=== PATIENT | male | born 1935 | race Caucasian/White ===

== ENCOUNTER → 2017-01-11 | Outpatient (CLI) | payer OTHER ==
[~2017-01-11] MED LIST: ACET325T96 PO; APR25 PO; ASCO500T3 PO; CARV25TA2 PO; CHOL1000 PO; CPR500 PO; CYAN10005 PO; FERR325T5 PO; FURO-85 PO; GLC/500 PO; INSDGI SC; ISOS30TA3 PO; LACTCAP3 PO; LACTTAB7 PO; LEVO50TA6 PO; LISI40TA PO; MAGN400T5 PO; MECL1TAB42 PO; MECL25TA2 PO; NITR0.4S UT; POTA-327 PO; POTA10CA28 PO; RIVA1TAB PO; ROSU40TA PO
[2017-01-11 13:17] LABS: BASO % 0.5 %; BASO ABS # 0.02 K/uL (0-0.2); COMPLETE YES; EOS % 4.6 %; HEMATOCRIT 35.1 % (42-52); IG% 0.2 %; LYMPH ABS # 0.95 K/uL (1.2-3.4); MEAN CELL VOLUME 89.1 fL (80-100); MEAN CORPUSCULAR HEMOGLOBIN 28.2 pg (25-34); MEAN CORPUSCULAR HGB CONC 31.6 g/dl (32-36); MEAN PLATELET VOLUME 10.2 fL (7.4-10.4); MONO % 9.2 %; NEUT % 62.5 %; PLATELET COUNT 235 K/uL (130-400); RED BLOOD COUNT 3.94 M/uL (4.7-6.1); WHITE BLOOD COUNT 4.13 K/uL (4.8-10.8)
[2017-01-11 13:39] LABS: BLOOD UREA NITROGEN 25 mg/dl (7-18); BUN/CREATININE RATIO 24.8 (10-20); CALCIUM 9.1 mg/dl (8.5-10.1); CARBON DIOXIDE 28 mmol/L (21-32); CHLORIDE 108 mmol/L (98-107); CHOLESTEROL 106 mg/dl (0-200); GLUCOSE 96 mg/dl (70-99); POTASSIUM 4.3 mmol/L (3.5-5.1); SODIUM 140 mmol/L (136-145); TRIGLYCERIDES 81 mg/dl (0-150); VERY LOW DENSITY LIPOPROT CALC 16 mg/dl
[2017-01-11 13:50] LABS: ESTIMATED AVERAGE GLUCOSE 114 mg/dl; HA1C FLAG Normal (Normal)
[2017-01-11 13:53] LABS: CHOLESTEROL/HDL RATIO 3.5; FERRITIN 34.1 ng/ml (8.0-388.0); HDL CHOLESTEROL 30 mg/dl; LDL CHOLESTEROL CALCULATED 60 mg/dl
== END | disposition home or self-care (01) ==
LOC: C.LABMFLN 08:22
PROVIDERS: ATTEND Internal Medicine
DX: E11.9 Type 2 diabetes mellitus without complications (principal); E53.8 Deficiency of other specified B group vitamins; E03.9 Hypothyroidism, unspecified; I25.10 Atherosclerotic heart disease of native coronary artery without angina pectoris; D64.9 Anemia, unspecified

== ENCOUNTER → 2017-02-21 | Outpatient (CLI) | payer OTHER ==
--- NOTE | 2017-02-21 11:13 | DIAGNOSTIC IMAGING REPORT ---
ABDOMEN ULTRASOUND FOR HERNIA CLINICAL HISTORY: K40.90 Left inguinal hernia. COMPARISON STUDY: None. FINDINGS: There is a small fat-containing reducible left inguinal hernia. No masses or fluid collections identified. IMPRESSION: There is a small fat-containing reducible left inguinal hernia. Electronically signed by: Fortino Sky M.D. 02/21/2017 11:11 AM Dictated Date/Time: 02/21/2017 11:11 AM
--- NOTE | 2017-02-21 11:20 | DIAGNOSTIC IMAGING REPORT ---
SCROTAL ULTRASOUND CLINICAL HISTORY: Left testicular swelling. COMPARISON STUDY: None. TECHNIQUE: Grayscale and color and duplex Doppler sonography of the scrotum was performed. FINDINGS: The right testis measures 3.3 x 1.4 x 2.7 cm and the left measures 4.3 x 3.1 x 3.3 cm. There is no testicular mass. There is no evidence of testicular torsion. The left epididymis is enlarged, heterogeneous and hypervascular when compared to the right. There is increased flow within the left testis was compared to the right. The right epididymis appears enlarged and heterogeneous but is not hypervascular. A left-sided varicocele is noted. There is a moderate left hydrocele. IMPRESSION: 1. Findings suggestive of left-sided epididymoorchitis. 2. No evidence of testicular torsion. No testicular mass. 3. Left-sided varicocele and moderate sized left hydrocele. Electronically signed by: Chang Lester M.D. 02/21/2017 11:19 AM Dictated Date/Time: 02/21/2017 11:15 AM
== END | disposition home or self-care (01) ==
LOC: C.ULTR 10:19
PROVIDERS: ATTEND Internal Medicine
DX: K40.90 Unilateral inguinal hernia, without obstruction or gangrene, not specified as recurrent (principal); I86.1 Scrotal varices; N43.3 Hydrocele, unspecified

== ENCOUNTER → 2017-05-23 | Outpatient (CLI) | payer OTHER | END | disposition home or self-care (01) | LOC: C.LABMFLN 12:38 | PROVIDERS: ATTEND Internal Medicine | DX: D64.9 Anemia, unspecified (principal) ==

== ENCOUNTER 2017-06-12 17:16 | Emergency (ER) | payer OTHER ==
[~2017-06-12] VITALS: Ht 172.7 cm; Wt 80.0 kg
[~2017-06-12 17:16] MED LIST changes: -ACET325T96 PO; -ASCO500T3 PO; -CARV25TA2 PO; -CHOL1000 PO; -CYAN10005 PO; -FERR325T5 PO; -FURO-85 PO; -GLC/500 PO; -ISOS30TA3 PO; -LACTTAB7 PO; -LEVO50TA6 PO; -LISI40TA PO; -MAGN400T5 PO; -MECL1TAB42 PO; -NITR0.4S UT; -POTA10CA28 PO; -RIVA1TAB PO; -ROSU40TA PO
[2017-06-12 17:45] VITALS: BP 99/55; PULSE 66; TEMP 36.9; O2SAT 91; Ht 172.7 cm; Wt 80.0 kg
--- NOTE | 2017-06-12 18:21 | EMERGENCY ROOM VISIT NOTE ---
History First contact with patient: 17:49 Chief Complaint: BITE Stated Complaint: GOT BIT BY A WHITE WOOLY WORM History of Present Illness The patient is a 82 year old male who presents to the Emergency Room with complaints of residual discomfort in the lower back/upper buttock region that radiates around to the left hip and groin. The patient reports that he is certain that he was bitten by a white worm on Monday as he was leaning back against a bench and felt something sharp and stinging in his lower back. He then noticed a white caterpillar that fell off of his pants. The patient reports that over the past 24 hours, the pain is extending around the hip region. He denies any significant history of lower back pain or hip pain. He does report a history of Lyme disease approximately 3-4 years ago. At the current time, he rates his discomfort a 3 out of 10, and reports that it initially felt like a stinging sensation. The patient has not taken any analgesics or other OTC medications for his symptoms. 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 (3) CHF (congestive heart failure) (4) Cholecystitis (5) CORON ATHEROSCLER NOS TYPE VESSEL, [place] OR GRAFT (6) DIAB DEJA WO COMPL, TYPE II OR UNSPEC TYPE, NOT UNCNTRLD (7) HYPERLIPIDEMIA NEC/NOS (8) HYPERTENSION NOS (9) Hypoxia (10) Lyme disease (11) SIRS (systemic inflammatory response syndrome) (12) UTI (urinary tract infection) (13) UTI (urinary tract infection) (14) Weakness (15) Weakness Family History Diabetes mellitus FHx: heart disease Hypertension Social History Smoking Status: Former Smoker Alcohol Use: none Drug Use: none Marital Status: Housing Status: lives with significant other Occupation Status: retired Current/Historical Medications Scheduled Ascorbic Acid (Vitamin C), 500 MG PO BID Carvedilol (Coreg), 25 MG PO BID Cholecalciferol (Vitamin D3), 1,000 INTER.UNIT PO DAILY Ciprofloxacin (Ciprofloxacin HCl), 500 MG PO BID Ciprofloxacin (Ciprofloxacin HCl), 500 MG PO BID Cyanocobalamin (Vitamin B-12), 1,000 MCG PO BID Ferrous Sulfate (Ferrous Sulfate), 325 MG PO BID Furosemide (Lasix), 20 MG PO DAILY Hydralazine Hcl (Apresoline), 25 MG PO TID Insulin Glargine (Lantus), 14 UNITS SC HS Isosorbide Mononitrate Ext Rel (Imdur Ext Rel), 30 MG PO QAM Lactobacillus (Acidophilus), 2 CAP PO BID Lisinopril (Zestril), 40 MG PO DAILY Magnesium Oxide (Mag-Ox), 400 MG PO BID Meclizine Hcl (Antivert), 25 MG PO BID Potassium Ext Rel (Klor-Con), 10 MEQ PO DAILY Rivaroxaban (Xarelto), 10 MG PO DAILY Rosuvastatin Calcium (Crestor), 40 MG PO DAILY Scheduled PRN Acetaminophen Tab (Tylenol), 1-2 TAB PO Q4 PRN for Pain or Fever Nitroglycerin (Nitrostat), 0.4 MG UT PRN PRN for Chest Pain Physical Exam Vital Signs Date Time Temp Pulse Resp B/P (MAP) Pulse Ox O2 Delivery O2 Flow Rate FiO2 06/12/17 17:45 36.9 66 18 99/55 91 Room Air Physical Exam CONSTITUTIONAL: Healthy and well nourished. HEENT: Normocephalic, atraumatic. Pupils equal, round and reactive. NECK: Full active range of motion without discomfort. RESPIRATORY: Clear to auscultation bilaterally with no wheezing, crackles, rhonchi or stridor. CARDIOVASCULAR: Regular rate and rhythm with no murmurs, rubs or gallops. GASTROINTESTINAL: Bowel sounds present in all quadrants. MUSCULOSKELETAL: Full range of motion of all joints without discomfort. Patient has no tenderness to palpation through the central lumbar spine, SI joints or sciatic notches. Negative logroll. Negative sitting straight leg raise. INTEGUMENTARY: Examination does not show any significant erythematous rash over the lower back or buttock region. He also has no dermatomal rash along the left buttock and hip region. Wrist no soft tissue edema or erythema. NEUROLOGIC: No focal neurologic deficits noted. Medical Decision & Procedures ED Course Patient history and physical exam were performed. Nurse's notes were reviewed. Vital signs were reviewed and were normal. The patient's clinical exam does not show any significant rash at this time. Given that the patient reports that he did brush a white caterpillar off of his back, I suspect that the patient did have contact with a white [place] month caterpillar. I did pronounce an information sheet for the patient with a photo that the patient reports toxic exactly like the worm that he brushed off of his pants. The patient was advised that he may be having persistent reaction to the caterpillar sting. He was encouraged to intermittently apply ice to the area of discomfort. He was encouraged to follow-up with his PCP within the next few days for recheck. He is welcome to return to the emergency department for any progressively worsening pain or developing fever. I also told the patient to watch for any developing red rash, and if this develops, his diagnosis is herpes zoster. The patient was happy with plan of care, voiced understanding of all discharge instructions, and denied any significant discomfort at the time of discharge. Medical Decision Medication Reconcilliation Current Medication List: was personally reviewed by me Blood Pressure Screening Patient's blood pressure: Normal blood pressure Impression Primary Impression: Reaction to insect bite Departure Information Dispostion Home / Self-Care Forms HOME CARE DOCUMENTATION FORM, IMPORTANT VISIT INFORMATION Patient Instructions My [facility] Additional Instructions Try applying an ice pack to lower back/buttocks. The reaction that you're having is likely from the chemical from the [place] caterpillar hairs. Suggest follow-up with your family doctor in a few days for reevaluation. If you start to develop a rash around your left side/hip region, it is likely shingles.
[2017-07-14] MEDS ORDERED: ISOS30TA3 PO (11:21)
[2017-07-14] MEDS ORDERED: CARV25TA2 PO (11:21)
[2017-07-14] MEDS ORDERED: FURO-85 PO (11:21)
[2017-07-14] MEDS ORDERED: MAGN400T5 PO (11:23)
[2017-07-14] MEDS ORDERED: NITR0.4S UT (11:23)
[2017-07-14] MEDS ORDERED: LISI40TA PO (18:09)
[2017-07-14] MEDS ORDERED: ROSU40TA PO (18:09)
[2017-07-14] MEDS ORDERED: CYAN10005 PO (18:24)
[2017-07-14] MEDS ORDERED: CHOL1000 PO (18:24)
== END 2017-06-12 18:31 | disposition home or self-care (01) ==
LOC: C.EDB 17:17 → C.EDD 18:31
DX: S30.860A Insect bite (nonvenomous) of lower back and pelvis, initial encounter (principal); W57.XXXA Bitten or stung by nonvenomous insect and other nonvenomous arthropods, initial encounter; I50.9 Heart failure, unspecified; E11.9 Type 2 diabetes mellitus without complications; E78.5 Hyperlipidemia, unspecified; I10 Essential (primary) hypertension; R09.02 Hypoxemia; Z83.3 Family history of diabetes mellitus; Z82.49 Family history of ischemic heart disease and other diseases of the circulatory system; Z87.891 Personal history of nicotine dependence

== ENCOUNTER → 2017-06-14 | Outpatient (CLI) | payer OTHER ==
[~2017-06-14] MED LIST changes: +ACET325T96 PO; -APR25 PO; +ASCO500T3 PO; +CARV25TA2 PO; +CHOL1000 PO; -CPR500 PO; +CYAN10005 PO; +FERR325T5 PO; +FURO-85 PO; +GLC/500 PO; +ISOS30TA3 PO; -LACTCAP3 PO; +LACTTAB7 PO; +LEVO50TA6 PO; +LISI40TA PO; +MAGN400T5 PO; +MECL1TAB42 PO; +NITR0.4S UT; +POTA10CA28 PO; +RIVA1TAB PO; +ROSU40TA PO
[2017-06-14 17:33] LABS: URINE APPEARANCE CLOUDY (CLEAR); URINE BILIRUBIN NEG (NEG); URINE COLOR YELLOW; URINE NITRITE POS (NEG); URINE PH 6.5 (4.5-7.5); URINE SPECIFIC GRAVITY 1.021 (1.000-1.030); UROBILINOGEN NEG (NEG); ZZUR CULT IF INDIC CLEAN CATCH YES
[2017-06-14 17:39] LABS: MANUAL MICROSCOPIC REQUIRED? NO; REVIEW REQ? NO
== END | disposition home or self-care (01) ==
LOC: C.LAB1850 16:58
PROVIDERS: ATTEND Nurse Practitioner Adult Health
DX: N50.89 Other specified disorders of the male genital organs (principal)

== ENCOUNTER → 2017-06-16 | Outpatient (CLI) | payer OTHER ==
--- NOTE | 2017-06-16 09:17 | DIAGNOSTIC IMAGING REPORT ---
(TESTICULAR) SCROTUM-CONT CLINICAL HISTORY: 82 years-old Male presenting with N50.89 Testicular swelling. TECHNIQUE: Real-time grayscale and color and spectral Doppler ultrasound imaging of the scrotum was performed. COMPARISON: 02/21/2017. FINDINGS: Right testis: Normal echogenicity and size, measuring 3.5 x 1.4 x 2.2 cm. Essentially normal color Doppler flow. Preserved arterial and venous waveforms in the testicular parenchyma. Epididymal head is heterogeneously hypoechoic and enlarged. A small subcentimeter anechoic cyst is noted in the epididymal head, either epididymal head cyst or spermatocele. Hyperemia of the epididymis may also be present. No varicocele. No hydrocele. Left testis: The testis is normal in echogenicity and size, measuring 3.9 x 3.1 x 2.9 cm. However, a 0.7 x 1.2 x 1.2 cm anechoic collection is noted along the periphery of the testis, although not clearly within the parenchyma. Hyperemia of the testis on color Doppler. Preserved arterial and venous waveforms in the testicular parenchyma. Marked enlargement of the epididymis with hyperemia. No varicocele. Moderate hydrocele, which may be septated. Bilaterally symmetric perfusion of the testes. IMPRESSION: 1. No evidence of testicular torsion. 2. Edematous and hyperemic epididymides bilaterally with a hyperemic left testis. These findings are consistent with epididymitis-orchitis. 3. The anechoic collection along the periphery of the left testis is favored to represent a paratesticular cyst rather than an intraparenchymal collection. However, short-term follow-up ultrasound of the scrotum is recommended to confirm resolution. 4. Moderate left hydrocele, which may be septated. Electronically signed by: Collin Villa M.D. 06/16/2017 9:16 AM Dictated Date/Time: 06/16/2017 9:08 AM
== END | disposition home or self-care (01) ==
LOC: C.ULTR 08:16
PROVIDERS: ATTEND Nurse Practitioner Adult Health
DX: N50.89 Other specified disorders of the male genital organs (principal)

== ENCOUNTER → 2017-06-21 | Outpatient (CLI) | payer OTHER ==
[2017-06-21 17:37] LABS: BASO % 0.1 %; BASO ABS # 0.01 K/uL (0-0.2); COMPLETE YES; EOS % 2.1 %; HEMATOCRIT 29.8 % (42-52); IG% 0.4 %; LYMPH % 14.5 %; LYMPH ABS # 1.03 K/uL (1.2-3.4); MEAN CELL VOLUME 86.6 fL (80-100); MEAN CORPUSCULAR HGB CONC 31.2 g/dl (32-36); MEAN PLATELET VOLUME 9.3 fL (7.4-10.4); MONO % 8.2 %; NEUT % 74.7 %; PLATELET COUNT 278 K/uL (130-400); RED BLOOD COUNT 3.44 M/uL (4.7-6.1); WHITE BLOOD COUNT 7.08 K/uL (4.8-10.8)
[2017-06-21 17:59] LABS: BLOOD UREA NITROGEN 38 mg/dl (7-18); BUN/CREATININE RATIO 25.6 (10-20); CALCIUM 8.9 mg/dl (8.5-10.1); CARBON DIOXIDE 24 mmol/L (21-32); CHLORIDE 106 mmol/L (98-107); GLUCOSE 103 mg/dl (70-99); SODIUM 136 mmol/L (136-145)
== END | disposition home or self-care (01) ==
LOC: C.LAB1850 16:50
PROVIDERS: ATTEND Nurse Practitioner Adult Health
DX: I10 Essential (primary) hypertension (principal); N39.0 Urinary tract infection, site not specified

== ENCOUNTER → 2017-06-30 | Outpatient (CLI) | payer OTHER ==
[2017-06-30 12:14] LABS: BASO % 0.2 %; BASO ABS # 0.01 K/uL (0-0.2); COMPLETE YES; EOS % 3.3 %; HEMATOCRIT 29.9 % (42-52); IG% 0.2 %; LYMPH ABS # 0.81 K/uL (1.2-3.4); MEAN CELL VOLUME 87.7 fL (80-100); MEAN CORPUSCULAR HEMOGLOBIN 26.7 pg (25-34); MEAN CORPUSCULAR HGB CONC 30.4 g/dl (32-36); MEAN PLATELET VOLUME 9.7 fL (7.4-10.4); NEUT % 73.3 %; PLATELET COUNT 326 K/uL (130-400); RED BLOOD COUNT 3.41 M/uL (4.7-6.1); WHITE BLOOD COUNT 5.39 K/uL (4.8-10.8)
[2017-06-30 12:22] LABS: ALT/SGPT 25 U/L (12-78); AST/SGOT 27 U/L (15-37); BLOOD UREA NITROGEN 28 mg/dl (7-18); BUN/CREATININE RATIO 30.4 (10-20); CARBON DIOXIDE 26 mmol/L (21-32); CHLORIDE 105 mmol/L (98-107); CHOLESTEROL 90 mg/dl (0-200); CREATININE 0.93 mg/dl (0.60-1.40); GLUCOSE 86 mg/dl (70-99); POTASSIUM 4.5 mmol/L (3.5-5.1); SODIUM 136 mmol/L (136-145)
[2017-06-30 12:32] LABS: CHOLESTEROL/HDL RATIO 3.5; HDL CHOLESTEROL 26 mg/dl; LDL CHOLESTEROL CALCULATED 51 mg/dl; TRIGLYCERIDES 67 mg/dl (0-150); VERY LOW DENSITY LIPOPROT CALC 13 mg/dl
[2017-06-30 13:06] LABS: ESTIMATED AVERAGE GLUCOSE 140 mg/dl; HA1C FLAG Normal (Normal)
[2017-06-30 14:18] LABS: URINE APPEARANCE CLEAR (CLEAR); URINE BILIRUBIN NEG (NEG); URINE COLOR YELLOW; URINE EPITHELIAL CELL AUTO 20-30 /lpf (0-5); URINE NITRITE NEG (NEG); URINE PH 6.5 (4.5-7.5); URINE SPECIFIC GRAVITY 1.021 (1.000-1.030); UROBILINOGEN NEG (NEG); ZZUR CULT IF INDIC CLEAN CATCH NO
[2017-06-30 14:21] LABS: MANUAL MICROSCOPIC REQUIRED? NO; REVIEW REQ? NO
[2017-06-30 14:44] LABS: RATIO 116.1 mcg/mg (0-30.0)
== END | disposition home or self-care (01) ==
LOC: C.LAB1850 10:05
PROVIDERS: ATTEND Nurse Practitioner Adult Health
DX: N39.0 Urinary tract infection, site not specified (principal); N50.89 Other specified disorders of the male genital organs; E11.9 Type 2 diabetes mellitus without complications; E78.5 Hyperlipidemia, unspecified; E06.3 Autoimmune thyroiditis; I10 Essential (primary) hypertension; R79.89 Other specified abnormal findings of blood chemistry; D64.9 Anemia, unspecified

== ENCOUNTER → 2017-07-10 | Outpatient (CLI) | payer OTHER | END | disposition home or self-care (01) | LOC: C.LABSPEC 13:25 | PROVIDERS: ATTEND Internal Medicine | DX: Z87.19 Personal history of other diseases of the digestive system (principal) ==

== ENCOUNTER 2017-07-14 18:54 | Inpatient (IN) | payer OTHER ==
[~2017-07-14] VITALS: Ht 172.7 cm; Wt 72.8 kg
[2017-07-14 00:35] VITALS: BP 117/72; PULSE 62; TEMP 36.4; O2SAT 97; BMI 25.6
[~2017-07-14 18:54] MED LIST changes: -ACET325T96 PO; -ASCO500T3 PO; -FERR325T5 PO; -GLC/500 PO; -LACTTAB7 PO; -LEVO50TA6 PO; -MECL1TAB42 PO; -POTA10CA28 PO; -RIVA1TAB PO
[2017-07-14] MEDS ORDERED: LEVO50TA6 PO (18:56)
[2017-07-14] MEDS ORDERED: GLC/500 PO (18:58)
--- NOTE | 2017-07-14 20:16 | EMERGENCY ROOM VISIT NOTE ---
History Report prepared by Marielena: Rich Sheppard Under the Supervision of: Dr. Ramirez Sampson D.O. First contact with patient: 19:47 Chief Complaint: ABNORMAL LABS Stated Complaint: LOW BLOOD History of Present Illness The patient is a 82 year old male who presents to the Emergency Room with complaints of constant abnormal lab results that occurred prior to arrival. The patient states that he has checked his blood three times in the last week and each time his blood count has been low. He states that he experiences shortness of breath and dizziness whenever he walks and lays flat. He reports that his blood level was down to 8 after his lab results came back today. The patient states that his PCP, Dr. Mcmahon told him to report to the ED. He reports that he had a blood transfusion when he had Lyme's disease 15 years ago. The patient states that he has a history of heart disease, diabetes, SC, and heart surgery. He reports that his legs are not more swollen than usual. The patient admits that he was on blood thinners, but was taken off of them 5 or 6 days ago. He denies a previous rectal exam, abdominal pain, nausea, and vomiting. 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 A total of 10 systems reviewed and were otherwise negative. 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 (4) CHF (congestive heart failure) (5) Cholecystitis (6) Congestive heart failure with reduced left ventricular function, NYHA class 3 (7) CORON ATHEROSCLER NOS TYPE VESSEL, [place] OR GRAFT (8) DIAB DEJA WO COMPL, TYPE II OR UNSPEC TYPE, NOT UNCNTRLD (9) HYPERLIPIDEMIA NEC/NOS (10) HYPERTENSION NOS (11) Hypoxia (12) Lyme disease (13) Pulmonary edema with congestive heart failure with reduced left ventricular function (14) SIRS (systemic inflammatory response syndrome) (15) UTI (urinary tract infection) (16) UTI (urinary tract infection) (17) Weakness (18) Weakness Family History Diabetes mellitus FHx: heart disease Hypertension Social History Smoking Status: Former Smoker Alcohol Use: none Drug Use: none Marital Status: Housing Status: lives with significant other Occupation Status: retired Current/Historical Medications Scheduled Ascorbic Acid (Vitamin C), 500 MG PO BID Carvedilol (Coreg), 25 MG PO BID Cholecalciferol (Vitamin D3), 1,000 INTER.UNIT PO DAILY Cyanocobalamin (Vitamin B-12), 1,000 MCG PO BID Ferrous Sulfate (Ferrous Sulfate), 325 MG PO BID Furosemide (Lasix), 20 MG PO DAILY Insulin Glargine (Lantus), 14 UNITS SC QPM Isosorbide Mononitrate Ext Rel (Imdur Ext Rel), 30 MG PO QAM Lactobacillus (Acidophilus), 1 TAB PO DAILY Levothyroxine Sodium (Levothyroxine Sodium), 50 MCG PO DAILY Lisinopril (Zestril), 40 MG PO DAILY Magnesium Oxide (Mag-Ox), 400 MG PO BID Meclizine Hcl (Meclizine Hcl), 1 TAB PO BID Metformin Hcl (Glucophage), 500 MG PO BIDM Potassium Chloride (Micro-K Ext Rel), 10 MEQ PO DAILY Rivaroxaban (Xarelto), 10 MG PO DAILY Rosuvastatin Calcium (Crestor), 40 MG PO DAILY Scheduled PRN Acetaminophen Tab (Tylenol), 1-2 TAB PO Q4 PRN for Pain or Fever Nitroglycerin (Nitrostat), 0.4 MG UT PRN PRN for Chest Pain Allergies Coded Allergies: Simvastatin (Verified Allergy, Unknown, UNKNOWN, 06/12/17) Atorvastatin (Unverified Adverse Reaction, Intermediate, MYALGIA, 06/12/17) Physical Exam Vital Signs Date Time Temp Pulse Resp B/P (MAP) Pulse Ox O2 Delivery O2 Flow Rate FiO2 07/14/17 20:36 60 07/14/17 18:59 36.9 64 18 106/62 96 Room Air Physical Exam GENERAL: Patient is awake, alert, and in no acute distress. Patient is resting comfortably and showing no signs of anxiety EYES: The conjunctivae are clear. The pupils are round and reactive. EARS, NOSE, MOUTH AND THROAT: The nose is without any evidence of any deformity. Mucous membranes are moist tongue is midline NECK: The neck is nontender and supple. RESPIRATORY: Lungs diminish in both watson, rales noted at both watson. Mild conversational dyspnea. CARDIOVASCULAR: Regular rate and rhythm noted to oscillation. Systolic murmur was suggested. GASTROINTESTINAL: The abdomen is soft. Bowel sounds are present in all quadrants. Abdomen is moderately distended with no tenderness, guarding or rigidity. PELVIS: The Pelvis is stable. No tenderness to palpation is noted. BACK: No midline tenderness or or step-off noted range of motion in flexion extension as well as rotation no signs of muscle spasm noted MUSCULOSKELETAL/EXTREMITIES: There is no evidence of gross deformity full range of motion is noted in the hips and shoulders SKIN: There is no obvious evidence of any rash. There are no petechiae, pallor or cyanosis noted. Pedal edema bilaterally. NEUROLOGIC: Patient is awake alert and oriented x3 strength is symmetric patellar reflexes are 2+ bilaterally Medical Decision & Procedures ER Provider Diagnostic Interpretation: X-ray results as stated below per interpretation by me and the radiologist. CHEST ONE VIEW PORTABLE HISTORY: 82 years-old Male ABDOMINAL PAIN/GI acute generalized abdominal pain. COMPARISON: Chest radiograph 04/22/2016, chest radiograph 07/30/2015, CTA 02/04/2014 TECHNIQUE: Portable upright AP view of the chest FINDINGS: Cardiac silhouette is moderately enlarged. Prior median sternotomy. Left pectoral pacer is noted with leads intact. There is no pneumothorax. Chronic interstitial opacities are again noted with pulmonary vascular congestion. There are hazy perihilar and bibasilar opacities present with a small right pleural effusion. The bones are grossly intact. IMPRESSION: 1. There is cardiomegaly with chronic background interstitial opacities and suggested mild superimposed pulmonary edema. 2. Bibasilar opacities suggest atelectasis with small right pleural effusion. The above report was generated using voice recognition software. It may contain grammatical, syntax or spelling errors. Electronically signed by: Ulysses Mulligan M.D. 07/14/2017 8:54 PM Dictated Date/Time: 07/14/2017 8:51 PM Laboratory Results 07/14/17 20:05 Red Blood Count 3.08, Mean Corpuscular Volume 86.0, Mean Corpuscular Hemoglobin 26.3, Mean Corpuscular Hemoglobin Concent 30.6, Mean Platelet Volume 9.7, Neutrophils (%) (Auto) 72.6, Lymphocytes (%) (Auto) 14.8, Monocytes (%) (Auto) 10.1, Eosinophils (%) (Auto) 2.1, Basophils (%) (Auto) 0.2, Neutrophils # (Auto ) 4.24, Lymphocytes # (Auto) 0.86, Monocytes # (Auto) 0.59, Eosinophils # (Auto ) 0.12, Basophils # (Auto) 0.01 07/14/17 20:05 Test 07/14/17 20:05 White Blood Count 5.83 K/uL (4.8-10.8) Red Blood Count 3.08 M/uL (4.7-6.1) Hemoglobin 8.1 g/dL (14.0-18.0) Hematocrit 26.5 % (42-52) Mean Corpuscular Volume 86.0 fL (80-100) Mean Corpuscular Hemoglobin 26.3 pg (25-34) Mean Corpuscular Hemoglobin Concent 30.6 g/dl (32-36) Platelet Count 233 K/uL (130-400) Mean Platelet Volume 9.7 fL (7.4-10.4) Neutrophils (%) (Auto) 72.6 % Lymphocytes (%) (Auto) 14.8 % Monocytes (%) (Auto) 10.1 % Eosinophils (%) (Auto) 2.1 % Basophils (%) (Auto) 0.2 % Neutrophils # (Auto) 4.24 K/uL (1.4-6.5) Lymphocytes # (Auto) 0.86 K/uL (1.2-3.4) Monocytes # (Auto) 0.59 K/uL (0.11-0.59) Eosinophils # (Auto) 0.12 K/uL (0-0.5) Basophils # (Auto) 0.01 K/uL (0-0.2) RDW Standard Deviation 52.8 fL (36.4-46.3) RDW Coefficient of Variation 16.8 % (11.5-14.5) Immature Granulocyte % (Auto) 0.2 % Immature Granulocyte # (Auto) 0.01 K/uL (0.00-0.02) Ovalocytes 1+ Schistocytes 1+ Absolute Reticulocyte Count 0.11 10^6/uL (0.02-0.10) Percent Reticulocyte Count 3.6 % (0.5-2.0) Immature Reticulocyte Fraction 24.8 % (2.3-13.4) Reticulocyte Hemoglobin Content 24.6 PG (28.2-36.6) Prothrombin Time 12.5 SECONDS (9.0-12.0) Prothromb Time International Ratio 1.2 (0.9-1.1) Activated Partial Thromboplast Time 26.6 SECONDS (21.0-31.0) Partial Thromboplastin Ratio 1.0 Anion Gap 7.0 mmol/L (3-11) Est Creatinine Clear Calc Drug Dose 49.2 ml/min Estimated GFR () 71.6 Estimated GFR (Non- 61.8 BUN/Creatinine Ratio 31.5 (10-20) Calcium Level 8.8 mg/dl (8.5-10.1) Total Bilirubin 1.0 mg/dl (0.2-1) Direct Bilirubin 0.3 mg/dl (0-0.2) Aspartate Amino Transf (AST/SGOT) 28 U/L (15-37) Alanine Aminotransferase (ALT/SGPT) 25 U/L (12-78) Alkaline Phosphatase 101 U/L (45-117) Total Creatine Kinase 153 U/L (39-308) Creatine Kinase MB 3.6 ng/ml (0.5-3.6) Creatine Kinase MB Ratio 2.4 (0-3.0) Troponin I 0.016 ng/ml (0-0.045) Pro-B-Type Natriuretic Peptide 2332 pg/ml (0-1800) Total Protein 7.3 gm/dl (6.4-8.2) Albumin 3.5 gm/dl (3.4-5.0) Lipase 97 U/L (73-393) Lyme Disease IgG Antibody POS (NEG) Laboratory results per my review. Medications Administered Medications (Trade) Dose Ordered Sig/Nicki Route Start Time Stop Time Status Last Admin Dose Admin Carvedilol (Coreg Tab) 25 mg BID PO 07/14/17 21:00 08/13/17 20:59 07/15/17 00:02 25 MG Cyanocobalamin (Vitamin B-12 Tab) 1,000 mcg BID PO 07/14/17 21:00 08/13/17 20:59 07/15/17 00:02 1,000 MCG Magnesium Oxide (Mag-Ox Tab) 400 mg BID PO 07/14/17 21:00 08/13/17 20:59 07/15/17 00:02 400 MG Meclizine HCl (Antivert Tab) 25 mg BID PO 07/14/17 21:00 08/13/17 20:59 07/15/17 00:03 25 MG ED Course 1947: The patient was evaluated in room B05. A complete history and physical examination were performed. 2007: I discussed the patient's case with Dr. Freeman [facility] Hospitalist. He understands the patient's condition and agrees to accept the patient. The patient will be further evaluated. Medical Decision Prior records/ancillary studies reviewed. Triage Nursing notes reviewed. Differential diagnosis: Etiologies such as diverticulosis, AVM, coagulopathy, colitis, inflammatory bowel disease, malignancy, Alma-Laura tear, esophagitis, peptic ulcer disease , variceal bleed, gastritis, epistaxis, fissure, hemorrhoids, as well as others were entertained. The patient is an 82-year-old male who presented to the emergency department for an evaluation of generalized weakness and dyspnea on exertion. The patient has had multiple lab testing done over the last few weeks with his primary care physician. It was noted that his hemoglobin continue to drop. He was sent to the emergency department today after laboratory showed a significant drop in his hemoglobin. He also had been positive stool noted in the lab. The patient's condition improved rest was supple and oxygen. I discussed his case with the on- call [facility] hospitalist group. They have agreed to evaluate the patient in emergency apartment for further management and disposition. Blood Pressure Screening Patient's blood pressure: Normal blood pressure Consults Time Called: 2007 Consulting Physician: Dr. Freeman [facility] Hospitalist Returned Call: 2007 I discussed the patient's case with Dr. Freeman [facility] Hospitalist. He understands the patient's condition and agrees to accept the patient. The patient will be further evaluated. Impression Primary Impression: Symptomatic anemia Additional Impressions: GI bleeding Dyspnea on exertion Scribe Attestation The scribe's documentation has been prepared under my direction and personally reviewed by me in its entirety. I confirm that the note above accurately reflects all work, treatment, procedures, and medical decision making performed by me. Departure Information Dispostion Being Evaluated By Hospitalist Referrals No Doctor, Assigned (PCP) Patient Instructions My [facility] Problem Qualifiers
[2017-07-14 20:21] LABS: BASO % 0.2 %; BASO ABS # 0.01 K/uL (0-0.2); EOS % 2.1 %; HEMATOCRIT 26.5 % (42-52); IG% 0.2 %; IMMATURE RETIC FRACTION 24.8 % (2.3-13.4); LYMPH % 14.8 %; LYMPH ABS # 0.86 K/uL (1.2-3.4); MEAN CORPUSCULAR HEMOGLOBIN 26.3 pg (25-34); MEAN CORPUSCULAR HGB CONC 30.6 g/dl (32-36); MEAN PLATELET VOLUME 9.7 fL (7.4-10.4); MONO % 10.1 %; NEUT % 72.6 %; PLATELET COUNT 233 K/uL (130-400); RED BLOOD COUNT 3.08 M/uL (4.7-6.1); RETHE 24.6 PG (28.2-36.6); WHITE BLOOD COUNT 5.83 K/uL (4.8-10.8)
[2017-07-14 20:33] LABS: INR 1.2 (0.9-1.1); PROTHROMBIN TIME (PATIENT) 12.5 SECONDS (9.0-12.0)
[2017-07-14 20:41] LABS: BUN/CREATININE RATIO 31.5 (10-20); CALCIUM 8.8 mg/dl (8.5-10.1); CREATININE 1.1 mg/dl (0.60-1.40); POTASSIUM 4.6 mmol/L (3.5-5.1)
[2017-07-14 20:46] LABS: CKMB/CK RATIO 2.4 (0-3.0)
[2017-07-14] MEDS ORDERED: INSDGI SC (20:47)
[2017-07-14] MEDS ORDERED: LACTTAB7 PO (20:47)
[2017-07-14] MEDS ORDERED: POTA10CA28 PO (20:47)
[2017-07-14] MEDS ORDERED: MECL1TAB42 PO (20:47)
[2017-07-14 20:53] LABS: COMPLETE YES; OVALOCYTES 1+; SCHISTOCYTES 1+
--- NOTE | 2017-07-14 20:57 | History and Physical ---
History & Physical Date & Time of Service: Jul 14, 2017 at 20:38 Chief Complaint: Low Blood Primary Care Physician: Ramirez Mcmahon M.D. History of Present Illness Source: patient, family (Son - Marcell), clinic records, hospital records Mr Murillo is an 82 year old gentleman who presented to the ER with an low Hbg level taken at Dr Mcmahon's office earlier today. He was taken off his xarelto 5-6 days ago as his Hgb dropped with no known cause. He is taking iron supplementation 01/11/17 - Hgb 11.1 06/21/17 - Hgb 9.3 06/30/17 - Hgb 9.1 07/14/17 - Hgb 8.0 He denies any chest pain or palpitations. He is usually is short of breath on exertion but this has been getting worse over the last week. His Hgb today was 8.0 so he was sent across to the ER. He has also noticed dizziness. Weight and has been steady. He thinks his legs have increased swelling over the last week. He describes worsening orthopnea and PND over the last week. He had acute anemia in 2012 secondary to suspected diverticular bleeding. No bleeding however was found on EGD or colonoscopy. He has a history of coronary artery bypass congestive heart failure with reduced ejection fraction 40-45%. He has also had a recent epididymal orchitis treated with ciprofloxacin 06/21/17 Past Medical/Surgical History Medical Problems: (1) AORTOCORONARY BYPASS Status: Resolved (2) CARDIAC PACEMAKER IN SITU Status: Chronic (3) CHF (congestive heart failure) Status: Resolved (4) CORON ATHEROSCLER NOS TYPE VESSEL, [place] OR GRAFT Status: Chronic (5) DIAB DEJA WO COMPL, TYPE II OR UNSPEC TYPE, NOT UNCNTRLD Status: Chronic (6) HYPERLIPIDEMIA NEC/NOS Status: Chronic (7) HYPERTENSION NOS Status: Chronic (8) Hypoxia Status: Resolved (9) Lyme disease Status: Chronic (10) SIRS (systemic inflammatory response syndrome) Status: Resolved (11) UTI (urinary tract infection) Status: Resolved (12) UTI (urinary tract infection) Status: Resolved (13) Weakness Status: Resolved (14) Weakness Status: Resolved Family History Diabetes mellitus FHx: heart disease Hypertension Social History Smoking Status: Former Smoker Drug Use: none Marital Status: Housing status: lives with significant other Occupational Status: retired Immunizations History of Influenza Vaccine: Yes Influenza Vaccine Date: Jul 19, 2009 History of Tetanus Vaccine?: Yes Tetanus Immunization Date: Jul 07, 2009 History of Pneumococcal: Yes Pneumococcal Date: Jul 07, 2009 History of Hepatitis B Vaccine: No Multi-Drug Resistant Organisms History of MDRO: No Allergies Coded Allergies: Simvastatin (Verified Allergy, Unknown, UNKNOWN, 06/12/17) Atorvastatin (Unverified Adverse Reaction, Intermediate, MYALGIA, 06/12/17) Home Medications Scheduled Ascorbic Acid (Vitamin C), 500 MG PO BID Carvedilol (Coreg), 25 MG PO BID Cholecalciferol (Vitamin D3), 1,000 INTER.UNIT PO DAILY Cyanocobalamin (Vitamin B-12), 1,000 MCG PO BID Ferrous Sulfate (Ferrous Sulfate), 325 MG PO BID Furosemide (Lasix), 20 MG PO DAILY Insulin Glargine (Lantus), 14 UNITS SC QPM Isosorbide Mononitrate Ext Rel (Imdur Ext Rel), 30 MG PO QAM Lactobacillus (Acidophilus), 1 TAB PO DAILY Levothyroxine Sodium (Levothyroxine Sodium), 50 MCG PO DAILY Lisinopril (Zestril), 40 MG PO DAILY Magnesium Oxide (Mag-Ox), 400 MG PO BID Meclizine Hcl (Meclizine Hcl), 1 TAB PO BID Metformin Hcl (Glucophage), 500 MG PO BIDM Potassium Chloride (Micro-K Ext Rel), 10 MEQ PO DAILY Rivaroxaban (Xarelto), 10 MG PO DAILY Rosuvastatin Calcium (Crestor), 40 MG PO DAILY Scheduled PRN Acetaminophen Tab (Tylenol), 1-2 TAB PO Q4 PRN for Pain or Fever Nitroglycerin (Nitrostat), 0.4 MG UT PRN PRN for Chest Pain Review of Systems Constitutional: No fever, No chills Eyes: No worsening of vision ENT: No hearing loss Respiratory: + dyspnea on exertion, No cough, No sputum, No wheezing, No dyspnea at rest, No hemoptysis Cardiovascular: + orthopnea, + PND, + edema, No chest pain, No claudication, No palpitations Abdomen: No pain, No nausea, No vomiting, No diarrhea, No constipation, No GI bleeding Musculoskeletal: No joint pain, No muscle pain Genitourinary - Male: No hematuria, No dysuria, No urinary frequency Neurologic: No memory loss Endocrine: No fatigue Hematologic / Lymphatic: No abnormal bleeding/bruising Integumentary: No rash, No itch Physical Exam Vital Signs Date Time Temp Pulse Resp B/P (MAP) Pulse Ox O2 Delivery O2 Flow Rate FiO2 07/14/17 20:36 60 07/14/17 18:59 36.9 64 18 106/62 96 Room Air General Appearance: no apparent distress Head: normocephalic, atraumatic Eyes: PERRL, EOMI, + pertinent finding (mild dropping of left eye lid chronically) ENT: pharynx normal Neck: supple, trachea midline, + JVD Respiratory/Chest: chest non-tender, no respiratory distress, no accessory muscle use, + crackles (bibasal up to mid zone crackles b/l, no wheezing) Cardiovascular: normal peripheral pulses, + systolic murmur (LUSB), + irregularly irregular Abdomen/GI: normal bowel sounds, non tender, soft Back: no CVA tenderness Extremities/Musculoskelatal: no calf tenderness, normal capillary refill, + pedal edema (2+ b/l up to knees, equal) 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/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, no motor/sensory deficits, alert, oriented x 3 Skin: normal color, warm/dry, no rash Diagnostics Laboratory Results Results Past 24 Hours Test 07/14/17 19:52 07/14/17 20:05 Range/Units Creatine Kinase MB Ratio 0-3.0 White Blood Count 5.83 4.8-10.8 K/uL Red Blood Count 3.08 4.7-6.1 M/uL Hemoglobin 8.1 14.0-18.0 g/dL Hematocrit 26.5 42-52 % Mean Corpuscular Volume 86.0 80-100 fL Mean Corpuscular Hemoglobin 26.3 25-34 pg Mean Corpuscular Hemoglobin Concent 30.6 32-36 g/dl Platelet Count 233 130-400 K/uL Mean Platelet Volume 9.7 7.4-10.4 fL Neutrophils (%) (Auto) 72.6 % Lymphocytes (%) (Auto) 14.8 % Monocytes (%) (Auto) 10.1 % Eosinophils (%) (Auto) 2.1 % Basophils (%) (Auto) 0.2 % Neutrophils # (Auto) 4.24 1.4-6.5 K/uL Lymphocytes # (Auto) 0.86 1.2-3.4 K/uL Monocytes # (Auto) 0.59 0.11-0.59 K/uL Eosinophils # (Auto) 0.12 0-0.5 K/uL Basophils # (Auto) 0.01 0-0.2 K/uL RDW Standard Deviation 52.8 36.4-46.3 fL RDW Coefficient of Variation 16.8 11.5-14.5 % Immature Granulocyte % (Auto) 0.2 % Immature Granulocyte # (Auto) 0.01 0.00-0.02 K/uL Absolute Reticulocyte Count 0.11 0.02-0.10 10^6/uL Percent Reticulocyte Count 3.6 0.5-2.0 % Immature Reticulocyte Fraction 24.8 2.3-13.4 % Reticulocyte Hemoglobin Content 24.6 28.2-36.6 PG Prothrombin Time 12.5 9.0-12.0 SECONDS Prothromb Time International Ratio 1.2 0.9-1.1 Activated Partial Thromboplast Time 26.6 21.0-31.0 SECONDS Partial Thromboplastin Ratio 1.0 Diagnostic Radiology CHEST ONE VIEW PORTABLE HISTORY: 82 years-old Male ABDOMINAL PAIN/GI acute generalized abdominal pain. COMPARISON: Chest radiograph 04/22/2016, chest radiograph 07/30/2015, CTA 02/04/2014 TECHNIQUE: Portable upright AP view of the chest FINDINGS: Cardiac silhouette is moderately enlarged. Prior median sternotomy. Left pectoral pacer is noted with leads intact. There is no pneumothorax. Chronic interstitial opacities are again noted with pulmonary vascular congestion. There are hazy perihilar and bibasilar opacities present with a small right pleural effusion. The bones are grossly intact. IMPRESSION: 1. There is cardiomegaly with chronic background interstitial opacities and suggested mild superimposed pulmonary edema. 2. Bibasilar opacities suggest atelectasis with small right pleural effusion. The above report was generated using voice recognition software. It may contain grammatical, syntax or spelling errors. Electronically signed by: Ulysses Mulligan M.D. 07/14/2017 8:54 PM Dictated Date/Time: 07/14/2017 8:51 PM EKG pending Impression Assessment and Plan 82 year old male with shortness of breath on exertion, orthopnea and PND with low Hgb Acute on chronic congestive heart failure with reduced ejection fraction - lasix 20mg IV now and QAM - strict I&Os - daily weights - Echo April 2016, will repeat as > 1 year ago * Ejection Fraction = 40-45%. * Inferior,posterior,and basal septal hypokinesis. - Continue carvedilol, hold lisinopril (restart if renal function and BP stable overnight) - EKG Coronary artery disease - not on ASA, I am currently unclear why he is not on this but also inappropriate to start in setting of possible acute bleed - Continue carvedilol and ISMN - Hold lisinopril as above pending stable BP and Cr Anemia - possible GI bleed, does not appear to be substantially dropping acutely therefore will defer GI consult, most likely slow bleeding diverticula given past history of this. Suspect shortness of breath on exertion multifactorial related to - fecal occult blood - transfuse 1 unit - check cbc in morning - Continue Ferrous sulphate 325mg BID Hypothyroidism - Continue levothyroxine 50mcg Resident Physician Supervision Note: I was present with Dr. Garrison during the history and exam. I discussed the case with the resident and agree with the findings and plan as documented in the note. Any exceptions or clarifications are listed here: 82 y/o M systolic CHF, AF - on Xarelto, previous GI bleed - sent in from PCP office due to low Hb 6.9 Pt has been minimally symptomatic - dizzy and increasingly SOB with exertion Clinically CHF exacerbation is present on admission so that SOB is likely multifactorial OE AAO x 3 JVD present b/l S1,2 faint +M reduced air entry @ bases - R crackles NT, ND + edema P: Pt provided with Lasix and transfused 1 U PRBC Hb will be trended GI eval Xarelto held 5 days earlier Documented By: Helio Freeman Level of Care Telemetry Advanced Directives Existing Advance Directive: Yes Existing Living Will: Yes Resuscitation Status DO NOT RESUSCITATE VTE Prophylaxis Given or contraindicated: T.E.D. Stockings, Contraindicated Additional Copies To Mic Dick M.D.; Pro,Ramirez Vincent M.D. Resident Tracking Resident Involvement: Resident Care Provided Care Provided: Adult Hospital Medicine
[2017-07-14] MEDS ORDERED: FERROUS SULFATE 325 MG TAB PO SCH (21:00)
[2017-07-14 21:15] LABS: LYME DISEASE AB IGM NEG (NEG)
[2017-07-14] MEDS ORDERED: ONDANSETRON INJ 2 MG/ML 2 ML VIAL IV PRN (21:15)
[2017-07-14] MEDS ORDERED: ACETAMINOPHEN 325 MG TAB PO PRN (21:15)
[2017-07-14 21:16] LABS: LYME DISEASE AB IGG POS (NEG)
[2017-07-14] MEDS ORDERED: IV FLUIDS COMPLETED PRN (21:30)
[2017-07-14 22:38] VITALS: BP 148/80; PULSE 61; TEMP 36.7; O2SAT 98
[2017-07-14 22:55] VITALS: BP 146/96; PULSE 67; TEMP 36.7; O2SAT 99
[2017-07-14] MEDS ORDERED: ACET325T96 PO (23:19)
[2017-07-14 23:21] VITALS: BP 145/88; PULSE 67; TEMP 36.7; O2SAT 98
[2017-07-14] MEDS ORDERED: FERR325T5 PO (23:29)
[2017-07-14] MEDS ORDERED: RIVA1TAB PO (23:30)
[2017-07-14] MEDS ORDERED: ASCO500T3 PO (23:30)
[2017-07-14 23:31] LABS: URINE APPEARANCE CLEAR (CLEAR); URINE BILIRUBIN NEG (NEG); URINE COLOR YELLOW; URINE EPITHELIAL CELL AUTO 0-5 /lpf (0-5); URINE NITRITE POS (NEG); URINE SPECIFIC GRAVITY 1.022 (1.000-1.030); UROBILINOGEN NEG (NEG)
[2017-07-14 23:35] VITALS: BP 117/72; PULSE 62; TEMP 36.4; O2SAT 97; Ht 172.7 cm; Wt 72.8 kg
[2017-07-14 23:39] LABS: MANUAL MICROSCOPIC REQUIRED? NO; REVIEW REQ? NO
[2017-07-14] MEDS ORDERED: FUROSEMIDE INJ 20 MG in SYRINGE 0 ML IV ONE (23:45)
[2017-07-15] VITALS (12 sets, daily range): BP systolic 112–152; BP diastolic 62–81; PULSE 59–76; TEMP 36.2–36.9; O2SAT 90–100
[2017-07-15] MEDS: CYANOCOBALAMIN 500 MCG TAB (VIT B-12) PO SCH ×3 (00:02→21:27)
[2017-07-15] MEDS: CARVEDILOL 25 MG TAB PO SCH ×3 (00:02→21:30)
[2017-07-15] MEDS: MAGNESIUM OXIDE 400 MG TAB PO SCH ×3 (00:02→21:28)
[2017-07-15] MEDS: MECLIZINE HCL 12.5 MG TAB PO SCH ×3 (00:03→21:28)
[2017-07-15] MEDS: LEVOTHYROXINE 50 MCG TAB PO SCH (06:02)
[2017-07-15 07:28] LABS: BASO % 0.2 %; BASO ABS # 0.01 K/uL (0-0.2); EOS % 3.8 %; IG% 0.2 %; LYMPH % 21.1 %; LYMPH ABS # 0.88 K/uL (1.2-3.4); MEAN CELL VOLUME 84.4 fL (80-100); MEAN CORPUSCULAR HEMOGLOBIN 26.6 pg (25-34); MEAN CORPUSCULAR HGB CONC 31.5 g/dl (32-36); MEAN PLATELET VOLUME 9.5 fL (7.4-10.4); MONO % 12.9 %; NEUT % 61.8 %; PLATELET COUNT 203 K/uL (130-400); WHITE BLOOD COUNT 4.18 K/uL (4.8-10.8)
[2017-07-15] MEDS: FERROUS SULFATE 325 MG TAB PO SCH ×2 (07:30→16:50)
[2017-07-15] MEDS ORDERED: GLUCOSE 10 TABS/TUBE ONE (07:42)
[2017-07-15 07:58] LABS: COMPLETE YES
[2017-07-15 08:20] LABS: BUN/CREATININE RATIO 31.1 (10-20); CALCIUM 8.8 mg/dl (8.5-10.1)
[2017-07-15 08:21] LABS: POTASSIUM 3.6 mmol/L (3.5-5.1)
[2017-07-15] MEDS: FUROSEMIDE INJ 20 MG in SYRINGE 0 ML IV SCH (08:59)
[2017-07-15] MEDS: ROSUVASTATIN CALCIUM 20 MG TAB PO SCH (09:00)
[2017-07-15] MEDS: ISOSORBIDE MONONITRATE 30 MG TABCR PO SCH (09:00)
[2017-07-15] MEDS: CHOLECALCIFEROL 1000 INTER.UNIT TAB PO SCH (09:00)
[2017-07-15] MEDS: POTASSIUM CHLORIDE 10 MEQ TABCR PO SCH (09:00)
[2017-07-15] MEDS: LACTOBACILLUS ACIDOPHILUS (FLORANEX) TAB PO SCH (09:00)
[2017-07-15] MEDS ORDERED: NURSING VERBAL MED ORDER ONE (11:00)
[2017-07-15] MEDS ORDERED: PERFLUTREN LIPID MICROSPHERE (DEFINITY) IV ONE (11:13)
[2017-07-15] MEDS: CEFTRIAXONE SOD INJ 1000 MG in DEXTROSE 5% 50ML IV SCH (12:07)
--- NOTE | 2017-07-15 13:14 | Medical Consult ---
Consultation Note Date of Service Jul 15, 2017. Consultation Note Reason for consult: anemia History of Present Favian 82 yo M with PMH sig CHF presented with complaint of worsening CLARK x 1 week, found to have anemia. His Hgb in December was 11, in early and mid Jun was 9, and is now 8. He is on Xarelto, although indication is not clear in medical records. He is not on ASA. His xarleto was held a week ago. He has a h/o chornic iron def, with low ferritin at least since 2012, and is maintained on both iron and B12 supplementation. He had a presumed diverticular bleed in 2012- at that time, EGD was unremarkable ; cscopy showed fair prep and tics. He denies any recent symptoms suggestive of GIB. He has been given 1 unit with ris in Hgb this am to mid 8's. Review of labs show g pos stool, and UA without blood. His anemia is normoocytic with high RDW and low retic index, B12 is normal, Ferritin in 40's, BUN 30's with creat in the 1's and elevated BNP. Past Medical/Surgical History Medical Problems: (1) AORTOCORONARY BYPASS Status: Resolved (2) CARDIAC PACEMAKER IN SITU Status: Chronic (3) CHF (congestive heart failure) Status: Resolved (4) CORON ATHEROSCLER NOS TYPE VESSEL, [place] OR [place]RA[place] Status: Chronic (5) DIAB DEJA WO COMPL, TYPE II OR UNSPEC TYPE, NOT UNCNTRLD Status: Chronic (6) HYPERLIPIDEMIA NEC/NOS Status: Chronic (7) HYPERTENSION NOS Status: Chronic (8) Hypoxia Status: Resolved (9) Lyme disease Status: Chronic (10) SIRS (systemic inflammatory response syndrome) Status: Resolved (11) UTI (urinary tract infection) Status: Resolved (12) UTI (urinary tract infection) Status: Resolved (13) Weakness Status: Resolved (14) Weakness Status: Resolved Family History Diabetes mellitus FHx: heart disease Hypertension Social History Smoking Status: Former Smoker Drug Use: none Marital Status: Housing status: lives with significant other Occupational Status: retired Immunizations History of Influenza Vaccine: Yes Influenza Vaccine Date: Jul 19, 2009 History of Tetanus Vaccine?: Yes Tetanus Immunization Date: Jul 07, 2009 History of Pneumococcal: Yes Pneumococcal Date: Jul 07, 2009 History of Hepatitis B Vaccine: No Multi-Drug Resistant Organisms History of MDRO: No Allergies Coded Allergies: Simvastatin (Verified Allergy, Unknown, UNKNOWN, 06/12/17) Atorvastatin (Unverified Adverse Reaction, Intermediate, MYALGIA, 06/12/17) Home Medications Scheduled Ascorbic Acid (Vitamin C), 500 MG PO BID Carvedilol (Coreg), 25 MG PO BID Cholecalciferol (Vitamin D3), 1,000 INTER.UNIT PO DAILY Cyanocobalamin (Vitamin B-12), 1,000 MCG PO BID Ferrous Sulfate (Ferrous Sulfate), 325 MG PO BID Furosemide (Lasix), 20 MG PO DAILY Insulin Glargine (Lantus), 14 UNITS SC QPM Isosorbide Mononitrate Ext Rel (Imdur Ext Rel), 30 MG PO QAM Lactobacillus (Acidophilus), 1 TAB PO DAILY Levothyroxine Sodium (Levothyroxine Sodium), 50 MCG PO DAILY Lisinopril (Zestril), 40 MG PO DAILY Magnesium Oxide (Mag-Ox), 400 MG PO BID Meclizine Hcl (Meclizine Hcl), 1 TAB PO BID Metformin Hcl (Glucophage), 500 MG PO BIDM Potassium Chloride (Micro-K Ext Rel), 10 MEQ PO DAILY Rivaroxaban (Xarelto), 10 MG PO DAILY Rosuvastatin Calcium (Crestor), 40 MG PO DAILY Scheduled PRN Acetaminophen Tab (Tylenol), 1-2 TAB PO Q4 PRN for Pain or Fever Nitroglycerin (Nitrostat), 0.4 MG UT PRN PRN for Chest Pain Physical Ex - H&P Physical Exam Date Time Temp Pulse Resp B/P (MAP) Pulse Ox O2 Delivery O2 Flow Rate FiO2 07/15/17 12:00 36.5 60 16 119/69 (86) 99 Nasal Cannula 2.0 07/15/17 08:00 Nasal Cannula 2.0 07/15/17 07:25 36.6 59 16 142/81 (101) 97 Nasal Cannula 2.0 07/15/17 04:00 100 Nasal Cannula 2.0 07/15/17 03:58 36.5 61 20 114/67 (83) 100 Nasal Cannula 2.0 07/15/17 01:07 36.7 73 18 128/77 100 2.0 07/15/17 00:03 36.5 76 18 152/78 96 2.0 07/15/17 00:01 97 Nasal Cannula 2.0 07/14/17 23:35 36.4 62 18 117/72 97 Nasal Cannula 2.0 07/14/17 23:35 36.4 62 18 117/72 97 2.0 07/14/17 23:21 36.7 67 20 145/88 98 2.0 07/14/17 22:55 36.7 67 22 146/96 99 2.0 07/14/17 22:38 36.7 61 22 148/80 98 2.0 07/14/17 22:38 67 22 148/87 98 Nasal Cannula 2.0 07/14/17 21:46 97 Nasal Cannula 2.0 07/14/17 21:44 73 20 148/80 86 Room Air 2.0 07/14/17 20:36 60 07/14/17 18:59 36.9 64 18 106/62 96 Room Air General Appearance: no apparent distress, lying flat in bed watching TV HEENT: + JVD, oc clear and pink Respiratory/Chest: basilar crackles, lung fiels o/w clear and no incr WOB Cardiovascular: IRIR Abdomen/GI: normal bowel sounds, non tender, soft Back: no CVA tenderness Extremities/Musculoskelatal: no calf tenderness, normal capillary refill, + pedal edema (2+ b/l up to knees, equal) Labs reviewed. Impression - H&P Impression Assessment and Plan Chronic iron deficiency Admit with anemia without evidence of acute GIB - His Hgb is only mildly lower than previous, and he has no clinical evidence of ongoing bleed. 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 Of note, diverticula do not cause chronic or slow bleeding - his iron deficiency and anemia are not likely to be related to diverticulosis. Although I cannot rule out acid peptic disease or underlying malignancy, yield of endoscopic w/u seems low given the chronicity of his iron deficiency - May consider EGD as outpt. - Would consider IV replacement of iron, given his persistently low ferritin levels despite ongoing oral replacement. Will defer to PCP to arrange this. - OK for Aspirin, given absence of evidence of active bleeding - if he has known CAD, benefits of ASA therapy likely outweigh risks. I presume that Xarelto is given for a fib; it seems reasonable to hold Xarelto for now if he is not considered high risk for embolic event -- may ok to resume if no clinical evidence of ongoing bleed after 48 hours.
--- NOTE | 2017-07-15 15:35 | ECHOCARDIOGRAM REPORT ---
*NOTICE TO RECEIVING DEMOCRAT AGENCY This information is strictly Confidential and protected under [place] law. [place] law prohibits you from making any further disclosure of this information unless further disclosure is expressly permitted by the written consent of the person to whom it pertains or is authorized by law. A general authorization for the release of medical or other information is not sufficient for this purpose. Hospital accepts no responsibility if the information is made available to any other person, INCLUDING THE PATIENT. Interpretation Summary * Name: SON GORDON Study Date: 07/15/2017 10:15 AM BP: 142/81 mmHg * Patient Location: C.2T\S\S230\S\2 HR: 64 * : 1935 (M/d/yyyy) Gender: Male Height: 68 in * Age: 82 yrs Ethnicity: [place] Weight: 168 lb * Ordering Physician: Niranjan Garrison * Referring Physician: Ramirez Mcmahon. * Performed By: Cirilo Lowe RDCS * * Reason For Study: CHF * BSA: 1.9 m2 * -- Conclusions -- * 1. Normal LV size and wall thickness. * 2. Mild LV dysfunction. LVEF 45-50%. Moderate base to mid inferior, inferolateral hypokinesis. Septal motion is consistent with post-operative state. * 3. Normal RV size, mildly reduced function. * 4. Mild to moderate mitral regurgitation. * 5. Aortic valve sclerosis without stenosis. * 6. Severe biatrial enlargement. * 7. Grade II diastolic dysfunction. * 8. Severe pulmonary hypertension. Est PASP >60. Elevated CVP, est. 15 mmHg. * 9. Compared with prior study on 04/20/2016: No significant changes. Procedure Details * A complete two-dimensional transthoracic echocardiogram was performed (2D, M-mode, Doppler and color flow Doppler). * The study was technically difficult. * The study was technically difficult, but visualization was adequate with the administration of Definity ultrasound contrast. * A contrast injection of Definity was performed to improve assessment of LV function. * Contrast was injected into an intravenous site in the left arm. * One vial of Definity ultrasound contrast was diluted in normal saline to a total volume of 10 ml. A total of '3' ml of solution was administered during imaging. * Lot # [id number] of Definity utilized for procedure. * Expiration date . * The attending nurse who injected the contrast agent was KENDRA Smith. Left Ventricle * The left ventricle is grossly normal size. * There is normal left ventricular wall thickness. * Ejection Fraction = 45-50%. * Septal motion is consistent with post-operative state. * Moderate base to mid inferior, inferolateral hypokinesis. Right Ventricle * There is a pacemaker lead in the right ventricle. * The right ventricle is grossly normal size. * The right ventricular systolic function is mildly reduced. Atria * The left atrium is severely dilated. * The right atrium is severely dilated. * No ASD detected; PFO is not assessed. Mitral Valve * The mitral valve is grossly normal. * Restricted posterior leaflet * There is no mitral valve stenosis. * There is mild to moderate mitral regurgitation. * The mitral regurgitant jet is eccentrically directed. Tricuspid Valve * The tricuspid valve is not well visualized, but is grossly normal. * There is moderate tricuspid regurgitation. * Right ventricular systolic pressure is elevated at 50-60mmHg. Aortic Valve * Aortic valve sclerosis moderate, without significant aortic valvular stenosis. * The aortic valve is trileaflet. * No hemodynamically significant valvular aortic stenosis. * There is no significant aortic regurgitation. Pulmonic Valve * The pulmonary valve is inadequately visualized, but the Doppler data is adequate for interpretation. * There is no pulmonic valvular stenosis. * Trace pulmonic valvular regurgitation. Great Vessels * The aortic root and proximal ascending aorta are normal sized. Pericardium/Pleural * There is no pericardial effusion. Great Vessels * Dilated inferior vena cava with reduced collapsability with sniff indicates an elevated right atrial pressure of 15 mmHg Left Ventricular Diastolic Function * Diastolic dysfunction, Grade II, consistent with elevated left atrial pressure. MMode 2D Measurements and Calculations IVSd 1.0 cm IVSs 1.5 cm LVIDd 5.4 cm LVIDs 4.1 cm LVPWd 1.3 cm LVPWs 0.68 cm IVS/LVPW 0.79 FS 25.2 % EDV(Teich) 142.6 ml ESV(Teich) 72.4 ml EF(Teich) 49.2 % EDV(cubed) 159.4 ml ESV(cubed) 66.8 ml EF(cubed) 58.1 % % IVS thick 50.2 % % LVPW thick -46.93 % LV mass(C)d 250.2 grams LV mass(C)dI 131.8 grams/m\S\2 LV mass(C)s 149.0 grams LV mass(C)sI 78.5 grams/m\S\2 SV(Teich) 70.2 ml SI(Teich) 37.0 ml/m\S\2 SV(cubed) 92.6 ml SI(cubed) 48.8 ml/m\S\2 Ao root diam 2.9 cm Ao root area 6.7 cm\S\2 ACS 1.3 cm LA dimension 5.1 cm asc Aorta Diam 3.4 cm LA/Ao 1.7 LVOT diam 1.9 cm LVOT area 2.9 cm\S\2 LVAd ap4 33.1 cm\S\2 LVLd ap4 8.0 cm EDV(MOD-sp4) 114.0 ml LVAs ap4 21.3 cm\S\2 LVLs ap4 7.3 cm ESV(MOD-sp4) 51.9 ml EF(MOD-sp4) 54.5 % LVAd ap2 33.9 cm\S\2 LVLd ap2 8.1 cm EDV(MOD-sp2) 117.0 ml LVAs ap2 20.4 cm\S\2 LVLs ap2 7.4 cm ESV(MOD-sp2) 46.7 ml EF(MOD-sp2) 60.1 % SV(MOD-sp4) 62.1 ml SI(MOD-sp4) 32.7 ml/m\S\2 SV(MOD-sp2) 70.3 ml SI(MOD-sp2) 37.0 ml/m\S\2 Doppler Measurements and Calculations MV E max lucila 114.5 cm/sec MV A max lucila 37.9 cm/sec MV E/A 3.0 MV dec time 0.17 sec Ao V2 max 194.3 cm/sec Ao max PG 15.1 mmHg Ao max PG (full) 12.7 mmHg CASSIDY(V,A) 1.1 cm\S\2 CASSIDY(V,D) 1.1 cm\S\2 LV V1 max PG 2.4 mmHg LV V1 max 77.1 cm/sec PA V2 max 121.9 cm/sec PA max PG 5.9 mmHg PA acc slope 409.7 cm/sec\S\2 PA acc time 0.14 sec TR max lucila 368.3 cm/sec PA pr(Accel) 17.2 mmHg
--- NOTE | 2017-07-15 19:52 | Family Medicine Progress Note ---
Progress Note Date of Service Jul 15, 2017. Subjective Pt evaluation today including: conversation w/ patient, physical exam, chart review, lab review, review of inpatient medication list Patient is resting comfortably this AM, his breathing is much improved after lasix bolus last night. Constitutional: No fever, No chills, No sweats, No fatigue Respiratory: + shortness of breath, + dyspnea on exertion Cardiovascular: + orthopnea, + PND, + edema Abdomen: + constipation, No pain, No nausea, No vomiting, No diarrhea Male : No dysuria, No urinary frequency Heme: No abnormal bleeding/bruising Skin: No rash, No bleeding All Other Systems: Reviewed and Negative Medications Current Inpatient Medications Medications (Trade) Dose Ordered Sig/Nicki Route Start Time Stop Time Status Last Admin Dose Admin Acetaminophen (Tylenol Tab) 650 mg Q4H PRN PO 07/14/17 21:15 08/13/17 21:14 Ondansetron HCl (Zofran Inj) 4 mg Q6H PRN IV 07/14/17 21:15 08/13/17 21:14 Carvedilol (Coreg Tab) 25 mg BID PO 07/14/17 21:00 08/13/17 20:59 07/15/17 09:00 25 MG Cholecalciferol (Vitamin D Tab) 1,000 inter.unit DAILY PO 07/15/17 09:00 08/14/17 08:59 07/15/17 09:00 1,000 INTER.UNIT Cyanocobalamin (Vitamin B-12 Tab) 1,000 mcg BID PO 07/14/17 21:00 08/13/17 20:59 07/15/17 09:00 1,000 MCG Isosorbide Mononitrate (Imdur Ext Rel Tab) 30 mg QAM PO 07/15/17 09:00 08/14/17 08:59 07/15/17 09:00 30 MG Lactobacillus Acidophilus (Floranex Tab) 4 tab DAILY PO 07/15/17 09:00 08/14/17 08:59 Levothyroxine Sodium (Synthroid Tab) 50 mcg DAILYBB PO 07/15/17 06:00 08/14/17 06:59 07/15/17 06:02 50 MCG Magnesium Oxide (Mag-Ox Tab) 400 mg BID PO 07/14/17 21:00 08/13/17 20:59 07/15/17 09:00 400 MG Meclizine HCl (Antivert Tab) 25 mg BID PO 07/14/17 21:00 08/13/17 20:59 07/15/17 08:59 25 MG Potassium Chloride (Klor-Con M10) 10 meq DAILY PO 07/15/17 09:00 08/14/17 08:59 07/15/17 09:00 10 MEQ Rosuvastatin Calcium (Crestor Tab) 40 mg DAILY PO 07/15/17 09:00 08/14/17 08:59 07/15/17 09:00 40 MG Furosemide 20 mg/ Syringe 2 ml @ 4 mls/min QAM IV 07/15/17 09:00 08/14/17 08:59 07/15/17 08:59 4 MLS/MIN Miscellaneous (Iv Fluids Completed) 1 ea PRN PRN N/A 07/14/17 21:30 07/14/18 21:29 Ferrous Sulfate (Feosol Tab) 325 mg BIDM PO 07/15/17 07:30 08/14/17 07:59 07/15/17 16:50 325 MG Ceftriaxone Sodium 1 gm/ Dextrose 50 ml @ 100 mls/hr Q24H IV 07/15/17 12:00 07/20/17 11:59 07/15/17 12:07 100 MLS/HR Objective Vital Signs Date Time Temp Pulse Resp B/P (MAP) Pulse Ox O2 Delivery O2 Flow Rate FiO2 07/15/17 19:14 36.2 68 20 120/72 (88) 95 Nasal Cannula 2.0 07/15/17 16:00 Nasal Cannula 2.0 07/15/17 15:09 36.6 60 20 128/73 (91) 98 Nasal Cannula 2.0 07/15/17 14:00 90 Room Air 07/15/17 12:00 36.5 60 16 119/69 (86) 99 Nasal Cannula 2.0 07/15/17 12:00 Nasal Cannula 2.0 07/15/17 08:00 Nasal Cannula 2.0 07/15/17 07:25 36.6 59 16 142/81 (101) 97 Nasal Cannula 2.0 07/15/17 04:00 100 Nasal Cannula 2.0 07/15/17 03:58 36.5 61 20 114/67 (83) 100 Nasal Cannula 2.0 07/15/17 01:07 36.7 73 18 128/77 100 2.0 07/15/17 00:03 36.5 76 18 152/78 96 2.0 07/15/17 00:01 97 Nasal Cannula 2.0 07/14/17 23:35 36.4 62 18 117/72 97 Nasal Cannula 2.0 07/14/17 23:35 36.4 62 18 117/72 97 2.0 07/14/17 23:21 36.7 67 20 145/88 98 2.0 07/14/17 22:55 36.7 67 22 146/96 99 2.0 07/14/17 22:38 36.7 61 22 148/80 98 2.0 07/14/17 22:38 67 22 148/87 98 Nasal Cannula 2.0 07/14/17 21:46 97 Nasal Cannula 2.0 07/14/17 21:44 73 20 148/80 86 Room Air 2.0 07/14/17 20:36 60 Physical Exam General Appearance: WD/WN, no apparent distress Eyes: normal inspection, PERRL, EOMI ENT: pharynx normal, + pertinent finding (NIKOLAI) Neck: supple, no JVD Respiratory/Chest: chest non-tender, no respiratory distress, no accessory muscle use, + decreased breath sounds (bilateral, LL), + crackles (BL, LL) Cardiovascular: regular rate, rhythm, no JVD, no murmur Abdomen: normal bowel sounds, non tender, soft Extremities: non-tender, normal inspection, no calf tenderness, + pedal edema Neurologic/Psychiatric: no motor/sensory deficits, alert, normal mood/affect, oriented x 3 Skin: normal color, no rash Laboratory Results 07/15/17 06:57 Red Blood Count 3.20, Mean Corpuscular Volume 84.4, Mean Corpuscular Hemoglobin 26.6, Mean Corpuscular Hemoglobin Concent 31.5, Mean Platelet Volume 9.5, Neutrophils (%) (Auto) 61.8, Lymphocytes (%) (Auto) 21.1, Monocytes (%) (Auto) 12.9, Eosinophils (%) (Auto) 3.8, Basophils (%) (Auto) 0.2, Neutrophils # (Auto ) 2.58, Lymphocytes # (Auto) 0.88, Monocytes # (Auto) 0.54, Eosinophils # (Auto ) 0.16, Basophils # (Auto) 0.01 07/15/17 06:57 Test 07/14/17 23:15 07/15/17 06:57 07/15/17 10:45 07/15/17 16:18 Urine Color YELLOW Urine Appearance CLEAR (CLEAR) Urine pH 6.0 (4.5-7.5) Urine Specific [place] 1.022 (1.000-1.030) Urine Protein 1+ (NEG) Urine Glucose (UA) NEG (NEG) Urine Ketones NEG (NEG) Urine Occult Blood NEG (NEG) Urine Nitrite POS (NEG) Urine Bilirubin NEG (NEG) Urine Urobilinogen NEG (NEG) Urine Leukocyte Esterase MODERATE (NEG) Urine WBC (Auto) >30 /hpf (0-5) Urine RBC (Auto) 0-4 /hpf (0-4) Urine Hyaline Casts (Auto) 1-5 /lpf (0-5) Urine Epithelial Cells (Auto) 0-5 /lpf (0-5) Urine Bacteria (Auto) 4+ (NEG) White Blood Count 4.18 K/uL (4.8-10.8) Red Blood Count 3.20 M/uL (4.7-6.1) Hemoglobin 8.5 g/dL (14.0-18.0) Hematocrit 27.0 % (42-52) Mean Corpuscular Volume 84.4 fL (80-100) Mean Corpuscular Hemoglobin 26.6 pg (25-34) Mean Corpuscular Hemoglobin Concent 31.5 g/dl (32-36) Platelet Count 203 K/uL (130-400) Mean Platelet Volume 9.5 fL (7.4-10.4) Neutrophils (%) (Auto) 61.8 % Lymphocytes (%) (Auto) 21.1 % Monocytes (%) (Auto) 12.9 % Eosinophils (%) (Auto) 3.8 % Basophils (%) (Auto) 0.2 % Neutrophils # (Auto) 2.58 K/uL (1.4-6.5) Lymphocytes # (Auto) 0.88 K/uL (1.2-3.4) Monocytes # (Auto) 0.54 K/uL (0.11-0.59) Eosinophils # (Auto) 0.16 K/uL (0-0.5) Basophils # (Auto) 0.01 K/uL (0-0.2) RDW Standard Deviation 49.8 fL (36.4-46.3) RDW Coefficient of Variation 16.1 % (11.5-14.5) Immature Granulocyte % (Auto) 0.2 % Immature Granulocyte # (Auto) 0.01 K/uL (0.00-0.02) Red Blood Cell Morphology Unremarkable Anion Gap 9.0 mmol/L (3-11) Est Creatinine Clear Calc Drug Dose 54.1 ml/min Estimated GFR () 80.3 Estimated GFR (Non- 69.3 BUN/Creatinine Ratio 31.1 (10-20) Calcium Level 8.8 mg/dl (8.5-10.1) Stool Occult Blood POSITIVE (NEGATIVE) Bedside Glucose 115 mg/dl (70-99) Assessment and Plan 82 year old male with shortness of breath on exertion, orthopnea and PND with low Hgb Acute on chronic congestive heart failure with reduced ejection fraction - lasix 20mg IV now and QAM - strict I&Os - daily weights; Pt states weight and has been steady - Echo * Ejection Fraction = 40-45%. * Inferior,posterior,and basal septal hypokinesis. - Continue carvedilol, hold lisinopril (restart if renal function and BP stable overnight) - EKG Coronary artery disease - not on ASA, GI states would be OK to start him on same if no evidence of active bleeding - Continue carvedilol and ISMN - Pacemaker in situ - Hold lisinopril as above pending stable BP and Cr, will restart tomorrow Atrial Fibrillation - Stay on telemetry - Pacemaker in situ - Continue to hold xarelto, ok to restart if no evidence of active bleeding for 48 hrs Anemia - does not appear to be substantially dropping acutely but positive FOB therefore will obtain GI consult. 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 - Consider IV iron replacement as outpatient via PCP Hypothyroidism - Continue levothyroxine 50mcg DVT Proph: contraindicated Code: DNR Dispo: Telemetry Resident Tracking Resident Involvement: Resident Care Provided Care Provided: Adult Hospital Medicine
[2017-07-15 23:11] LABS: HEMATOCRIT 26.5 % (42-52)
[2017-07-16 03:09] VITALS: BP 108/68; PULSE 62; TEMP 36.9; O2SAT 92
[2017-07-16] MEDS: LEVOTHYROXINE 50 MCG TAB PO SCH (06:05)
[2017-07-16] MEDS: FERROUS SULFATE 325 MG TAB PO SCH ×2 (07:41→16:45)
[2017-07-16 07:46] LABS: HEMATOCRIT 27.5 % (42-52)
[2017-07-16 08:01] VITALS: BP 123/75; PULSE 60; TEMP 36.5; O2SAT 98
[2017-07-16] MEDS: POTASSIUM CHLORIDE 10 MEQ TABCR PO SCH (08:23)
[2017-07-16] MEDS: CYANOCOBALAMIN 500 MCG TAB (VIT B-12) PO SCH ×2 (08:23→21:09)
[2017-07-16] MEDS: CHOLECALCIFEROL 1000 INTER.UNIT TAB PO SCH (08:27)
[2017-07-16] MEDS: ISOSORBIDE MONONITRATE 30 MG TABCR PO SCH (08:27)
[2017-07-16] MEDS: LACTOBACILLUS ACIDOPHILUS (FLORANEX) TAB PO SCH (08:27)
[2017-07-16] MEDS: ROSUVASTATIN CALCIUM 20 MG TAB PO SCH (08:27)
[2017-07-16] MEDS: MECLIZINE HCL 12.5 MG TAB PO SCH ×2 (08:27→21:09)
[2017-07-16] MEDS: CARVEDILOL 25 MG TAB PO SCH ×2 (08:27→21:10)
[2017-07-16] MEDS: MAGNESIUM OXIDE 400 MG TAB PO SCH ×2 (08:28→21:08)
[2017-07-16] MEDS: FUROSEMIDE INJ 20 MG in SYRINGE 0 ML IV SCH (08:28)
[2017-07-16 11:22] VITALS: BP 104/67; PULSE 62; TEMP 36.3; O2SAT 91
[2017-07-16] MEDS: CEFTRIAXONE SOD INJ 1000 MG in DEXTROSE 5% 50ML IV SCH (11:38)
--- NOTE | 2017-07-16 13:06 | Progress Note ---
Progress Note Date of Service Jul 16, 2017. Progress Note Pt is without complaint - he is feeling well and tolerating PO. Nurses notes indicate 2 L stool output in rectal bag. On exam, he appears to be in NAD. Abd is mildly distend, and tympanic, improved from yesterday. Lytes cont to improve. A/P: Diarrhea - secondary to C diff, short bowel syndrome, bile salt depletion, malnutrition Ileus, secondary to electrolyte abnl - Plan Change from Ranitidine to PPI. Use Lomotil with Immodium. Cont zinc supp. Low fat diet. If not improved by tomorrow, increase octretotide dose.
[2017-07-16 14:15] VITALS: O2SAT 95
[2017-07-16 14:19] LABS: HEMATOCRIT 30.7 % (42-52)
[2017-07-16 15:18] VITALS: BP 117/74; PULSE 97; TEMP 36.4; O2SAT 94
[2017-07-16] MEDS ORDERED: POLYETHYLENE (MIRALAX) 17 GM PACK PO ONE (18:30)
[2017-07-16] MEDS ORDERED: POLYETHYLENE (MIRALAX) 17 GM PACK PO PRN (18:30)
--- NOTE | 2017-07-16 18:56 | Family Medicine Progress Note ---
Progress Note Date of Service Jul 16, 2017. Subjective Pt evaluation today including: conversation w/ patient, conversation w/ family , physical exam, chart review, lab review, review of inpatient medication list PO Intake: Tolerating advancing solid diet Voiding: no voiding problems Patient is in good spirits this morning; no complaints, feeling better. Constitutional: No fever, No chills, No sweats ENT: No sore throat Respiratory: + dyspnea on exertion, No cough, No sputum, No wheezing, No shortness of breath Cardiovascular: No chest pain, No orthopnea, No PND, No edema Abdomen: + constipation, No pain, No nausea, No vomiting, No diarrhea Male : No dysuria Neurologic: No numbness/tingling, No vertigo All Other Systems: Reviewed and Negative Medications Current Inpatient Medications Medications (Trade) Dose Ordered Sig/Nicki Route Start Time Stop Time Status Last Admin Dose Admin Acetaminophen (Tylenol Tab) 650 mg Q4H PRN PO 07/14/17 21:15 08/13/17 21:14 Ondansetron HCl (Zofran Inj) 4 mg Q6H PRN IV 07/14/17 21:15 08/13/17 21:14 Carvedilol (Coreg Tab) 25 mg BID PO 07/14/17 21:00 08/13/17 20:59 07/16/17 08:27 25 MG Cholecalciferol (Vitamin D Tab) 1,000 inter.unit DAILY PO 07/15/17 09:00 08/14/17 08:59 07/16/17 08:27 1,000 INTER.UNIT Cyanocobalamin (Vitamin B-12 Tab) 1,000 mcg BID PO 07/14/17 21:00 08/13/17 20:59 07/16/17 08:23 1,000 MCG Isosorbide Mononitrate (Imdur Ext Rel Tab) 30 mg QAM PO 07/15/17 09:00 08/14/17 08:59 07/16/17 08:27 30 MG Lactobacillus Acidophilus (Floranex Tab) 4 tab DAILY PO 07/15/17 09:00 08/14/17 08:59 07/16/17 08:27 4 TAB Levothyroxine Sodium (Synthroid Tab) 50 mcg DAILYBB PO 07/15/17 06:00 08/14/17 06:59 07/16/17 06:05 50 MCG Magnesium Oxide (Mag-Ox Tab) 400 mg BID PO 07/14/17 21:00 08/13/17 20:59 07/16/17 08:28 400 MG Meclizine HCl (Antivert Tab) 25 mg BID PO 07/14/17 21:00 08/13/17 20:59 07/16/17 08:27 25 MG Potassium Chloride (Klor-Con M10) 10 meq DAILY PO 07/15/17 09:00 08/14/17 08:59 07/16/17 08:23 10 MEQ Rosuvastatin Calcium (Crestor Tab) 40 mg DAILY PO 07/15/17 09:00 08/14/17 08:59 07/16/17 08:27 40 MG Furosemide 20 mg/ Syringe 2 ml @ 4 mls/min QAM IV 07/15/17 09:00 08/14/17 08:59 07/16/17 08:28 4 MLS/MIN Miscellaneous (Iv Fluids Completed) 1 ea PRN PRN N/A 07/14/17 21:30 07/14/18 21:29 Ferrous Sulfate (Feosol Tab) 325 mg BIDM PO 07/15/17 07:30 08/14/17 07:59 07/16/17 16:45 325 MG Ceftriaxone Sodium 1 gm/ Dextrose 50 ml @ 100 mls/hr Q24H IV 07/15/17 12:00 07/20/17 11:59 07/16/17 11:38 100 MLS/HR Objective Vital Signs Date Time Temp Pulse Resp B/P (MAP) Pulse Ox O2 Delivery O2 Flow Rate FiO2 07/16/17 16:00 Room Air 07/16/17 15:18 36.4 97 18 117/74 (88) 94 Room Air 07/16/17 14:15 95 Room Air 07/16/17 12:00 Room Air 07/16/17 11:22 36.3 62 20 104/67 (79) 91 Room Air 07/16/17 08:01 36.5 60 20 123/75 (91) 98 Nasal Cannula 2.0 07/16/17 08:00 Nasal Cannula 2.0 07/16/17 04:00 Nasal Cannula 2.0 07/16/17 03:09 36.9 62 18 108/68 (81) 92 Nasal Cannula 2.0 07/16/17 00:00 Nasal Cannula 2.0 07/15/17 23:09 36.9 60 16 112/62 (79) 95 Nasal Cannula 2.0 07/15/17 21:25 129/71 (90) 07/15/17 19:45 Room Air 07/15/17 19:14 36.2 68 20 120/72 (88) 95 Nasal Cannula 2.0 Physical Exam General Appearance: WD/WN, no apparent distress Eyes: normal inspection, PERRL, EOMI ENT: normal ENT inspection, pharynx normal, + pertinent finding ([place]) Neck: supple, no JVD, trachea midline Respiratory/Chest: chest non-tender, no respiratory distress, no accessory muscle use, + crackles (bibasilar, improving) Cardiovascular: regular rate, rhythm, no edema, + systolic murmur Abdomen: normal bowel sounds, non tender, soft Extremities: non-tender, no pedal edema, no calf tenderness Neurologic/Psychiatric: social work administrator II-XII nml as tested, alert, normal mood/affect, oriented x 3 Skin: no rash Laboratory Results 07/16/17 14:06 Test 07/16/17 16:25 Bedside Glucose 116 mg/dl (70-99) Assessment and Plan 82 year old male with shortness of breath on exertion, orthopnea and PND with low Hgb Acute on chronic congestive heart failure with reduced ejection fraction - lasix 20mg IV QAM - strict I&Os - daily weights; weight down 2 kilo since admission; Pt states weight has been steady prior to admission - Echo * Ejection Fraction = 40-45%. * Inferior,posterior,and basal septal hypokinesis. - Continue carvedilol - Restart lisinopril at lower dose considering BP low norm, stable Cr and CHF status; 20 mg Coronary artery disease - not on ASA, GI states would be OK to start him on same if no evidence of active bleeding for 48 hrs - Continue carvedilol and ISMN - Pacemaker in situ - Restarting lisinopril at lower dose as above - Restarting xarelto after discussing risks/benefits with son Cong Atrial Fibrillation - Stay on telemetry - Pacemaker in situ - Restarting xarelto after discussing risks/benefits with felix Gar Anemia - FOB positive, appreciate GI recs - Suspect shortness of breath on exertion multifactorial, perhaps related to anemia vs CHF - 3/29/17 - Hgb 11.1, 06/21/17 - Hgb 9.3, 06/30/17 - Hgb 9.1, 07/14/17 - Hgb 8.0 - transfused 1 unit 07/14, morning Hgb avni to 8.5 - AM H&H ordered; Hgb now up to 9.6 - Continue Ferrous sulphate 325mg BID - Per GI: "Pt is without evidence of ongoing bleed - Hgb is stable, and pt has not had BM since admission. Anthony PO. Given stable Hgb and pt preference, would defer endoscopic w/u. OK for d/c if hgb remains stable after 48 hours. OK to resume xarelto on d/ c. No need GI f/u - can f/u with PCP for regular hgb monitoring." - GI signed off - Consider IV iron replacement as outpatient via PCP Possible UTI - UA indicated - Started on 1 G rocephin daily (day 2) - Awaiting urine culture sensitivity to Gram neg bacilli Hypothyroidism - Continue levothyroxine 50mcg DVT Proph: xarelto tomorrow AM Code: DNR Dispo: Telemetry; could send to med surg tomorrow or [place] home possibly Resident Tracking Resident Involvement: Resident Care Provided Care Provided: Adult Hospital Medicine
[2017-07-16 19:23] VITALS: BP 129/69; PULSE 65; TEMP 36.7; O2SAT 90
[2017-07-17] VITALS (7 sets, daily range): BP systolic 96–162; BP diastolic 54–96; PULSE 60–93; TEMP 36.4–37.1; O2SAT 87–95
[2017-07-17 06:08] LABS: HEMATOCRIT 29.3 % (42-52)
[2017-07-17] MEDS: LEVOTHYROXINE 50 MCG TAB PO SCH (06:39)
[2017-07-17 06:50] LABS: BUN/CREATININE RATIO 15.5 (10-20); CALCIUM 8.6 mg/dl (8.5-10.1); CREATININE 1.1 mg/dl (0.60-1.40); MAGNESIUM 2.1 mg/dl (1.8-2.4); POTASSIUM 3.8 mmol/L (3.5-5.1)
[2017-07-17] MEDS: FERROUS SULFATE 325 MG TAB PO SCH (08:00)
[2017-07-17] MEDS: ISOSORBIDE MONONITRATE 30 MG TABCR PO SCH (08:35)
[2017-07-17] MEDS: CYANOCOBALAMIN 500 MCG TAB (VIT B-12) PO SCH (08:35)
[2017-07-17] MEDS: ROSUVASTATIN CALCIUM 20 MG TAB PO SCH (08:36)
[2017-07-17] MEDS: POTASSIUM CHLORIDE 10 MEQ TABCR PO SCH (08:36)
[2017-07-17] MEDS: CARVEDILOL 25 MG TAB PO SCH (08:36)
[2017-07-17] MEDS: LACTOBACILLUS ACIDOPHILUS (FLORANEX) TAB PO SCH (08:36)
[2017-07-17] MEDS: MECLIZINE HCL 12.5 MG TAB PO SCH (08:36)
[2017-07-17] MEDS: FUROSEMIDE INJ 20 MG in SYRINGE 0 ML IV SCH (08:36)
[2017-07-17] MEDS: MAGNESIUM OXIDE 400 MG TAB PO SCH (08:37)
[2017-07-17] MEDS: CHOLECALCIFEROL 1000 INTER.UNIT TAB PO SCH (08:37)
[2017-07-17] MEDS ORDERED: RIVAROXABAN 10 MG TAB PO SCH (09:00)
[2017-07-17] MEDS ORDERED: LISINOPRIL 20 MG TAB PO SCH (09:00)
[2017-07-17] MEDS: CEFTRIAXONE SOD INJ 1000 MG in DEXTROSE 5% 50ML IV SCH (11:36)
[2017-07-17] MEDS ORDERED: LISI40TA PO (11:54)
--- NOTE | 2017-07-17 13:34 | Discharge Instructions ---
Discharge Instructions Date of Service Jul 17, 2017. Admission Reason for Admission: Anemia, Chf W/ Reduced Lt Ventricular Function Discharge Discharge Diagnosis / Problem: Anemia, Acute exacerbation of CHF Discharge Goals Goal(s): Improve function Activity Recommendations Activity Limitations: resume your previous activity . Instructions / Follow-Up Instructions / Follow-Up You were admitted to [facility] because your doctor was concerned about your hemoglobin levels being low, and the fact that you were experiencing shortness of breath Below is an outline of the treatments you underwent whilst admitted here. 1) Low hemoglobin - we transfused you with one unit of blood, and your hemoglobin level avni. You were also seen by the GI team, who will follow up with you in the outpatient setting. They also recommended you continue your oral iron therapy, and suggested that you have IV iron replacement with your primary care provider. 2) Difficulty breathing - you were having some trouble breathing while you were here, and this was likely due to the fact that you were retaining fluid. Please continue your regular home dose of lasix, and try to limit your salt intake. If you notice that your weight is gradually increasing, please see your primary care doctor as this is usually an early sign of fluid retention 3) Urinary tract infection - while at the hospital, your urine was sent for a culture and it was found that you had a urinary tract infection. You were treated with 3 days of Rocephin, which is an antibiotic. If you experience pain whilst urinating, or notice blood in your urine, please let your primary care provider know. 4) Blood thinner - as discussed, please continue taking your Xarelto, given your history of the irregular heartbeat Your sugars have been well controlled, and therefore you can discontinue your home Lantus, and take only the metformin. This will reduce your risk of having blood sugar levels that are too low. We also decreased your dose of lisinopril, as your blood pressure can be well controlled on the lower dose. Please continue all your other home medications as prescribed. Please follow up with your primary care provider by the end of this week. Current Hospital Diet Patient's current hospital diet: Low Fat Diet, Diabetes Type 2 Diet Discharge Diet Recommended Diet: Diabetes Type 2 Diet Pending Studies Studies pending at discharge: no Laboratory Results Hemoglobin A1c Test 06/30/17 10:12 Range/Units Estimated Average Glucose 140 mg/dl Hemoglobin A1c 6.5 H 4.5-5.6 % Lipid Panel Test 06/30/17 10:12 Range/Units Triglycerides Level 67 0-150 mg/dl Cholesterol Level 90 0-200 mg/dl HDL Cholesterol 26 mg/dl Cholesterol/HDL Ratio 3.5 LDL Cholesterol, Calculated 51 mg/dl Medical Emergencies . Who to Call and When: Medical Emergencies: If at any time you feel your situation is an emergency, please call 911 immediately. . Non-Emergent Contact Non-Emergency issues call your: Primary Care Provider . . "Provider Documentation" section prepared by Gregory Victor. . VTE Core Measure Inpt VTE Proph given/why not?: Other Anticoagulation (Xarelto), T.E.D. Stockings
--- NOTE | 2017-07-17 13:54 | Discharge Summary ---
Discharge Summary Date of Service Jul 17, 2017. (Gregory Victor M.D.) Discharge Summary Admission Date: Jul 15, 2017 at 04:19 Discharge Date: Jul 17, 2017 Discharge Disposition: Home Principal Diagnosis: Anemia & acute exacerbation of CHF Immunizations: Have You Had Influenza Vaccine: Yes Influenza Vaccine Date: Jul 19, 2009 History of Tetanus Vaccine?: Yes Tetanus Immunization Date: Jul 07, 2009 History of Pneumococcal: Yes Pneumococcal Date: Jul 07, 2009 History of Hepatitis B Vaccine: No (Gregory Victor M.D.) Medication Reconciliation Changed Medications: Lisinopril (Zestril) 40 Mg Tab 20 MG PO DAILY for 30 Days, #30 (Changed from: 40 MG) Continued Medications: Acetaminophen Tab (Tylenol) 325 Mg Tab 1-2 TAB PO Q4 PRN for Pain or Fever Ascorbic Acid (Vitamin C) 500 Mg Tab 500 MG PO BID Carvedilol (Coreg) 25 Mg Tab 25 MG PO BID Cholecalciferol (Vitamin D3) 1,000 Unit Tab 1000 INTER.UNIT PO DAILY Cyanocobalamin (Vitamin B-12) 1,000 Mcg Tab 1000 MCG PO BID Ferrous Sulfate (Ferrous Sulfate) 325 Mg Tab 325 MG PO BID Furosemide (Lasix) 20 Mg Tab 20 MG PO DAILY TAKE 1 TAB DAILY, IF WEIGHT IS OVER 170 LBS. TAKE 2 TABS Isosorbide Mononitrate Ext Rel (Imdur Ext Rel) 30 Mg Ertab 30 MG PO QAM Lactobacillus (Acidophilus) 1 Tab Tab 1 TAB PO DAILY Levothyroxine Sodium (Levothyroxine Sodium) 50 Mcg Tab 50 MCG PO DAILY Magnesium Oxide (Mag-Ox) 400 Mg Tab 400 MG PO BID Meclizine Hcl (Meclizine Hcl) 25 Mg Tab 1 TAB PO BID for 10 Days, #20 TAB Metformin Hcl (Glucophage) 500 Mg Tab 500 MG PO BIDM, TAB TAKE WITH AM AND EVENING MEALS Nitroglycerin (Nitrostat) 0.4 Mg Sub 0.4 MG UT PRN PRN for Chest Pain Potassium Chloride (Micro-K Ext Rel) 10 Meq Cap 10 MEQ PO DAILY, CAP TAKE 2 TABS IF TAKES ADDITIONAL LASIX. Rivaroxaban (Xarelto) 10 Mg Tab 10 MG PO DAILY Rosuvastatin Calcium (Crestor) 40 Mg Tab 40 MG PO DAILY Discontinued Medications: Insulin Glargine (Lantus) 100 Unit/Ml Inj 14 UNITS SC QPM, VIAL Discharge Exam Mr. Murillo stated that he felt well today. He had a bowel movement, and reported that it was normal, no blood. He denied any shortness of breath or chest pain and felt comfortable walking around the halls. Review of Systems: Constitutional: No fever, No chills Respiratory: No cough, No sputum, No wheezing, No shortness of breath, No dyspnea on exertion, No dyspnea at rest Cardiovascular: No chest pain, No orthopnea, No PND Abdomen: No pain, No nausea, No vomiting, No diarrhea, No constipation Genitourinary - Female: No dysuria, No hematuria Physical Exam: General Appearance: WD/WN, no apparent distress ENT: + pertinent finding (hard of hearing) Respiratory/Chest: chest non-tender, lungs clear, normal breath sounds, no respiratory distress, no accessory muscle use Cardiovascular: regular rate, rhythm, no edema, no gallop, no JVD, normal peripheral pulses, + systolic murmur Abdomen / GI: normal bowel sounds, non tender, soft, no organomegaly, no pulsatile mass Extremities: normal inspection, no calf tenderness, normal capillary refill , no pedal edema (Gregory Victor M.D.) Hospital Course Mr. Murillo was admitted to [facility] due to SOBOE, orthopnea, PND and anemia (Hgb of 8). His symptoms were likely due to a combination of anemia and an acute exacerbation of CHF. 1) Anemia - he was transfused with one unit of blood, resulting in his Hgb rising to 9. He was also seen by the GI team, who stated that he does not have evidence of an ongoing bleed, and can be followed up in the outpatient setting given his hemoglobin levels are stable. They also recommended continuing oral iron therapy and IV iron replacement with his PCP.. 2) CHF exacerbation - Treated with IV Lasix. SOB improved with diuresis. 3) Urinary tract infection - treated with 3 days of Rocephin 4) Afib + Pacemaker - Xarelto was initially held, but then restarted given that the risks outweigh the benefits in his case 5) Diabetes - sugars have been well controlled during his admission - can d/c home Lantus, and only take metformin. HbA1c was 6.5, very well controlled & the risk of him having a hypoglycemic episode outweighs the benefit of strict glycemic control. 6) Lisinopril decreased to 20mg given blood pressure was well controlled with lower dose We recommend follow up with his PCP for monitoring of Hgb levels, and outpatient IV iron therapy. Total Time Spent: Less than 30 minutes This includes examination of the patient, discharge planning, medication reconciliation, and communication with other providers. (rGegory Victor M.D.) Resident Physician Supervision Note: I interviewed and examined the patient. Discussed with Dr. Victor and agree with findings and plan as documented in the note. Any exceptions or clarifications are listed here: None Documented By: Eyal Meng feeling good overall wants to go home. 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 (Gregory Victor M.D.) Additional Copies To Ramirez Mcmahon M.D. Resident Tracking Resident Involvement: Resident Care Provided Care Provided: Adult Hospital Medicine (Gregory Victor M.D.)
[2017-07-17] MEDS ORDERED: METFORMIN HCL 500 MG TAB PO SCH (16:45)
[2017-07-20 10:20] LABS: 18KDIGG BAND NONREACTIVE (NONREACTIVE); 23KDIGG BAND REACTIVE (NONREACTIVE); 23KDIGM BAND REACTIVE (NONREACTIVE); 28KDIGG BAND NONREACTIVE (NONREACTIVE); 30KDIGG BAND NONREACTIVE (NONREACTIVE); 39KDIGG BAND NONREACTIVE (NONREACTIVE); 39KDIGM BAND NONREACTIVE (NONREACTIVE); 41KDIGG BAND REACTIVE (NONREACTIVE); 41KDIGM BAND NONREACTIVE (NONREACTIVE); 45KDIGG BAND NONREACTIVE (NONREACTIVE); 58KDIGG BAND NONREACTIVE (NONREACTIVE); 66KDIGG BAND NONREACTIVE (NONREACTIVE); 93KDIGG BAND NONREACTIVE (NONREACTIVE)
--- NOTE | 2017-07-24 08:12 | EDITING REQUIRED CODING QUERY ---
MICROBIOLOGY To promote full compliance with coding requirements relating to patient care, physician participation is requested in all cases of quality assurance coach uncertainty. Please assist us with the question(s) below: Dr. Meng, Please review the microbiology report and document any relevant diagnosis(es) below. Please also document whether any potential diagnosis was present on admission or not present on admission. Diagnosis(es): UTI is documented as problem #3 under hospital course section of discharge summary. For clarification purposes, since the culture was sent on day of admission, the UTI was present on admission Thank you for your time, MOISES Bain, SUPERVISOR PAINTING [employer]PARTMENT
--- NOTE | 2017-07-24 08:17 | EDITING REQUIRED CODING QUERY ---
ANEMIA To promote full compliance with coding requirements relating to patient care, physician participation is requested in all cases of assistant spa director uncertainty. Please assist us with the question(s) below: Coding Question(s): The record reflects the following clinical findings: ANEMIA TREATED WITH BLOOD TRANSFUSION Please specify the known or suspected type of anemia by placing an "X" within the parenthesis (x). If other, please document type. Examples are: ( ) Acute blood loss anemia ( ) Acute Postoperative blood loss anemia ( ) Acute postoperative anemia due to dilutional fluids ( ) Chronic blood loss anemia ( ) Anemia of chronic disease ( ) Iron deficient anemia due to chronic blood loss (x ) Iron deficient anemia - see progress notes appeared ill defined but related to iron deficiency ( ) Anemia, unspecified or other ( ) Other: (please specify) ( ) Unable to determine Thank you for your time, MOISES Bain, ELEMENTARY TEACHER
== END 2017-07-17 15:11 | disposition home health service (06) | DRG 811 ==
LOC: C.EDB 18:56 → C.2T 21:18 → ENRESERV 21:39 → OBSVTOIN 07-15 04:19
PROVIDERS: ADMIT Internal Medicine; ATTEND Family Medicine
DX: D50.9 Iron deficiency anemia, unspecified (principal); I50.43 Acute on chronic combined systolic (congestive) and diastolic (congestive) heart failure; K55.21 Angiodysplasia of colon with hemorrhage; N39.0 Urinary tract infection, site not specified; I11.0 Hypertensive heart disease with heart failure; I48.91 Unspecified atrial fibrillation; K31.83 Achlorhydria; E11.9 Type 2 diabetes mellitus without complications; E03.9 Hypothyroidism, unspecified; I25.10 Atherosclerotic heart disease of native coronary artery without angina pectoris; K59.00 Constipation, unspecified; I25.2 Old myocardial infarction; Z66 Do not resuscitate; Z95.0 Presence of cardiac pacemaker; Z95.5 Presence of coronary angioplasty implant and graft; Z87.891 Personal history of nicotine dependence; Z79.4 Long term (current) use of insulin; Z79.01 Long term (current) use of anticoagulants; Z79.899 Other long term (current) drug therapy

== ENCOUNTER → 2017-07-14 | Outpatient (CLI) | payer OTHER ==
[2017-07-14 13:19] LABS: MEAN CORPUSCULAR HGB CONC 30.4 g/dl (32-36); MEAN PLATELET VOLUME 9.9 fL (7.4-10.4); PLATELET COUNT 236 K/uL (130-400)
[2017-07-14 13:38] LABS: HEMATOCRIT 26.3 % (42-52); MEAN CELL VOLUME 86.5 fL (80-100); MEAN CORPUSCULAR HEMOGLOBIN 26.3 pg (25-34); RED BLOOD COUNT 3.04 M/uL (4.7-6.1); WHITE BLOOD COUNT 3.94 K/uL (4.8-10.8)
[2017-07-14 14:10] LABS: ANISOCYTOSIS PRESENT; BASO % 0.3 %; BASO ABS # 0.01 K/uL (0-0.2); COMPLETE YES; ECHINOCYTES 1+; EOS % 2.8 %; LYMPH % 17.8 %; MONO % 10.7 %; NEUT % 68.4 %; OVALOCYTES 1+
== END | disposition home or self-care (01) ==
LOC: C.LABMFLN 08:14
PROVIDERS: ATTEND Internal Medicine
DX: D64.9 Anemia, unspecified (principal)

== ENCOUNTER → 2017-07-24 | Outpatient (CLI) | payer OTHER ==
[~2017-07-24] MED LIST changes: +ACET325T96 PO; +ASCO500T3 PO; +FERR325T5 PO; +GLC/500 PO; -INSDGI SC; +LACTTAB7 PO; +LEVO50TA6 PO; +MECL1TAB42 PO; -MECL25TA2 PO; -POTA-327 PO; +POTA10CA28 PO; +RIVA1TAB PO
[2017-07-24 12:16] LABS: BASO % 0.2 %; BASO ABS # 0.01 K/uL (0-0.2); COMPLETE YES; HEMATOCRIT 31.5 % (42-52); IG% 0.2 %; LYMPH % 17.2 %; LYMPH ABS # 0.87 K/uL (1.2-3.4); MEAN CORPUSCULAR HEMOGLOBIN 26.5 pg (25-34); MEAN CORPUSCULAR HGB CONC 30.2 g/dl (32-36); MEAN PLATELET VOLUME 10.2 fL (7.4-10.4); MONO % 6.7 %; NEUT % 71.7 %; PLATELET COUNT 238 K/uL (130-400); RED BLOOD COUNT 3.58 M/uL (4.7-6.1); WHITE BLOOD COUNT 5.05 K/uL (4.8-10.8)
[2017-07-24 13:07] LABS: BLOOD UREA NITROGEN 26 mg/dl (7-18); BUN/CREATININE RATIO 28.3 (10-20); CALCIUM 8.6 mg/dl (8.5-10.1); CARBON DIOXIDE 23 mmol/L (21-32); CHLORIDE 105 mmol/L (98-107); CREATININE 0.92 mg/dl (0.60-1.40); GLUCOSE 136 mg/dl (70-99); MAGNESIUM 2.2 mg/dl (1.8-2.4); POTASSIUM 4.2 mmol/L (3.5-5.1); SODIUM 138 mmol/L (136-145)
== END | disposition home or self-care (01) ==
LOC: C.LAB1850 11:06
PROVIDERS: ATTEND Internal Medicine
DX: I10 Essential (primary) hypertension (principal); E11.9 Type 2 diabetes mellitus without complications; D64.9 Anemia, unspecified; E83.42 Hypomagnesemia

== ENCOUNTER → 2017-08-08 | Outpatient (CLI) | payer OTHER ==
[2017-08-08 13:22] LABS: BASO % 0.4 %; BASO ABS # 0.02 K/uL (0-0.2); COMPLETE YES; IG% 0.2 %; LYMPH % 16.1 %; LYMPH ABS # 0.74 K/uL (1.2-3.4); MEAN CELL VOLUME 88.4 fL (80-100); MEAN CORPUSCULAR HEMOGLOBIN 27.1 pg (25-34); MEAN CORPUSCULAR HGB CONC 30.6 g/dl (32-36); MEAN PLATELET VOLUME 10.5 fL (7.4-10.4); MONO % 10.2 %; NEUT % 68.1 %; PLATELET COUNT 229 K/uL (130-400); RED BLOOD COUNT 3.62 M/uL (4.7-6.1)
[2017-08-08 13:36] LABS: BLOOD UREA NITROGEN 23 mg/dl (7-18); BUN/CREATININE RATIO 23.4 (10-20); CALCIUM 8.7 mg/dl (8.5-10.1); CARBON DIOXIDE 23 mmol/L (21-32); CHLORIDE 105 mmol/L (98-107); CREATININE 0.98 mg/dl (0.60-1.40); GLUCOSE 172 mg/dl (70-99); POTASSIUM 4.5 mmol/L (3.5-5.1); SODIUM 136 mmol/L (136-145)
[2017-08-08 13:43] LABS: FERRITIN 32.7 ng/ml (8.0-388.0)
== END | disposition home or self-care (01) ==
LOC: C.LABMFLN 08:16
PROVIDERS: ATTEND Internal Medicine
DX: D64.9 Anemia, unspecified (principal); I25.10 Atherosclerotic heart disease of native coronary artery without angina pectoris; R42 Dizziness and giddiness

== ENCOUNTER → 2017-08-31 | Outpatient (CLI) | payer OTHER ==
[2017-08-31 12:56] LABS: BASO % 0.3 %; BASO ABS # 0.01 K/uL (0-0.2); COMPLETE YES; EOS % 3.5 %; HEMATOCRIT 34.8 % (42-52); IG% 0.3 %; LYMPH % 21.3 %; MEAN CELL VOLUME 88.1 fL (80-100); MEAN CORPUSCULAR HEMOGLOBIN 26.8 pg (25-34); MEAN CORPUSCULAR HGB CONC 30.5 g/dl (32-36); MEAN PLATELET VOLUME 10.8 fL (7.4-10.4); MONO % 8.8 %; NEUT % 65.8 %; PLATELET COUNT 195 K/uL (130-400); RED BLOOD COUNT 3.95 M/uL (4.7-6.1); WHITE BLOOD COUNT 3.75 K/uL (4.8-10.8)
[2017-08-31 14:28] LABS: BLOOD UREA NITROGEN 26 mg/dl (7-18); BUN/CREATININE RATIO 23.1 (10-20); CALCIUM 9.1 mg/dl (8.5-10.1); CARBON DIOXIDE 26 mmol/L (21-32); CHLORIDE 102 mmol/L (98-107); CREATININE 1.11 mg/dl (0.60-1.40); GLUCOSE 192 mg/dl (70-99); POTASSIUM 4.1 mmol/L (3.5-5.1); SODIUM 137 mmol/L (136-145)
[2017-08-31 14:32] LABS: FERRITIN 40.7 ng/ml (8.0-388.0)
== END | disposition home or self-care (01) ==
LOC: C.LABMFLN 08:09
PROVIDERS: ATTEND Internal Medicine
DX: D64.9 Anemia, unspecified (principal); E11.9 Type 2 diabetes mellitus without complications

== ENCOUNTER → 2017-10-27 | Outpatient (CLI) | payer OTHER ==
[2017-10-27 12:41] LABS: HEMATOCRIT 35.3 % (42-52); HEMOGLOBIN 11.1 g/dL (14.0-18.0); MEAN CELL VOLUME 87.6 fL (80-100); MEAN CORPUSCULAR HEMOGLOBIN 27.5 pg (25-34); MEAN CORPUSCULAR HGB CONC 31.4 g/dl (32-36); MEAN PLATELET VOLUME 10.5 fL (7.4-10.4); PLATELET COUNT 180 K/uL (130-400); RED CELL DISTRIBUTION WIDTH CV 17.3 % (11.5-14.5); RED CELL DISTRIBUTION WIDTH SD 55.7 fL (36.4-46.3); WHITE BLOOD COUNT 3.82 K/uL (4.8-10.8)
[2017-10-27 13:10] LABS: HEMOGLOBIN A1C 6.7 % (4.5-5.6)
[2017-10-27 14:19] LABS: ALBUMIN 3.5 gm/dl (3.4-5.0); ALT/SGPT 25 U/L (12-78); AST/SGOT 25 U/L (15-37); BLOOD UREA NITROGEN 30 mg/dl (7-18); CALCIUM 8.8 mg/dl (8.5-10.1); CARBON DIOXIDE 24 mmol/L (21-32); CHOLESTEROL 85 mg/dl (0-200); CREATININE 1.04 mg/dl (0.60-1.40); GLUCOSE 189 mg/dl (70-99); LDL CHOLESTEROL CALCULATED 42 mg/dl; POTASSIUM 4.5 mmol/L (3.5-5.1); SODIUM 136 mmol/L (136-145)
[2017-10-27 14:23] LABS: ALKALINE PHOSPHATASE 114 U/L (45-117); TOTAL PROTEIN 7.5 gm/dl (6.4-8.2)
== END | disposition home or self-care (01) ==
LOC: C.LABMFLN 08:38
PROVIDERS: ATTEND Internal Medicine
DX: E11.9 Type 2 diabetes mellitus without complications (principal); D64.9 Anemia, unspecified; E78.5 Hyperlipidemia, unspecified; E03.9 Hypothyroidism, unspecified; E83.42 Hypomagnesemia

== ENCOUNTER 2017-11-24 23:40 | Inpatient (IN) | payer OTHER ==
[~2017-11-24] VITALS: Ht 172.7 cm; Wt 72.8 kg
[~2017-11-24 23:40] MED LIST changes: +ACET-1693 PO; -ACET325T96 PO
[2017-11-25] VITALS (9 sets, daily range): BP systolic 87–122; BP diastolic 43–75; PULSE 59–64; TEMP 36.3–36.8; O2SAT 94–100; Ht 172.7 cm; Wt 72.8 kg
--- NOTE | 2017-11-25 00:19 | EMERGENCY ROOM VISIT NOTE ---
History Report prepared by Marielena: Sean Guerra Under the Supervision of: Dr. Natanael Lepe M.D. First contact with patient: 00:00 Chief Complaint: CARDIAC ASSESSMENT Stated Complaint: SOB,RACING PULSE History of Present Illness The patient is a 82 year old male who presents to the Emergency Room with complaints of intermittent shortness of breath that began recently. Patient has associated symptoms of generalized weakness and intermittent chest pressure. Patient states that the symptoms are worsened upon exertion. Patient states that he feels like his heart rate was in 30's earlier. Patient is present with his son. Son states that the patient's pulse oxygenation is low. Patient denies chest pain, jaundice on his chest, fevers, or passing out. Patient adds that he currently takes a Xarelto. Patient states that leg swelling is his baseline. Patient adds that he takes an iron pill. Patient is currently on Lasix but does not take it regularly. Patient has a [employer] pacemaker. Source of History: patient Onset: Recent Timing: intermittent Modifying Factors (Relieving): exertion Associated Symptoms: + weakness, No fevers, No chest pain Note: Patient has chest pressure. Patient denies passing out. Review of Systems See HPI for pertinent positives & negatives. A total of 10 systems reviewed and were otherwise negative. 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 (4) CHF (congestive heart failure) (5) Cholecystitis (6) Congestive heart failure with reduced left ventricular function, NYHA class 3 (7) CORON ATHEROSCLER NOS TYPE VESSEL, [place] OR GRAFT (8) DIAB DEJA WO COMPL, TYPE II OR UNSPEC TYPE, NOT UNCNTRLD (9) HYPERLIPIDEMIA NEC/NOS (10) HYPERTENSION NOS (11) Hypoxia (12) Lyme disease (13) Pulmonary edema with congestive heart failure with reduced left ventricular function (14) Shortness of breath (15) SIRS (systemic inflammatory response syndrome) (16) UTI (urinary tract infection) (17) UTI (urinary tract infection) (18) Weakness (19) Weakness Family History Diabetes mellitus FHx: heart disease Hypertension Social History Smoking Status: Never Smoker Alcohol Use: none Drug Use: none Marital Status: Housing Status: lives with significant other Occupation Status: retired Current/Historical Medications Scheduled Ascorbic Acid (Vitamin C), 500 MG PO BID Carvedilol (Coreg), 25 MG PO BID Cholecalciferol (Vitamin D3), 1,000 INTER.UNIT PO DAILY Cyanocobalamin (Vitamin B-12), 1,000 MCG PO BID Ferrous Sulfate (Ferrous Sulfate), 325 MG PO BID Furosemide (Lasix), 20 MG PO DAILY Insulin Glargine (Basaglar Kwikpen), 12 UNITS SQ HS Isosorbide Mononitrate Ext Rel (Imdur Ext Rel), 30 MG PO QAM Lactobacillus (Acidophilus), 1 TAB PO DAILY Levothyroxine Sodium (Levothyroxine Sodium), 50 MCG PO DAILY Lisinopril (Zestril), 20 MG PO DAILY Magnesium Oxide (Mag-Ox), 400 MG PO BID Meclizine Hcl (Meclizine Hcl), 1 TAB PO BID Metformin Hcl (Glucophage), 500 MG PO BIDM Potassium Chloride (Micro-K Ext Rel), 10 MEQ PO DAILY Rivaroxaban (Xarelto), 10 MG PO DAILY Rosuvastatin Calcium (Crestor), 40 MG PO DAILY Scheduled PRN Acetaminophen Tab (Tylenol), 1-2 TAB PO Q4 PRN for Pain or Fever Nitroglycerin (Nitrostat), 0.4 MG UT PRN PRN for Chest Pain Allergies Coded Allergies: Simvastatin (Verified Allergy, Unknown, UNKNOWN, 11/25/17) Atorvastatin (Unverified Adverse Reaction, Intermediate, MYALGIA, 11/25/17) Physical Exam Vital Signs Date Time Temp Pulse Resp B/P (MAP) Pulse Ox O2 Delivery O2 Flow Rate FiO2 11/25/17 02:25 90 18 131/73 93 Room Air 11/25/17 00:18 86 16 131/83 92 Room Air 11/25/17 00:08 86 11/24/17 23:50 36.4 86 18 119/73 95 Room Air Physical Exam GENERAL: Patient is chronically-ill appearing, pale appearing, and in minimal distress. HEENT: No acute trauma, normocephalic atraumatic, mucous membranes moist, no nasal congestion, no scleral icterus, pale conjunctiva. NECK: No stridor, no adenopathy, no meningismus, trachea is midline. LUNGS: Decreased breath sounds and crackles bilaterally in the lower lungs. No wheeze, no rhonchi. HEART: Regular rate and rhythm. No murmurs, rubs, gallops appreciated. ABDOMEN: Soft, nontender, bowel sounds positive, no masses appreciated, no peritonitis. BACK: No midline tenderness, no CVA tenderness EXTREMITIES: Normal motion all extremities, no cyanosis, 2+ edema bilateral shins. NEUROLOGIC: Alert and oriented, no acute motor or sensory deficits, no focal weakness, cranial nerves grossly intact. SKIN: No rash, no jaundice, no diaphoresis. Medical Decision & Procedures ER Provider Diagnostic Interpretation: Radiology results interpreted by me: Chest X-Ray: Bilaterally pulmonary edema, worse compared to previous, enlarged heart. Laboratory Results 11/25/17 00:00 Red Blood Count 3.14, Mean Corpuscular Volume 87.9, Mean Corpuscular Hemoglobin 27.7, Mean Corpuscular Hemoglobin Concent 31.5, Mean Platelet Volume 9.6, Neutrophils (%) (Auto) 76.4, Lymphocytes (%) (Auto) 12.7, Monocytes (%) (Auto) 8.0, Eosinophils (%) (Auto) 2.5, Basophils (%) (Auto) 0.2, Neutrophils # (Auto) 4.03, Lymphocytes # (Auto) 0.67, Monocytes # (Auto) 0.42, Eosinophils # (Auto) 0.13, Basophils # (Auto) 0.01 11/25/17 00:00 Test 11/25/17 00:00 White Blood Count 5.27 K/uL (4.8-10.8) Red Blood Count 3.14 M/uL (4.7-6.1) Hemoglobin 8.7 g/dL (14.0-18.0) Hematocrit 27.6 % (42-52) Mean Corpuscular Volume 87.9 fL (80-100) Mean Corpuscular Hemoglobin 27.7 pg (25-34) Mean Corpuscular Hemoglobin Concent 31.5 g/dl (32-36) Platelet Count 199 K/uL (130-400) Mean Platelet Volume 9.6 fL (7.4-10.4) Neutrophils (%) (Auto) 76.4 % Lymphocytes (%) (Auto) 12.7 % Monocytes (%) (Auto) 8.0 % Eosinophils (%) (Auto) 2.5 % Basophils (%) (Auto) 0.2 % Neutrophils # (Auto) 4.03 K/uL (1.4-6.5) Lymphocytes # (Auto) 0.67 K/uL (1.2-3.4) Monocytes # (Auto) 0.42 K/uL (0.11-0.59) Eosinophils # (Auto) 0.13 K/uL (0-0.5) Basophils # (Auto) 0.01 K/uL (0-0.2) RDW Standard Deviation 57.0 fL (36.4-46.3) RDW Coefficient of Variation 17.8 % (11.5-14.5) Immature Granulocyte % (Auto) 0.2 % Immature Granulocyte # (Auto) 0.01 K/uL (0.00-0.02) Hypochromasia PRESENT Schistocytes 1+ Anion Gap 6.0 mmol/L (3-11) Est Creatinine Clear Calc Drug Dose 52.6 ml/min Estimated GFR () 77.5 Estimated GFR (Non- 66.9 BUN/Creatinine Ratio 30.1 (10-20) Calcium Level 8.8 mg/dl (8.5-10.1) Magnesium Level 2.3 mg/dl (1.8-2.4) Total Bilirubin 1.2 mg/dl (0.2-1) Direct Bilirubin 0.4 mg/dl (0-0.2) Aspartate Amino Transf (AST/SGOT) 31 U/L (15-37) Alanine Aminotransferase (ALT/SGPT) 34 U/L (12-78) Alkaline Phosphatase 113 U/L (45-117) Troponin I < 0.015 ng/ml (0-0.045) Pro-B-Type Natriuretic Peptide 1586 pg/ml (0-1800) Total Protein 7.5 gm/dl (6.4-8.2) Albumin 3.5 gm/dl (3.4-5.0) Laboratory results as reviewed by me. Medications Administered Medications (Trade) Dose Ordered Sig/Nicki Route Start Time Stop Time Status Last Admin Dose Admin Furosemide (Lasix Inj) 20 mg NOW STAT IV 11/25/17 01:39 11/25/17 01:40 DC 11/25/17 01:39 20 MG ECG Indication: SOB/dyspnea Rate (beats per minute): 85 Rhythm: other (Atrial sensed ventricular paced) Findings: no acute ischemic change, no ectopy Change: EKG: Electrocardiogram per my interpretation. ED Course 0000: The patient was evaluated in room A11B. A complete history and physical exam was performed. 0139: Lasix Inj 20mg IV 0115: Upon reevaluation, the patient will be further evaluated by Dr. Casillas. Discussed results and treatment plan with the patient. He verbalized understanding and agreement with the treatment plan. The patient will be evaluated for further management. Medical Decision Differential: Infectious, Reactive Airway Disease, Pneumonia, Pneumothorax, COPD , CHF, ACS, Pulmonary Embolism, MSK, GI, Dissection, amongst other etiologies entertained. 82 yr old male in congestive failure by exam complaining of shob/cp with exertion, weakness and low HR. Admits not taking Lasix regularly. By CXR and exam I feel he is likely entering some Pulm Edema/CHF which is likely cause of symptoms. Symptoms not consistent with PE/dissection. Trop negative thus unlike ACS. He is already on Xarelto. Worsening anemia may just be fluid overload thus will hold on transfusion at this time. With his worsening symptoms, anemia in CAD patient, I feel brining in to further work-up and treatment reasonable. Given initial IV Lasix while here in ED. Medication Reconcilliation Current Medication List: was personally reviewed by me Blood Pressure Screening Patient's blood pressure: Elevated blood pressure Addressed as an inpatient. Impression Primary Impression: Congestive heart failure, acute Additional Impressions: Chest pain, exertional Anemia Scribe Attestation The scribe's documentation has been prepared under my direction and personally reviewed by me in its entirety. I confirm that the note above accurately reflects all work, treatment, procedures, and medical decision making performed by me. Departure Information Dispostion Being Evaluated By Hospitalist Referrals Pro,Ramirez Vincent M.D. (PCP) Forms IMPORTANT VISIT INFORMATION Patient Instructions My [facility] Problem Qualifiers
[2017-11-25 00:20] LABS: BASO % 0.2 %; BASO ABS # 0.01 K/uL (0-0.2); EOS % 2.5 %; EOS ABS # 0.13 K/uL (0-0.5); HEMATOCRIT 27.6 % (42-52); HEMOGLOBIN 8.7 g/dL (14.0-18.0); IG# 0.01 K/uL (0.00-0.02); LYMPH % 12.7 %; LYMPH ABS # 0.67 K/uL (1.2-3.4); MEAN CELL VOLUME 87.9 fL (80-100); MEAN CORPUSCULAR HEMOGLOBIN 27.7 pg (25-34); MEAN CORPUSCULAR HGB CONC 31.5 g/dl (32-36); MEAN PLATELET VOLUME 9.6 fL (7.4-10.4); MONO ABS # 0.42 K/uL (0.11-0.59); NEUT % 76.4 %; NEUT ABS # 4.03 K/uL (1.4-6.5); PLATELET COUNT 199 K/uL (130-400); RED CELL DISTRIBUTION WIDTH CV 17.8 % (11.5-14.5); WHITE BLOOD COUNT 5.27 K/uL (4.8-10.8)
[2017-11-25 00:44] LABS: BLOOD UREA NITROGEN 31 mg/dl (7-18); CALCIUM 8.8 mg/dl (8.5-10.1); CARBON DIOXIDE 23 mmol/L (21-32); CREATININE 1.03 mg/dl (0.60-1.40); GLUCOSE 135 mg/dl (70-99); POTASSIUM 4.7 mmol/L (3.5-5.1); SODIUM 131 mmol/L (136-145)
[2017-11-25] MEDS ORDERED: FUROSEMIDE 40 MG/4 ML VIAL IV STA (01:39)
[2017-11-25 01:46] LABS: ALBUMIN 3.5 gm/dl (3.4-5.0); ALKALINE PHOSPHATASE 113 U/L (45-117); ALT/SGPT 34 U/L (12-78); AST/SGOT 31 U/L (15-37); TOTAL PROTEIN 7.5 gm/dl (6.4-8.2)
[2017-11-25] MEDS ORDERED: POLYETHYLENE (MIRALAX) 17 GM PACK PO PRN (02:30)
[2017-11-25] MEDS ORDERED: ALUMINUM/MAGNESIUM/SIMETH (MAALOX MAX) 30 ML UDC PO PRN (02:30)
[2017-11-25] MEDS ORDERED: ONDANSETRON INJ 2 MG/ML 2 ML VIAL IV PRN (02:30)
[2017-11-25] MEDS ORDERED: NITROGLYCERIN 0.4 MG SL PER TAB CHARGE SL PRN (02:30)
[2017-11-25] MEDS ORDERED: NITROGLYCERIN 0.4 MG SL PER TAB CHARGE UT PRN (02:30)
[2017-11-25] MEDS ORDERED: MAGNESIUM HYDROXIDE SUSP 30 ML UDC PO PRN (02:30)
--- NOTE | 2017-11-25 02:51 | History and Physical ---
History & Physical Date & Time of Service: Nov 25, 2017 at 02:35 Chief Complaint: Sob,Racing Pulse Primary Care Physician: Ramirez Mcmahon M.D. History of Present Illness Source: patient, family, hospital records 82 year old male with a PMH of CHF w/ a pacemaker, DM, AFib, Hypothyroidism, HTN presents to [facility] with intermittent shortness of breath that has been going on for the last several days. He says his shortness of breath his worse with ambulation and it is associated with generalized weakness and occasional chest pressure. He has also noticed that his legs are more swollen than usual. Patient says that he feels that his heart rate went into the 30's earlier in the day. The patient denies any chest pain, palpitations, PND, fevers, chills, bowel or urinary problems. In the ED his vitals were stable and his CXR showed bilateral pulmonary congestion. Of note his CBC in the ED was 8.7. He does not dark stools but he has been taking iron orally. In the ED his vitals were stable. His cbc was significant for a hgb of 8.7. It was 11 one month earlier. His pacemaker was assessed in the ED and was shown to be working normally and there was nor drop in heart rate into the 30's. He was in the hospital for similar complaints in July at which point his hgb was 8 he was transfused 1 unit of PRBC and given diuresis. He was seen by GI and it was decided that the patient did not need a scope and that he could be treated as an outpatient with oral and IV iron. Past Medical/Surgical History Medical Problems: (1) AORTOCORONARY BYPASS Status: Resolved (2) CARDIAC PACEMAKER IN SITU Status: Chronic (3) CHF (congestive heart failure) Status: Resolved (4) CORON ATHEROSCLER NOS TYPE VESSEL, [place] OR GRAFT Status: Chronic (5) DIAB DEJA WO COMPL, TYPE II OR UNSPEC TYPE, NOT UNCNTRLD Status: Chronic (6) HYPERLIPIDEMIA NEC/NOS Status: Chronic (7) HYPERTENSION NOS Status: Chronic (8) Hypoxia Status: Resolved (9) Lyme disease Status: Chronic (10) SIRS (systemic inflammatory response syndrome) Status: Resolved (11) UTI (urinary tract infection) Status: Resolved (12) UTI (urinary tract infection) Status: Resolved (13) Weakness Status: Resolved (14) Weakness Status: Resolved Family History Diabetes mellitus FHx: heart disease Hypertension Social History Smoking Status: Never Smoker Smokeless Tobacco Use: No Alcohol Use: occasionally Drug Use: none Marital Status: Housing status: lives with significant other Occupational Status: retired Immunizations History of Influenza Vaccine: Yes Influenza Vaccine Date: Jul 19, 2009 History of Tetanus Vaccine?: Yes Tetanus Immunization Date: Jul 07, 2009 History of Pneumococcal: Yes Pneumococcal Date: Jul 07, 2009 History of Hepatitis B Vaccine: No Multi-Drug Resistant Organisms History of MDRO: No Allergies Coded Allergies: Simvastatin (Verified Allergy, Unknown, UNKNOWN, 11/25/17) Atorvastatin (Unverified Adverse Reaction, Intermediate, MYALGIA, 11/25/17) Home Medications Scheduled Ascorbic Acid (Vitamin C), 500 MG PO BID Carvedilol (Coreg), 25 MG PO BID Cholecalciferol (Vitamin D3), 1,000 INTER.UNIT PO DAILY Cyanocobalamin (Vitamin B-12), 1,000 MCG PO BID Ferrous Sulfate (Ferrous Sulfate), 325 MG PO BID Furosemide (Lasix), 20 MG PO DAILY Insulin Glargine (Basaglar Kwikpen), 12 UNITS SQ HS Isosorbide Mononitrate Ext Rel (Imdur Ext Rel), 30 MG PO QAM Lactobacillus (Acidophilus), 1 TAB PO DAILY Levothyroxine Sodium (Levothyroxine Sodium), 50 MCG PO DAILY Lisinopril (Zestril), 20 MG PO DAILY Magnesium Oxide (Mag-Ox), 400 MG PO BID Meclizine Hcl (Meclizine Hcl), 1 TAB PO BID Metformin Hcl (Glucophage), 500 MG PO BIDM Potassium Chloride (Micro-K Ext Rel), 10 MEQ PO DAILY Rivaroxaban (Xarelto), 10 MG PO DAILY Rosuvastatin Calcium (Crestor), 40 MG PO DAILY Scheduled PRN Acetaminophen Tab (Tylenol), 1-2 TAB PO Q4 PRN for Pain or Fever Nitroglycerin (Nitrostat), 0.4 MG UT PRN PRN for Chest Pain Review of Systems Constitutional: No fever, No chills Respiratory: + dyspnea on exertion, No cough, No dyspnea at rest, No hemoptysis Cardiovascular: + chest pain, + edema, No orthopnea, No palpitations Abdomen: No pain, No nausea, No vomiting, No diarrhea, No constipation Musculoskeletal: + swelling, No joint pain, No muscle pain, No calf pain Genitourinary - Male: No hematuria, No dysuria, No urinary frequency Hematologic / Lymphatic: No abnormal bleeding/bruising Integumentary: No rash, No itch, No new/changing skin lesions Physical Exam Vital Signs Date Time Temp Pulse Resp B/P (MAP) Pulse Ox O2 Delivery O2 Flow Rate FiO2 11/25/17 02:25 90 18 131/73 93 Room Air 11/25/17 00:18 86 16 131/83 92 Room Air 11/25/17 00:08 86 11/24/17 23:50 36.4 86 18 119/73 95 Room Air General Appearance: WD/WN, no apparent distress ENT: hearing grossly normal, pharynx normal Neck: supple, no carotid bruits, trachea midline, + JVD Respiratory/Chest: chest non-tender, no respiratory distress, no accessory muscle use, + crackles (crackles at the bases bilaterally) Cardiovascular: regular rate, rhythm, normal peripheral pulses, + systolic murmur (1/6 at RUSB) Abdomen/GI: normal bowel sounds, non tender, soft Back: normal inspection, no muscle spasm, normal range of motion Extremities/Musculoskelatal: no calf tenderness, normal range of motion, + pedal edema (+2 to the knees bilaterally) Neurologic/Psych: alert, normal mood/affect, oriented x 3 Skin: normal color, warm/dry, no rash Diagnostics Laboratory Results Results Past 24 Hours Test 11/25/17 00:00 Range/Units White Blood Count 5.27 4.8-10.8 K/uL Red Blood Count 3.14 4.7-6.1 M/uL Hemoglobin 8.7 14.0-18.0 g/dL Hematocrit 27.6 42-52 % Mean Corpuscular Volume 87.9 80-100 fL Mean Corpuscular Hemoglobin 27.7 25-34 pg Mean Corpuscular Hemoglobin Concent 31.5 32-36 g/dl Platelet Count 199 130-400 K/uL Mean Platelet Volume 9.6 7.4-10.4 fL Neutrophils (%) (Auto) 76.4 % Lymphocytes (%) (Auto) 12.7 % Monocytes (%) (Auto) 8.0 % Eosinophils (%) (Auto) 2.5 % Basophils (%) (Auto) 0.2 % Neutrophils # (Auto) 4.03 1.4-6.5 K/uL Lymphocytes # (Auto) 0.67 1.2-3.4 K/uL Monocytes # (Auto) 0.42 0.11-0.59 K/uL Eosinophils # (Auto) 0.13 0-0.5 K/uL Basophils # (Auto) 0.01 0-0.2 K/uL RDW Standard Deviation 57.0 36.4-46.3 fL RDW Coefficient of Variation 17.8 11.5-14.5 % Immature Granulocyte % (Auto) 0.2 % Immature Granulocyte # (Auto) 0.01 0.00-0.02 K/uL Hypochromasia PRESENT Schistocytes 1+ Sodium Level 131 136-145 mmol/L Potassium Level 4.7 3.5-5.1 mmol/L Chloride Level 102 98-107 mmol/L Carbon Dioxide Level 23 21-32 mmol/L Anion Gap 6.0 3-11 mmol/L Blood Urea Nitrogen 31 7-18 mg/dl Creatinine 1.03 0.60-1.40 mg/dl Est Creatinine Clear Calc Drug Dose 52.6 ml/min Estimated GFR () 77.5 Estimated GFR (Non- 66.9 BUN/Creatinine Ratio 30.1 10-20 Random Glucose 135 70-99 mg/dl Calcium Level 8.8 8.5-10.1 mg/dl Magnesium Level 2.3 1.8-2.4 mg/dl Total Bilirubin 1.2 0.2-1 mg/dl Direct Bilirubin 0.4 0-0.2 mg/dl Aspartate Amino Transf (AST/SGOT) 31 15-37 U/L Alanine Aminotransferase (ALT/SGPT) 34 12-78 U/L Alkaline Phosphatase 113 45-117 U/L Troponin I < 0.015 0-0.045 ng/ml Pro-B-Type Natriuretic Peptide 1586 0-1800 pg/ml Total Protein 7.5 6.4-8.2 gm/dl Albumin 3.5 3.4-5.0 gm/dl Diagnostic Radiology Bilateral Pulmonary Edema Impression Assessment and Plan 82 year old male with a PMH of CHF, DM, HLD, HTN, Hypothyroidism presents with intermittent shortness of breath and chest discomfort was found to have worsening pulmonary edema on CXR and was given 20mg of lasix IV in the ED Acute CHF exacerbation - Last echo was in June 2017: EF of 45-50, inferolateral hypokinesis, grade 2 DD, Aortic valve sclerosis and biatrial enlargement - Patient does not take lasix at home regularly, 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, but patient prefers his weight at 165 - Given 20mg of lasix IV - continue 20mg lasix PO in the AM and 10meq of K - CXR showed bilateral pulmonary congestion - Monitor I/O's Normocytic Anemia of unknown cause - hgb 8.7, normal MCV - hx of anemia in the past while on xarelto and decided benefits of anticoagulation outweigh risks of stroke - continue ferrous sulfate bid - iron panel ordered, B12 and folate ordered - continue to monitor cbc DMT2 - HbA1c was 6.7 last month - continue lantus 14 units qhs - ISS - hold metformin Atrial Fibrillation - hold xarelto for now due to anemia - rate well controlled with carvedilol HTN - continue lisinopril and lasix BPV - continue meclizine Hypothyroidism - continue levothyroxine - tsh ordered for am DVT prophylaxis - no chemical coag due to low hgb - SCD's Full Code, no mechanical ventilation Attending addendum: I have physically seen this patient, have supervised the medical residents activities, and agree with the H&P unless as otherwise noted. Assessment and Plan: Atrial fibrillation/hypertension/acute CHF-- The patient will be admitted to telemetry for serial cardiac enzymes, serial EKG's, cardiac rhythm monitoring and a 2-D echocardiogram with Dopplers. The patient does not like his dry weight to be as low as his doctors prefer. He has been given Lasix 20 mg IV in the ED We will continue Lasix 20 mg p.o. daily as his outpatient dosing which he only takes if his weight is close to 170 Continue carvedilol and lisinopril. Hold Xarelto for tonight Diabetes mellitus-- Continue Lantus Placed on Accu-Cheks before meals and at bedtime with NovoLog coverage per scale Anemia-- Continue iron sulfate twice daily Serial CBC with differential Level of Care Telemetry Advanced Directives Existing Advance Directive: Yes Existing Living Will: Yes Existing Power of Arabic Linguist: No Resuscitation Status FULL NO MECH VENTILATION VTE Prophylaxis VTE Risk Assessment Done? Y/N: Yes Risk Level: Moderate Given or contraindicated: Contraindicated
[2017-11-25] MEDS ORDERED: INSU100I23 SQ (03:03)
[2017-11-25] MEDS ORDERED: DEXTROSE 50% 50 ML SYR IV PRN (04:30)
[2017-11-25] MEDS ORDERED: GLUCAGON FOR INJ 1 MG VIAL SQ PRN (04:30)
[2017-11-25] MEDS ORDERED: GLUCOSE 10 TABS/TUBE PO PRN (04:30)
[2017-11-25] MEDS ORDERED: GLUCOSE 40% GEL 15 GM TUBE PO PRN (04:30)
[2017-11-25] MEDS: LEVOTHYROXINE 50 MCG TAB PO SCH (06:20)
[2017-11-25] MEDS: NITROGLYCERIN 2% OINTMENT 30GM TUBE EXT SCH ×4 (06:20→23:48)
--- NOTE | 2017-11-25 07:30 | DIAGNOSTIC IMAGING REPORT ---
CHEST ONE VIEW PORTABLE CLINICAL HISTORY: 82 years-old Male presenting with pul congestion, shortness of breath. TECHNIQUE: Portable upright AP view of the chest was obtained. COMPARISON: 11/25/2017 at 12:34 AM. FINDINGS: Left subclavian pacer with leads to the right atrium and right ventricular apex. Median sternotomy wires and mediastinal surgical clips noted. Atherosclerosis of aortic arch. Cardiac silhouette moderately enlarged, unchanged. Persistent pulmonary vascular prominence. Patchy basilar predominant opacities stable slightly decreased from prior. Moderate right pleural effusion. No pneumothorax. Degenerative changes of the thoracic spine. IMPRESSION: 1. Moderate cardiomegaly with volume overload and suspected pulmonary edema. Aspiration is also a diagnostic consideration. 2. Moderate right pleural effusion. Electronically signed by: Collin Villa M.D. 11/25/2017 7:28 AM Dictated Date/Time: 11/25/2017 7:26 AM
[2017-11-25] MEDS ORDERED: METFORMIN HCL 500 MG TAB PO SCH (08:00)
--- NOTE | 2017-11-25 08:19 | DIAGNOSTIC IMAGING REPORT ---
CHEST ONE VIEW PORTABLE CLINICAL HISTORY: 82 years-old Male presenting with Chest Pain. TECHNIQUE: Portable upright AP view of the chest was obtained. COMPARISON: 07/14/2017. FINDINGS: Left subclavian pacer with leads to the right atrium and right ventricular apex. Median sternotomy wires and mediastinal surgical clips unchanged. Atherosclerosis of aortic arch. Cardiac silhouette moderately enlarged. Suggestion of mitral annular calcification. Pulmonary vascular prominence unchanged. Reticular mid to basilar lung opacities. Slight increase in small right pleural effusion. No pneumothorax. Degenerative changes of the thoracic spine. Upper abdomen normal. IMPRESSION: 1. Moderate cardiomegaly with volume overload and neck mild pulmonary edema suspected superimposed on underlying chronic lung disease such as emphysema. Alternatively, bibasilar opacities could relate to chronic aspiration. 2. Small right pleural effusion. Electronically signed by: Collin Villa M.D. 11/25/2017 8:17 AM Dictated Date/Time: 11/25/2017 8:15 AM
[2017-11-25] MEDS: ASCORBIC ACID 500 MG TAB PO SCH ×2 (08:55→20:45)
[2017-11-25] MEDS: CHOLECALCIFEROL 1000 INTER.UNIT TAB PO SCH (08:55)
[2017-11-25] MEDS: ISOSORBIDE MONONITRATE 30 MG TABCR PO SCH (08:56)
[2017-11-25] MEDS: LISINOPRIL 20 MG TAB PO SCH (08:56)
[2017-11-25] MEDS: CYANOCOBALAMIN 500 MCG TAB (VIT B-12) PO SCH ×2 (08:57→20:45)
[2017-11-25] MEDS: ROSUVASTATIN CALCIUM 20 MG TAB PO SCH (08:57)
[2017-11-25] MEDS: MAGNESIUM OXIDE 400 MG TAB PO SCH ×2 (08:57→20:45)
[2017-11-25] MEDS: LACTOBACILLUS ACIDOPHILUS (FLORANEX) TAB PO SCH (08:58)
[2017-11-25] MEDS: FERROUS SULFATE 325 MG TAB PO SCH ×2 (08:58→20:45)
[2017-11-25] MEDS: MECLIZINE HCL 12.5 MG TAB PO SCH ×2 (08:58→20:45)
[2017-11-25] MEDS: CARVEDILOL 25 MG TAB PO SCH ×2 (08:58→20:44)
[2017-11-25] MEDS: POTASSIUM CHLORIDE 10 MEQ TABCR PO SCH (08:59)
[2017-11-25] MEDS ORDERED: FUROSEMIDE 20 MG TAB PO SCH (09:00)
[2017-11-25] MEDS: FUROSEMIDE INJ 20 MG in SYRINGE 0 ML IV SCH ×2 (09:03→17:20)
[2017-11-25] MEDS: INSULIN ASPART 100 UNITS/ML 3 ML PEN SC SCH ×4 (09:15→20:37)
[2017-11-25 10:14] LABS: BASO % 0.2 %; BASO ABS # 0.01 K/uL (0-0.2); EOS % 2.9 %; EOS ABS # 0.16 K/uL (0-0.5); HEMATOCRIT 26.3 % (42-52); HEMOGLOBIN 8.3 g/dL (14.0-18.0); IG# 0.02 K/uL (0.00-0.02); LYMPH % 15.9 %; LYMPH ABS # 0.89 K/uL (1.2-3.4); MEAN CORPUSCULAR HEMOGLOBIN 27.8 pg (25-34); MEAN CORPUSCULAR HGB CONC 31.6 g/dl (32-36); MEAN PLATELET VOLUME 9.5 fL (7.4-10.4); NEUT % 71.6 %; PLATELET COUNT 205 K/uL (130-400); RED CELL DISTRIBUTION WIDTH CV 17.8 % (11.5-14.5); RED CELL DISTRIBUTION WIDTH SD 57.3 fL (36.4-46.3); WHITE BLOOD COUNT 5.58 K/uL (4.8-10.8)
[2017-11-25 10:44] LABS: CALCIUM 8.9 mg/dl (8.5-10.1); CREATININE 1.11 mg/dl (0.60-1.40); POTASSIUM 4.4 mmol/L (3.5-5.1)
--- NOTE | 2017-11-25 11:42 | Family Medicine Progress Note ---
Progress Note Date of Service Nov 25, 2017. Subjective Pt evaluation today including: conversation w/ patient, chart review, lab review, review of studies, conversation w/ client experience consultant, review of inpatient medication list Pain: 0/10 PO Intake: WNL Voiding: no voiding problems Patient states that his sob has significantly improved however he notes that with any exertion he has significant SOB and weakness which is unusual for him He also notes persistent bilat LE swelling which is very unusual for him he states that he has been augmenting how he was taking his lasix as he felt that his diuretic dose may have been to much and he felt better at a higher dose Constitutional: No fever Eyes: No worsening of vision ENT: No hearing loss Respiratory: + dyspnea on exertion, No cough, No sputum, No wheezing, No dyspnea at rest, No hemoptysis Cardiovascular: No chest pain, No palpitations Abdomen: No pain, No nausea, No vomiting, No diarrhea, No constipation Musculoskeletal: No joint pain, No muscle pain Male : + problem reported (good diuresis with lasix), No dysuria Neurologic: + weakness, No balance problems Psychiatric: No depression symptoms, No anxiety Heme: No abnormal bleeding/bruising Endo: + fatigue Skin: No rash Medications Medications Administered Medications (Trade) Dose Ordered Sig/Nicki Route Start Time Stop Time Status Last Admin Dose Admin Furosemide (Lasix Inj) 20 mg NOW STAT IV 11/25/17 01:39 11/25/17 01:40 DC 11/25/17 01:39 20 MG Nitroglycerin (Nitroglycerin 2% Oint) 1 inch Q6H EXT 11/25/17 06:00 12/25/17 05:59 11/25/17 06:20 1 INCH Ascorbic Acid (Vitamin C Tab) 500 mg BID PO 11/25/17 09:00 12/25/17 08:59 11/25/17 08:55 500 MG Carvedilol (Coreg Tab) 25 mg BID PO 11/25/17 09:00 12/25/17 08:59 11/25/17 08:58 25 MG Cholecalciferol (Vitamin D Tab) 1,000 inter.unit DAILY PO 11/25/17 09:00 12/25/17 08:59 11/25/17 08:55 1,000 INTER.UNIT Cyanocobalamin (Vitamin B-12 Tab) 1,000 mcg BID PO 11/25/17 09:00 12/25/17 08:59 11/25/17 08:57 1,000 MCG Ferrous Sulfate (Feosol Tab) 325 mg BID PO 11/25/17 09:00 12/25/17 08:59 11/25/17 08:58 325 MG Isosorbide Mononitrate (Imdur Ext Rel Tab) 30 mg QAM PO 11/25/17 09:00 12/25/17 08:59 11/25/17 08:56 30 MG Lactobacillus Acidophilus (Floranex Tab) 1 tab DAILY PO 11/25/17 09:00 12/25/17 08:59 11/25/17 08:58 1 TAB Levothyroxine Sodium (Synthroid Tab) 50 mcg DAILYBB PO 11/25/17 06:00 12/25/17 05:59 11/25/17 06:20 50 MCG Lisinopril (Zestril Tab) 20 mg DAILY PO 11/25/17 09:00 12/25/17 08:59 11/25/17 08:56 20 MG Magnesium Oxide (Mag-Ox Tab) 400 mg BID PO 11/25/17 09:00 12/25/17 08:59 11/25/17 08:57 400 MG Meclizine HCl (Antivert Tab) 25 mg BID PO 11/25/17 09:00 12/25/17 08:59 11/25/17 08:58 25 MG Potassium Chloride (Klor-Con M10) 10 meq DAILY PO 11/25/17 09:00 12/25/17 08:59 11/25/17 08:59 10 MEQ Rosuvastatin Calcium (Crestor Tab) 40 mg DAILY PO 11/25/17 09:00 12/25/17 08:59 11/25/17 08:57 40 MG Insulin Aspart (novoLOG ASPART) SLIDING SCALE G... ACHS SC 11/25/17 06:45 12/25/17 06:59 11/25/17 09:15 1 UNITS Furosemide 20 mg/ Syringe 2 ml @ 4 mls/min BID17 IV 11/25/17 09:00 12/25/17 08:59 11/25/17 09:03 4 MLS/MIN Objective Vital Signs Date Time Temp Pulse Resp B/P (MAP) Pulse Ox O2 Delivery O2 Flow Rate FiO2 11/25/17 08:00 36.6 60 20 114/58 (76) 97 Nasal Cannula 2.0 11/25/17 08:00 Nasal Cannula 2.0 11/25/17 03:20 82 18 128/77 93 11/25/17 03:10 36.4 60 18 116/75 97 Nasal Cannula 2.0 11/25/17 02:25 90 18 131/73 93 Room Air 11/25/17 00:18 86 16 131/83 92 Room Air 11/25/17 00:08 86 11/24/17 23:50 36.4 86 18 119/73 95 Room Air Physical Exam General Appearance: no apparent distress Eyes: normal inspection ENT: normal ENT inspection Neck: supple, + JVD (noted to be just below mandible) Respiratory/Chest: no respiratory distress, no accessory muscle use, + decreased breath sounds (bilat bases), + crackles (bilat bases R>L) Cardiovascular: regular rate, rhythm, no murmur, + pertinent finding (pacer noted on the left chest ) Abdomen: normal bowel sounds, non tender, soft Extremities: non-tender, no calf tenderness, + pedal edema (+3 bilat edema to just above ankle ) Neurologic/Psychiatric: alert, normal mood/affect, oriented x 3 Skin: normal color, warm/dry, no rash, + pertinent finding (venous stasis changes of bilat LE ) Lymphatic: no adenopathy Laboratory Results Results Past 24 Hours Test 11/25/17 00:00 11/25/17 06:44 11/25/17 09:55 Range/Units White Blood Count 5.27 5.58 4.8-10.8 K/uL Red Blood Count 3.14 2.99 4.7-6.1 M/uL Hemoglobin 8.7 8.3 14.0-18.0 g/dL Hematocrit 27.6 26.3 42-52 % Mean Corpuscular Volume 87.9 88.0 80-100 fL Mean Corpuscular Hemoglobin 27.7 27.8 25-34 pg Mean Corpuscular Hemoglobin Concent 31.5 31.6 32-36 g/dl Platelet Count 199 205 130-400 K/uL Mean Platelet Volume 9.6 9.5 7.4-10.4 fL Neutrophils (%) (Auto) 76.4 71.6 % Lymphocytes (%) (Auto) 12.7 15.9 % Monocytes (%) (Auto) 8.0 9.0 % Eosinophils (%) (Auto) 2.5 2.9 % Basophils (%) (Auto) 0.2 0.2 % Neutrophils # (Auto) 4.03 4.00 1.4-6.5 K/uL Lymphocytes # (Auto) 0.67 0.89 1.2-3.4 K/uL Monocytes # (Auto) 0.42 0.50 0.11-0.59 K/uL Eosinophils # (Auto) 0.13 0.16 0-0.5 K/uL Basophils # (Auto) 0.01 0.01 0-0.2 K/uL RDW Standard Deviation 57.0 57.3 36.4-46.3 fL RDW Coefficient of Variation 17.8 17.8 11.5-14.5 % Immature Granulocyte % (Auto) 0.2 0.4 % Immature Granulocyte # (Auto) 0.01 0.02 0.00-0.02 K/uL Hypochromasia PRESENT Schistocytes 1+ Sodium Level 131 132 136-145 mmol/L Potassium Level 4.7 4.4 3.5-5.1 mmol/L Chloride Level 102 101 98-107 mmol/L Carbon Dioxide Level 23 25 21-32 mmol/L Anion Gap 6.0 6.0 3-11 mmol/L Blood Urea Nitrogen 31 31 7-18 mg/dl Creatinine 1.03 1.11 0.60-1.40 mg/dl Est Creatinine Clear Calc Drug Dose 52.6 48.8 ml/min Estimated GFR () 77.5 70.8 Estimated GFR (Non- 66.9 61.1 BUN/Creatinine Ratio 30.1 27.7 10-20 Random Glucose 135 154 70-99 mg/dl Calcium Level 8.8 8.9 8.5-10.1 mg/dl Magnesium Level 2.3 1.8-2.4 mg/dl Total Bilirubin 1.2 0.2-1 mg/dl Direct Bilirubin 0.4 0-0.2 mg/dl Aspartate Amino Transf (AST/SGOT) 31 15-37 U/L Alanine Aminotransferase (ALT/SGPT) 34 12-78 U/L Alkaline Phosphatase 113 45-117 U/L Troponin I < 0.015 0.015 0-0.045 ng/ml Pro-B-Type Natriuretic Peptide 1586 0-1800 pg/ml Total Protein 7.5 6.4-8.2 gm/dl Albumin 3.5 3.4-5.0 gm/dl Bedside Glucose 94 70-99 mg/dl Polychromasia 1+ Anisocytosis PRESENT Assessment and Plan 82 year old male with a PMH of CHF, DM, HLD, HTN, Hypothyroidism that presented with worsening SOB and bilat LE edema that was found to be fluid overloaded in the ED and was diuresing well with IV Lasix. 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 exacerbated by noncompliance - Patient is still very fluid overloaded today and would benefit from ongoing diuresis - Last echo was in June 2017: EF of 45-50, inferolateral hypokinesis, grade 2 DD, Aortic valve sclerosis and biatrial enlargement - Lasix 20 mg IV bid and reassess fluid status in the am - once the patient is back to dry weight will restart the oral diuretic and determine regimen at that time - Continue PO 10 meq KCL supp, add prn - Monitor I/O's and daily weights - continue Imdur 30 mg daily Possible aspiration pna - changes concerning for possible pna however the patient does not have white count, no cough/ sputum production and improving resp status despite no abx - will repeat cxr however PA lateral tomorrow after receiving more diuresis throughout today - speech for eval Hyponatremia - most likely secondary to fluid overload - will continue to diurese and follow Normocytic Anemia possibly secondary to iron def/ test def/ anemia of chronic disease - patient's BL is approx 9-10 - h/o GI bleed in the past while on blood thinner - patient may very well be diluted, will follow with a repeat in afternoon and if worsening may consider further studies and FOBT - continue ferrous sulfate bid - B12 and folate in past was adequate DMT2 - HbA1c was 6.7 last month - continue lantus 14 units qhs - ISS BSG ACHS - hold metformin PAF - currently not in atrial fibb, no events overnight and slight decrease in his hgb this morning, will hold Xarelto and if stable without signs of bleeding - continue Carvedilol 25 mg bid HTN - continue lisinopril 20 mg daily - continue carvedilol as above Hypothyroidism - Levothyroxine 50 mcg cont'd - will defer TSH level during acute illness DVT prophylaxis - SCD's Full Code, no mechanical ventilation Continued [facility] stay due to: multiple IV medications needed, other Discharge planning: uncertain Reviewed: Pt Seen/Exam by Me History breathing much better compared to admission Constitutional: denies: fever Cardiovascular: denies chest pain General Appearance: no apparent distress Respiratory: no respiratory distress, decreased breath sounds (base) Cardiovascular: regular rate, rhythm Gastrointestinal: soft Neurologic/Psychiatric: alert, oriented x 3 Skin Characteristics: warm/dry Assessment/Plan Resident Physician Supervision Note: I independently interviewed and examined the patient and verified the krishna history and physical, reviewed labs and image studies, discussed the case with the resident Dr. Whitfield and agree with the findings and care plan.
[2017-11-25 14:20] LABS: HEMATOCRIT 23.5 % (42-52); HEMOGLOBIN 7.6 g/dL (14.0-18.0)
[2017-11-25] MEDS: INSULIN GLARGINE SOLOSTAR 100 UNITS/ML 3 ML PEN SC SCH (20:50)
[2017-11-26] VITALS (8 sets, daily range): BP systolic 70–122; BP diastolic 41–93; PULSE 60–90; TEMP 36.1–36.9; O2SAT 87–97
[2017-11-26 05:59] LABS: HEMATOCRIT 24.4 % (42-52); HEMOGLOBIN 7.8 g/dL (14.0-18.0); MEAN CELL VOLUME 87.8 fL (80-100); MEAN CORPUSCULAR HEMOGLOBIN 28.1 pg (25-34); MEAN PLATELET VOLUME 9.7 fL (7.4-10.4); PLATELET COUNT 195 K/uL (130-400); RED CELL DISTRIBUTION WIDTH CV 17.6 % (11.5-14.5); RED CELL DISTRIBUTION WIDTH SD 56.7 fL (36.4-46.3); WHITE BLOOD COUNT 4.12 K/uL (4.8-10.8)
[2017-11-26] MEDS: NITROGLYCERIN 2% OINTMENT 30GM TUBE EXT SCH ×2 (06:02→12:00)
[2017-11-26] MEDS: LEVOTHYROXINE 50 MCG TAB PO SCH (06:03)
[2017-11-26 06:15] LABS: CALCIUM 8.2 mg/dl (8.5-10.1); CREATININE 1.05 mg/dl (0.60-1.40)
[2017-11-26] MEDS: CARVEDILOL 25 MG TAB PO SCH ×2 (08:46→21:04)
[2017-11-26] MEDS: FUROSEMIDE INJ 20 MG in SYRINGE 0 ML IV SCH (08:46)
[2017-11-26] MEDS: LISINOPRIL 20 MG TAB PO SCH (08:47)
[2017-11-26] MEDS: ISOSORBIDE MONONITRATE 30 MG TABCR PO SCH (08:47)
[2017-11-26] MEDS: LACTOBACILLUS ACIDOPHILUS (FLORANEX) TAB PO SCH (08:47)
[2017-11-26] MEDS: POTASSIUM CHLORIDE 10 MEQ TABCR PO SCH (08:47)
[2017-11-26] MEDS: CYANOCOBALAMIN 500 MCG TAB (VIT B-12) PO SCH ×2 (08:47→21:05)
[2017-11-26] MEDS: CHOLECALCIFEROL 1000 INTER.UNIT TAB PO SCH (08:48)
[2017-11-26] MEDS: FERROUS SULFATE 325 MG TAB PO SCH ×2 (08:48→21:05)
[2017-11-26] MEDS: MECLIZINE HCL 12.5 MG TAB PO SCH ×2 (08:48→21:05)
[2017-11-26] MEDS: ASCORBIC ACID 500 MG TAB PO SCH ×2 (08:48→21:04)
[2017-11-26] MEDS: MAGNESIUM OXIDE 400 MG TAB PO SCH ×2 (08:48→21:04)
[2017-11-26] MEDS: ROSUVASTATIN CALCIUM 20 MG TAB PO SCH (08:49)
[2017-11-26] MEDS: INSULIN ASPART 100 UNITS/ML 3 ML PEN SC SCH ×4 (08:50→21:10)
--- NOTE | 2017-11-26 09:19 | DIAGNOSTIC IMAGING REPORT ---
CHEST 2 VIEWS ROUTINE CLINICAL HISTORY: pulmonary effusion? 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 Findings of pulmonary edema mildly improved. Diminished pulmonary vasculature. Small right effusion unchanged. IMPRESSION: Improved exam with findings of congestive failure/pulmonary edema improved. The above report was generated using voice recognition software. It may contain grammatical, syntax or spelling errors. Electronically signed by: Lester Paulson M.D. 11/26/2017 9:18 AM Dictated Date/Time: 11/26/2017 9:17 AM
[2017-11-26 16:31] LABS: HEMATOCRIT 26.6 % (42-52); HEMOGLOBIN 8.2 g/dL (14.0-18.0)
[2017-11-26] MEDS ORDERED: FUROSEMIDE 20 MG TAB PO SCH (17:00)
[2017-11-26] MEDS: INSULIN GLARGINE SOLOSTAR 100 UNITS/ML 3 ML PEN SC SCH (21:10)
[2017-11-27] VITALS (7 sets, daily range): BP systolic 92–139; BP diastolic 47–77; PULSE 60–62; TEMP 36.4–37.1; O2SAT 93–98
[2017-11-27 05:56] LABS: BASO % 0.3 %; BASO ABS # 0.01 K/uL (0-0.2); EOS % 4.4 %; EOS ABS # 0.17 K/uL (0-0.5); HEMATOCRIT 25.5 % (42-52); HEMOGLOBIN 8.1 g/dL (14.0-18.0); LYMPH % 22.4 %; LYMPH ABS # 0.87 K/uL (1.2-3.4); MEAN CELL VOLUME 88.2 fL (80-100); MEAN CORPUSCULAR HGB CONC 31.8 g/dl (32-36); MEAN PLATELET VOLUME 9.3 fL (7.4-10.4); MONO % 9.3 %; MONO ABS # 0.36 K/uL (0.11-0.59); NEUT % 63.6 %; NEUT ABS # 2.47 K/uL (1.4-6.5); PLATELET COUNT 183 K/uL (130-400); RED CELL DISTRIBUTION WIDTH CV 17.9 % (11.5-14.5); RED CELL DISTRIBUTION WIDTH SD 57.6 fL (36.4-46.3); WHITE BLOOD COUNT 3.88 K/uL (4.8-10.8)
[2017-11-27] MEDS: LEVOTHYROXINE 50 MCG TAB PO SCH (06:25)
[2017-11-27 06:30] LABS: CALCIUM 8.5 mg/dl (8.5-10.1); CREATININE 1.16 mg/dl (0.60-1.40)
[2017-11-27] MEDS: LISINOPRIL 20 MG TAB PO SCH (08:25)
[2017-11-27] MEDS: CYANOCOBALAMIN 500 MCG TAB (VIT B-12) PO SCH ×2 (08:25→20:43)
[2017-11-27] MEDS: CHOLECALCIFEROL 1000 INTER.UNIT TAB PO SCH (08:26)
[2017-11-27] MEDS: ASCORBIC ACID 500 MG TAB PO SCH ×2 (08:26→20:39)
[2017-11-27] MEDS: FERROUS SULFATE 325 MG TAB PO SCH ×2 (08:26→20:39)
[2017-11-27] MEDS: ISOSORBIDE MONONITRATE 30 MG TABCR PO SCH (08:26)
[2017-11-27] MEDS: LACTOBACILLUS ACIDOPHILUS (FLORANEX) TAB PO SCH (08:27)
[2017-11-27] MEDS: FUROSEMIDE 20 MG TAB PO SCH (08:27)
[2017-11-27] MEDS: MAGNESIUM OXIDE 400 MG TAB PO SCH ×2 (08:27→20:39)
[2017-11-27] MEDS: MECLIZINE HCL 12.5 MG TAB PO SCH ×2 (08:27→20:39)
[2017-11-27] MEDS: POTASSIUM CHLORIDE 10 MEQ TABCR PO SCH (08:27)
[2017-11-27] MEDS: CARVEDILOL 25 MG TAB PO SCH ×2 (08:28→20:39)
[2017-11-27] MEDS: ROSUVASTATIN CALCIUM 20 MG TAB PO SCH (08:28)
[2017-11-27] MEDS: INSULIN ASPART 100 UNITS/ML 3 ML PEN SC SCH ×4 (08:37→20:43)
--- NOTE | 2017-11-27 09:03 | DIAGNOSTIC IMAGING REPORT ---
CHEST 2 VIEWS ROUTINE CLINICAL HISTORY: 82 years-old Male presenting with follow-up CHF. TECHNIQUE: PA and lateral views of the chest were obtained. COMPARISON: 11/26/2017 at 9:12 AM. FINDINGS: Left subclavian pacer with leads to the right atrium and right ventricular apex. Median sternotomy wires and mediastinal surgical clips unchanged. Multiple overlying external leads. Atherosclerosis of the aortic arch. Cardiac silhouette mildly enlarged, unchanged. Diffuse reticular opacities in the mid to lower lungs that significant changed from prior. Small right and trace left pleural effusions. No large pneumothorax. Degenerative changes of the thoracic spine. Upper abdomen normal. IMPRESSION: 1. Cardiomegaly with persistent mid to basilar predominant opacities could represent mild pulmonary edema superimposed on chronic lung disease. This is not significant changed. 2. Small right and trace left pleural effusions, unchanged. Electronically signed by: Collin Villa M.D. 11/27/2017 9:01 AM Dictated Date/Time: 11/27/2017 8:59 AM
--- NOTE | 2017-11-27 12:36 | Family Medicine Progress Note ---
Progress Note Date of Service Nov 27, 2017. Subjective breathing improving Constitutional: No fever Respiratory: No shortness of breath Cardiovascular: No chest pain Objective Physical Exam General Appearance: no apparent distress Respiratory/Chest: no respiratory distress, + decreased breath sounds (base) Cardiovascular: regular rate, rhythm Neurologic/Psychiatric: alert, oriented x 3 Skin: warm/dry Assessment and Plan 82 year old male with a PMH of CHF, DM, HLD, HTN, Hypothyroidism that presented with worsening SOB and bilat LE edema that was found to be fluid overloaded in the ED and was diuresing well with IV Lasix. 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 exacerbated by noncompliance - Continue diuresis - Last echo was in June 2017: EF of 45-50, inferolateral hypokinesis, grade 2 DD, Aortic valve sclerosis and biatrial enlargement - Continue PO 10 meq KCL supp, add prn - Monitor I/O's and daily weights - continue Imdur 30 mg daily Possible aspiration pna - changes concerning for possible pna however the patient does not have white count, no cough/ sputum production and improving resp status despite no abx - speech for eval Hyponatremia - most likely secondary to fluid overload - will continue to diurese and follow Normocytic Anemia possibly secondary to iron def/ test def/ anemia of chronic disease - patient's BL is approx 9-10 - h/o GI bleed in the past while on blood thinner - patient may very well be diluted, will follow with a repeat in afternoon and if worsening may consider further studies and FOBT - continue ferrous sulfate bid - B12 and folate in past was adequate DMT2 - HbA1c was 6.7 last month - continue lantus 14 units qhs - ISS BSG ACHS - hold metformin PAF - currently not in atrial fibb, no events overnight and slight decrease in his hgb this morning, will hold Xarelto and if stable without signs of bleeding - continue Carvedilol 25 mg bid HTN - continue lisinopril 20 mg daily - continue carvedilol as above Hypothyroidism - Levothyroxine 50 mcg cont'd - will defer TSH level during acute illness DVT prophylaxis - SCD's
[2017-11-27] MEDS: INSULIN GLARGINE SOLOSTAR 100 UNITS/ML 3 ML PEN SC SCH (20:43)
--- NOTE | 2017-11-27 23:25 | Family Medicine Progress Note ---
Progress Note Date of Service Nov 27, 2017. Subjective Pt evaluation today including: conversation w/ patient, physical exam, chart review, lab review, review of studies Pain: No pain reported this morning Voiding: no voiding problems, no incontinence Patient resting comfortably this morning with no acute complaints. Denies any shortness of breath and states his swelling in his legs had significantly improved Abdomen: + see HPI Additional Comments: See HPI for pertinent positives and negatives. A total of ten systems were reviewed and were otherwise negative. Medications Current Inpatient Medications Medications (Trade) Dose Ordered Sig/Nicki Route Start Time Stop Time Status Last Admin Dose Admin Al Hydrox/Mg Hydrox/Simethicone (Maalox Max Susp) 15 ml Q4H PRN PO 11/25/17 02:30 12/25/17 02:29 Magnesium Hydroxide (Milk Of Magnesia Susp) 30 ml Q12H PRN PO 11/25/17 02:30 12/25/17 02:29 Ondansetron HCl (Zofran Inj) 4 mg Q6H PRN IV 11/25/17 02:30 12/25/17 02:29 Nitroglycerin (Nitrostat Tab) 0.4 mg UD PRN SL 11/25/17 02:30 12/25/17 02:29 Polyethylene (Miralax Powder Packet) 17 gm DAILY PRN PO 11/25/17 02:30 12/25/17 02:29 Ascorbic Acid (Vitamin C Tab) 500 mg BID PO 11/25/17 09:00 12/25/17 08:59 11/27/17 20:39 500 MG Carvedilol (Coreg Tab) 25 mg BID PO 11/25/17 09:00 12/25/17 08:59 11/27/17 20:39 25 MG Cholecalciferol (Vitamin D Tab) 1,000 inter.unit DAILY PO 11/25/17 09:00 12/25/17 08:59 11/27/17 08:26 1,000 INTER.UNIT Cyanocobalamin (Vitamin B-12 Tab) 1,000 mcg BID PO 11/25/17 09:00 12/25/17 08:59 11/27/17 08:25 1,000 MCG Ferrous Sulfate (Feosol Tab) 325 mg BID PO 11/25/17 09:00 12/25/17 08:59 11/27/17 20:39 325 MG Isosorbide Mononitrate (Imdur Ext Rel Tab) 30 mg QAM PO 11/25/17 09:00 12/25/17 08:59 11/27/17 08:26 30 MG Lactobacillus Acidophilus (Floranex Tab) 1 tab DAILY PO 11/25/17 09:00 12/25/17 08:59 11/27/17 08:27 1 TAB Levothyroxine Sodium (Synthroid Tab) 50 mcg DAILYBB PO 11/25/17 06:00 12/25/17 05:59 11/27/17 06:25 50 MCG Lisinopril (Zestril Tab) 20 mg DAILY PO 11/25/17 09:00 12/25/17 08:59 11/27/17 08:25 20 MG Magnesium Oxide (Mag-Ox Tab) 400 mg BID PO 11/25/17 09:00 12/25/17 08:59 11/27/17 20:39 400 MG Meclizine HCl (Antivert Tab) 25 mg BID PO 11/25/17 09:00 12/25/17 08:59 11/27/17 20:39 25 MG Potassium Chloride (Klor-Con M10) 10 meq DAILY PO 11/25/17 09:00 12/25/17 08:59 11/27/17 08:27 10 MEQ Rosuvastatin Calcium (Crestor Tab) 40 mg DAILY PO 11/25/17 09:00 12/25/17 08:59 11/27/17 08:28 40 MG Insulin Glargine (Lantus Solostar Pen) 14 units QPM SC 11/25/17 21:00 12/25/17 20:59 11/27/17 20:43 14 UNITS Insulin Aspart (novoLOG ASPART) SLIDING SCALE G... ACHS SC 11/25/17 06:45 12/25/17 06:59 11/27/17 20:43 1 UNITS Glucose (Glucose 40% Gel) 15-30 GRAMS 15 GRAMS... UD PRN PO 11/25/17 04:30 12/25/17 04:29 Glucose (Glucose Chew Tab) 4-8 Tablets 4 Tabl... UD PRN PO 11/25/17 04:30 12/25/17 04:29 Dextrose (Dextrose 50% 50ML Syringe) 25-50ML OF 50% DW IV FOR... UD PRN IV 11/25/17 04:30 12/25/17 04:29 Glucagon (Glucagon Inj) 1 mg UD PRN SQ 11/25/17 04:30 12/25/17 04:29 Furosemide (Lasix Tab) 20 mg DAILY PO 11/27/17 09:00 12/26/17 16:59 11/27/17 08:27 20 MG Objective Vital Signs Date Time Temp Pulse Resp B/P (MAP) Pulse Ox O2 Delivery O2 Flow Rate FiO2 11/27/17 20:00 Room Air 2.0 Nasal Cannula 11/27/17 19:01 36.4 61 18 139/77 (97) 98 Nasal Cannula 2.0 11/27/17 16:00 Room Air Nasal Cannula 11/27/17 15:13 36.9 62 18 106/50 (68) 96 Room Air 11/27/17 12:10 36.6 61 17 92/55 (67) 95 Room Air 11/27/17 12:00 Room Air Nasal Cannula 11/27/17 08:00 Room Air Nasal Cannula 11/27/17 08:00 36.9 62 20 92/47 (62) 93 Room Air 11/27/17 04:00 Room Air 2.0 Nasal Cannula 11/27/17 03:20 37.0 60 16 117/70 (86) 97 11/27/17 00:01 36.7 61 16 119/72 (88) 96 Room Air 11/27/17 00:00 Room Air 2.0 Nasal Cannula Physical Exam General Appearance: WD/WN, no apparent distress Eyes: normal inspection Neck: supple, no carotid bruits Respiratory/Chest: chest non-tender, lungs clear, normal breath sounds Cardiovascular: regular rate, rhythm, no edema, no gallop Abdomen: non tender, soft Extremities: no pedal edema, no calf tenderness Neurologic/Psychiatric: alert, normal mood/affect, oriented x 3 Laboratory Results Results Past 24 Hours Test 11/27/17 05:30 11/27/17 06:33 11/27/17 10:59 11/27/17 11:35 Range/Units White Blood Count 3.88 4.8-10.8 K/uL Red Blood Count 2.89 4.7-6.1 M/uL Hemoglobin 8.1 14.0-18.0 g/dL Hematocrit 25.5 42-52 % Mean Corpuscular Volume 88.2 80-100 fL Mean Corpuscular Hemoglobin 28.0 25-34 pg Mean Corpuscular Hemoglobin Concent 31.8 32-36 g/dl Platelet Count 183 130-400 K/uL Mean Platelet Volume 9.3 7.4-10.4 fL Neutrophils (%) (Auto) 63.6 % Lymphocytes (%) (Auto) 22.4 % Monocytes (%) (Auto) 9.3 % Eosinophils (%) (Auto) 4.4 % Basophils (%) (Auto) 0.3 % Neutrophils # (Auto) 2.47 1.4-6.5 K/uL Lymphocytes # (Auto) 0.87 1.2-3.4 K/uL Monocytes # (Auto) 0.36 0.11-0.59 K/uL Eosinophils # (Auto) 0.17 0-0.5 K/uL Basophils # (Auto) 0.01 0-0.2 K/uL RDW Standard Deviation 57.6 36.4-46.3 fL RDW Coefficient of Variation 17.9 11.5-14.5 % Immature Granulocyte % (Auto) 0.0 % Immature Granulocyte # (Auto) 0.00 0.00-0.02 K/uL Red Blood Cell Morphology Unremarkable Sodium Level 139 136-145 mmol/L Potassium Level 4.0 3.5-5.1 mmol/L Chloride Level 105 98-107 mmol/L Carbon Dioxide Level 27 21-32 mmol/L Anion Gap 7.0 3-11 mmol/L Blood Urea Nitrogen 32 7-18 mg/dl Creatinine 1.16 0.60-1.40 mg/dl Est Creatinine Clear Calc Drug Dose 46.7 ml/min Estimated GFR () 67.1 Estimated GFR (Non- 57.9 BUN/Creatinine Ratio 27.7 10-20 Random Glucose 103 70-99 mg/dl Calcium Level 8.5 8.5-10.1 mg/dl Bedside Glucose 110 96 70-99 mg/dl Iron Level 171 35-175 mcg/dl Total Iron Binding Capacity 354 250-450 mcg/dl Transferrin 283 200-360 mg/dl Transferrin % Saturation 43 20-50 % Ferritin 39.9 8.0-388.0 ng/ml Vitamin B12 Level > 1999 211-911 pg/mL Folate 7.11 >5.38 ng/mL Test 11/27/17 16:34 11/27/17 16:50 11/27/17 17:49 11/27/17 20:29 Range/Units Bedside Glucose 59 65 194 165 70-99 mg/dl Assessment and Plan 82 year old male with a PMH of CHF, DM, HLD, HTN, Hypothyroidism that presented with worsening SOB and bilat LE edema that was found to be fluid overloaded in the ED and was diuresing well with IV Lasix. 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 exacerbated by noncompliance - Resume home 20mg PO Lasix dose (previously on Lasix IV 20mg IV BID) - Last echo was in June 2017: EF of 45-50, inferolateral hypokinesis, grade 2 DD, Aortic valve sclerosis and biatrial enlargement - Continue PO 10 meq KCL supplementation - Monitor I/O's and daily weights - Continue Imdur 30 mg daily - CXR shows pleural edema with no infiltrates concerning for pneumonia - Not on oxygen this morning during evaluation --> Perform 2 step prior to discharge Possible aspiration pna - CXR not concerning for pneumonia - Swallow eval --> Moist dental soft diet Hyponatremia - Resolved Normocytic Anemia possibly secondary to iron def/ test def/ anemia of chronic disease - Patient's BL is approx 9-10 - Previous h/o GI bleed in the past while on blood thinner - FOBT Ordered - Iron Studies, B12, and Folate levels ordered - Continue ferrous sulfate bid - B12 and folate in past was adequate DMT2 - HbA1c was 6.7 last month - Continue lantus 14 units qhs - ISS BSG ACHS - hold metformin PAF - Currently NSR, holding Xarelto - continue Carvedilol 25 mg bid HTN - continue lisinopril 20 mg daily - continue carvedilol as above Hypothyroidism - Levothyroxine 50 mcg DVT prophylaxis - SCD's Resident Tracking Resident Involvement: Resident Care Provided Care Provided: Adult Hospital Medicine
[2017-11-28 04:05] VITALS: BP 153/80; PULSE 64; TEMP 37; O2SAT 99
[2017-11-28] MEDS: LEVOTHYROXINE 50 MCG TAB PO SCH (05:49)
[2017-11-28 06:58] VITALS: BP 119/77; PULSE 81; TEMP 36.5; O2SAT 98
--- NOTE | 2017-11-28 07:21 | SURGICAL CONSULTATION ---
DATE OF CONSULTATION: 11/27/2017 REASON FOR CONSULTATION: Right pleural effusion. HISTORY OF PRESENT ILLNESS: Drew Murillo is an 82-year-old male suffered a cerebrovascular accident many years ago which has left with him a hemiparesis. He must walk with a walker. He noted increasing shortness of breath and also noted some lower extremity edema. He has dyspnea on exertion worsened and he felt generalized weakness and had some chest pain. His hemoglobin was low when he was admitted. He has multiple medical issues, but has been well. I was asked to see him because there was a question of a pleural effusion. The patient denies a productive cough. He really has not had any fevers. He has had some darkened stools but takes iron. It should be noted his hemoglobin was 11 last month. PAST MEDICAL HISTORY: 1. Coronary artery disease. 2. Atrial fibrillation. 3. Myocardial infarction in the past. 4. History of complete heart block. 5. Ischemic cardiomyopathy. 6. Traumatic subdural hematoma in the past. 7. Hypertension. 8. Dyslipidemia. 9. Diabetes. 10. Diabetic neuropathy. 11. Cerebrovascular accident. 12. Benign positional hypertrophy. 13. History of GI bleed in the past. 14. Remote history of cigarette smoking (quite over 50 years ago). 15. History of Lyme disease. PAST SURGICAL HISTORY: 1. Laparoscopic cholecystectomy with intraoperative cholangiogram. 2. Cataract extraction with lens implants. 3. Insertion of a dual chamber pacemaker. 4. Aortocoronary artery bypass. 5. Redo coronary artery bypass. ALLERGIES: SIMVASTATIN AND ATORVASTATIN CAUSE MUSCLE ACHES. SOCIAL HISTORY: The patient is from a small town in the area of [facility]. 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 He smoked cigarettes but quit in the early 1959 when the Surgeon General determined it would cause lung cancer. He lives at home with his of more than 60 years. He does use a walker. He does get around at home, although it took him a while to get over his cerebrovascular accident. FAMILY MEDICAL HISTORY: Includes diabetes, hypertension and coronary artery disease. The patient has 6 children and multiple grandchildren, great grandchildren and all are healthy. REVIEW OF SYSTEMS: The patient denies fevers, chills, productive cough. He has had no hemoptysis. He has had dark stools but takes iron. He has had no hematemesis. He has dyspnea on exertion as a baseline, but it has worsened in the last 2 weeks. He denies productive cough. He does have dyspnea on exertion but not at rest. He has had increasing peripheral edema. He denies any palpitations, although does have some chest pressure as described in history of present illness. Interestingly enough, he states that he has become bradycardic. He denies nausea, vomiting or diarrhea. He has had no problems with urinary frequency or dysuria. He has no joint effusions. He denies any neurologic exam such as amaurosis fugax, although his left side is a bit weaker. PHYSICAL EXAMINATION: GENERAL: This is an elderly male who is jovial and in good spirits. He wears glasses. HEENT: His extraocular movements are intact. He has evidence of cataract extractions with lenses. Sclerae are pale but anicteric. He has no nasolabial flattening. He has had a great deal of dental work done. His oral mucosa is moist. Tongue is midline. NECK: Supple. I do not hear carotid bruits and he has no lymphadenopathy. LUNGS: He has decreased breath sounds throughout, but it is about the same at both bases. CARDIOVASCULAR: He is paced, regular rate and rhythm of his heart. CHEST: He has incisions on his chest from his sternotomy but has no click. ABDOMEN: Soft, nontender. He has bowel sounds. EXTREMITIES: I am having trouble palpate pulses, but his feet are warm and well perfused and he has trace edema of his lower extremities. He has no joint effusions. He has evidence of saphenectomy bilaterally. NEUROLOGIC: He does have some mild weakness on the left. ASSESSMENT AND PLAN: Very small right pleural effusion. At this point, I do not think there is enough for us to intervene. While he is short of breath, he is on room air with excellent saturations. At this point, I do not believe that a CTA is indicated. We will continue to follow along but I would not intervene in his pleural effusions at this point.
[2017-11-28] MEDS: MAGNESIUM OXIDE 400 MG TAB PO SCH ×2 (07:38→19:57)
[2017-11-28] MEDS: ASCORBIC ACID 500 MG TAB PO SCH ×2 (07:38→19:58)
[2017-11-28] MEDS: CARVEDILOL 25 MG TAB PO SCH ×2 (07:38→19:57)
[2017-11-28] MEDS: LACTOBACILLUS ACIDOPHILUS (FLORANEX) TAB PO SCH (07:38)
[2017-11-28] MEDS: ROSUVASTATIN CALCIUM 20 MG TAB PO SCH (07:39)
[2017-11-28] MEDS: CYANOCOBALAMIN 500 MCG TAB (VIT B-12) PO SCH ×2 (07:39→19:58)
[2017-11-28] MEDS: ISOSORBIDE MONONITRATE 30 MG TABCR PO SCH (07:39)
[2017-11-28] MEDS: FERROUS SULFATE 325 MG TAB PO SCH ×2 (07:39→19:57)
[2017-11-28] MEDS: MECLIZINE HCL 12.5 MG TAB PO SCH ×2 (07:39→19:57)
[2017-11-28] MEDS: LISINOPRIL 20 MG TAB PO SCH (07:39)
[2017-11-28] MEDS: FUROSEMIDE 20 MG TAB PO SCH (07:40)
[2017-11-28] MEDS: POTASSIUM CHLORIDE 10 MEQ TABCR PO SCH (07:40)
[2017-11-28] MEDS: CHOLECALCIFEROL 1000 INTER.UNIT TAB PO SCH (07:40)
[2017-11-28] MEDS: INSULIN ASPART 100 UNITS/ML 3 ML PEN SC SCH ×4 (07:44→21:00)
[2017-11-28 08:42] LABS: HEMOGLOBIN 8.8 g/dL (14.0-18.0); MEAN CELL VOLUME 88.9 fL (80-100); MEAN CORPUSCULAR HEMOGLOBIN 27.9 pg (25-34); MEAN CORPUSCULAR HGB CONC 31.4 g/dl (32-36); MEAN PLATELET VOLUME 9.7 fL (7.4-10.4); PLATELET COUNT 215 K/uL (130-400); RED CELL DISTRIBUTION WIDTH CV 18.2 % (11.5-14.5); RED CELL DISTRIBUTION WIDTH SD 58.8 fL (36.4-46.3); WHITE BLOOD COUNT 4.57 K/uL (4.8-10.8)
[2017-11-28 09:09] LABS: CALCIUM 8.6 mg/dl (8.5-10.1); CREATININE 0.96 mg/dl (0.60-1.40)
[2017-11-28 11:22] VITALS: BP 95/56; PULSE 60; TEMP 36.3; O2SAT 98
--- NOTE | 2017-11-28 12:18 | Clinical Documentation Query ---
QUERY 1 OF [address] ALCALA, In your clinical opinion does this patient have: ( X ) Chronic kidney disease, stage 2 ( ) Not Agree ( ) Other explanation of clinical findings (Please Explain) ( ) Unable to determine (Please Define) ( ) Need to Discuss The medical record reflects the following clinical findings, treatment, and risk factors. Clinical Indicators: 81 yo male presenting with acute/chronic combined CHF. Review of historical GFR showed range of 61.1-76.6 over the last 6 months Treatment: monitor PRP's, treat comorbid diseases Risk Factors: age, chronic combined CHF, HTN, CAD QUERY 2 OF 2 In your clinical opinion is this patient being managed for: ( X ) Aspiration Pneumonia ( ) Aspiration pneumonia was ruled out ( ) Not Agree ( ) Other explanation of clinical findings (Please Explain) ( ) Unable to determine (Please Define) ( ) Need to Discuss The diagnosis of possible aspiration pneumonia is noted in the clinical record. Notes indicate that chest xray was not concerning for pneumonia, swallow eval without evidence of overt s/s aspiration. No antibiotic therapy initiated. Please clarify and document your clinical opinion in the progress notes and discharge summary. Terms such as "probable", "suspected", "likely", "questionable", "possible", or "still to be ruled out" are acceptable. IF IN AGREEMENT, YOU MUST DOCUMENT ABOVE DIAGNOSTIC STATEMENT IN DAILY PROGRESS NOTES AND DISCHARGE SUMMARY. This document is not part of the patient's record. Thank You, Malorie Dennison, RN [phone]
--- NOTE | 2017-11-28 12:21 | Clinical Documentation Query ---
QUERY 1 OF [address] JEFFERSON, In your clinical opinion does this patient have: (x ) Chronic kidney disease, stage 2 ( ) Not Agree ( ) Other explanation of clinical findings (Please Explain) ( ) Unable to determine (Please Define) ( ) Need to Discuss The medical record reflects the following clinical findings, treatment, and risk factors. Clinical Indicators: 81 yo male presenting with acute/chronic combined CHF. Review of historical GFR showed range of 61.1-76.6 over the last 6 months Treatment: monitor PRP's, treat comorbid diseases Risk Factors: age, chronic combined CHF, HTN, CAD QUERY 2 OF 2 In your clinical opinion is this patient being managed for: (x ) possible Aspiration Pneumonia ( ) Aspiration pneumonia was ruled out ( ) Not Agree ( ) Other explanation of clinical findings (Please Explain) ( ) Unable to determine (Please Define) ( ) Need to Discuss The diagnosis of possible aspiration pneumonia is noted in the clinical record. Notes indicate that chest xray was not concerning for pneumonia, swallow eval without evidence of overt s/s aspiration. No antibiotic therapy initiated. Please clarify and document your clinical opinion in the progress notes and discharge summary. Terms such as "probable", "suspected", "likely", "questionable", "possible", or "still to be ruled out" are acceptable. IF IN AGREEMENT, YOU MUST DOCUMENT ABOVE DIAGNOSTIC STATEMENT IN DAILY PROGRESS NOTES AND DISCHARGE SUMMARY. This document is not part of the patient's record. Thank You, Malorie Dennison, KENDRA [phone]
[2017-11-28 13:50] VITALS: O2SAT 98
[2017-11-28 15:03] VITALS: BP 102/55; PULSE 60; TEMP 36.8; O2SAT 100
--- NOTE | 2017-11-28 17:53 | GASTROINTESTINAL CONSULTATION ---
DATE OF CONSULTATION: 11/28/2017 CHIEF COMPLAINT: Heme positive stools, anemia, increasing shortness of breath, congestive heart failure. HISTORY OF PRESENT ILLNESS: Mr. Murillo is an 82-year-old white male who was admitted for increasing shortness of breath on 11/25/2017. The patient has a past medical history of congestive heart failure and reports being on iron replacement therapy which tends to make his stools dark. He noted increasing shortness of breath and fatigue that have been going on for several days. On admission, his hemoglobin was found to be 8.7, but 1 month earlier was approximately 11. He denies any hematemesis, coffee-ground emesis or bright red blood per rectum. The patient denies any abdominal pain. He does not use and has not used NSAIDs. He may have had a history of peptic ulcer disease, although he is unclear on these details. He did have a colonoscopy reported at [facility] a few years ago, but again details are not known by him. PAST MEDICAL HISTORY: Includes diabetes, atrial fibrillation, congestive heart failure with pacemaker, hypothyroidism, and hypertension. He also has a history of CABG, cardiac pacemaker, hyperlipidemia, hypertension, Lyme disease and gallstone pancreatitis. FAMILY HISTORY: Noncontributory by way of negative for colorectal cancer, although there is a history of diabetes, heart disease and hypertension. SOCIAL HISTORY: The patient denies tobacco usage and only occasionally drinks alcoholic beverages. and lives with his significant other. He is retired. ALLERGIES: SIMVASTATIN AND ATORVASTATIN. HOME MEDICATIONS: Include ascorbic acid, Coreg, vitamin D3, B12, ferrous sulfate, furosemide, insulin, isosorbide mononitrate, lactobacillus, levothyroxine, lisinopril, magnesium oxide, meclizine, metformin, potassium, Xarelto and Crestor. The patient's current medications include furosemide, insulin, Coreg, vitamin D, iron, isosorbide mononitrate, lisinopril, meclizine, potassium, Crestor, and Synthroid. REVIEW OF SYSTEMS: Otherwise noncontributory based on 13-point exam except for mentioned above. There is no odynophagia or dysphagia reported. He reports that his weight is stable. PHYSICAL EXAMINATION: VITAL SIGNS: Today on admission, the patient was afebrile at 36.4, blood pressure 119/73, heart rate 86, respirations 18, 95% on room air. Today show a blood pressure of 102/55, 100% on 2 liters nasal cannula, 60 heart rate, afebrile at 36.8, respirations 18. GENERAL: At the present time, the patient's physical exam shows a well-developed male in no acute distress. He is awake, alert and oriented x3. HEENT: Sclerae are anicteric, conjunctiva moist. Oral mucosa moist. Head - normocephalic, atraumatic and normal range of motion. HEART: Normal S1, S2. LUNGS: Show decreased breath sounds at bases. Faint crackles are noted. ABDOMEN: Soft, nontender, nondistended with positive bowel sounds. There is no rebound or guarding. I do not appreciate hepatosplenomegaly. EXTREMITIES: Without clubbing or cyanosis. There is trace edema bilaterally. RECTAL: Deferred. NEUROLOGICAL: The patient is neurologically nonfocal. EXTREMITIES: Show normal range of motion. SKIN: Dry and intact and warm. LABORATORY STUDIES: His laboratory studies on admission showed a hemoglobin of 8.7 with a white count of 5.2 and 199,000 platelets. This hemoglobin did drift down to 7.6, but has been at 8.8. He has not received any blood products during this admission. Today's white count 4.5, hemoglobin 8.8 and 215,000 platelets. Serum chemistry today - sugar 108; BUN and creatinine are 22 and 0.96; on admission, he was 31 and 1.0. Iron panel is normal. Iron 171, TIBC 354%, sat 43%. Other laboratories on admission - total bilirubin 1.2, direct 0.4, AST 31, ALT 34, alkaline phosphatase 113. Troponin is less than 0.015. BNP was 1586. B12 and folic acid levels were satisfactory. IMAGING STUDIES: Chest x-ray yesterday that showed cardiomegaly with persistent mid basilar predominant opacities that may suggest chronic lung disease and mild pulmonary edema. This is not changed overall. IMPRESSION AND PLAN: The patient with symptoms of heme positive stools and a drop in hemoglobin from baseline of 11 a month or so ago to 8.7 and slightly lower after collaboration. There is no overt hemorrhage described by the patient, but his stools were heme positive. I believe it is reasonable to perform an upper endoscopy to look for upper sources given the slight increase in his BUN to creatinine ratio. His last colonoscopy was performed by Dr. Weston in 07/12/2013, which revealed a fair prep, pale mucosa, extensive diverticulosis, no polyps or telangiectasias noted, the scope was advanced to the level of the cecum. At that time, this was apparently for blood loss anemia with a negative EGD and a diverticular bleed was suspected. I do not have an EGD report at this time; however. The patient was also seen by gastroenterology in April 2016 for gallstone pancreatitis, for which an ERCP and EUS was considered by the [facility] GI service. However, there are no notes in the chart to identify what had occurred from an endoscopic standpoint, although the patient did have surgery at that time by Dr. Campos and had a laparoscopic cholecystectomy and an intraoperative cholangiogram and ultimately it was commented in the surgical note that ERCP was not indicated at that time. No significant filling defects were seen during cholangiography intraoperatively. Depending on the patient's findings on EGD, the patient may need consideration for a colonoscopy, given his iron requirements and heme positive status. His last colon 4 years ago was noted above. Would continue PPI therapy and make patient n.p.o. after midnight except for meds. Dr. Buchanan will be performing upper endoscopy tomorrow for the patient. All questions answered.
[2017-11-28 19:14] VITALS: BP 114/67; PULSE 60; TEMP 36.9; O2SAT 97
[2017-11-28] MEDS: INSULIN GLARGINE SOLOSTAR 100 UNITS/ML 3 ML PEN SC SCH (21:20)
--- NOTE | 2017-11-28 23:05 | Family Medicine Progress Note ---
Progress Note Date of Service Nov 28, 2017. Subjective Pt evaluation today including: conversation w/ patient, physical exam, chart review, lab review, review of studies Pain: No pain reported this morning Voiding: no voiding problems, no incontinence Patient is resting comfortably in bed this morning with no acute complaints overnight. Currently denies shortness of breath, cough, weakness, chest pain, abdominal pain, fever, or chills. Additional Comments: See HPI for pertinent positives and negatives. A total of ten systems were reviewed and were otherwise negative. Medications Current Inpatient Medications Medications (Trade) Dose Ordered Sig/Nicki Route Start Time Stop Time Status Last Admin Dose Admin Al Hydrox/Mg Hydrox/Simethicone (Maalox Max Susp) 15 ml Q4H PRN PO 11/25/17 02:30 12/25/17 02:29 Magnesium Hydroxide (Milk Of Magnesia Susp) 30 ml Q12H PRN PO 11/25/17 02:30 12/25/17 02:29 Ondansetron HCl (Zofran Inj) 4 mg Q6H PRN IV 11/25/17 02:30 12/25/17 02:29 Nitroglycerin (Nitrostat Tab) 0.4 mg UD PRN SL 11/25/17 02:30 12/25/17 02:29 Polyethylene (Miralax Powder Packet) 17 gm DAILY PRN PO 11/25/17 02:30 12/25/17 02:29 Ascorbic Acid (Vitamin C Tab) 500 mg BID PO 11/25/17 09:00 12/25/17 08:59 11/28/17 19:58 500 MG Carvedilol (Coreg Tab) 25 mg BID PO 11/25/17 09:00 12/25/17 08:59 11/28/17 19:57 25 MG Cholecalciferol (Vitamin D Tab) 1,000 inter.unit DAILY PO 11/25/17 09:00 12/25/17 08:59 11/28/17 07:40 1,000 INTER.UNIT Cyanocobalamin (Vitamin B-12 Tab) 1,000 mcg BID PO 11/25/17 09:00 12/25/17 08:59 11/28/17 19:58 1,000 MCG Ferrous Sulfate (Feosol Tab) 325 mg BID PO 11/25/17 09:00 12/25/17 08:59 11/28/17 19:57 325 MG Isosorbide Mononitrate (Imdur Ext Rel Tab) 30 mg QAM PO 11/25/17 09:00 12/25/17 08:59 11/28/17 07:39 30 MG Lactobacillus Acidophilus (Floranex Tab) 1 tab DAILY PO 11/25/17 09:00 12/25/17 08:59 11/28/17 07:38 1 TAB Levothyroxine Sodium (Synthroid Tab) 50 mcg DAILYBB PO 11/25/17 06:00 12/25/17 05:59 11/28/17 05:49 50 MCG Lisinopril (Zestril Tab) 20 mg DAILY PO 11/25/17 09:00 12/25/17 08:59 11/28/17 07:39 20 MG Magnesium Oxide (Mag-Ox Tab) 400 mg BID PO 11/25/17 09:00 12/25/17 08:59 11/28/17 19:57 400 MG Meclizine HCl (Antivert Tab) 25 mg BID PO 11/25/17 09:00 12/25/17 08:59 11/28/17 19:57 25 MG Potassium Chloride (Klor-Con M10) 10 meq DAILY PO 11/25/17 09:00 12/25/17 08:59 11/28/17 07:40 10 MEQ Rosuvastatin Calcium (Crestor Tab) 40 mg DAILY PO 11/25/17 09:00 12/25/17 08:59 11/28/17 07:39 40 MG Insulin Glargine (Lantus Solostar Pen) 14 units QPM SC 11/25/17 21:00 12/25/17 20:59 11/28/17 21:20 14 UNITS Insulin Aspart (novoLOG ASPART) SLIDING SCALE G... ACHS SC 11/25/17 06:45 12/25/17 06:59 11/28/17 17:40 3 UNITS Glucose (Glucose 40% Gel) 15-30 GRAMS 15 GRAMS... UD PRN PO 11/25/17 04:30 12/25/17 04:29 Glucose (Glucose Chew Tab) 4-8 Tablets 4 Tabl... UD PRN PO 11/25/17 04:30 12/25/17 04:29 Dextrose (Dextrose 50% 50ML Syringe) 25-50ML OF 50% DW IV FOR... UD PRN IV 11/25/17 04:30 12/25/17 04:29 Glucagon (Glucagon Inj) 1 mg UD PRN SQ 11/25/17 04:30 12/25/17 04:29 Furosemide (Lasix Tab) 20 mg DAILY PO 11/27/17 09:00 12/26/17 16:59 11/28/17 07:40 20 MG Objective Vital Signs Date Time Temp Pulse Resp B/P (MAP) Pulse Ox O2 Delivery O2 Flow Rate FiO2 11/28/17 20:00 Room Air 11/28/17 19:14 36.9 60 18 114/67 (83) 97 Nasal Cannula 2.0 11/28/17 16:00 Room Air 11/28/17 15:03 36.8 60 18 102/55 (71) 100 Nasal Cannula 2.0 11/28/17 13:50 98 11/28/17 12:00 Nasal Cannula 2.0 11/28/17 11:22 36.3 60 20 95/56 (69) 98 Nasal Cannula 2.0 11/28/17 08:00 Nasal Cannula 2.0 11/28/17 06:58 36.5 81 20 119/77 (91) 98 Nasal Cannula 2.0 11/28/17 04:05 37.0 64 16 153/80 (104) 99 Room Air 11/28/17 04:00 Room Air 2.0 Nasal Cannula 11/28/17 00:00 Room Air 2.0 Nasal Cannula 11/27/17 23:49 37.1 62 16 129/69 (89) 96 Room Air Physical Exam General Appearance: WD/WN, no apparent distress Eyes: normal inspection, sclerae normal Neck: supple, trachea midline Respiratory/Chest: chest non-tender, no respiratory distress, + decreased breath sounds (over right lower quadrant) Cardiovascular: regular rate, rhythm, no edema, no gallop Abdomen: normal bowel sounds, non tender, soft Neurologic/Psychiatric: alert, normal mood/affect, oriented x 3 Laboratory Results Results Past 24 Hours Test 11/28/17 01:48 11/28/17 06:39 11/28/17 07:46 11/28/17 11:08 Range/Units Bedside Glucose 111 94 70-99 mg/dl White Blood Count 4.57 4.8-10.8 K/uL Red Blood Count 3.15 4.7-6.1 M/uL Hemoglobin 8.8 14.0-18.0 g/dL Hematocrit 28.0 42-52 % Mean Corpuscular Volume 88.9 80-100 fL Mean Corpuscular Hemoglobin 27.9 25-34 pg Mean Corpuscular Hemoglobin Concent 31.4 32-36 g/dl RDW Standard Deviation 58.8 36.4-46.3 fL RDW Coefficient of Variation 18.2 11.5-14.5 % Platelet Count 215 130-400 K/uL Mean Platelet Volume 9.7 7.4-10.4 fL Sodium Level 137 136-145 mmol/L Potassium Level 4.0 3.5-5.1 mmol/L Chloride Level 106 98-107 mmol/L Carbon Dioxide Level 24 21-32 mmol/L Anion Gap 7.0 3-11 mmol/L Blood Urea Nitrogen 22 7-18 mg/dl Creatinine 0.96 0.60-1.40 mg/dl Est Creatinine Clear Calc Drug Dose 56.4 ml/min Estimated GFR () 84.4 Estimated GFR (Non- 72.8 BUN/Creatinine Ratio 23.1 10-20 Random Glucose 79 70-99 mg/dl Calcium Level 8.6 8.5-10.1 mg/dl Stool Occult Blood POSITIVE NEGATIVE Test 11/28/17 11:22 11/28/17 16:28 11/28/17 20:48 Range/Units Bedside Glucose 156 108 140 70-99 mg/dl Assessment and Plan 82 year old male with a PMH of CHF, DM, HLD, HTN, Hypothyroidism that presented with worsening SOB and bilat LE edema that was found to be fluid overloaded in the ED and was diuresing well with IV Lasix. 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 exacerbated by noncompliance - Resume home 20mg PO Lasix dose (previously on Lasix IV 20mg IV BID) - Last echo was in June 2017: EF of 45-50, inferolateral hypokinesis, grade 2 DD, Aortic valve sclerosis and biatrial enlargement - Continue PO 10 meq KCL supplementation - Monitor I/O's and daily weights - Continue Imdur 30 mg daily - CXR shows pleural edema with no infiltrates concerning for pneumonia --> Evaluated today by Thoracic Surgery and at this time agree with medical management - Not on oxygen this morning during evaluation --> Perform 2 step prior to discharge Possible aspiration pna - CXR not concerning for pneumonia - Swallow eval --> Moist dental soft diet Hyponatremia - Resolved Normocytic Anemia possibly secondary to iron def/ test def/ anemia of chronic disease - Hemoccult Positive - GI Consult --> Will perform EGD tomorrow, NPO after midnight - Patient's baseline is approx 9-10 - Continue PPI Therapy - Previous h/o GI bleed in the past while on blood thinner - Iron Studies, B12, and Folate levels wnl - Continue ferrous sulfate bid DMT2 - HbA1c was 6.7 last month - Continue lantus 14 units qhs - ISS BSG ACHS - Hold metformin PAF - Currently NSR, holding Xarelto - Continue Carvedilol 25 mg bid HTN - Continue lisinopril 20 mg daily - Continue carvedilol as above Hypothyroidism - Levothyroxine 50 mcg DVT prophylaxis - SCD's Resident Tracking Resident Involvement: Resident Care Provided Care Provided: Adult Hospital Medicine
[2017-11-29] VITALS (12 sets, daily range): BP systolic 76–123; BP diastolic 47–74; PULSE 59–66; TEMP 36–37.1; O2SAT 92–100
[2017-11-29] MEDS: LEVOTHYROXINE 50 MCG TAB PO SCH (05:43)
[2017-11-29] MEDS: INSULIN ASPART 100 UNITS/ML 3 ML PEN SC SCH ×4 (08:25→21:24)
[2017-11-29] MEDS ORDERED: LIDOCAINE HCL 2% 2 ML VIAL (20MG/ML) ONE (08:36)
[2017-11-29] MEDS ORDERED: PROPOFOL IV EMULSION 10 MG/ML 20 ML VIAL IV ONE (08:36)
[2017-11-29] MEDS ORDERED: FENTANYL CITRATE INJ 50 MCG/1 ML 2 ML VIAL ONE (08:36)
[2017-11-29 08:40] LABS: CALCIUM 8.7 mg/dl (8.5-10.1); CREATININE 0.95 mg/dl (0.60-1.40); POTASSIUM 4.2 mmol/L (3.5-5.1)
--- NOTE | 2017-11-29 08:51 | Gastroenterology Progress Note ---
Progress Note Date of Service: Nov 29, 2017 Subjective Pt evaluation today including: conversation w/ patient, physical exam, chart review, lab review, review of studies, review of inpatient medication list CC f/u heme pos stool, anemia HPI Pt denies abd pain. Review of Systems Respiratory: No shortness of breath Cardiac: No chest pain Medications Current Inpatient Medications Medications (Trade) Dose Ordered Sig/Nicki Route Start Time Stop Time Status Last Admin Dose Admin Al Hydrox/Mg Hydrox/Simethicone (Maalox Max Susp) 15 ml Q4H PRN PO 11/25/17 02:30 12/25/17 02:29 Magnesium Hydroxide (Milk Of Magnesia Susp) 30 ml Q12H PRN PO 11/25/17 02:30 12/25/17 02:29 Ondansetron HCl (Zofran Inj) 4 mg Q6H PRN IV 11/25/17 02:30 12/25/17 02:29 Nitroglycerin (Nitrostat Tab) 0.4 mg UD PRN SL 11/25/17 02:30 12/25/17 02:29 Polyethylene (Miralax Powder Packet) 17 gm DAILY PRN PO 11/25/17 02:30 12/25/17 02:29 Ascorbic Acid (Vitamin C Tab) 500 mg BID PO 11/25/17 09:00 12/25/17 08:59 11/28/17 19:58 500 MG Carvedilol (Coreg Tab) 25 mg BID PO 11/25/17 09:00 12/25/17 08:59 11/28/17 19:57 25 MG Cholecalciferol (Vitamin D Tab) 1,000 inter.unit DAILY PO 11/25/17 09:00 12/25/17 08:59 11/28/17 07:40 1,000 INTER.UNIT Cyanocobalamin (Vitamin B-12 Tab) 1,000 mcg BID PO 11/25/17 09:00 12/25/17 08:59 11/28/17 19:58 1,000 MCG Ferrous Sulfate (Feosol Tab) 325 mg BID PO 11/25/17 09:00 12/25/17 08:59 11/28/17 19:57 325 MG Isosorbide Mononitrate (Imdur Ext Rel Tab) 30 mg QAM PO 11/25/17 09:00 12/25/17 08:59 11/28/17 07:39 30 MG Lactobacillus Acidophilus (Floranex Tab) 1 tab DAILY PO 11/25/17 09:00 12/25/17 08:59 11/28/17 07:38 1 TAB Levothyroxine Sodium (Synthroid Tab) 50 mcg DAILYBB PO 11/25/17 06:00 12/25/17 05:59 11/29/17 05:43 50 MCG Lisinopril (Zestril Tab) 20 mg DAILY PO 11/25/17 09:00 12/25/17 08:59 11/28/17 07:39 20 MG Magnesium Oxide (Mag-Ox Tab) 400 mg BID PO 11/25/17 09:00 12/25/17 08:59 11/28/17 19:57 400 MG Meclizine HCl (Antivert Tab) 25 mg BID PO 11/25/17 09:00 12/25/17 08:59 11/28/17 19:57 25 MG Potassium Chloride (Klor-Con M10) 10 meq DAILY PO 11/25/17 09:00 12/25/17 08:59 11/28/17 07:40 10 MEQ Rosuvastatin Calcium (Crestor Tab) 40 mg DAILY PO 11/25/17 09:00 12/25/17 08:59 11/28/17 07:39 40 MG Insulin Glargine (Lantus Solostar Pen) 14 units QPM SC 11/25/17 21:00 12/25/17 20:59 11/28/17 21:20 14 UNITS Insulin Aspart (novoLOG ASPART) SLIDING SCALE G... ACHS SC 11/25/17 06:45 12/25/17 06:59 11/28/17 17:40 3 UNITS Glucose (Glucose 40% Gel) 15-30 GRAMS 15 GRAMS... UD PRN PO 11/25/17 04:30 12/25/17 04:29 Glucose (Glucose Chew Tab) 4-8 Tablets 4 Tabl... UD PRN PO 11/25/17 04:30 12/25/17 04:29 Dextrose (Dextrose 50% 50ML Syringe) 25-50ML OF 50% DW IV FOR... UD PRN IV 11/25/17 04:30 12/25/17 04:29 Glucagon (Glucagon Inj) 1 mg UD PRN SQ 11/25/17 04:30 12/25/17 04:29 Furosemide (Lasix Tab) 20 mg DAILY PO 11/27/17 09:00 12/26/17 16:59 11/28/17 07:40 20 MG Objective Vital Signs Date Time Temp Pulse Resp B/P (MAP) Pulse Ox O2 Delivery O2 Flow Rate FiO2 11/29/17 08:32 36.0 65 20 139/80 (99) 93 Nasal Cannula 4 11/29/17 07:45 36.7 59 16 118/73 (88) 100 Nasal Cannula 2.0 11/29/17 04:36 36.0 61 16 123/74 (90) 98 11/29/17 04:00 Room Air 11/29/17 00:24 37.0 60 16 112/65 (81) 97 11/29/17 00:01 Room Air 11/28/17 20:00 Room Air 11/28/17 19:14 36.9 60 18 114/67 (83) 97 Nasal Cannula 2.0 11/28/17 16:00 Room Air 11/28/17 15:03 36.8 60 18 102/55 (71) 100 Nasal Cannula 2.0 11/28/17 13:50 98 11/28/17 12:00 Nasal Cannula 2.0 11/28/17 11:22 36.3 60 20 95/56 (69) 98 Nasal Cannula 2.0 Physical Exam General Appearance: WD/WN, no apparent distress Respiratory/Chest: normal breath sounds, no respiratory distress Cardiovascular: no edema, no murmur Abdomen: normal bowel sounds, non tender, soft, no organomegaly, no pulsatile mass Laboratory Results Last 24 Hours Test 11/28/17 11:08 11/28/17 11:22 11/28/17 16:28 11/28/17 20:48 Stool Occult Blood POSITIVE Bedside Glucose 156 mg/dl 108 mg/dl 140 mg/dl Test 11/29/17 06:36 11/29/17 07:52 Bedside Glucose 89 mg/dl Sodium Level 139 mmol/L Potassium Level 4.2 mmol/L Chloride Level 107 mmol/L Carbon Dioxide Level 26 mmol/L Anion Gap 6.0 mmol/L Blood Urea Nitrogen 21 mg/dl Creatinine 0.95 mg/dl Est Creatinine Clear Calc Drug Dose 57.0 ml/min Estimated GFR () 85.5 Estimated GFR (Non- 73.7 BUN/Creatinine Ratio 22.5 Random Glucose 71 mg/dl Calcium Level 8.7 mg/dl Assessment and Plan Chronic blood loss anemia---stable heme positive stools--EGD today. Proc and risks explained to patient which include but not limited to med reaction, bleeding, perforation, aspiration Afib on Xarelto--Xarelto held at present.
[2017-11-29] MEDS ORDERED: NALOXONE HCL 0.4 MG/1 ML VIAL/CARP ONE ×2 (09:10→09:16)
[2017-11-29] MEDS ORDERED: PHENYLEPHRINE 100MCG/ML 5ML SYR ONE (09:16)
--- NOTE | 2017-11-29 09:43 | GI REPORT ---
Procedure Date: 11/29/2017 8:53 AM Procedure: Upper GI endoscopy Indications: Iron deficiency anemia secondary to chronic blood loss, Heme positive stool Medicines: Monitored Anesthesia Care Complications: No immediate complications. Estimated blood loss: Minimal. Estimated Blood Loss: Estimated blood loss was minimal. Procedure: Pre-Anesthesia Assessment: - Prior to the procedure, a History and Physical was performed, and patient medications and allergies were reviewed. The patient is competent. The risks and benefits of the procedure and the sedation options and risks were discussed with the patient. All questions were answered and informed consent was obtained. Patient identification and proposed procedure were verified by the physician, the nurse and the database marketing manager in the procedure room. Mental Status Examination: alert and oriented. Airway Examination: normal oropharyngeal airway and neck mobility. Respiratory Examination: clear to auscultation. CV Examination: normal. Prophylactic Antibiotics: The patient does not require prophylactic antibiotics. Prior Anticoagulants: The patient has taken no previous anticoagulant or antiplatelet agents. After reviewing the risks and benefits, the patient was deemed in satisfactory condition to undergo the procedure. The anesthesia plan was to use monitored anesthesia care (MAC). Immediately prior to administration of medications, the patient was re-assessed for adequacy to receive sedatives. The heart rate, respiratory rate, oxygen saturations, blood pressure, adequacy of pulmonary ventilation, and response to care were monitored throughout the procedure. The physical status of the patient was re-assessed after the procedure. After obtaining informed consent, the endoscope was passed under direct vision. Throughout the procedure, the patient's blood pressure, pulse, and oxygen saturations were monitored continuously. The scope was introduced through the and advanced to the. The scope was introduced through the mouth, and advanced to the second part of duodenum. The upper GI endoscopy was accomplished without difficulty. The patient tolerated the procedure fairly well. Findings: The Z-line was regular and was found 42 cm from the incisors. Grade I varices were found in the upper third of the esophagus. A 1 cm hiatal hernia was present. A few localized, small bleeding erosions were found on the greater curvature of the gastric body. There were stigmata of recent bleeding. Coagulation for hemostasis using argon plasma at 0.8 liters/minute and 20 dias was successful. Diffuse moderately friable mucosa with bleeding post suctioning was found on the fundus of the stomach. A diverticulum was found in the second portion of the duodenum. Patchy moderately erythematous mucosa was found in the second portion of the duodenum. Only small amounts of heme noted in stomach body adherent to presumably erosions. The exam was otherwise without abnormality. Impression: - Z-line regular, 42 cm from the incisors. - Grade I esophageal varices. - 1 cm hiatal hernia. - Bleding erosive gastropathy. Treated with argon plasma coagulation (APC). - Friable gastric mucosa. - Duodenal diverticulum. - Erythematous duodenopathy. - Only small amounts of heme noted in stomach body adherent to presumably erosions. - The examination was otherwise normal. - No specimens collected. Recommendation: - [facility]. Suspect heme positive stool from bleeding erosions and mucosal friability. Did not appreciate any portal gastropathy and uppper esophageal varices c/w chest and not liver etiology. - Check stool for H.pylori Ag. Protonix 40 mg po bid and Carafate ac and qhs. Restart diet. Ford Buchanan M.D. Ford Buchanan MD 11/29/2017 9:42:51 AM This report has been signed electronically. Note Initiated On: 11/29/2017 8:53 AM I attest to the content of the Intraoperative Record and orders documented therein, exceptions below
--- NOTE | 2017-11-29 09:53 | Progress Note ---
Progress Note Date of Service Nov 29, 2017. Progress Note Pt stable post EGD with no complaints of abd paiin. Start ppi bid and carafate 4 times daily. Althought upper esoph varices normally from chest etiology will check u/s abdomen to look for cirrhosis. Check PT/PTT in am also to see if either elevated off xarelto several days. Solid diet.
--- NOTE | 2017-11-29 10:05 | Anesthesiology Progress Note ---
Anesthesia Post Op Note Date & Time Nov 29, 2017 at 10:02 Vital Signs Pain Intensity: 0.0 Vital Signs Past 12 Hours Date Time Temp Pulse Resp B/P (MAP) Pulse Ox O2 Delivery O2 Flow Rate FiO2 11/29/17 09:55 60 20 117/67 (84) 98 Nasal Cannula 2 11/29/17 09:40 36.0 72 20 127/81 (96) 100 Mask 10 11/29/17 08:32 36.0 65 20 139/80 (99) 93 Nasal Cannula 4 11/29/17 08:00 98 Nasal Cannula 2.0 11/29/17 07:45 36.7 59 16 118/73 (88) 100 Nasal Cannula 2.0 11/29/17 04:36 36.0 61 16 123/74 (90) 98 11/29/17 04:00 Room Air 11/29/17 00:24 37.0 60 16 112/65 (81) 97 11/29/17 00:01 Room Air Notes Mental Status: alert / awake / arousable, participated in evaluation Pt Amnestic to Procedure: Yes Nausea / Vomiting: adequately controlled Pain: adequately controlled Airway Patency, RR, SpO2: stable & adequate BP & HR: stable & adequate Hydration State: stable & adequate Anesthetic Complications: no major complications apparent Patient was given 50mcg of fentanyl at the start of procedure to minimize stimulation. Respiratory effort ceased and positive pressure bag mask ventilation was initiated while I was called to room. On arrival, I supported the patient's hemodynamics and evaluated the patient's pupils to be pinpoint. The patient was given 2x 0.04mg of naloxone with rapid improvement in symptoms. Patient was monitored PACU for approximately 40 minutes and was awake, alert, and comfortable. Given the short acting nature of fentanyl, I do not expect that he is at risk for renarcotization and at this point can safely be monitored on telemetry.
[2017-11-29] MEDS: MECLIZINE HCL 12.5 MG TAB PO SCH ×2 (11:01→21:17)
[2017-11-29] MEDS: ISOSORBIDE MONONITRATE 30 MG TABCR PO SCH (11:01)
[2017-11-29] MEDS: LISINOPRIL 20 MG TAB PO SCH (11:01)
[2017-11-29] MEDS: LACTOBACILLUS ACIDOPHILUS (FLORANEX) TAB PO SCH (11:01)
[2017-11-29] MEDS: FERROUS SULFATE 325 MG TAB PO SCH ×2 (11:01→21:19)
[2017-11-29] MEDS: FUROSEMIDE 20 MG TAB PO SCH (11:02)
[2017-11-29] MEDS: ASCORBIC ACID 500 MG TAB PO SCH ×2 (11:02→21:20)
[2017-11-29] MEDS: ROSUVASTATIN CALCIUM 20 MG TAB PO SCH (11:02)
[2017-11-29] MEDS: CYANOCOBALAMIN 500 MCG TAB (VIT B-12) PO SCH ×2 (11:02→21:20)
[2017-11-29] MEDS: CARVEDILOL 25 MG TAB PO SCH ×2 (11:02→21:32)
[2017-11-29] MEDS: CHOLECALCIFEROL 1000 INTER.UNIT TAB PO SCH (11:02)
[2017-11-29] MEDS: SUCRALFATE 1 GM/10 ML UDC PO SCH ×3 (11:03→21:18)
[2017-11-29] MEDS: PANTOprazole SOD 40 MG TAB PO SCH ×2 (11:03→21:18)
[2017-11-29] MEDS: MAGNESIUM OXIDE 400 MG TAB PO SCH ×2 (11:07→21:16)
[2017-11-29] MEDS: POTASSIUM CHLORIDE 10 MEQ TABCR PO SCH (11:07)
--- NOTE | 2017-11-29 14:45 | DIAGNOSTIC IMAGING REPORT ---
CHEST 2 VIEWS ROUTINE CLINICAL HISTORY: 82 years-old Male presenting with pleural effusion . TECHNIQUE: Portable upright AP view of the chest was obtained. COMPARISON: 11/27/2017. FINDINGS: Left subclavian pacer with leads to the right atrium and right ventricular apex. Median sternotomy wires and bypass graft rings as well as mediastinal surgical clips noted. Numerous external leads degrade image quality. Atherosclerosis of aortic arch. Cardiac silhouette mildly enlarged. Pulmonary vascular prominence. Diffuse increased density of the lungs with reticular lung markings throughout as well as more hazy densities lung markings at the lung bases. Small right pleural effusion. No pneumothorax. IMPRESSION: 1. Cardiomegaly with volume overload and suspected pulmonary edema superimposed on chronic lung disease. This is stable to worsened from prior. 2. Small right pleural effusion. Electronically signed by: Collin Villa M.D. 11/29/2017 2:43 PM Dictated Date/Time: 11/29/2017 2:42 PM
--- NOTE | 2017-11-29 14:50 | DIAGNOSTIC IMAGING REPORT ---
ABDOMEN COMPLETE (US) CLINICAL HISTORY: 82 years-old Male presenting with upper esophageal varices, evaluate for cirrhosis. . TECHNIQUE: Real-time grayscale and limited color Doppler ultrasound imaging of the abdomen was performed. COMPARISON: CT from 04/19/2016. FINDINGS: Pancreas: Visualized portions of the pancreatic head and body normal. Liver: Hyperechogenic parenchyma with heterogeneous echotexture, likely indicating fibrosis or steatosis. The liver measures 15.0 cm in maximal sagittal dimension. No sonographic evidence of hepatic mass. Main portal vein patent with normal directional flow. Biliary: No intrahepatic biliary ductal dilatation. Common bile duct measures up to 6 mm in diameter. Gallbladder: Surgically absent. In the gallbladder fossa, an anechoic 4.6 cm simple appearing cystic collection is noted. Spleen: Normal in echogenicity and size, measuring 10.8 cm in length. Kidneys: Anechoic 3.5 cm exophytic cyst noted at the upper pole of the right kidney. Several additional simple cysts in the right kidney. Subcentimeter simple cyst noted at the upper pole the left kidney Right kidney measures 12.1 cm, and left kidney measures 11.4 cm. No hydronephrosis. Vasculature: Visualized portions of the IVC and abdominal aorta normal. Ascites: Trace fluid in Morison's pouch. IMPRESSION: 1. Mildly hyperechogenic and heterogeneous liver parenchyma could suggest steatosis or fibrosis. No amrita evidence of cirrhosis or portal hypertension. 2. Status post cholecystectomy. 3. 4.6 cm anechoic simple appearing cystic collection in the gallbladder fossa. Differential considerations include adenoma, seroma/evolving hematoma, or an exophytic cystic lesion from adjacent organ. 4. Trace ascites. Electronically signed by: Collin Villa M.D. 11/29/2017 2:48 PM Dictated Date/Time: 11/29/2017 2:43 PM
--- NOTE | 2017-11-29 17:43 | Family Medicine Progress Note ---
Progress Note Date of Service Nov 29, 2017. Subjective Pt evaluation today including: conversation w/ patient, physical exam, chart review, lab review, review of studies Pain: Denies any pain Voiding: no voiding problems, no incontinence Patient resting comfortably in bed this afternoon with no acute complaints. Patient tolerated the EGD with no acute events. Patient denies any shortness of breath, chest pain, palpitations, fevers, or chills. Patient states he is feeling much stronger and improved from yesterday Constitutional: No fever, No chills, No fatigue Respiratory: No cough, No sputum, No wheezing, No shortness of breath Cardiovascular: No chest pain, No palpitations Abdomen: No pain, No nausea, No vomiting, No diarrhea Endo: No fatigue, No excessive thirst Medications Current Inpatient Medications Medications (Trade) Dose Ordered Sig/Nicki Route Start Time Stop Time Status Last Admin Dose Admin Al Hydrox/Mg Hydrox/Simethicone (Maalox Max Susp) 15 ml Q4H PRN PO 11/25/17 02:30 12/25/17 02:29 Magnesium Hydroxide (Milk Of Magnesia Susp) 30 ml Q12H PRN PO 11/25/17 02:30 12/25/17 02:29 Ondansetron HCl (Zofran Inj) 4 mg Q6H PRN IV 11/25/17 02:30 12/25/17 02:29 Nitroglycerin (Nitrostat Tab) 0.4 mg UD PRN SL 11/25/17 02:30 12/25/17 02:29 Polyethylene (Miralax Powder Packet) 17 gm DAILY PRN PO 11/25/17 02:30 12/25/17 02:29 Ascorbic Acid (Vitamin C Tab) 500 mg BID PO 11/25/17 09:00 12/25/17 08:59 11/29/17 11:02 500 MG Carvedilol (Coreg Tab) 25 mg BID PO 11/25/17 09:00 12/25/17 08:59 11/29/17 11:02 25 MG Cholecalciferol (Vitamin D Tab) 1,000 inter.unit DAILY PO 11/25/17 09:00 12/25/17 08:59 11/29/17 11:02 1,000 INTER.UNIT Cyanocobalamin (Vitamin B-12 Tab) 1,000 mcg BID PO 11/25/17 09:00 12/25/17 08:59 11/29/17 11:02 1,000 MCG Ferrous Sulfate (Feosol Tab) 325 mg BID PO 11/25/17 09:00 12/25/17 08:59 11/29/17 11:01 325 MG Isosorbide Mononitrate (Imdur Ext Rel Tab) 30 mg QAM PO 11/25/17 09:00 12/25/17 08:59 11/29/17 11:01 30 MG Lactobacillus Acidophilus (Floranex Tab) 1 tab DAILY PO 11/25/17 09:00 12/25/17 08:59 11/29/17 11:01 1 TAB Levothyroxine Sodium (Synthroid Tab) 50 mcg DAILYBB PO 11/25/17 06:00 12/25/17 05:59 11/29/17 05:43 50 MCG Lisinopril (Zestril Tab) 20 mg DAILY PO 11/25/17 09:00 12/25/17 08:59 11/29/17 11:01 20 MG Magnesium Oxide (Mag-Ox Tab) 400 mg BID PO 11/25/17 09:00 12/25/17 08:59 11/29/17 11:07 400 MG Meclizine HCl (Antivert Tab) 25 mg BID PO 11/25/17 09:00 12/25/17 08:59 11/29/17 11:01 25 MG Potassium Chloride (Klor-Con M10) 10 meq DAILY PO 11/25/17 09:00 12/25/17 08:59 11/29/17 11:07 10 MEQ Rosuvastatin Calcium (Crestor Tab) 40 mg DAILY PO 11/25/17 09:00 12/25/17 08:59 11/29/17 11:02 40 MG Insulin Glargine (Lantus Solostar Pen) 14 units QPM SC 11/25/17 21:00 12/25/17 20:59 11/28/17 21:20 14 UNITS Insulin Aspart (novoLOG ASPART) SLIDING SCALE G... ACHS SC 11/25/17 06:45 12/25/17 06:59 11/29/17 11:54 4 UNITS Glucose (Glucose 40% Gel) 15-30 GRAMS 15 GRAMS... UD PRN PO 11/25/17 04:30 12/25/17 04:29 Glucose (Glucose Chew Tab) 4-8 Tablets 4 Tabl... UD PRN PO 11/25/17 04:30 12/25/17 04:29 Dextrose (Dextrose 50% 50ML Syringe) 25-50ML OF 50% DW IV FOR... UD PRN IV 11/25/17 04:30 12/25/17 04:29 Glucagon (Glucagon Inj) 1 mg UD PRN SQ 11/25/17 04:30 12/25/17 04:29 Furosemide (Lasix Tab) 20 mg DAILY PO 11/27/17 09:00 12/26/17 16:59 11/29/17 11:02 20 MG Pantoprazole Sodium (Protonix Tab) 40 mg BID PO 11/29/17 09:45 12/29/17 09:44 11/29/17 11:03 40 MG Sucralfate (Carafate Susp) 1 gm ACHS PO 11/29/17 11:00 12/29/17 10:59 11/29/17 11:03 1 GM Objective Vital Signs Date Time Temp Pulse Resp B/P (MAP) Pulse Ox O2 Delivery O2 Flow Rate FiO2 11/29/17 16:00 Nasal Cannula 2.0 11/29/17 15:39 36.6 59 18 111/55 (73) 97 Nasal Cannula 2.0 11/29/17 12:46 61 85/47 (60) 11/29/17 12:21 37.1 59 20 76/47 (57) 92 Room Air 11/29/17 12:00 97 Nasal Cannula 2.0 11/29/17 11:29 97 11/29/17 10:25 60 20 120/69 (86) 98 Nasal Cannula 2 11/29/17 10:10 60 20 106/63 (77) 98 Nasal Cannula 2 11/29/17 09:55 60 20 117/67 (84) 98 Nasal Cannula 2 11/29/17 09:40 36.0 72 20 127/81 (96) 100 Mask 10 11/29/17 08:32 36.0 65 20 139/80 (99) 93 Nasal Cannula 4 11/29/17 08:00 98 Nasal Cannula 2.0 11/29/17 07:45 36.7 59 16 118/73 (88) 100 Nasal Cannula 2.0 11/29/17 04:36 36.0 61 16 123/74 (90) 98 11/29/17 04:00 Room Air 11/29/17 00:24 37.0 60 16 112/65 (81) 97 11/29/17 00:01 Room Air 11/28/17 20:00 Room Air 11/28/17 19:14 36.9 60 18 114/67 (83) 97 Nasal Cannula 2.0 Physical Exam General Appearance: WD/WN, no apparent distress Eyes: normal inspection, sclerae normal Neck: supple, no carotid bruits Respiratory/Chest: chest non-tender, normal breath sounds, + decreased breath sounds (Right lower lobe) Cardiovascular: regular rate, rhythm, no edema, no murmur Abdomen: normal bowel sounds, non tender, soft Neurologic/Psychiatric: alert, normal mood/affect, oriented x 3 Laboratory Results Results Past 24 Hours Test 11/28/17 20:48 11/29/17 06:36 11/29/17 07:52 11/29/17 11:47 Range/Units Bedside Glucose 140 89 186 70-99 mg/dl Sodium Level 139 136-145 mmol/L Potassium Level 4.2 3.5-5.1 mmol/L Chloride Level 107 98-107 mmol/L Carbon Dioxide Level 26 21-32 mmol/L Anion Gap 6.0 3-11 mmol/L Blood Urea Nitrogen 21 7-18 mg/dl Creatinine 0.95 0.60-1.40 mg/dl Est Creatinine Clear Calc Drug Dose 57.0 ml/min Estimated GFR () 85.5 Estimated GFR (Non- 73.7 BUN/Creatinine Ratio 22.5 10-20 Random Glucose 71 70-99 mg/dl Calcium Level 8.7 8.5-10.1 mg/dl Test 11/29/17 16:15 Range/Units Bedside Glucose 145 70-99 mg/dl Assessment and Plan 82 year old male with a PMH of CHF, DM, HLD, HTN, Hypothyroidism that presented with worsening SOB and bilat LE edema that was found to be fluid overloaded in the ED and was diuresing well with IV Lasix. 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 exacerbated by noncompliance - Resume home 20mg PO Lasix dose (previously on Lasix IV 20mg IV BID) - Last echo was in June 2017: EF of 45-50, inferolateral hypokinesis, grade 2 DD, Aortic valve sclerosis and biatrial enlargement - Continue PO 10 meq KCL supplementation - Monitor I/O's and daily weights - Continue Imdur 30 mg daily - CXR shows pleural edema with no infiltrates concerning for pneumonia --> Evaluated today by Thoracic Surgery and at this time agree with medical management - Perform 2 step prior to discharge Normocytic Anemia possibly secondary to iron def/ test def/ anemia of chronic disease - Hemoccult Positive - EGD on 11/29: - Grade 1 varices in upper third of esophagus - Localized, bleeding erosions over the greater curvature of the gastric body - Diffuse moderately friable mucosa with bleeding post suctioning on the fundus of the stomach - GI Recommends PPI BID, Carafate 4 times daily, and an Abdominal US - Previous h/o GI bleed in the past while on blood thinner - Iron Studies, B12, and Folate levels wnl - Continue ferrous sulfate bid Possible aspiration pna - CXR not concerning for pneumonia - Swallow eval --> Moist dental soft diet Hyponatremia - Resolved DMT2 - HbA1c was 6.7 last month - Continue lantus 14 units qhs - ISS BSG ACHS - Hold metformin PAF - Currently NSR, holding Xarelto - Continue Carvedilol 25 mg bid HTN - Continue lisinopril 20 mg daily - Continue carvedilol as above Hypothyroidism - Levothyroxine 50 mcg DVT prophylaxis - SCD's Resident Tracking Resident Involvement: Resident Care Provided Care Provided: Adult Hospital Medicine
--- NOTE | 2017-11-29 17:57 | SURGERY PROGRESS NOTE ---
DATE: 11/29/2017 Mr. Murillo was seen today on 11/29/2017. He is really not having much in the way of complaints. He is on 2 liters with 97% saturations. He underwent a chest x-ray today which shows a very small right pleural effusion, but he has chronic lung disease. At this point, I would not tap him because simply I do not feel there is enough fluid to make a difference in him clinically. I do not have a good reason for his shortness of breath but I do not think his pleural effusion is contributing much. The patient has preserved renal function. A CTA may be considered. This will give us information about his pleural effusion too, although I doubt I would do anything about this.
[2017-11-29] MEDS: INSULIN GLARGINE SOLOSTAR 100 UNITS/ML 3 ML PEN SC SCH (21:24)
[2017-11-30 03:31] VITALS: BP 105/67; PULSE 62; TEMP 36.6; O2SAT 97
[2017-11-30 05:32] LABS: BASO % 0.2 %; BASO ABS # 0.01 K/uL (0-0.2); EOS % 5.3 %; EOS ABS # 0.26 K/uL (0-0.5); HEMATOCRIT 26.8 % (42-52); HEMOGLOBIN 8.2 g/dL (14.0-18.0); IG# 0.01 K/uL (0.00-0.02); LYMPH % 18.6 %; LYMPH ABS # 0.91 K/uL (1.2-3.4); MEAN CELL VOLUME 89.9 fL (80-100); MEAN CORPUSCULAR HEMOGLOBIN 27.5 pg (25-34); MEAN CORPUSCULAR HGB CONC 30.6 g/dl (32-36); MONO % 11.8 %; MONO ABS # 0.58 K/uL (0.11-0.59); NEUT % 63.9 %; NEUT ABS # 3.13 K/uL (1.4-6.5); PLATELET COUNT 190 K/uL (130-400); RED CELL DISTRIBUTION WIDTH CV 18.5 % (11.5-14.5); RED CELL DISTRIBUTION WIDTH SD 60.9 fL (36.4-46.3)
[2017-11-30 05:42] LABS: INR 1.2 (0.9-1.1); PTT PATIENT 26.8 SECONDS (21.0-31.0)
[2017-11-30] MEDS: LEVOTHYROXINE 50 MCG TAB PO SCH (05:58)
[2017-11-30 06:09] LABS: CALCIUM 8.1 mg/dl (8.5-10.1); CREATININE 1.1 mg/dl (0.60-1.40); POTASSIUM 4.2 mmol/L (3.5-5.1)
[2017-11-30 06:11] LABS: TOTAL PROTEIN 6.6 gm/dl (6.4-8.2)
[2017-11-30 07:07] VITALS: BP 132/74; PULSE 60; TEMP 36.7; O2SAT 98
[2017-11-30] MEDS: FUROSEMIDE 20 MG TAB PO SCH (07:58)
[2017-11-30] MEDS: CYANOCOBALAMIN 500 MCG TAB (VIT B-12) PO SCH (07:59)
[2017-11-30] MEDS: ROSUVASTATIN CALCIUM 20 MG TAB PO SCH (07:59)
[2017-11-30] MEDS: MAGNESIUM OXIDE 400 MG TAB PO SCH (07:59)
[2017-11-30] MEDS: CHOLECALCIFEROL 1000 INTER.UNIT TAB PO SCH (07:59)
[2017-11-30] MEDS: SUCRALFATE 1 GM/10 ML UDC PO SCH ×3 (07:59→16:31)
[2017-11-30] MEDS: POTASSIUM CHLORIDE 10 MEQ TABCR PO SCH (07:59)
[2017-11-30] MEDS: MECLIZINE HCL 12.5 MG TAB PO SCH (07:59)
[2017-11-30] MEDS: LISINOPRIL 20 MG TAB PO SCH (08:00)
[2017-11-30] MEDS: ISOSORBIDE MONONITRATE 30 MG TABCR PO SCH (08:00)
[2017-11-30] MEDS: LACTOBACILLUS ACIDOPHILUS (FLORANEX) TAB PO SCH (08:00)
[2017-11-30] MEDS: CARVEDILOL 25 MG TAB PO SCH (08:00)
[2017-11-30] MEDS: PANTOprazole SOD 40 MG TAB PO SCH (08:00)
[2017-11-30] MEDS: FERROUS SULFATE 325 MG TAB PO SCH (08:01)
[2017-11-30] MEDS: ASCORBIC ACID 500 MG TAB PO SCH (08:01)
[2017-11-30] MEDS: INSULIN ASPART 100 UNITS/ML 3 ML PEN SC SCH ×3 (08:08→16:53)
--- NOTE | 2017-11-30 10:05 | GASTROENTEROLOGY PROGRESS NOTE ---
DATE: 11/30/2017 SUBJECTIVE: Chart review and the patient examined. The patient doing well overnight. He denies any abdominal pain, nausea, vomiting, hematemesis, coffee-ground emesis, melena or bright red blood per rectum. Nursing note was reviewed. There is no description of any melena or bright red blood per rectum. MEDICATIONS: Include Carafate, pantoprazole, furosemide, insulin, carvedilol, vitamin D, lisinopril, mag ox, potassium, levothyroxine. His stool output was 1 bowel movement noted on November 27 with no additional bowel movements. LABORATORY STUDIES: Today hemoglobin is 8.2 down from 8.8 yesterday, although his numbers have overall been tracking in the high 7's and low 8's and may suggest that yesterday, it was perhaps spurious. Platelet count 190. Laboratory BUN and creatinine are 26 and 1.1. Potassium is 4.2. The patient stool on November 28 was positive for blood. REVIEW OF SYSTEMS: Otherwise noncontributory based on 13-point exam except for mentioned above. PHYSICAL EXAMINATION: GENERAL: Today, the patient is awake, alert and oriented x3. HEENT: Sclerae are anicteric. Conjunctivae moist. Oral mucosa moist. HEART: Normal S1, S2. LUNGS: Clear to auscultation. ABDOMEN: Soft, flat, nontender, nondistended with good bowel sounds. EXTREMITIES: Without clubbing, cyanosis or edema. RECTAL: Deferred. 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 These were coagulated with APC. There was a diffuse moderate friable mucosa at the fundus of the stomach. There was a diverticulum in the second portion of the duodenum and patchy moderate erythematous mucosa in the second portion. No samples were taken. We would consider obtaining a stool for H. pylori if possible and continue patient on PPI. His hemoglobin should be monitored serially. If evidence of bleeding persists or if anemia does not correct, then a repeat endoscopy either as an inpatient or outpatient may be beneficial. All questions answered. We will sign off at this time. If there is evidence of active bleeding or if the above parameters occur, then please do not hesitate to contact us or we would be happy to see the patient as an outpatient to arrange these recommendations. KELTON
[2017-11-30] MEDS ORDERED: HEPARIN IV BOLUS 6,000 UNIT in SYRINGE 0 ML IV ONE (12:30)
[2017-11-30] MEDS ORDERED: HEPARIN 25,000 UNIT/500ML D5W 500 ML IV PRN (12:30)
[2017-11-30 12:36] VITALS: BP 90/50; PULSE 60; TEMP 36.4; O2SAT 99
[2017-11-30 15:22] VITALS: BP 131/86; PULSE 62; TEMP 36.6; O2SAT 97
--- NOTE | 2017-11-30 15:48 | Discharge Instructions ---
Discharge Instructions Date of Service Nov 30, 2017. Admission Reason for Admission: Shortness Of Breath Discharge Discharge Diagnosis / Problem: CHF Exacerbation, Asthma Discharge Goals Goal(s): Decrease discomfort, Therapeutic intervention Activity Recommendations Activity Limitations: as noted below Lifting Limitations: gradually increase as tolerated Exercise/Sports Limitations: gradually increase as tolerated Shower/Bathe: no limitations . Instructions / Follow-Up Instructions / Follow-Up You were treated in the hospital for a COPD exacerbation with intravenous diuretics. Your shortness of breath significantly improved in the hospital although we noticed that your blood counts were also fairly low. You were evaluated for bleeding from your GI tract with a Endoscopy (scope of the stomach ). It showed some ulcerations and bleeding but no other significant concerns. Your blood counts remained stable on discharge. Medications: - Resume all home medications - Start Xarelto as prescribed tomorrow morning - Protonix 40mg Tablet - Take 1 tablet twice daily - this is to prevent acid production in your stomach - Sucralfate 1gm - Take 1 dose at night - this is to protect the lining of your stomach - Oxygen --> Use 2L of oxygen when walking or moving around - You will have a recheck of your oxygen next week with Dr. Mcmahon to determine whether or not this need to be continued at that time Follow up: - See Dr. Mcmahon early next week (Monday if possible, or Monday afternoon after obtaining lab work) for a follow up - THERE IS A PRESCRIPTION FOR LABWORK - Take this to [facility] on Monday to have blood drawn and make sure they send the results to Dr. Mcmahon Return to the ER immediately for worsening or persistent chest pain, abdominal pain, vomiting, fevers, chest pains, difficulty breathing, worsening of your condition, or as needed. Current Hospital Diet Patient's current hospital diet: Diabetes Type 2 Diet, Low Sodium Diet (2gm Na) Discharge Diet Recommended Diet: AHA Diet (Heart Healthy), Diabetes Type 2 Diet Procedures Procedures Performed: EGD Pending Studies Studies pending at discharge: no Laboratory Results Hemoglobin A1c Test 10/27/17 08:43 Range/Units Estimated Average Glucose 146 mg/dl Hemoglobin A1c 6.7 H 4.5-5.6 % Lipid Panel Test 10/27/17 08:43 Range/Units Triglycerides Level 66 0-150 mg/dl Cholesterol Level 85 0-200 mg/dl HDL Cholesterol 30 mg/dl Cholesterol/HDL Ratio 2.8 LDL Cholesterol, Calculated 42 mg/dl Medical Emergencies . Who to Call and When: Medical Emergencies: If at any time you feel your situation is an emergency, please call 911 immediately. . Non-Emergent Contact Non-Emergency issues call your: Primary Care Provider . . "Provider Documentation" section prepared by Adarsh Cantrell. . VTE Core Measure Inpt VTE Proph given/why not?: Contraindicated Resident Tracking Resident Involvement: Resident Care Provided Care Provided: Adult Hospital Medicine
[2017-11-30 16:04] LABS: HEMATOCRIT 27.8 % (42-52); HEMOGLOBIN 8.4 g/dL (14.0-18.0)
--- NOTE | 2017-11-30 16:21 | Progress Note ---
Progress Note Date of Service Nov 30, 2017. Progress Note The patient was seen today at bedside. He is comfortable. Dr. Mercado's note was greatly appreciated. Patient is to be discharged today. I do not think we need to see him in follow-up unless a problem arises.
[2017-11-30] MEDS ORDERED: ENOXAPARIN 80 MG/0.8 ML SYR SQ STA (16:22)
[2017-11-30] MEDS ORDERED: NURSING VERBAL MED ORDER ONE (16:30)
[2017-11-30 16:59] VITALS: BP 131/86; PULSE 62; TEMP 36.6; O2SAT 97
--- NOTE | 2017-11-30 19:07 | Discharge Summary ---
Discharge Summary Date of Service Nov 30, 2017. Discharge Summary Admission Date: Nov 25, 2017 at 02:29 Discharge Date: Nov 30, 2017 Discharge Disposition: Home Principal Diagnosis: CHF Exacerbation Problems/Secondary Diagnoses: Anemia Immunizations: Have You Had Influenza Vaccine: Yes Influenza Vaccine Date: Jul 19, 2009 History of Tetanus Vaccine?: Yes Tetanus Immunization Date: Jul 07, 2009 History of Pneumococcal: Yes Pneumococcal Date: Jul 07, 2009 History of Hepatitis B Vaccine: No Medication Reconciliation Continued Medications: Acetaminophen Tab (Tylenol) 325 Mg Tab 1-2 TAB PO Q4 PRN for Pain or Fever Ascorbic Acid (Vitamin C) 500 Mg Tab 500 MG PO BID Carvedilol (Coreg) 25 Mg Tab 25 MG PO BID Cholecalciferol (Vitamin D3) 1,000 Unit Tab 1000 INTER.UNIT PO DAILY Cyanocobalamin (Vitamin B-12) 1,000 Mcg Tab 1000 MCG PO BID Ferrous Sulfate (Ferrous Sulfate) 325 Mg Tab 325 MG PO BID Furosemide (Lasix) 20 Mg Tab 20 MG PO DAILY TAKE 1 TAB DAILY, IF WEIGHT IS OVER 170 LBS. TAKE 2 TABS Insulin Glargine (Basaglar Kwikpen) 100 Unit/Ml Inj 12 UNITS SQ HS Isosorbide Mononitrate Ext Rel (Imdur Ext Rel) 30 Mg Ertab 30 MG PO QAM Lactobacillus (Acidophilus) 1 Tab Tab 1 TAB PO DAILY Levothyroxine Sodium (Levothyroxine Sodium) 50 Mcg Tab 50 MCG PO DAILY Lisinopril (Zestril) 40 Mg Tab 20 MG PO DAILY for 30 Days, #30 Magnesium Oxide (Mag-Ox) 400 Mg Tab 400 MG PO BID Meclizine Hcl (Meclizine Hcl) 25 Mg Tab 1 TAB PO BID for 10 Days, #20 TAB Metformin Hcl (Glucophage) 500 Mg Tab 500 MG PO BIDM, TAB TAKE WITH AM AND EVENING MEALS Nitroglycerin (Nitrostat) 0.4 Mg Sub 0.4 MG UT PRN PRN for Chest Pain Potassium Chloride (Micro-K Ext Rel) 10 Meq Cap 10 MEQ PO DAILY, CAP TAKE 2 TABS IF TAKES ADDITIONAL LASIX. Rivaroxaban (Xarelto) 10 Mg Tab 10 MG PO DAILY Rosuvastatin Calcium (Crestor) 40 Mg Tab 40 MG PO DAILY Discharge Exam Review of Systems: Constitutional: No fever, No chills, No fatigue Respiratory: No cough, No sputum, No shortness of breath Cardiovascular: No chest pain, No palpitations Abdomen: No pain, No nausea, No vomiting, No diarrhea, No constipation Physical Exam: General Appearance: WD/WN, no apparent distress Eyes: normal inspection, sclerae normal Neck: supple, trachea midline Respiratory/Chest: chest non-tender, no respiratory distress, no accessory muscle use, + decreased breath sounds (Right lower lobe) Cardiovascular: regular rate, rhythm, no edema, no gallop Abdomen / GI: normal bowel sounds, non tender, soft Extremities: no calf tenderness, no pedal edema Neurologic/Psychiatric: alert, normal mood/affect, oriented x 3 Hospital Course 82 year old male with a PMH of CHF, DM, HLD, HTN, Hypothyroidism that presented with worsening SOB and bilat LE edema that was found to be fluid overloaded in the ED and was diuresing well with IV Lasix. Acute on chronic combined diastolic/systolic CHF exacerbated by noncompliance with oral Lasix - Resume home 20mg PO Lasix dose (previously on Lasix IV 20mg IV BID) - Last echo was in June 2017: EF of 45-50, inferolateral hypokinesis, grade 2 DD, Aortic valve sclerosis and biatrial enlargement - Continue PO 10 meq KCL supplementation - Monitor I/O's and daily weights - Continue Imdur 30 mg daily - CXR shows small right pleural effusion with no infiltrates concerning for pneumonia --> Evaluated today by Thoracic Surgery and at this time agree with medical management - 2L oxygen with ambulation on 2 Step --> Provided with home Oxygen and follow up next week with Dr. Mcmahon Normocytic Anemia possibly secondary to iron def/ test def/ anemia of chronic disease - Hemoccult Positive - EGD on 11/29: - Grade 1 varices in upper third of esophagus - Localized, bleeding erosions over the greater curvature of the gastric body - Diffuse moderately friable mucosa with bleeding post suctioning on the fundus of the stomach - GI Recommends PPI BID, Carafate 4 times daily, and an Abdominal US - Previous h/o GI bleed in the past while on blood thinner - Iron Studies, B12, and Folate levels wnl - Continue ferrous sulfate bid - Tolerated Heparin well with no drop in Hgb, will be bridged on discharge with Lovenox, and resume normal home Xarelto tomorrow Possible aspiration pna - CXR not concerning for pneumonia - Swallow eval --> Moist dental soft diet Hyponatremia - Resolved DMT2 - HbA1c was 6.7 last month - Continue lantus 14 units qhs - ISS BSG ACHS - Hold metformin PAF - Currently NSR, holding Xarelto - Continue Carvedilol 25 mg bid HTN - Continue lisinopril 20 mg daily - Continue carvedilol as above Hypothyroidism - Levothyroxine 50 mcg DVT prophylaxis - SCD's Total Time Spent: Greater than 30 minutes This includes examination of the patient, discharge planning, medication reconciliation, and communication with other providers. Discharge Instructions Please refer to the electronic Patient Visit Report (Discharge Instructions) for additional information. Resident Tracking Resident Involvement: Resident Care Provided Care Provided: Adult [facility] Medicine
== END 2017-11-30 18:10 | disposition home or self-care (01) | DRG 291 ==
LOC: C.EDB 23:42 → C.MSICU 11-25 02:29 → ENRESERV 11-25 02:51 → C.2T 11-25 04:30
PROVIDERS: ADMIT Hospitalist; ATTEND Hospitalist
PROC: 0D568ZZ Destruction of Stomach, Via Natural or Artificial Opening Endoscopic (ICD-10-PCS; principal; 2017-11-29 08:45)
DX: I50.43 Acute on chronic combined systolic (congestive) and diastolic (congestive) heart failure (principal); K25.4 Chronic or unspecified gastric ulcer with hemorrhage; I13.0 Hypertensive heart and chronic kidney disease with heart failure and stage 1 through stage 4 chronic kidney disease, or unspecified chronic kidney disease; E87.1 Hypo-osmolality and hyponatremia; I85.00 Esophageal varices without bleeding; I69.354 Hemiplegia and hemiparesis following cerebral infarction affecting left non-dominant side; Z91.128 Patient's intentional underdosing of medication regimen for other reason; D50.0 Iron deficiency anemia secondary to blood loss (chronic); K44.9 Diaphragmatic hernia without obstruction or gangrene; K57.10 Diverticulosis of small intestine without perforation or abscess without bleeding; N18.2 Chronic kidney disease, stage 2 (mild); I48.0 Paroxysmal atrial fibrillation; E11.22 Type 2 diabetes mellitus with diabetic chronic kidney disease; E11.40 Type 2 diabetes mellitus with diabetic neuropathy, unspecified; I25.10 Atherosclerotic heart disease of native coronary artery without angina pectoris; E78.5 Hyperlipidemia, unspecified; E03.9 Hypothyroidism, unspecified; H81.11 Benign paroxysmal vertigo, right ear; Z79.899 Other long term (current) drug therapy; Z79.01 Long term (current) use of anticoagulants; Z79.4 Long term (current) use of insulin; Z95.0 Presence of cardiac pacemaker; Z95.1 Presence of aortocoronary bypass graft; Z87.891 Personal history of nicotine dependence; Z88.8 Allergy status to other drugs, medicaments and biological substances; Z82.49 Family history of ischemic heart disease and other diseases of the circulatory system; Z83.3 Family history of diabetes mellitus

== ENCOUNTER → 2017-12-04 | Outpatient (CLI) | payer OTHER ==
[~2017-12-04] MED LIST changes: +INSU100I23 SQ
[2017-12-04 17:59] LABS: HEMATOCRIT 27.8 % (42-52); HEMOGLOBIN 8.7 g/dL (14.0-18.0); MEAN CELL VOLUME 91.1 fL (80-100); MEAN CORPUSCULAR HEMOGLOBIN 28.5 pg (25-34); MEAN CORPUSCULAR HGB CONC 31.3 g/dl (32-36); PLATELET COUNT 219 K/uL (130-400); RED CELL DISTRIBUTION WIDTH CV 18.5 % (11.5-14.5); RED CELL DISTRIBUTION WIDTH SD 62.2 fL (36.4-46.3)
[2017-12-04 18:18] LABS: BLOOD UREA NITROGEN 26 mg/dl (7-18); CALCIUM 8.9 mg/dl (8.5-10.1); CARBON DIOXIDE 27 mmol/L (21-32); CREATININE 1.09 mg/dl (0.60-1.40); GLUCOSE 111 mg/dl (70-99); POTASSIUM 4.3 mmol/L (3.5-5.1); SODIUM 135 mmol/L (136-145)
== END | disposition home or self-care (01) ==
LOC: C.LABMFLN 11:04
PROVIDERS: ATTEND Internal Medicine
DX: D64.9 Anemia, unspecified (principal)

== ENCOUNTER → 2017-12-07 | Outpatient (CLI) | payer OTHER ==
[~2017-12-07] MED LIST changes: +OPTIRAY 320 IV PRN
--- NOTE | 2017-12-07 12:56 | DIAGNOSTIC IMAGING REPORT ---
CT ABD/PELVIS IV AND ORAL CONT CLINICAL HISTORY: Cystic lesion in the gallbladder fossa COMPARISON STUDY: 04/19/2016, abdominal ultrasound dated November 29, 2017 TECHNIQUE: Following the IV administration of 93 mL of Optiray-320, CT scan of the abdomen and pelvis was performed from the lung bases to the proximal femurs. Images are reviewed in the axial, sagittal, and coronal planes. IV contrast was administered without complication. A dose lowering technique was utilized adhering to the principles of ALARA. CT DOSE: 286.37 mGy.cm FINDINGS: Lower chest: There is a moderate right pleural effusion. There is underlying interstitial lung disease with subpleural reticulation and honeycombing. Liver: No focal hepatic masses are visualized. The portal vein appears patent. Gallbladder: There are surgical clips in the gallbladder fossa. By history the gallbladder surgically absent. There is a 5.2 cm cystic lesion in the gallbladder fossa. Spleen: Normal in size and attenuation. Pancreas: Unremarkable. Adrenal glands: Unremarkable. Kidneys: There are 2 right renal cysts, the largest of which measures 39 mm. There is a 6 mm left renal cyst. There is no significant hydronephrosis. Bowel: There is mild fecal retention. There are no transition zones indicate bowel obstruction. There is scattered diverticula present. There is no acute diverticulitis. There are no findings to indicate acute appendicitis. Peritoneum: There is no intraperitoneal free air or abdominal ascites. This tiny fat-containing left internal hernia. Vasculature: The abdominal aorta is normal in course and caliber. Adenopathy: None. Pelvic viscera: The bladder, and pelvic viscera are unremarkable. Skeletal structures: No destructive osseous lesions are seen. IMPRESSION: 1. Interval cholecystectomy. There is a 5.2 mm fluid cystic structure in the gallbladder fossa. 2. No evidence of bowel obstruction. No evidence of free air 3. Mild fecal retention. 4. Renal cysts 5. Moderate right pleural effusion 6. Interstitial lung disease with subpleural reticulation and honeycombing Electronically signed by: Andre Rios M.D. 12/07/2017 12:55 PM Dictated Date/Time: 12/07/2017 12:50 PM
== END | disposition home or self-care (01) ==
LOC: C.CTS 10:40
PROVIDERS: ATTEND Internal Medicine Gastroenterology
DX: K82.8 Other specified diseases of gallbladder (principal)

== ENCOUNTER → 2017-12-25 | Outpatient (CLI) | payer OTHER ==
[~2017-12-25] MED LIST changes: -OPTIRAY 320 IV PRN
[2017-12-25 12:21] LABS: HEMATOCRIT 29.2 % (42-52); HEMOGLOBIN 9.2 g/dL (14.0-18.0); MEAN CELL VOLUME 91.3 fL (80-100); MEAN CORPUSCULAR HEMOGLOBIN 28.8 pg (25-34); MEAN CORPUSCULAR HGB CONC 31.5 g/dl (32-36); MEAN PLATELET VOLUME 9.8 fL (7.4-10.4); PLATELET COUNT 192 K/uL (130-400); RED CELL DISTRIBUTION WIDTH CV 17.9 % (11.5-14.5); RED CELL DISTRIBUTION WIDTH SD 60.8 fL (36.4-46.3)
[2017-12-25 16:14] LABS: BLOOD UREA NITROGEN 42 mg/dl (7-18); CALCIUM 8.9 mg/dl (8.5-10.1); CARBON DIOXIDE 23 mmol/L (21-32); CREATININE 1.21 mg/dl (0.60-1.40); GLUCOSE 170 mg/dl (70-99); POTASSIUM 4.5 mmol/L (3.5-5.1); SODIUM 134 mmol/L (136-145)
== END | disposition home or self-care (01) ==
LOC: C.LABMFLN 08:22
PROVIDERS: ATTEND Internal Medicine
DX: D64.9 Anemia, unspecified (principal); E78.5 Hyperlipidemia, unspecified

== ENCOUNTER 2018-01-13 10:05 | Inpatient (IN) | payer OTHER ==
[~2018-01-13] VITALS: Ht 172.7 cm; Wt 72.1 kg
--- NOTE | 2018-01-13 10:33 | EMERGENCY ROOM VISIT NOTE ---
History Report prepared by Marielena: Alfred Monge Under the Supervision of: Dr. Ford Murrell M.D. First contact with patient: 10:17 Chief Complaint: SHORTNESS OF BREATH Stated Complaint: SOB/LIGHTHEADENESS/WEAKNESS Nursing Triage Summary: Pt reports, "I just get so tired and I can't breathe right. It started on 01/10. I cough a little bit, but not much." Son states, " He was seen at PCP and they adjusted his Lisiniopril- they took it away for a week. They cut his lasix in half from 20mg to 10mg. He was supposed to go for blood work here soon. He has had low blood counts, it's been a number of weeks." History of Present Illness The patient is an 82 year old male with a history of CHF, atrial fibrillation, and diabetes who presents to the Emergency Room with persistent shortness of breath that started 3 days ago. The patient called his son yesterday stating that he was feeling short of breath and weak, and he called his son again this morning because the symptoms were still there. He notes that he currently is only a bit short of breath, but feels weak "and heavy in the chest", but denies any chest pain. He adds that his blood pressure has been "going wacky recently" . He states that he has had intermittent headaches. The patient notes that he is on an iron pill, so his stools are always dark. He denies any fevers or urinary symptoms. The patient notes no recent falls. He has a pacemaker. Per the patient's son in a private setting, the patient needs a psychiatric evaluation because he has been living in his garage for a while, and refuses to enter the house because he is paranoid that his is trying to kill him. The patient also thinks there are other family members conspiring to help his kill him. He refuses to go into the house to even go to the bathroom or shower, and he makes his own food in the garage. The patient goes to a nearby restaurant to get food and got to the bathroom. He can drive when he feels well. At times, the patient's son has said that he "wants to ", and there is concern that he may hurt his . The patient has no mental health history. He is on Xarelto due to the atrial fibrillation history. The patient's son is not concerned about potential gas exposure in the garage. The patient recently had his Lasix cut in half from 20 mg to 10 mg. Source of History: patient, family (son) Onset: 3 days ago Position: other (global) Quality: other (shortness of breath) Timing: other (persistent) Associated Symptoms: + weakness, No fevers, No chest pain (but notes a heaviness), No urinary symptoms Note: Associated symptoms: Per son, patient has been paranoid for a while. Review of Systems See HPI for pertinent positives & negatives. A total of 10 systems reviewed and were otherwise negative. 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 (4) CHF (congestive heart failure) (5) Cholecystitis (6) Congestive heart failure with reduced left ventricular function, NYHA class 3 (7) CORON ATHEROSCLER NOS TYPE VESSEL, PILOT STATION OR GRAFT (8) DIAB DEJA WO COMPL, TYPE II OR UNSPEC TYPE, NOT UNCNTRLD (9) HYPERLIPIDEMIA NEC/NOS (10) HYPERTENSION NOS (11) Hypoxia (12) Lyme disease (13) Pulmonary edema with congestive heart failure with reduced left ventricular function (14) Shortness of breath (15) SIRS (systemic inflammatory response syndrome) (16) UTI (urinary tract infection) (17) UTI (urinary tract infection) (18) Weakness (19) Weakness Old medical records were reviewed. Nurse's notes were reviewed and I agree with. Family History Diabetes mellitus FHx: heart disease Hypertension Social History Smoking Status: Former Smoker Alcohol Use: none Drug Use: none Marital Status: Housing Status: lives with significant other Occupation Status: retired Current/Historical Medications Scheduled Ascorbic Acid (Vitamin C), 500 MG PO BID Carvedilol (Coreg), 25 MG PO BID Cholecalciferol (Vitamin D3), 1,000 INTER.UNIT PO DAILY Cyanocobalamin (Vitamin B-12), 1,000 MCG PO BID Ferrous Sulfate (Ferrous Sulfate), 325 MG PO BID Furosemide (Lasix), 10 MG PO DAILY Insulin Glargine (Basaglar Kwikpen), 12 UNITS SQ HS Isosorbide Mononitrate Ext Rel (Imdur Ext Rel), 30 MG PO QAM Lactobacillus (Acidophilus), 1 TAB PO DAILY Levothyroxine Sodium (Levothyroxine Sodium), 50 MCG PO DAILY Lisinopril (Prinivil), 20 MG PO DAILY Magnesium Oxide (Mag-Ox), 400 MG PO BID Meclizine Hcl (Meclizine Hcl), 1 TAB PO BID Metformin Hcl (Glucophage), 500 MG PO BIDM Potassium Chloride (Micro-K Ext Rel), 10 MEQ PO DAILY Rivaroxaban (Xarelto), 10 MG PO DAILY Rosuvastatin Calcium (Crestor), 40 MG PO DAILY Scheduled PRN Acetaminophen Tab (Tylenol), 1-2 TAB PO Q4 PRN for Pain or Fever Nitroglycerin (Nitrostat), 0.4 MG UT PRN PRN for Chest Pain Allergies Coded Allergies: Simvastatin (Verified Allergy, Unknown, UNKNOWN, 01/13/18) Atorvastatin (Unverified Adverse Reaction, Intermediate, MYALGIA, 01/13/18) Physical Exam Vital Signs Date Time Temp Pulse Resp B/P (MAP) Pulse Ox O2 Delivery O2 Flow Rate FiO2 01/13/18 12:07 60 16 113/64 100 Nasal Cannula 2.0 01/13/18 10:34 96 Room Air 01/13/18 10:32 60 01/13/18 10:11 36.5 62 20 102/65 96 Room Air Physical Exam General: Chronically ill-appearing older male in no acute distress. HEENT: Normal cephalic atraumatic. Pupils are equal round and reactive to light. Extraocular movements are intact. Oropharynx is pink with moist mucous membranes. No swelling of the mouth lips or tongue. Neck: Supple with a midline trachea. No meningeal signs or stiffness, no JVD or bruits. No Stridor. Chest: Lungs show some faint crackles at the bases. Scar from previous surgery and pacemaker. No wheezes or rhonchi. No increased work of breathing. Heart: regular rate and rhythm. Abdomen: Soft nontender, nondistended without rebound guarding or rigidity. Extremities: Trace pedal edema in the lower extremities. No cyanosis or clubbing. Spine/Back. Non tender to palpation. No CVA tenderness Skin: Good turgor without rashes. Neurologic exam: Cranial nerves two through 12 are intact. Motor and sensation are intact and symmetrical throughout. GCS of 15. Medical Decision & Procedures ER Provider Diagnostic Interpretation: Radiology results as stated below per my review and radiologist interpretation: CT SCAN OF THE BRAIN WITHOUT IV CONTRAST CLINICAL HISTORY: Change in mental status. Paranoia. COMPARISON STUDY: CT of the brain dated 12/26/2012. TECHNIQUE: Unenhanced axial CT scan of the brain is performed from the vertex to the skull base. A dose lowering technique was utilized adhering to the principles of ALARA. CT DOSE: 537.48 mGy.cm FINDINGS: Brain parenchyma: There are age-related involutional changes noting mild subcortical and periventricular microangiopathic change. There is no hemorrhage, mass effect, or evidence of acute territorial ischemia by CT criteria. A small chronic lacunar infarct is noted in the right cerebellar hemisphere. James-white matter is preserved. No extra-axial fluid collection is seen. Ventricles, sulci, cisterns: Prominent secondary to involutional change. Intracranial vasculature: There is advanced atherosclerotic calcification of the cavernous carotid and vertebral arteries. Calvarium: Unremarkable. Sinuses and mastoids: The visualized paranasal sinuses are clear. The mastoid air cells are well pneumatized. Orbits: The bony orbits are grossly intact. There are bilateral ocular lens implants. IMPRESSION: There is no hemorrhage, mass effect, or evidence of acute territorial ischemia by CT criteria. Electronically signed by: Marck Salmeron M.D. 01/13/2018 11:39 AM Dictated Date/Time: 01/13/2018 11:37 AM SINGLE VIEW CHEST CLINICAL HISTORY: Atypical chest pain. FINDINGS: An AP, portable, upright chest radiograph is compared to study dated 11/29/2017. The examination is degraded by portable technique and patient rotation. A 2-lead cardiac pacemaker is unchanged in position and partially obscures the left mid chest. The patient is status post midline sternotomy. The heart is enlarged and there is atherosclerotic calcification of the thoracic aorta. There is pulmonary vascular congestion and interstitial edema. Small pleural effusions are identified with bibasilar consolidation. No pneumothorax is seen. The skeletal structures are osteopenic. The bony thorax is grossly intact. IMPRESSION: 1. Cardiomegaly and cardiac pacemaker with evidence of congestive failure and interstitial edema. 2. Small pleural effusions with bibasilar consolidation. This likely represent atelectasis. Correlate clinically for evidence of superimposed aspiration pneumonitis/pneumonia. Electronically signed by: Marck Salmeron M.D. 01/13/2018 10:57 AM Dictated Date/Time: 01/13/2018 10:56 AM Laboratory Results 01/13/18 10:30 Red Blood Count 2.54, Mean Corpuscular Volume 90.6, Mean Corpuscular Hemoglobin 28.3, Mean Corpuscular Hemoglobin Concent 31.3, Mean Platelet Volume 9.3, Neutrophils (%) (Auto) 72.3, Lymphocytes (%) (Auto) 14.4, Monocytes (%) (Auto) 10.6, Eosinophils (%) (Auto) 2.0, Basophils (%) (Auto) 0.2, Neutrophils # (Auto ) 3.96, Lymphocytes # (Auto) 0.79, Monocytes # (Auto) 0.58, Eosinophils # (Auto ) 0.11, Basophils # (Auto) 0.01 01/13/18 10:30 Test 01/13/18 10:30 01/13/18 10:33 01/13/18 10:56 01/13/18 12:05 White Blood Count 5.48 K/uL (4.8-10.8) Red Blood Count 2.54 M/uL (4.7-6.1) Hemoglobin 7.2 g/dL (14.0-18.0) Hematocrit 23.0 % (42-52) Mean Corpuscular Volume 90.6 fL (80-100) Mean Corpuscular Hemoglobin 28.3 pg (25-34) Mean Corpuscular Hemoglobin Concent 31.3 g/dl (32-36) Platelet Count 253 K/uL (130-400) Mean Platelet Volume 9.3 fL (7.4-10.4) Neutrophils (%) (Auto) 72.3 % Lymphocytes (%) (Auto) 14.4 % Monocytes (%) (Auto) 10.6 % Eosinophils (%) (Auto) 2.0 % Basophils (%) (Auto) 0.2 % Neutrophils # (Auto) 3.96 K/uL (1.4-6.5) Lymphocytes # (Auto) 0.79 K/uL (1.2-3.4) Monocytes # (Auto) 0.58 K/uL (0.11-0.59) Eosinophils # (Auto) 0.11 K/uL (0-0.5) Basophils # (Auto) 0.01 K/uL (0-0.2) RDW Standard Deviation 57.6 fL (36.4-46.3) RDW Coefficient of Variation 17.3 % (11.5-14.5) Immature Granulocyte % (Auto) 0.5 % Immature Granulocyte # (Auto) 0.03 K/uL (0.00-0.02) Nucleated RBC Absolute Count (auto) 0.02 K/uL (0-0) Nucleated Red Blood Cells % 0.3 % Polychromasia 1+ Poikilocytosis PRESENT Anisocytosis PRESENT Schistocytes OCCASIONAL Prothrombin Time 17.5 SECONDS (9.0-12.0) Prothromb Time International Ratio 1.7 (0.9-1.1) Activated Partial Thromboplast Time 36.8 SECONDS (21.0-31.0) Partial Thromboplastin Ratio 1.4 Anion Gap 7.0 mmol/L (3-11) Est Creatinine Clear Calc Drug Dose 34.9 ml/min Estimated GFR () 47.3 Estimated GFR (Non- 40.8 BUN/Creatinine Ratio 23.8 (10-20) Calcium Level 8.8 mg/dl (8.5-10.1) Magnesium Level 2.3 mg/dl (1.8-2.4) Total Bilirubin 1.0 mg/dl (0.2-1) Direct Bilirubin 0.3 mg/dl (0-0.2) Aspartate Amino Transf (AST/SGOT) 20 U/L (15-37) Alanine Aminotransferase (ALT/SGPT) 24 U/L (12-78) Alkaline Phosphatase 83 U/L (45-117) Pro-B-Type Natriuretic Peptide 3678 pg/ml (0-1800) Total Protein 7.1 gm/dl (6.4-8.2) Albumin 3.3 gm/dl (3.4-5.0) Lipase 101 U/L (73-393) Thyroid Stimulating Hormone (TSH) 3.550 uIu/ml (0.300-4.500) Bedside Troponin I < 0.030 ng/ml (0-0.045) Ethyl Alcohol mg/dL < 3.0 mg/dl (0-3) Urine Color YELLOW Urine Appearance CLEAR (CLEAR) Urine pH 5.0 (4.5-7.5) Urine Specific [place] 1.013 (1.000-1.030) Urine Protein NEG (NEG) Urine Glucose (UA) NEG (NEG) Urine Ketones NEG (NEG) Urine Occult Blood NEG (NEG) Urine Nitrite NEG (NEG) Urine Bilirubin NEG (NEG) Urine Urobilinogen NEG (NEG) Urine Leukocyte Esterase TRACE (NEG) Urine WBC (Auto) 5-10 /hpf (0-5) Urine RBC (Auto) 0-4 /hpf (0-4) Urine Hyaline Casts (Auto) 1-5 /lpf (0-5) Urine Epithelial Cells (Auto) >30 /lpf (0-5) Urine Bacteria (Auto) NEG (NEG) Urine Renal Epithelial Cells /lpf (0-5) Urine Opiates Screen NEG (NEG) Urine Methadone, Qualitative NEG (NEG) Urine Barbiturates NEG (NEG) Urine Phencyclidine (PCP) Level NEG (NEG) Ur Amphetamine/Methamphetamine NEG (NEG) MDMA (Ecstasy) Screen NEG (NEG) Urine Benzodiazepines Screen NEG (NEG) Urine Cocaine Metabolite NEG (NEG) Urine Marijuana (THC) NEG (NEG) Laboratory studies as stated above per my review. Medications Administered Medications (Trade) Dose Ordered Sig/Nicki Route Start Time Stop Time Status Last Admin Dose Admin Pantoprazole Sodium 80 mg/ Dextrose 120 ml @ 480 mls/hr TODAY@1200 IV 01/13/18 12:00 01/13/18 12:14 DC 01/13/18 12:30 480 MLS/HR Pantoprazole Sodium 40 mg/ Dextrose 100 ml @ 20 mls/hr Q5H IV 01/13/18 12:15 01/13/18 14:49 DC 01/13/18 12:55 20 MLS/HR ECG Per My Interpretation Indication: SOB/dyspnea Rate (beats per minute): 60 Rhythm: other (ventricularly paced rhythm) Findings: no acute ischemic change, other (wide QRS) Change: no significant change (compared to January 13 2018) Change: 2nd ECG: Ventricular paced rhythm with associated widened QRS. No ischemic changes. Rate of 62 bpm. No change compared to ECG 1. ED Course 1018: Past medical records reviewed. The patient was evaluated in room B7, and a complete history and physical examination were performed. 1143: Protonix IV Bolus/Drip 1 ea IV. 1145: Upon reevaluation, the patient is resting. I discussed the results and treatment plan with the patient. He verbalized agreement of the treatment plan. The patient will be evaluated for further management. 1147: Discussed the patient's case with Dr. Stefan PARK hospitalist. The patient will be evaluated for further management. 1350: I reevaluated the patient and he appears comfortable. He says that he had an episode where he became acutely short of breath but he feels better now. His vital signs are okay. I did an EKG and it did not appear ischemic. Medical Decision Differentials include, but are not limited to; cardiac disease, infection, arrhythmia, psychiatric illness, UTI. This patient comes in as described above. He was placed in room B7. He is here for treatment and evaluation of shortness of breath and weakness. His son is also very concerned about his mental health. Apparently he's been living in the garage and very paranoid that his is trying to poison him. His been no trauma or any toxic exposure known. IV access established and an extensive workup was done including EKG, CAT scan his head, chest x-ray, and multiple blood testing. He was reassessed frequently. His EKG does show paced rhythm without ischemic changes. Chest x-ray shift suggests some congestive heart failure changes of the patient is asymptomatic. There is no elevation of his troponin. His hemoglobin was significant low at 7.2 about 2 weeks ago was 9.2. He's had chronic black stool. I did a rectal exam and is melanotic appearing however was guaiac positive. He is on iron but I also think his blood as well. He was given Protonix bolus and IV drip. He's remained stable otherwise that I think he will likely need further evaluation in the hospital from a GI standpoint also CHF and possibly psychiatry as his son's concern about his behavior at home. The hospitalist saw him in the ER for these measures. Just prior to going up the nurse called me and told me had episode where he became short of breath this lasted very briefly by time I saw him his symptoms had resolved his vital signs are stable and repeat EKG was unremarkable. I related this to the admitting team and the patient was admitted for further inpatient treatment and evaluation he will likely need transfusion as well. Medication Reconcilliation Current Medication List: was personally reviewed by me Blood Pressure Screening Patient's blood pressure: Normal blood pressure Consults Time Called: [id number] Consulting Physician: Dr. Stefan PARK hospitalist Returned Call: [phone] Discussed the patient's case with Dr. Stefan Delacruz [facility] [place]. The patient will be evaluated for further management. Impression Primary Impression: GI bleed Additional Impressions: Anemia CHF (congestive heart failure) Anxiety Scribe Attestation The scribe's documentation has been prepared under my direction and personally reviewed by me in its entirety. I confirm that the note above accurately reflects all work, treatment, procedures, and medical decision making performed by me. Departure Information Dispostion Being Evaluated By Hospitalist Referrals Pro,Ramirez Vincent M.D. (PCP) Patient Instructions My [facility] Problem Qualifiers
--- NOTE | 2018-01-13 10:59 | DIAGNOSTIC IMAGING REPORT ---
SINGLE VIEW CHEST CLINICAL HISTORY: Atypical chest pain. FINDINGS: An AP, portable, upright chest radiograph is compared to study dated 11/29/2017. The examination is degraded by portable technique and patient rotation. A 2-lead cardiac pacemaker is unchanged in position and partially obscures the left mid chest. The patient is status post midline sternotomy. The heart is enlarged and there is atherosclerotic calcification of the thoracic aorta. There is pulmonary vascular congestion and interstitial edema. Small pleural effusions are identified with bibasilar consolidation. No pneumothorax is seen. The skeletal structures are osteopenic. The bony thorax is grossly intact. IMPRESSION: 1. Cardiomegaly and cardiac pacemaker with evidence of congestive failure and interstitial edema. 2. Small pleural effusions with bibasilar consolidation. This likely represent atelectasis. Correlate clinically for evidence of superimposed aspiration pneumonitis/pneumonia. Electronically signed by: Marck Salmeron M.D. 01/13/2018 10:57 AM Dictated Date/Time: 01/13/2018 10:56 AM
[2018-01-13 11:11] LABS: INR 1.7 (0.9-1.1); PTT PATIENT 36.8 SECONDS (21.0-31.0)
[2018-01-13 11:15] LABS: ALBUMIN 3.3 gm/dl (3.4-5.0); CALCIUM 8.8 mg/dl (8.5-10.1); CREATININE 1.55 mg/dl (0.60-1.40)
[2018-01-13 11:18] LABS: BASO % 0.2 %; BASO ABS # 0.01 K/uL (0-0.2); EOS ABS # 0.11 K/uL (0-0.5); HEMOGLOBIN 7.2 g/dL (14.0-18.0); IG# 0.03 K/uL (0.00-0.02); LYMPH % 14.4 %; LYMPH ABS # 0.79 K/uL (1.2-3.4); MEAN CELL VOLUME 90.6 fL (80-100); MEAN CORPUSCULAR HEMOGLOBIN 28.3 pg (25-34); MEAN CORPUSCULAR HGB CONC 31.3 g/dl (32-36); MEAN PLATELET VOLUME 9.3 fL (7.4-10.4); MONO % 10.6 %; MONO ABS # 0.58 K/uL (0.11-0.59); NEUT % 72.3 %; NEUT ABS # 3.96 K/uL (1.4-6.5); NUCLEATED RED BLOOD CELL ABS 0.02 K/uL (0-0); PLATELET COUNT 253 K/uL (130-400); RED CELL DISTRIBUTION WIDTH CV 17.3 % (11.5-14.5); RED CELL DISTRIBUTION WIDTH SD 57.6 fL (36.4-46.3); WHITE BLOOD COUNT 5.48 K/uL (4.8-10.8)
[2018-01-13 11:26] LABS: TOTAL PROTEIN 7.1 gm/dl (6.4-8.2)
[2018-01-13] MEDS ORDERED: LISI20TA3 PO (11:32)
--- NOTE | 2018-01-13 11:40 | DIAGNOSTIC IMAGING REPORT ---
CT SCAN OF THE BRAIN WITHOUT IV CONTRAST CLINICAL HISTORY: Change in mental status. Paranoia. COMPARISON STUDY: CT of the brain dated 12/26/2012. TECHNIQUE: Unenhanced axial CT scan of the brain is performed from the vertex to the skull base. A dose lowering technique was utilized adhering to the principles of ALARA. CT DOSE: 537.48 mGy.cm FINDINGS: Brain parenchyma: There are age-related involutional changes noting mild subcortical and periventricular microangiopathic change. There is no hemorrhage, mass effect, or evidence of acute territorial ischemia by CT criteria. A small chronic lacunar infarct is noted in the right cerebellar hemisphere. James-white matter is preserved. No extra-axial fluid collection is seen. Ventricles, sulci, cisterns: Prominent secondary to involutional change. Intracranial vasculature: There is advanced atherosclerotic calcification of the cavernous carotid and vertebral arteries. Calvarium: Unremarkable. Sinuses and mastoids: The visualized paranasal sinuses are clear. The mastoid air cells are well pneumatized. Orbits: The bony orbits are grossly intact. There are bilateral ocular lens implants. IMPRESSION: There is no hemorrhage, mass effect, or evidence of acute territorial ischemia by CT criteria. Electronically signed by: Marck Salmeron M.D. 01/13/2018 11:39 AM Dictated Date/Time: 01/13/2018 11:37 AM
[2018-01-13] MEDS ORDERED: PANTOprazole INJ 80 MG in DEXTROSE 5% 100ML IV SCH (12:00)
--- NOTE | 2018-01-13 12:11 | History and Physical ---
History & Physical Date & Time of Service: Jan 13, 2018 at 12:08 Chief Complaint: Sob/Lightheadeness/Weakness Primary Care Physician: Ramirez Mcmahon M.D. History of Present Illness 82 yo male with complex history of A. fib, cardiomyopathy with Dual-chamber pacemaker and complete heart block. Presents today with SOB on exertion. Patient and son report that this has been gradually worsening for the past week. Just 2 days ago patient came to his PCP and was found to be confused and hypotensive. PCP deemed that patient was taking too much of lasix and decreased duiretic and stopped lisnopril It appears patient has been gradually getting worse. Son also states that for past year, patient has been living in [facility] and is paranoid that his family wants to kill him. Patient however when he comes to the hospital becomes more lucid and has been able to trick providers into thinking that he is fine. Son state this issue has not even been brought up to his PCP. Past Medical/Surgical History Includes diabetes, atrial fibrillation, congestive heart failure with pacemaker, hypothyroidism, and hypertension. He also has a history of CABG, cardiac pacemaker, hyperlipidemia, hypertension, Lyme disease and gallstone pancreatitis. PAST SURGICAL HISTORY: 1. Laparoscopic cholecystectomy with intraoperative cholangiogram. 2. Cataract extraction with lens implants. 3. Insertion of a dual chamber pacemaker. 4. Aortocoronary artery bypass. 5. Redo coronary artery bypass. Family History Diabetes mellitus FHx: heart disease Hypertension FAMILY MEDICAL HISTORY: Includes diabetes, hypertension and coronary artery disease. The patient has 6 children and multiple grandchildren, great grandchildren and all are healthy. Social History SOCIAL HISTORY: The patient is from [place] town in the area of [facility]. 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 He smoked cigarettes but quit in the early 1959 when the Surgeon General determined it would cause lung cancer. He lives at home with his of more than 60 years. He does use a walker. He does get around at home, although it took him a while to get over his cerebrovascular accident. Smoking Status: Former Smoker Drug Use: none Marital Status: Housing status: lives with significant other Occupational Status: retired Immunizations History of Influenza Vaccine: Yes Influenza Vaccine Date: Jul 19, 2009 History of Tetanus Vaccine?: Yes Tetanus Immunization Date: Jul 07, 2009 History of Pneumococcal: Yes Pneumococcal Date: Jul 07, 2009 History of Hepatitis B Vaccine: No Allergies Coded Allergies: Simvastatin (Verified Allergy, Unknown, UNKNOWN, 01/13/18) Atorvastatin (Unverified Adverse Reaction, Intermediate, MYALGIA, 01/13/18) Home Medications Scheduled Ascorbic Acid (Vitamin C), 500 MG PO BID Carvedilol (Coreg), 25 MG PO BID Cholecalciferol (Vitamin D3), 1,000 INTER.UNIT PO DAILY Cyanocobalamin (Vitamin B-12), 1,000 MCG PO BID Ferrous Sulfate (Ferrous Sulfate), 325 MG PO BID Furosemide (Lasix), 10 MG PO DAILY Insulin Glargine (Basaglar Kwikpen), 12 UNITS SQ HS Isosorbide Mononitrate Ext Rel (Imdur Ext Rel), 30 MG PO QAM Lactobacillus (Acidophilus), 1 TAB PO DAILY Levothyroxine Sodium (Levothyroxine Sodium), 50 MCG PO DAILY Lisinopril (Prinivil), 20 MG PO DAILY Magnesium Oxide (Mag-Ox), 400 MG PO BID Meclizine Hcl (Meclizine Hcl), 1 TAB PO BID Metformin Hcl (Glucophage), 500 MG PO BIDM Potassium Chloride (Micro-K Ext Rel), 10 MEQ PO DAILY Rivaroxaban (Xarelto), 10 MG PO DAILY Rosuvastatin Calcium (Crestor), 40 MG PO DAILY Scheduled PRN Acetaminophen Tab (Tylenol), 1-2 TAB PO Q4 PRN for Pain or Fever Nitroglycerin (Nitrostat), 0.4 MG UT PRN PRN for Chest Pain Physical Exam Vital Signs Date Time Temp Pulse Resp B/P (MAP) Pulse Ox O2 Delivery O2 Flow Rate FiO2 01/13/18 10:34 96 Room Air 01/13/18 10:32 60 01/13/18 10:11 36.5 62 20 102/65 96 Room Air General Appearance: WD/WN, no apparent distress Head: normocephalic, atraumatic Eyes: normal inspection ENT: normal ENT inspection Neck: supple, no adenopathy Respiratory/Chest: chest non-tender, + rales (at bases) Cardiovascular: + irregularly irregular, + pertinent finding (pedal edema) Abdomen/GI: normal bowel sounds, non tender, soft Extremities/Musculoskelatal: normal inspection Neurologic/Psych: alert, oriented x 3 Skin: normal color Lymphatic: no adenopathy Diagnostics Laboratory Results Results Past 24 Hours Test 01/13/18 10:30 01/13/18 10:33 01/13/18 10:56 Range/Units White Blood Count 5.48 4.8-10.8 K/uL Red Blood Count 2.54 4.7-6.1 M/uL Hemoglobin 7.2 14.0-18.0 g/dL Hematocrit 23.0 42-52 % Mean Corpuscular Volume 90.6 80-100 fL Mean Corpuscular Hemoglobin 28.3 25-34 pg Mean Corpuscular Hemoglobin Concent 31.3 32-36 g/dl Platelet Count 253 130-400 K/uL Mean Platelet Volume 9.3 7.4-10.4 fL Neutrophils (%) (Auto) 72.3 % Lymphocytes (%) (Auto) 14.4 % Monocytes (%) (Auto) 10.6 % Eosinophils (%) (Auto) 2.0 % Basophils (%) (Auto) 0.2 % Neutrophils # (Auto) 3.96 1.4-6.5 K/uL Lymphocytes # (Auto) 0.79 1.2-3.4 K/uL Monocytes # (Auto) 0.58 0.11-0.59 K/uL Eosinophils # (Auto) 0.11 0-0.5 K/uL Basophils # (Auto) 0.01 0-0.2 K/uL RDW Standard Deviation 57.6 36.4-46.3 fL RDW Coefficient of Variation 17.3 11.5-14.5 % Immature Granulocyte % (Auto) 0.5 % Immature Granulocyte # (Auto) 0.03 0.00-0.02 K/uL Nucleated RBC Absolute Count (auto) 0.02 0-0 K/uL Nucleated Red Blood Cells % 0.3 % Prothrombin Time 17.5 9.0-12.0 SECONDS Prothromb Time International Ratio 1.7 0.9-1.1 Activated Partial Thromboplast Time 36.8 21.0-31.0 SECONDS Partial Thromboplastin Ratio 1.4 Sodium Level 134 136-145 mmol/L Potassium Level 5.0 3.5-5.1 mmol/L Chloride Level 106 98-107 mmol/L Carbon Dioxide Level 21 21-32 mmol/L Anion Gap 7.0 3-11 mmol/L Blood Urea Nitrogen 37 7-18 mg/dl Creatinine 1.55 0.60-1.40 mg/dl Est Creatinine Clear Calc Drug Dose 34.9 ml/min Estimated GFR () 47.3 Estimated GFR (Non- 40.8 BUN/Creatinine Ratio 23.8 10-20 Random Glucose 93 70-99 mg/dl Calcium Level 8.8 8.5-10.1 mg/dl Magnesium Level 2.3 1.8-2.4 mg/dl Total Bilirubin 1.0 0.2-1 mg/dl Direct Bilirubin 0.3 0-0.2 mg/dl Aspartate Amino Transf (AST/SGOT) 20 15-37 U/L Alanine Aminotransferase (ALT/SGPT) 24 12-78 U/L Alkaline Phosphatase 83 45-117 U/L Total Protein 7.1 6.4-8.2 gm/dl Albumin 3.3 3.4-5.0 gm/dl Lipase 101 73-393 U/L Thyroid Stimulating Hormone (TSH) 3.550 0.300-4.500 uIu/ml Bedside Troponin I < 0.030 0-0.045 ng/ml Ethyl Alcohol mg/dL < 3.0 0-3 mg/dl Impression Assessment and Plan 82 year old male with a PMH of CHF, DM, HLD, HTN, dual chamber pacemaker, complete heart block,Hypothyroidism presents with intermittent shortness of breath and chest discomfort was found to have worsening pulmonary edema on CXR and was given 20mg of lasix IV in the ED Altered mental status He believes he is being poisoned will consult Psych. Acute CHF exacerbation -X-ray shows congesion. May be fluid overloaded. will have patient receive a dose of lasix and continue with PRN doses will obtain a BNP. -will place patient on lasix IV BID. -will monitor Is and Os will hold beta ashwin and kandice may consider to start bb in evening - Last echo was in June 2017: EF of 45-50, inferolateral hypokinesis, grade 2 DD, Aortic valve sclerosis and biatrial enlargement Anemia May be hemodilutional vs GI blood loss will obtain consult with dr. edward will monitor h and h obtain signed consent will continue protonix 40 mg iv bid a. fib will hold xarelto as there is question that patient may be actively losing blood. will monitor Normocytic Anemia of unknown cause - hgb 7.1, normal MCV -stool guiac positive -will consult GI -will repeat h and h today in afternoon DMT2 - HbA1c was 6.7 - continue lantus 12 units qhs - ISS - hold metformin HTN - hold kandice inh. will monitor bp BPV - continue meclizine Hypothyroidism - continue levothyroxine DVT prophylaxis - no chemical coag due to low hgb - SCD's Advanced Directives Existing Advance Directive: No Existing Living Will: No Existing Power of Adjunct Spanish Instructor: No Existing Health Care Proxy: No Resuscitation Status VTE Prophylaxis Will order VTE Prophylaxis: Yes
[2018-01-13] MEDS ORDERED: PANTOprazole INJ 40 MG in DEXTROSE 5% 100ML IV SCH (12:15)
[2018-01-13] MEDS ORDERED: FUROSEMIDE INJ 40 MG in SYRINGE 0 ML IV ONE (13:00)
[2018-01-13] MEDS ORDERED: FUROSEMIDE 40 MG/4 ML VIAL ONE (13:17)
[2018-01-13 13:18] VITALS: O2SAT 96; Ht 172.7 cm; Wt 72.1 kg
[2018-01-13] MEDS ORDERED: NITROGLYCERIN 0.4 MG SL PER TAB CHARGE UT PRN (13:30)
[2018-01-13 14:32] VITALS: BP 121/76; PULSE 64; TEMP 36.4; O2SAT 98
[2018-01-13] MEDS ORDERED: DEXTROSE 50% 50 ML SYR IV PRN (15:00)
[2018-01-13] MEDS ORDERED: GLUCOSE 40% GEL 15 GM TUBE PO PRN (15:00)
[2018-01-13] MEDS ORDERED: GLUCOSE 10 TABS/TUBE PO PRN (15:00)
[2018-01-13] MEDS ORDERED: GLUCAGON FOR INJ 1 MG VIAL SQ PRN (15:00)
[2018-01-13 16:42] VITALS: BP 100/59; PULSE 58; TEMP 36.7; O2SAT 97
[2018-01-13] MEDS ORDERED: METFORMIN HCL 500 MG TAB PO SCH (16:45)
[2018-01-13 17:20] LABS: HEMOGLOBIN 7.8 g/dL (14.0-18.0)
[2018-01-13 19:53] VITALS: BP 107/61; PULSE 59; TEMP 36.4; O2SAT 95
[2018-01-13] MEDS: PANTOprazole INJ 40 MG in SYRINGE 0 ML IV SCH (21:28)
[2018-01-13] MEDS: MECLIZINE HCL 12.5 MG TAB PO SCH (21:30)
[2018-01-13] MEDS: CARVEDILOL 25 MG TAB PO SCH (21:31)
[2018-01-13] MEDS: FERROUS SULFATE 325 MG TAB PO SCH (21:31)
[2018-01-13] MEDS: CYANOCOBALAMIN 500 MCG TAB (VIT B-12) PO SCH (21:32)
[2018-01-13] MEDS: MAGNESIUM OXIDE 400 MG TAB PO SCH (21:32)
[2018-01-13] MEDS: ASCORBIC ACID 500 MG TAB PO SCH (21:33)
[2018-01-13] MEDS: INSULIN GLARGINE SOLOSTAR 100 UNITS/ML 3 ML PEN SQ SCH (21:35)
[2018-01-13 23:43] VITALS: BP 99/52; PULSE 60; TEMP 36.8; O2SAT 94
[2018-01-14] VITALS (14 sets, daily range): BP systolic 88–136; BP diastolic 54–78; PULSE 60–68; TEMP 36.4–36.7; O2SAT 92–98
[2018-01-14] MEDS: LEVOTHYROXINE 50 MCG TAB PO SCH (05:59)
[2018-01-14 06:47] LABS: HEMATOCRIT 22.7 % (42-52); HEMOGLOBIN 7.1 g/dL (14.0-18.0); MEAN CELL VOLUME 90.1 fL (80-100); MEAN CORPUSCULAR HEMOGLOBIN 28.2 pg (25-34); MEAN CORPUSCULAR HGB CONC 31.3 g/dl (32-36); MEAN PLATELET VOLUME 8.9 fL (7.4-10.4); PLATELET COUNT 225 K/uL (130-400); RED CELL DISTRIBUTION WIDTH CV 17.3 % (11.5-14.5); RED CELL DISTRIBUTION WIDTH SD 56.8 fL (36.4-46.3); WHITE BLOOD COUNT 4.64 K/uL (4.8-10.8)
[2018-01-14 07:23] LABS: CALCIUM 8.3 mg/dl (8.5-10.1); CREATININE 1.57 mg/dl (0.60-1.40); POTASSIUM 4.4 mmol/L (3.5-5.1)
[2018-01-14] MEDS: CYANOCOBALAMIN 500 MCG TAB (VIT B-12) PO SCH ×2 (08:01→20:58)
[2018-01-14] MEDS: PANTOprazole INJ 40 MG in SYRINGE 0 ML IV SCH ×2 (08:01→20:55)
[2018-01-14] MEDS: ASCORBIC ACID 500 MG TAB PO SCH ×2 (08:01→20:58)
[2018-01-14] MEDS: MAGNESIUM OXIDE 400 MG TAB PO SCH ×2 (08:02→20:57)
[2018-01-14] MEDS: POTASSIUM CHLORIDE 10 MEQ TABCR PO SCH (08:02)
[2018-01-14] MEDS: LACTOBACILLUS ACIDOPHILUS (FLORANEX) TAB PO SCH (08:02)
[2018-01-14] MEDS: FERROUS SULFATE 325 MG TAB PO SCH ×2 (08:02→20:56)
[2018-01-14] MEDS: CARVEDILOL 25 MG TAB PO SCH ×2 (08:02→20:56)
[2018-01-14] MEDS: ROSUVASTATIN CALCIUM 20 MG TAB PO SCH (08:03)
[2018-01-14] MEDS: CHOLECALCIFEROL 1000 INTER.UNIT TAB PO SCH (08:03)
[2018-01-14] MEDS: ISOSORBIDE MONONITRATE 30 MG TABCR PO SCH (08:04)
[2018-01-14] MEDS: MECLIZINE HCL 12.5 MG TAB PO SCH ×2 (08:04→20:55)
--- NOTE | 2018-01-14 12:03 | Progress Note ---
Subjective Date of Service: Jan 14, 2018. Subjective Pt evaluation today including: conversation w/ patient Patient continue to have come shortness of breath. Family is not at bedside. Patient has dementia and is a bad historian. Patient does not complain of anything else at this time. Problem List Medical Problems: (1) Anxiety Status: Acute (2) Chest pain, exertional Status: Acute (3) Congestive heart failure, acute Status: Acute (4) Dyspnea on exertion Status: Acute (5) Elevated liver function tests Status: Acute (6) Epigastric pain Status: Acute (7) GI bleed Status: Acute (8) GI bleeding Status: Acute (9) Jaundice Status: Acute (10) Pulmonary edema Status: Acute (11) Reaction to insect bite Status: Acute (12) Symptomatic anemia Status: Acute Review of Systems All Other Systems: Reviewed and Negative Objective Vital Signs Date Time Temp Pulse Resp B/P (MAP) Pulse Ox O2 Delivery O2 Flow Rate FiO2 01/14/18 08:00 95 Nasal Cannula 2.0 01/14/18 07:43 36.4 60 20 101/62 (75) 92 Room Air 01/14/18 04:00 Nasal Cannula 2.0 01/14/18 03:38 36.7 62 20 99/54 (69) 95 Nasal Cannula 2.0 01/13/18 23:59 Nasal Cannula 2.0 01/13/18 23:43 36.8 60 17 99/52 (68) 94 Room Air 01/13/18 20:00 Nasal Cannula 2.0 01/13/18 19:53 36.4 59 18 107/61 (76) 95 Nasal Cannula 1.5 01/13/18 16:42 36.7 58 20 100/59 (73) 97 Nasal Cannula 1.5 01/13/18 14:32 36.4 64 18 121/76 (91) 98 Nasal Cannula 2.0 01/13/18 13:46 63 16 116/65 96 Nasal Cannula 2.0 01/13/18 13:18 65 20 130/73 100 Nasal Cannula 2.0 01/13/18 13:18 96 Nasal Cannula 2.0 01/13/18 12:07 60 16 113/64 100 Nasal Cannula 2.0 Physical Exam Comments: General Appearance: WD/WN, no apparent distress Head: normocephalic, atraumatic Eyes: normal inspection ENT: normal ENT inspection Neck: supple, no adenopathy Respiratory/Chest: chest non-tender, + rales (at bases) Cardiovascular: + irregularly irregular, + pertinent finding (pedal edema) Abdomen/GI: normal bowel sounds, non tender, soft Extremities/Musculoskelatal: normal inspection Neurologic/Psych: alert, oriented x 3 Skin: normal color Lymphatic: no adenopathy Laboratory Results Last 24 Hours Test 01/13/18 12:05 01/13/18 17:04 01/13/18 21:37 01/14/18 06:35 Urine Color YELLOW Urine Appearance CLEAR Urine pH 5.0 Urine Specific Ada 1.013 Urine Protein NEG Urine Glucose (UA) NEG Urine Ketones NEG Urine Occult Blood NEG Urine Nitrite NEG Urine Bilirubin NEG Urine Urobilinogen NEG Urine Leukocyte Esterase TRACE Urine WBC (Auto) 5-10 /hpf Urine RBC (Auto) 0-4 /hpf Urine Hyaline Casts (Auto) 1-5 /lpf Urine Epithelial Cells (Auto) >30 /lpf Urine Bacteria (Auto) NEG Urine Renal Epithelial Cells /lpf Urine Opiates Screen NEG Urine Methadone, Qualitative NEG Urine Barbiturates NEG Urine Phencyclidine (PCP) Level NEG Ur Amphetamine/Methamphetamine NEG MDMA (Ecstasy) Screen NEG Urine Benzodiazepines Screen NEG Urine Cocaine Metabolite NEG Urine Marijuana (THC) NEG Hemoglobin 7.8 g/dL 7.1 g/dL Hematocrit 25.0 % 22.7 % Bedside Glucose 144 mg/dl White Blood Count 4.64 K/uL Red Blood Count 2.52 M/uL Mean Corpuscular Volume 90.1 fL Mean Corpuscular Hemoglobin 28.2 pg Mean Corpuscular Hemoglobin Concent 31.3 g/dl RDW Standard Deviation 56.8 fL RDW Coefficient of Variation 17.3 % Platelet Count 225 K/uL Mean Platelet Volume 8.9 fL Sodium Level 134 mmol/L Potassium Level 4.4 mmol/L Chloride Level 106 mmol/L Carbon Dioxide Level 23 mmol/L Anion Gap 6.0 mmol/L Blood Urea Nitrogen 38 mg/dl Creatinine 1.57 mg/dl Est Creatinine Clear Calc Drug Dose 34.5 ml/min Estimated GFR () 46.6 Estimated GFR (Non- 40.2 BUN/Creatinine Ratio 24.2 Random Glucose 97 mg/dl Calcium Level 8.3 mg/dl Test 01/14/18 06:40 01/14/18 11:40 Bedside Glucose 110 mg/dl 198 mg/dl Assessment and Plan 82 year old male with a PMH of CHF, DM, HLD, HTN, dual chamber pacemaker, complete heart block,Hypothyroidism presents with intermittent shortness of breath and chest discomfort was found to have worsening pulmonary edema on CXR and was given 20mg of lasix IV in the ED Altered mental status He believes he is being poisoned by family. Has been living in [facility] for 5 [facility]. Psych believes patient is demented and this is worsening his paranoia. Acute CHF exacerbation with history of ischemic cardiomyopathy -Patient does not appear to be volume overloaded today. will have patient receive a dose of lasix and continue with PRN doses will obtain a BNP. -will continue lasix IV PRN -Lasix IV X2 -will monitor Is and Os continue imdur statin Restarted Beta ashwin -consulted Cardio. appreciate recommendations - Last echo was in June 2017: EF of 45-50, inferolateral hypokinesis, grade 2 DD, Aortic valve sclerosis and biatrial enlargement Anemia May be hemodilutional vs GI blood loss lIKELY MORE GI BLOOD LOSS as patient does nt appear to be volume overloaded now. will transfuse 1 PRBC will continue protonix 40 mg iv bid a. fib will hold xarelto as there is question that patient may be actively losing blood. will monitor Normocytic Anemia of unknown cause - hgb 7.1, funes remained stable but given comorbidities, will transfuse 1 PRBC today -stool guiac positive -consulted GI, appreciate recommendations DMT2 - HbA1c was 6.7 - continue lantus 12 units qhs - ISS - hold metformin HTN - hold kandice inh. 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 Continued [facility] stay due to: other (anemia) Discharge planning: uncertain
--- NOTE | 2018-01-14 12:13 | Psychiatric Consultation ---
Consultation Date of Consultation Jan 14, 2018. Identifying Data 82 y/o KING who lives in [facility], has no psychiatric history but a medical history significant for CHF, coronary bypass, pacemaker, diabetes, hyperlipidemia, hypertension, and Lyme disease who is admitted to the hospitalist service with shortness of breath, lightheadedness, and weakness. Psychiatry is consulted for paranoia. Chief Complaint "It seems to be improved, but there is one thing I do not like, those doggone charley horses, they hurt ". History of Present Illness Patient was seen with the psychiatric liaison nurse, Dominik Casillas RN. He presented to the emergency room yesterday with shortness of breath on exertion along with his son, and reported it had been worsening for the past week. He had been seen by his PCP 2 days prior and was confused and hypotensive. His PCP thought he was taking too much Lasix, so decreased it and stopped lisinopril. His symptoms continued to worsen however. His son informed hospital staff that for the past year, the patient has been living in the garage and his paranoid believing that his family wants to kill him. He states that when he comes to the hospital, he is more lucid and is able to "trick providers into thinking that he is fine." He told staff that he believed his is poisoning him with her perfume, as he noticed that he would become short of breath whenever he entered the house, and this is why he moved into the garage. He also made statements that other family members are conspiring with his to kill him, and family has expressed concerns that he might hurt his . He told the liaison nurse last evening that he did not want to hurt anybody," but if someone is playing tricks on me and trying to hurt me, I'll protect myself." He completed a mini cog last night, and scored a 2 out of 5. 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 He appears to be confabulating at times, and is unable to answer basic questions or complete a MOCA cognitive assessment, with difficulty understanding and following the instructions, and had to stop before the assessment was complete as he was getting frustrated. He missed all 5 tasks on the visuospatial/executive functioning portion, and scored 2 out of 3 on naming, and 0 out of 5 on recall. Attention was impaired as evidenced by his inability to understand instructions, and language, abstraction, and orientation were not formally tested. Both on his assessment last evening and today, he denies all symptoms of depression, anxiety, and thoughts of self-harm. He denies amrita hallucinations, but continues to endorse paranoia,'s talking about knowing that "something is going on" when he noticed that every time he he had to have difficulty breathing. He does not come right out and states that he thinks his is poisoning him, but states "there is something that really affecting my body, do not know what it is, maybe you all are smart enough to figure it out." He initially states that he still goes into the house regularly and talks to his , but later states that his was going around town telling people he was crazy and not to associate with him, so he said he was done with her. He denies any thoughts of harming her, and states that he has a 22 rifle that he used to use for hunting, but would never hurt another person with it, only animals. He denies having memory problems, but on multiple instances throughout the assessment, states that he is not thinking clearly, cannot understand instructions, or cannot answer the questions. He states that he still drives, and denies any concerns about his driving. He states he manages his own finances, with his son's help, does his own food shopping and cooking. He says he has been living in the [facility] for the past year, and has everything he needs there to be comfortable. He laughs and says "I have no idea" when asked if we can speak with his , but states that we could talk to his son Cong, as "he knows what is going on." He called his son Cong who is listed as an emergency contact, and had to leave a voicemail. Past Psychiatric History Current OP Treatment: no current treatment Prior OP Treatment: no prior treatment Prior Psych Hospitalizations: none Access to a Gun: Yes (Initially denies having a gun, then states he has a .22 rifle.) Suicide Attempts: No Past Medication Trials None known. Past Medical/Surgical History (1) CARDIAC PACEMAKER IN SITU (2) CORON ATHEROSCLER NOS TYPE VESSEL, MODOC OR GRAFT (3) DIAB DEJA WO COMPL, TYPE II OR UNSPEC TYPE, NOT UNCNTRLD (4) HYPERLIPIDEMIA NEC/NOS (5) HYPERTENSION NOS (6) Lyme disease (7) Congestive heart failure with reduced left ventricular function, NYHA class 3 (8) Anemia Allergies Allergies: Coded Allergies: Simvastatin (Verified Allergy, Unknown, UNKNOWN, 01/13/18) Atorvastatin (Unverified Adverse Reaction, Intermediate, MYALGIA, 01/13/18) Home Medications Scheduled Ascorbic Acid (Vitamin C), 500 MG PO BID Carvedilol (Coreg), 25 MG PO BID Cholecalciferol (Vitamin D3), 1,000 INTER.UNIT PO DAILY Cyanocobalamin (Vitamin B-12), 1,000 MCG PO BID Ferrous Sulfate (Ferrous Sulfate), 325 MG PO BID Furosemide (Lasix), 10 MG PO DAILY Insulin Glargine (Basaglar Kwikpen), 12 UNITS SQ HS Isosorbide Mononitrate Ext Rel (Imdur Ext Rel), 30 MG PO QAM Lactobacillus (Acidophilus), 1 TAB PO DAILY Levothyroxine Sodium (Levothyroxine Sodium), 50 MCG PO DAILY Lisinopril (Prinivil), 20 MG PO DAILY Magnesium Oxide (Mag-Ox), 400 MG PO BID Meclizine Hcl (Meclizine Hcl), 1 TAB PO BID Metformin Hcl (Glucophage), 500 MG PO BIDM Potassium Chloride (Micro-K Ext Rel), 10 MEQ PO DAILY Rivaroxaban (Xarelto), 10 MG PO DAILY Rosuvastatin Calcium (Crestor), 40 MG PO DAILY Scheduled PRN Acetaminophen Tab (Tylenol), 1-2 TAB PO Q4 PRN for Pain or Fever Nitroglycerin (Nitrostat), 0.4 MG UT PRN PRN for Chest Pain Family History Diabetes mellitus FHx: heart disease Hypertension History of Suicide: No History of Substance Abuse: No Psychiatric History: No Alcohol Use Alcohol Use In Past 12 Months: No Smoking Use Smoking Status: Former Smoker Substance History Denies substance abuse, and drug screen negative. 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 [employer] Relationship History: (Over 60 years) Children: 6 adult children, many grandchildren and great grandchildren Review of Systems Positive for weakness, confusion Examination Vital Signs Vital Signs Past 12 Hours Date Time Temp Pulse Resp B/P (MAP) Pulse Ox O2 Delivery O2 Flow Rate FiO2 01/14/18 08:00 95 Nasal Cannula 2.0 01/14/18 07:43 36.4 60 20 101/62 (75) 92 Room Air 01/14/18 04:00 Nasal Cannula 2.0 01/14/18 03:38 36.7 62 20 99/54 (69) 95 Nasal Cannula 2.0 01/13/18 23:59 Nasal Cannula 2.0 Laboratory Results Last 24 Hours Test 01/13/18 12:05 01/13/18 17:04 01/13/18 21:37 01/14/18 06:35 Urine Color YELLOW Urine Appearance CLEAR Urine pH 5.0 Urine Specific [place] 1.013 Urine Protein NEG Urine Glucose (UA) NEG Urine Ketones NEG Urine Occult Blood NEG Urine Nitrite NEG Urine Bilirubin NEG Urine Urobilinogen NEG Urine Leukocyte Esterase TRACE Urine WBC (Auto) 5-10 /hpf Urine RBC (Auto) 0-4 /hpf Urine Hyaline Casts (Auto) 1-5 /lpf Urine Epithelial Cells (Auto) >30 /lpf Urine Bacteria (Auto) NEG Urine Renal Epithelial Cells /lpf Urine Opiates Screen NEG Urine Methadone, Qualitative NEG Urine Barbiturates NEG Urine Phencyclidine (PCP) Level NEG Ur Amphetamine/Methamphetamine NEG MDMA (Ecstasy) Screen NEG Urine Benzodiazepines Screen NEG Urine Cocaine Metabolite NEG Urine Marijuana (THC) NEG Hemoglobin 7.8 g/dL 7.1 g/dL Hematocrit 25.0 % 22.7 % Bedside Glucose 144 mg/dl White Blood Count 4.64 K/uL Red Blood Count 2.52 M/uL Mean Corpuscular Volume 90.1 fL Mean Corpuscular Hemoglobin 28.2 pg Mean Corpuscular Hemoglobin Concent 31.3 g/dl RDW Standard Deviation 56.8 fL RDW Coefficient of Variation 17.3 % Platelet Count 225 K/uL Mean Platelet Volume 8.9 fL Sodium Level 134 mmol/L Potassium Level 4.4 mmol/L Chloride Level 106 mmol/L Carbon Dioxide Level 23 mmol/L Anion Gap 6.0 mmol/L Blood Urea Nitrogen 38 mg/dl Creatinine 1.57 mg/dl Est Creatinine Clear Calc Drug Dose 34.5 ml/min Estimated GFR () 46.6 Estimated GFR (Non- 40.2 BUN/Creatinine Ratio 24.2 Random Glucose 97 mg/dl Calcium Level 8.3 mg/dl Test 01/14/18 06:40 Bedside Glucose 110 mg/dl Mental Examination During interview pt is: alert and oriented (To self and situation, further orientation testing declined as he was tired and confused), cooperative Appearance: appropriately dressed (Hospital gown), appeared stated age, other ( Lying in bed in no acute distress with glasses and O2 nasal cannula in place) Eye contact is: good Motor behavior is: no abnormal motor movements Speech: normal in rate, rhythm & volume Affect: mood congruent, euthymic Mood is: other ("Good") Thought process: circumstantial, other (Appears to be confabulating at times, as appears confused with certain questions, and will revert to talking about things that happened 20+ years ago) Thought content: paranoid (Of persecution, believing there is something affecting his breathing and his home), delusions (He does not endorse this to me , but family reported that he believes his is trying to kill him and the family are conspiring with her to do this.) Suicidal thought are: denied Homicidal thoughts are: denied Hallucinations: denies auditory, denies visual Cognition: language grossly intact, other (Memory and attention are significantly impaired) Insight: impaired Judgement: impaired Impression / Recommendations Impression 82-year-old white male with no psychiatric history but multiple medical problems who is admitted with shortness of breath and weakness. We are consulted to evaluate paranoia. Per family, he has been paranoid for at least the past year, believing that his is trying to poison him or kill him, so has moved out to the garage. He admits that he feels something is going on in the home that negatively affects his ability to breathe, and vacillates between stating that his relationship with his is fine, and other times stating that he is angry at her because she called him crazy. Family reportedly expressed concerns that he might harm his , and he admits to having a gun, it is poorly able to reality test. He does not endorse any symptoms consistent with a mental illness, including any mood or anxiety symptoms, and this most likely represents paranoia related to dementia. He is significant cognitive impairment, scoring a 2 out of 5 on the mini cog, and was unable to complete the MOCA as he became frustrated and was unable to understand instructions, but scored 2 out of 18 after the first 3 sections. we will attempt to get collateral information from family to further clarify the diagnosis, and would recommend that he follow up with his PCP for dementia workup, and that he not drive due to cognitive impairment. There is the possibility that some of his current cognitive impairment is due to his medical problems and delirium, but he should be assessed by his PCP before driving again, and consider referral for an outpatient neurologist or geriatric psychiatrist for ongoing management of dementia. We will also recommend that family secure any guns.
[2018-01-14] MEDS ORDERED: FUROSEMIDE INJ 40 MG in SYRINGE 0 ML IV ONE (12:15)
--- NOTE | 2018-01-14 14:41 | CARDIOLOGY CONSULTATION ---
DATE OF CONSULTATION: 01/14/2018 PERTINENT HISTORY: Mr. Murillo is an 82-year-old male with a complex past medical history who was admitted yesterday with dyspnea, profound anemia, and congestive heart failure. This consultation was ordered to assist in his management. Of note, patient typically follows with Dr. Dick as an outpatient. The patient was in his usual state of health until approximately 1 week prior to presentation. He began to note shortness of breath with exertion which became progressive. No PND or orthopnea. Two days prior to presentation, the patient was seen by Irais Manning PA-C. At that visit, he demonstrated confusion and hypotension. His lisinopril was discontinued and his Lasix was decreased to 10 mg daily and as needed for weight gain. The patient does follow daily weights at home. On the day of presentation, the patient weighed 164 pounds at home. According to his report, this is his typical dry weight. He weighed 165 pounds on presentation here yesterday. Weight this morning is 161.5 pounds. The patient is currently undergoing a workup for his profound anemia. He will be seen by the GI team today. PAST MEDICAL HISTORY: 1. Coronary artery disease. 2. Inferior myocardial infarction -- 1986. 3. CABG -- 1986. 4. Redo CABG -- 2000. 5. Chronic systolic CHF. 6. Ischemic cardiomyopathy -- 45-50% - June 2017. 7. Permanent atrial fibrillation. 8. DDD pacemaker - 2009. 9. Complete heart block -- 2009. 10. Right bundle branch block. 11. Mild to moderate mitral regurgitation. 12. Mild tricuspid regurgitation. 13. Hypertension. 14. Hypercholesterolemia. 15. Subdural hematoma - 2009. 16. Chronic iron deficiency anemia. 17. Diabetes mellitus. 18. Diabetic retinopathy. 19. Diabetic neuropathy. 20. History of Sheela thyroiditis. 21. Hypothyroidism. 22. Vitamin B12 deficiency. 23. Laparoscopic cholecystectomy. 24. Intraocular lens implants. MEDICATIONS: 1. Lasix 40 mg IV x1. 2. Coreg 25 mg b.i.d. 3. Imdur 30 mg per day. 4. Lisinopril 20 mg daily -- on hold. 5. Potassium 10 mEq per day. 6. Crestor 40 mg per day. 7. Xarelto 10 mg daily -- controlled. 8. Synthroid 0.05 mg daily. 9. Magnesium oxide 400 mg b.i.d. 10. Iron sulfate 325 mg b.i.d. 11. Protonix 40 mg IV b.i.d. ALLERGIES: None. SOCIAL HISTORY: The patient is and lives with his . Denies tobacco or alcohol. FAMILY HISTORY: Noncontributory or negative. REVIEW OF SYSTEMS: A 10-point review of systems is negative except for that described above. PHYSICAL EXAMINATION: GENERAL: This well-developed, well-nourished elderly male lying supine in bed without complaints. VITAL SIGNS: Blood pressure is 100/62 with an irregular pulse of 60. Respiratory rate is 20. The patient is afebrile at 36.4 degrees Celsius. Saturations 92% on 2 liters nasal cannula. HEENT: Negative. NECK: Supple with full carotid upstrokes. No carotid bruits. Jugular venous pressure is flat at 90 degrees. There is no thyromegaly. CARDIOVASCULAR: Reveals an irregular regular rhythm with distant heart sounds. A 1/6 basal systolic ejection murmur is noted. LUNGS: Clear without rales, rhonchi, or wheeze. ABDOMEN: Soft and nontender without bruits. EXTREMITIES: Reveal intact radial artery pulses bilaterally. There is no peripheral edema. DATA: CBC notes hemoglobin of 7.1, hematocrit 22.7, white count 4.6, and platelet count 225,000. Electrolytes notes a sodium of 134, potassium 4.4, chloride 106, bicarbonate 23, BUN 30, creatinine 1.57, and glucose 110. Troponin I level undetectable less than 0.03. BNP is elevated at 3678. EKG notes atrial ventricular pacing. Chest x-ray notes cardiomegaly, mild CHF, and a left-sided pacemaker. CT scan of the head showed no acute findings. IMPRESSION: Mr. Murillo was admitted with exertional dyspnea, a profound anemia, and mildly decompensated congestive heart failure. He has responded well to one dose of intravenous Lasix. He seems compensated at this time. Suspect that his profound anemia may have a factor in his decompensation. PLAN: 1. Agree with p.r.n. use of intravenous Lasix. 2. Continue usual outpatient cardiac medications. 3. Agree with holding lisinopril. 4. Agree with holding Xarelto. 5. Further recommendations pending his clinical course.
[2018-01-14 19:50] LABS: HEMATOCRIT 27.3 % (42-52); HEMOGLOBIN 8.7 g/dL (14.0-18.0)
[2018-01-14] MEDS: INSULIN GLARGINE SOLOSTAR 100 UNITS/ML 3 ML PEN SQ SCH (21:00)
--- NOTE | 2018-01-14 22:51 | GASTROINTESTINAL CONSULTATION ---
DATE OF CONSULTATION: 01/14/2018 CHIEF COMPLAINT: Anemia. HISTORY OF PRESENT ILLNESS: Mr. Murillo is an 82-year-old white male known to me from a recent hospitalization for anemia. The patient was admitted through the Emergency Room for dyspnea, lightheadedness and weakness. The patient is followed by Dr. Ramirez Mcmahon as an outpatient. The patient has had progressive weakness and dyspnea on exertion. He does have an extensive cardiovascular history. We will summarize his last GI workup from November 2017 below. The patient denies any hematemesis, coffee-ground emesis, nausea, vomiting, abdominal pain, bright red blood per rectum, although his stools are dark, but does take oral iron. PAST MEDICAL AND SURGICAL HISTORY: Includes laparoscopic cholecystectomy with IOC, cataract extraction, dual chamber pacemaker, CABG with repeat revision. FAMILY HISTORY: Significant for diabetes, heart disease. 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 The patient no longer smokes, although did smoke but has not done so for nearly 60 years. The patient is . He does not use alcoholic beverages. ALLERGIES: ALLERGIC TO SIMVASTATIN, ATORVASTATIN. HOME MEDICATIONS: Include vitamin C, carvedilol, vitamin D, B12, iron sulfate, Lasix 10 mg daily, insulin, isosorbide mononitrate, lisinopril, levothyroxine, metformin, Xarelto and Crestor. REVIEW OF SYSTEMS: Otherwise noncontributory based on 13-point exam except for mentioned above. LABORATORY STUDIES: Admission labs show white count 5.4, hemoglobin 7.2, MCV is 90.6, platelets 253,000. RDW is elevated at 17.3, INR 1.7, PTT 36.8, potassium 5.0, BUN and creatinine are 37 and 1.5. Magnesium normal at 2.3, total bilirubin 1.0, direct 0.3, AST 20, ALT 24, alkaline phosphatase 83, lipase 101. TSH 3.55. Alcohol level was nondetected and bedside troponin less than 0.030. A chest x-ray on admission showed congestive heart failure. PHYSICAL EXAMINATION: VITAL SIGNS: Admission values on 01/13/2018 of vitals include afebrile 36.5, heart rate 62, respirations 20, blood pressure 102/65, 96% on room air. GENERAL: Today, patient is awake, alert and oriented x3. HEENT: Normocephalic, atraumatic. Sclerae are anicteric, conjunctiva moist. Oral mucosa moist. NECK: Normal range of motion. LUNGS: Clear to auscultation without wheezes. There are trace crackles with decreased breath sounds at both bases. HEART: Normal S1, S2. Without rubs, gallops or murmurs. EXTREMITIES: Show normal range of motion. SKIN: Warm, dry and intact. ABDOMEN: Soft, nontender, nondistended with positive bowel sounds, no rebound or guarding. I do not appreciate hepatosplenomegaly. There are no abdominal bruits or masses. There is no evidence of ascites or shifting dullness. There is positive bowel sounds. RECTAL: Deferred at this time. Imaging studies were as described above. In addition, a head CT was performed without evidence of intracranial hemorrhage, mass effect or acute territorial ischemia. 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 Buchanan). 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 There were also local erosions in the greater curve of the gastric body. PLAN: The patient with recurrent anemia without description of overt GI bleeding, although stools are dark, but may be due to iron replacement. His laboratory studies on admission were as described above. He has not to date at the time of this evaluation received any packed red blood cells and it may be reasonable for the patient to have a cautious administration of these in order to improve his cardiopulmonary status. At some point, it may be reasonable to repeat upper endoscopy with push enteroscopy and ultimately a repeat colonoscopy as the last one was done approximately [address] Weston. Would follow hemoglobin serially, a PPI therapy. His hospital medications Include vitamin D, isosorbide mononitrate, rosuvastatin, levothyroxine, ascorbic acid, ferrous sulfate, insulin, magnesium, meclizine and pantoprazole 40 mg twice daily. We will follow with you. If signs of overt bleeding occur, it may be reasonable to perform a tagged red cell scan in order to help localize an upper vs lower GI bleeding source. Further recommendations depending on the patient's response to blood products, optimizing his cardiopulmonary status and psychiatry and cardiology evaluation. All questions answered. KELTON
[2018-01-15] VITALS (10 sets, daily range): BP systolic 102–118; BP diastolic 61–67; PULSE 60–62; TEMP 36.4–37.3; O2SAT 93–98
[2018-01-15 05:56] LABS: HEMATOCRIT 26.8 % (42-52); HEMOGLOBIN 8.4 g/dL (14.0-18.0); MEAN CELL VOLUME 89.3 fL (80-100); MEAN CORPUSCULAR HGB CONC 31.3 g/dl (32-36); MEAN PLATELET VOLUME 9.2 fL (7.4-10.4); PLATELET COUNT 219 K/uL (130-400); RED CELL DISTRIBUTION WIDTH CV 17.6 % (11.5-14.5); RED CELL DISTRIBUTION WIDTH SD 57.5 fL (36.4-46.3); WHITE BLOOD COUNT 4.83 K/uL (4.8-10.8)
[2018-01-15] MEDS: LEVOTHYROXINE 50 MCG TAB PO SCH (06:31)
[2018-01-15 06:33] LABS: CALCIUM 8.4 mg/dl (8.5-10.1); CREATININE 1.55 mg/dl (0.60-1.40); POTASSIUM 3.7 mmol/L (3.5-5.1)
[2018-01-15] MEDS: LACTOBACILLUS ACIDOPHILUS (FLORANEX) TAB PO SCH (08:17)
[2018-01-15] MEDS: ISOSORBIDE MONONITRATE 30 MG TABCR PO SCH (08:17)
[2018-01-15] MEDS: MECLIZINE HCL 12.5 MG TAB PO SCH ×2 (08:17→21:18)
[2018-01-15] MEDS: CHOLECALCIFEROL 1000 INTER.UNIT TAB PO SCH (08:17)
[2018-01-15] MEDS: PANTOprazole INJ 40 MG in SYRINGE 0 ML IV SCH (08:17)
[2018-01-15] MEDS: ASCORBIC ACID 500 MG TAB PO SCH ×2 (08:18→21:19)
[2018-01-15] MEDS: POTASSIUM CHLORIDE 10 MEQ TABCR PO SCH (08:18)
[2018-01-15] MEDS: ROSUVASTATIN CALCIUM 20 MG TAB PO SCH (08:18)
[2018-01-15] MEDS: MAGNESIUM OXIDE 400 MG TAB PO SCH ×2 (08:19→21:19)
[2018-01-15] MEDS: CYANOCOBALAMIN 500 MCG TAB (VIT B-12) PO SCH ×2 (08:19→21:19)
[2018-01-15] MEDS: CARVEDILOL 25 MG TAB PO SCH ×2 (08:20→21:20)
[2018-01-15] MEDS: FERROUS SULFATE 325 MG TAB PO SCH ×2 (08:23→21:18)
--- NOTE | 2018-01-15 12:02 | Cardiology Follow-Up ---
Subjective Date of Service: Jan 15, 2018. Pt evaluation today including: conversation w/ patient, physical exam, lab review, review of studies, review of inpatient medication list History of Present Illness He has been feeling relatively well since admission, he is not having palpitations, orthopnea, PND or peripheral edema. He still gets quite winded with minimal exertion but that has not worsened. Social History Smoking Status: Former Smoker History of Alcohol Use: No Review of Systems Respiratory: No shortness of breath Cardiac: No chest pain Medications Cardiovascular: Item Value Date Time Isosorbide 30 mg 01/14/18 0900 Mononitrate QAM/PO 01/15/18 0817 (Imdur Ext Rel Tab) Potassium Chloride 10 meq 01/14/18 0900 (Klor-Con M10) DAILY/PO 01/15/18 0818 Rosuvastatin 40 mg 01/14/18 0900 Calcium DAILY/PO 01/15/18 0818 (Crestor Tab) Carvedilol 25 mg 01/13/18 2100 (Coreg Tab) BID/PO 01/15/18 0820 Objective Vital Signs Past 12 Hours Date Time Temp Pulse Resp B/P (MAP) Pulse Ox O2 Delivery O2 Flow Rate FiO2 01/15/18 11:35 36.4 60 18 115/61 (79) 93 Room Air 01/15/18 08:00 98 Nasal Cannula 2.0 01/15/18 07:41 36.6 60 20 102/64 (77) 98 Nasal Cannula 2.0 01/15/18 04:00 Nasal Cannula 2.0 01/15/18 03:57 36.6 62 18 118/64 (82) 95 Nasal Cannula 2.0 01/14/18 23:59 Nasal Cannula 2.0 Last Recorded Weight-Kilograms: 71.400 Physical Exam Constitutional: Level of Distress: NAD Lungs: Auscultation: breath sounds normal Cardiovascular: Heart Auscultation: RRR Extremities: no edema Data Laboratory Results: Last 24 Hours Test 01/14/18 19:44 01/15/18 05:32 01/15/18 06:52 Hemoglobin 8.7 g/dL 8.4 g/dL Hematocrit 27.3 % 26.8 % White Blood Count 4.83 K/uL Red Blood Count 3.00 M/uL Mean Corpuscular Volume 89.3 fL Mean Corpuscular Hemoglobin 28.0 pg Mean Corpuscular Hemoglobin Concent 31.3 g/dl RDW Standard Deviation 57.5 fL RDW Coefficient of Variation 17.6 % Platelet Count 219 K/uL Mean Platelet Volume 9.2 fL Sodium Level 137 mmol/L Potassium Level 3.7 mmol/L Chloride Level 106 mmol/L Carbon Dioxide Level 23 mmol/L Anion Gap 8.0 mmol/L Blood Urea Nitrogen 35 mg/dl Creatinine 1.55 mg/dl Est Creatinine Clear Calc Drug Dose 34.9 ml/min Estimated GFR () 47.3 Estimated GFR (Non- 40.8 BUN/Creatinine Ratio 22.5 Random Glucose 73 mg/dl Calcium Level 8.4 mg/dl Bedside Glucose 88 mg/dl Telemetry reviewed: Ventricularly paced rhythm, occasional episodes what appeared to be PAT with ventricular tracking appropriately. Pacemaker evaluation: His pacemaker is functioning well, he is generally in atrial fibrillation however, pretty much continuously based on pacemaker monitoring with a ventricular paced rhythm. Assessment and Plan 1. Dyspnea on exertion weakness: Almost certainly due to his severe anemia, that is not changed since admission. Possibly a minor component of heart failure which appeared to be evident on chest x-ray and he was diuresed but does not feel any better. 2. Congestive heart failure: He probably had mild congestive heart failure on admission, he was diuresed and I would probably not diuresis much more. That has not changed how he feels, but I suspect his symptoms are primarily due to his anemia. 3. Pacemaker: His pacemaker is functioning well, it is ventricular pacing almost all of the time. He has been in atrial fibrillation almost continuously for a number of months, the vast majority of the time since his last visit. 4. Atrial fibrillation: He is in permanent atrial fibrillation I believe ( although his diagnostic suggest that he has some time when he is not in atrial fibrillation but that may be undersensing of his atrial arrhythmia) and had been on anticoagulation, however his dose is reported as Xarelto 10 mg daily which is not an appropriate dose for anticoagulation but in any case he may have bleeding making further anticoagulation problematic. Here he is not on anticoagulation. Thank you for allowing me to participate in his care.
--- NOTE | 2018-01-15 12:17 | Psychiatric Progress Notes ---
Psychiatric Progress Note Date of Service Jan 15, 2018. Notes 82 y/o MWGerson who lives in [place], has no psychiatric history but a medical history significant for CHF, coronary bypass, pacemaker, diabetes, hyperlipidemia, hypertension, and Lyme disease who is admitted to the hospitalist service with shortness of breath, lightheadedness, and weakness. Psychiatry is consulted for paranoia. Patient seen for initial consult yesterday , and for follow up today. CC: "Off and on gets me a little bit." Interval history: Spoke with patient's son Cong, who states patient has demonstrated cognitive impairment, it is difficult to follow what he is talking about, will call people by the wrong name, is not able to understand his finances/bills (son has to help wa, often thinks solicitation letters are bills) , and there have been concerns about his driving, although he has always said that he won't drive if he doesn't feel safe to. Informed son of his cognitive deficits on testing here. He is concerned about his father returning to his current living situation, and would like for his father to go to assisted living. He has talked to him about it and says he was willing to consider it, but then his sibling told him he shouldn't go because they'd take all his money , so he changed his mind. He clarified that the patient refuses to go into the house and has very limited contact with his . When he does have contact with her, it's typically negative. He plans to remove his guns tonight, and to talk to him again about assisted living. He is the patient's POA and asked about guardianship process. Assess the patient, his granddaughter was at the bedside with his permission. Multiple times he derails, and it was difficult to follow his train of thought is he would go off topic. He complains of continued intermittent weakness, and is frustrated with his medical problems. He is poorly able to describe the recommended treatment, stating "I think they adjusted my medicine a little," but cannot name any of his medications, and looks to his granddaughter to list them. He denies problems with mood, sleep, appetite, suicidal thoughts, homicidal thoughts, hallucinations, and anxiety. He does not mention any of his delusional beliefs today. 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 He states that his father had Alzheimer's dementia, but that he himself had been checked out and was "fine." ROS: C/O weakness White male appearing stated age. Dressed in a hospital gown and lying in bed in no acute distress. Calm, cooperative, and pleasant. Fair eye contact and no abnormal movements. Speech is normal rate, volume, and tone. Mood is "good," and affect is mostly euthymic, with light confusion at times and mild irritability when discussing driving recommendations. Thoughts are goal directed at times, but often vague, and at times switches abruptly to unrelated topics. The patient denied suicidal and homicidal ideation and hallucinations, and did not appear to be responding to internal stimuli. He does not mention any delusional or paranoid thought content today. Cognition is impaired, including memory and attention. Alert and oriented to person and situation. Intelligence is consistent with level of education. Insight and and judgment are fair. Recommendations: 1. Paranoid delusions - likely due to underlying dementia process, as no signs of mood disorder, anxiety, or other psychotic symptoms, but will need ongoing monitoring after discharge from hospital, f/u with PCP Dr. Mcmahon, and recommend referral to a geriatric psychiatrist. Consider addition of low dose antipsychotic, but patient has not been willing to take medications, stating he takes too many already. 2. Patient advised he should not drive due to cognitive deficits and that the mandated report will be made to [facility]. Explained process and provided him with patient handout (What to Expect When My Medical Condition Has Been Reported to [facility]), as well as Driveable information for [facility] (exams offered to determine driving ability/safety). Also informed his son, as unclear that patient understood and was willing to follow these recommendations. Would encourage family to take the patient's keys so that he does not drive until he has been cleared by physician to do so. 3. Safety - Son will remove guns today. He has concerns about patient returning to current living situation, and will talk to him again about assisted living. Son is his POA, and should be involved in decision making about treatment and disposition at this point.
--- NOTE | 2018-01-15 12:27 | Clinical Documentation Query ---
CLINICAL DOCUMENTATION QUERY QUERY 1 OF 3 82 year old male with a PMH of CHF, DM, HLD, HTN, dual chamber pacemaker, complete heart block, Hypothyroidism presents with intermittent shortness of breath and chest discomfort was found to have worsening pulmonary edema on CXR and was given 20mg of lasix IV in the ED In your clinical opinion is this patient being managed for: ( ) Acute on chronic systolic CHF ( x ) Not Agree ( ) Other explanation of clinical findings (Please Explain) ( ) Unable to determine (Please Define) ( ) Need to Discuss The medical record reflects the following clinical findings, treatment, and risk factors. Clinical Indicators: As above Treatment: Lasix IV, telemetry, CXR, serial PRPs, I&O Risk Factors: Age, HTN, chronic systolic CHF QUERY 2 OF 3 Patient is documented as having altered mental status, origin unknown. In your clinical opinion is this patient being managed for: ( ) Encephalopathy ( x ) Not Agree dementia ( ) Other explanation of clinical findings (Please Explain) ( ) Unable to determine (Please Define) ( ) Need to Discuss The medical record reflects the following clinical findings, treatment, and risk factors. Clinical Indicators: As above Treatment: Psychiatric consult, Head CT Risk Factors: Age, psychosis, unsafe living environment QUERY 3 OF 3 Patient's hgb 7.2 and was transfused 1 unit PRBCs. In your clinical opinion is this patient being managed for: ( x ) Acute blood-loss anemia ( ) Not Agree ( ) Other explanation of clinical findings (Please Explain) ( ) Unable to determine (Please Define) ( ) Need to Discuss The medical record reflects the following clinical findings, treatment, and risk factors. Clinical Indicators: As above Treatment: PRBCs, GI consult Risk Factors: Age, hx grade 1 varices and duodenal diverticulum Please clarify and document your clinical opinion in the progress notes and discharge summary. Terms such as "probable", "suspected", "likely", "questionable", "possible", or "still to be ruled out" are acceptable. IF IN AGREEMENT, YOU MUST DOCUMENT ABOVE DIAGNOSTIC STATEMENT IN DAILY PROGRESS NOTES AND DISCHARGE SUMMARY. This document is not part of the patient's record. Thank You, Denisa Valdes RN [phone]
--- NOTE | 2018-01-15 16:10 | Progress Note ---
Subjective Date of Service: Jan 15, 2018. Subjective Pt evaluation today including: conversation w/ patient, physical exam, lab review, conversation w/ operations consultant, review of inpatient medication list Pain: no pain PO Intake: adequate Voiding: no voiding problems says his breathing is better today than compared to admission says he saw Dr. Gates today aware of recent recommendations, like possible need for endoscopy reviewed labs, hb 8.4, Cr is 1.55, stable discussed with Dr. Gates and Dr. Kearney, reviewed note from Dr. Mercado recommended that he not drive, guns have been secured Problem List Medical Problems: (1) Anxiety Status: Acute (2) Chest pain, exertional Status: Acute (3) Congestive heart failure, acute Status: Acute (4) Dyspnea on exertion Status: Acute (5) Elevated liver function tests Status: Acute (6) Epigastric pain Status: Acute (7) GI bleed Status: Acute (8) GI bleeding Status: Acute (9) Jaundice Status: Acute (10) Pulmonary edema Status: Acute (11) Reaction to insect bite Status: Acute (12) Symptomatic anemia Status: Acute Review of Systems Constitutional: + weakness, + fatigue Respiratory: + dyspnea on exertion All Other Systems: Reviewed and Negative Medications Current Inpatient Medications Medications (Trade) Dose Ordered Sig/Nicki Route Start Time Stop Time Status Last Admin Dose Admin Ascorbic Acid (Vitamin C Tab) 500 mg BID PO 01/13/18 21:00 02/12/18 20:59 01/15/18 08:18 500 MG Carvedilol (Coreg Tab) 25 mg BID PO 01/13/18 21:00 02/12/18 20:59 01/15/18 08:20 25 MG Cholecalciferol (Vitamin D Tab) 1,000 inter.unit DAILY PO 01/14/18 09:00 02/13/18 08:59 01/15/18 08:17 1,000 INTER.UNIT Cyanocobalamin (Vitamin B-12 Tab) 1,000 mcg BID PO 01/13/18 21:00 02/12/18 20:59 01/15/18 08:19 1,000 MCG Ferrous Sulfate (Feosol Tab) 325 mg BID PO 01/13/18 21:00 02/12/18 20:59 01/15/18 08:23 325 MG Insulin Glargine (Lantus Solostar Pen) 12 units HS SQ 01/13/18 21:00 02/12/18 20:59 01/14/18 21:00 12 UNITS Isosorbide Mononitrate (Imdur Ext Rel Tab) 30 mg QAM PO 01/14/18 09:00 02/13/18 08:59 01/15/18 08:17 30 MG Lactobacillus Acidophilus (Floranex Tab) 1 tab DAILY PO 01/14/18 09:00 02/13/18 08:59 01/15/18 08:17 1 TAB Levothyroxine Sodium (Synthroid Tab) 50 mcg DAILYBB PO 01/14/18 06:00 02/13/18 05:59 01/15/18 06:31 50 MCG Magnesium Oxide (Mag-Ox Tab) 400 mg BID PO 01/13/18 21:00 02/12/18 20:59 01/15/18 08:19 400 MG Meclizine HCl (Antivert Tab) 25 mg BID PO 01/13/18 21:00 02/12/18 20:59 01/15/18 08:17 25 MG Nitroglycerin (Nitrostat Tab) 0.4 mg PRN PRN UT 01/13/18 13:30 02/12/18 13:29 Potassium Chloride (Klor-Con M10) 10 meq DAILY PO 01/14/18 09:00 02/13/18 08:59 01/15/18 08:18 10 MEQ Rosuvastatin Calcium (Crestor Tab) 40 mg DAILY PO 01/14/18 09:00 02/13/18 08:59 01/15/18 08:18 40 MG Glucose (Glucose 40% Gel) 15-30 GRAMS 15 GRAMS... UD PRN PO 01/13/18 15:00 02/12/18 14:59 Glucose (Glucose Chew Tab) 4-8 Tablets 4 Tabl... UD PRN PO 01/13/18 15:00 02/12/18 14:59 Dextrose (Dextrose 50% 50ML Syringe) 25-50ML OF 50% DW IV FOR... UD PRN IV 01/13/18 15:00 02/12/18 14:59 Glucagon (Glucagon Inj) 1 mg UD PRN SQ 01/13/18 15:00 02/12/18 14:59 Pantoprazole Sodium (Protonix Tab) 40 mg BID PO 01/15/18 21:00 01/17/18 09:01 Objective Vital Signs Date Time Temp Pulse Resp B/P (MAP) Pulse Ox O2 Delivery O2 Flow Rate FiO2 01/15/18 15:20 37.3 61 18 109/67 (81) 98 Nasal Cannula 2.0 01/15/18 12:00 93 Nasal Cannula 2.0 01/15/18 11:35 36.4 60 18 115/61 (79) 93 Room Air 01/15/18 08:00 98 Nasal Cannula 2.0 01/15/18 07:41 36.6 60 20 102/64 (77) 98 Nasal Cannula 2.0 01/15/18 04:00 Nasal Cannula 2.0 01/15/18 03:57 36.6 62 18 118/64 (82) 95 Nasal Cannula 2.0 01/14/18 23:59 Nasal Cannula 2.0 01/14/18 23:10 36.7 62 18 122/72 (89) 94 Nasal Cannula 2.0 01/14/18 20:00 Nasal Cannula 2.0 01/14/18 19:18 36.5 66 18 136/65 (88) 98 Nasal Cannula 2.0 01/14/18 18:05 36.6 60 20 117/58 98 2.0 01/14/18 17:05 36.6 64 20 124/74 96 2.0 01/14/18 16:35 36.5 68 20 122/78 96 01/14/18 16:05 36.5 60 18 118/68 95 2.0 Physical Exam General Appearance: WD/WN, no apparent distress Eyes: normal inspection, EOMI, sclerae normal ENT: normal ENT inspection, hearing grossly normal, pharynx normal Neck: supple, no adenopathy, no JVD, trachea midline Respiratory/Chest: chest non-tender, lungs clear, normal breath sounds, no respiratory distress, no accessory muscle use Cardiovascular: regular rate, rhythm, no edema, no gallop, no JVD, no murmur Abdomen: normal bowel sounds, non tender, soft, no organomegaly Extremities: normal range of motion, non-tender, normal inspection, no pedal edema, no calf tenderness, pelvis stable Neurologic/Psychiatric: security assurance specialist II-XII nml as tested, no motor/sensory deficits, alert, normal mood/affect, + disoriented, + pertinent finding (short term memory issues) Skin: normal color, warm/dry, no rash Laboratory Results Last 24 Hours Test 01/14/18 19:44 01/15/18 05:32 01/15/18 06:52 Hemoglobin 8.7 g/dL 8.4 g/dL Hematocrit 27.3 % 26.8 % White Blood Count 4.83 K/uL Red Blood Count 3.00 M/uL Mean Corpuscular Volume 89.3 fL Mean Corpuscular Hemoglobin 28.0 pg Mean Corpuscular Hemoglobin Concent 31.3 g/dl RDW Standard Deviation 57.5 fL RDW Coefficient of Variation 17.6 % Platelet Count 219 K/uL Mean Platelet Volume 9.2 fL Sodium Level 137 mmol/L Potassium Level 3.7 mmol/L Chloride Level 106 mmol/L Carbon Dioxide Level 23 mmol/L Anion Gap 8.0 mmol/L Blood Urea Nitrogen 35 mg/dl Creatinine 1.55 mg/dl Est Creatinine Clear Calc Drug Dose 34.9 ml/min Estimated GFR () 47.3 Estimated GFR (Non- 40.8 BUN/Creatinine Ratio 22.5 Random Glucose 73 mg/dl Calcium Level 8.4 mg/dl Bedside Glucose 88 mg/dl Assessment and Plan 82 year old male with a PMH of CHF, DM, HLD, HTN, dual chamber pacemaker, complete heart block,Hypothyroidism presents with intermittent shortness of breath and chest discomfort was found to have worsening pulmonary edema on CXR and was given 20mg of lasix IV in the ED - Mild acute on chronic systolic heart failure, resolved now after Lasix on admission euvolemic, follow I/O's and weights cardiology following breathing room air comfortably - Dyspnea: likely combination of mild heart failure but more likely the anemia symptoms improved with transfusion hb is 8.4, will monitor - Acute blood loss anemia Hb up to 8.4 today after one unit transfused yesterday holding Xarelto no plans for endoscopy currently could consider RBC scan if Hb drops again - Dementia with paranoia 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 fib will hold xarelto as there is question that patient may be actively losing blood. HR controlled, paced DMT2 - HbA1c was 6.7 - continue lantus 12 units qhs - ISS - hold metformin, monitor for hypoglycemia HTN - continue to hold kandice inh. continue bb imdur BP is low normal BPV - continue meclizine Hypothyroidism - continue levothyroxine DVT prophylaxis - no chemical coag due to low hgb - SCD's keep on tele today, monitor Hb Continued [facility] stay due to: other (anemia) Discharge planning: uncertain
--- NOTE | 2018-01-15 20:37 | GASTROENTEROLOGY PROGRESS NOTE ---
DATE: 01/15/2018 GASTROENTEROLOGY INPATIENT PROGRESS NOTE SUBJECTIVE: Chart reviewed, patient examined. The patient clinically feeling better and he received 1 unit of packed red blood cells and feels that his breathing is better. He does get dyspnea on exertion still. He is tolerating food orally without difficulty. LABORATORY STUDIES: Today - hemoglobin is 8.4, white count 4.8, platelets satisfactory; Serum chemistry: Sodium 137, potassium 3.7, BUN and creatinine 35 and 1.55, calcium 8.4, glucose now 73. REVIEW OF SYSTEMS: Otherwise noncontributory based on 13-point exam except for mentioned above. CURRENT MEDICATIONS: Include pantoprazole 40 mg p.o. b.i.d., vitamin D, isosorbide mononitrate, potassium, Crestor, levothyroxine, vitamin C, carvedilol, iron tablets twice daily, insulin, and Mag-Ox. ALLERGIES: SIMVASTATIN. PHYSICAL EXAMINATION: VITAL SIGNS: Today - blood pressure is 109/67, respirations 18, heart rate 61, temperature 37.3 and 98% on 2 liters. GENERAL: The patient is awake, alert and oriented x3. HEENT: Sclerae are anicteric, conjunctivae moist. Oral mucosa moist. HEART: Normal S1, S2. LUNGS: Clear to auscultation. There are trace crackles at the bases. ABDOMEN: Soft, flat, nontender, nondistended with good bowel sounds. EXTREMITIES: With trace edema. RECTAL: Deferred. IMPRESSION AND PLAN: The patient with recurrent anemia, dark stools with an appropriate correction with 1 unit of packed red blood cells, which he received yesterday. The patient is apprehensive about colonoscopy; however, is agreeable to upper endoscopy and would consider esophagogastroduodenoscopy with push enteroscopy tomorrow to assess for upper gastrointestinal bleeding sources, which had been previously detected in November by Dr. Buchanan, during that hospitalization. Would ask if anesthesia would comment on his suitability for sedation. Would tentatively keep the patient n.p.o. except for medicine with sips of water tomorrow morning, starting at midnight tonight with plan for upper endoscopy tomorrow. All questions answered. Depending on findings of esophagogastroduodenoscopy, may consider rediscussing colonoscopy with the patient if he is agreeable. He believes he had a colonoscopy approximately [address] Weston for which no findings identified. Dr. Petty will be performing the procedure and rounding on the patient beginning tomorrow. [place]
[2018-01-15] MEDS: INSULIN GLARGINE SOLOSTAR 100 UNITS/ML 3 ML PEN SQ SCH (21:23)
[2018-01-15] MEDS: PANTOprazole SOD 40 MG TAB PO SCH (21:54)
[2018-01-16] VITALS (8 sets, daily range): BP systolic 102–120; BP diastolic 56–72; PULSE 59–72; TEMP 36.4–37; O2SAT 93–98
[2018-01-16] MEDS: LEVOTHYROXINE 50 MCG TAB PO SCH (06:22)
[2018-01-16] MEDS: LACTOBACILLUS ACIDOPHILUS (FLORANEX) TAB PO SCH (07:32)
[2018-01-16] MEDS: CARVEDILOL 25 MG TAB PO SCH ×2 (07:32→21:05)
[2018-01-16] MEDS: MECLIZINE HCL 12.5 MG TAB PO SCH ×2 (07:32→21:04)
[2018-01-16] MEDS: ROSUVASTATIN CALCIUM 20 MG TAB PO SCH (07:32)
[2018-01-16] MEDS: FERROUS SULFATE 325 MG TAB PO SCH ×2 (07:32→21:04)
[2018-01-16] MEDS: PANTOprazole SOD 40 MG TAB PO SCH ×2 (07:33→21:05)
[2018-01-16] MEDS: CYANOCOBALAMIN 500 MCG TAB (VIT B-12) PO SCH ×2 (07:33→21:04)
[2018-01-16] MEDS: ISOSORBIDE MONONITRATE 30 MG TABCR PO SCH (07:33)
[2018-01-16] MEDS: MAGNESIUM OXIDE 400 MG TAB PO SCH ×2 (07:33→21:05)
[2018-01-16] MEDS: ASCORBIC ACID 500 MG TAB PO SCH ×2 (07:33→21:04)
[2018-01-16] MEDS: POTASSIUM CHLORIDE 10 MEQ TABCR PO SCH (07:33)
[2018-01-16] MEDS: CHOLECALCIFEROL 1000 INTER.UNIT TAB PO SCH (07:33)
[2018-01-16 09:34] LABS: HEMATOCRIT 25.3 % (42-52)
[2018-01-16 10:03] LABS: CREATININE 1.39 mg/dl (0.60-1.40); POTASSIUM 3.9 mmol/L (3.5-5.1)
[2018-01-16 10:04] LABS: CALCIUM 8.3 mg/dl (8.5-10.1)
[2018-01-16] MEDS ORDERED: MIDAZOLAM HCL 1 MG/ML 2ML VIAL ONE (14:18)
[2018-01-16] MEDS ORDERED: LIDOCAINE HCL 2% 2 ML VIAL (20MG/ML) ONE (14:19)
[2018-01-16] MEDS ORDERED: ONDANSETRON INJ 2 MG/ML 2 ML VIAL ONE (14:19)
[2018-01-16] MEDS ORDERED: PROPOFOL IV EMULSION 10 MG/ML 20 ML VIAL IV ONE (14:19)
--- NOTE | 2018-01-16 14:38 | Endo History and Physical ---
History & Physical Date of Service: Jan 16, 2018. Chief Complaint: Anemia Referring Physician: DR Mcmahon History of Present Illness For EGD Past Surgical History Hx Cardiac Surgery: Yes (CABG, PACEMAKER) Hx Internal Defibrillator: No Hx Pacemaker: Yes Hx Abdominal Surgery: Yes (lap danae with intraoperative cholangiogram, ) Hx Post-Op Nausea and Vomiting: No Hx Cancer Surgery: No Hx Thoracic Surgery: No Hx Orthopedic: No Hx Urinary Tract Surgery: No Social History Smoking Status: Former Smoker Hx Substance Use: No Hx Alcohol Use: No Allergies Coded Allergies: Simvastatin (Verified Allergy, Unknown, UNKNOWN, 01/13/18) Atorvastatin (Unverified Adverse Reaction, Intermediate, MYALGIA, 01/13/18) Current Medications Reported Home Medications Medications Dose Route/Sig Max Daily Dose Days Date Category Dose Instructions Prinivil (Lisinopril) 20 Mg Tab 20 Mg PO DAILY 01/13/18 Reported ON HOLD UNTIL 01-18-18 Basaglar Kwikpen (Insulin Glargine) 100 Unit/Ml Inj 12 Units SQ HS 11/25/17 Reported Acidophilus (Lactobacillus) 1 Tab Tab 1 Tab PO DAILY 07/14/17 Reported Micro-K Ext Rel (Potassium Chloride) 10 Meq Cap 10 Meq PO DAILY 07/14/17 Reported Meclizine Hcl 25 Mg Tab 1 Tab PO BID 07/14/17 Reported Glucophage (Metformin Hcl) 500 Mg Tab 500 Mg PO BIDM 06/12/17 Reported TAKE WITH AM AND EVENING MEALS Levothyroxine Sodium 50 Mcg Tab 50 Mcg PO DAILY 06/12/17 Reported Xarelto (Rivaroxaban) 10 Mg Tab 10 Mg PO DAILY 02/03/14 Reported Vitamin C (Ascorbic Acid) 500 Mg Tab 500 Mg PO BID 02/03/14 Reported Ferrous Sulfate 325 Mg Tab 325 Mg PO BID 02/03/14 Reported Tylenol (Acetaminophen) 325 Mg Tab 1-2 Tab PO Q4 PRN 02/03/14 Reported Nitrostat (Nitroglycerin) 0.4 Mg Sub 0.4 Mg UT PRN PRN 07/10/13 Reported Mag-Ox (Magnesium Oxide) 400 Mg Tab 400 Mg PO BID 07/10/13 Reported Imdur Ext Rel (Isosorbide Mononitrate) 30 Mg Ertab 30 Mg PO QAM 07/10/13 Reported Lasix (Furosemide) 20 Mg Tab 10 Mg PO DAILY 9/25/13 Reported Coreg (Carvedilol) 25 Mg Tab 25 Mg PO BID 07/10/13 Reported Vitamin B-12 (Cyanocobalamin) 1,000 Mcg Tab 1,000 Mcg PO BID 12/20/12 Reported Vitamin D3 (Cholecalciferol) 1,000 Unit Tab 1,000 Inter.unit PO DAILY 12/20/12 Reported Crestor (Rosuvastatin Calcium) 40 Mg Tab 40 Mg PO DAILY 12/20/12 Reported Vital Signs Weight (Kilograms): 72.500 Height (Feet): 5 Height (Inches): 8.00 Date Time Temp Pulse Resp B/P (MAP) Pulse Ox O2 Delivery O2 Flow Rate FiO2 01/16/18 14:12 36.5 61 20 115/71 (86) 96 Nasal Cannula 2.0 01/16/18 12:06 36.7 59 20 102/61 (75) 93 Room Air 01/16/18 12:00 95 2.0 01/16/18 08:00 95 2.0 01/16/18 07:33 37.0 65 20 120/72 (88) 95 Room Air 01/16/18 04:00 Nasal Cannula 2.0 01/16/18 03:43 37.0 65 17 114/65 (81) 95 Room Air 01/15/18 23:59 98 Nasal Cannula 2.0 01/15/18 23:40 36.8 61 17 106/62 (77) 94 Nasal Cannula 1.0 01/15/18 20:00 98 Nasal Cannula 2.0 01/15/18 19:07 36.5 60 18 109/64 (79) 98 Nasal Cannula 2.0 01/15/18 16:00 Room Air 01/15/18 15:20 37.3 61 18 109/67 (81) 98 Nasal Cannula 2.0 Physical Exam General Appearance: WD/WN Respiratory/Chest: Respiratory effort: pertinent finding (on nasal O2) Auscultation: breath sounds normal Cardiovascular: Heart Auscultation: RRR Abdomen: Inspection & Palpation: soft Assessment and Plan Anemia for EGD
--- NOTE | 2018-01-16 14:57 | Discharge Instructions ---
Endoscopy Patient Instructions Date / Procedure(s) Performed Jan 16, 2018. Push Enteroscopy Allergy Information Coded Allergies: Simvastatin (Verified Allergy, Unknown, UNKNOWN, 01/13/18) Atorvastatin (Unverified Adverse Reaction, Intermediate, MYALGIA, 01/13/18) Discharge Date / Findings Jan 16, 2018. Normal exam Medication Instructions Restart Stopped Medication(s): resume meds Current Inpatient Medications Medications (Trade) Dose Ordered Sig/Nicki Route Start Time Stop Time Status Last Admin Dose Admin Ascorbic Acid (Vitamin C Tab) 500 mg BID PO 01/13/18 21:00 02/12/18 20:59 01/16/18 07:33 500 MG Carvedilol (Coreg Tab) 25 mg BID PO 01/13/18 21:00 02/12/18 20:59 01/16/18 07:32 25 MG Cholecalciferol (Vitamin D Tab) 1,000 inter.unit DAILY PO 01/14/18 09:00 02/13/18 08:59 01/16/18 07:33 1,000 INTER.UNIT Cyanocobalamin (Vitamin B-12 Tab) 1,000 mcg BID PO 01/13/18 21:00 02/12/18 20:59 01/16/18 07:33 1,000 MCG Ferrous Sulfate (Feosol Tab) 325 mg BID PO 01/13/18 21:00 02/12/18 20:59 01/16/18 07:32 325 MG Insulin Glargine (Lantus Solostar Pen) 12 units HS SQ 01/13/18 21:00 02/12/18 20:59 01/15/18 21:23 12 UNITS Isosorbide Mononitrate (Imdur Ext Rel Tab) 30 mg QAM PO 01/14/18 09:00 02/13/18 08:59 01/16/18 07:33 30 MG Lactobacillus Acidophilus (Floranex Tab) 1 tab DAILY PO 01/14/18 09:00 02/13/18 08:59 01/16/18 07:32 1 TAB Levothyroxine Sodium (Synthroid Tab) 50 mcg DAILYBB PO 01/14/18 06:00 02/13/18 05:59 01/16/18 06:22 50 MCG Magnesium Oxide (Mag-Ox Tab) 400 mg BID PO 01/13/18 21:00 02/12/18 20:59 01/16/18 07:33 400 MG Meclizine HCl (Antivert Tab) 25 mg BID PO 01/13/18 21:00 02/12/18 20:59 01/16/18 07:32 25 MG Nitroglycerin (Nitrostat Tab) 0.4 mg PRN PRN UT 01/13/18 13:30 02/12/18 13:29 Potassium Chloride (Klor-Con M10) 10 meq DAILY PO 01/14/18 09:00 02/13/18 08:59 01/16/18 07:33 10 MEQ Rosuvastatin Calcium (Crestor Tab) 40 mg DAILY PO 01/14/18 09:00 02/13/18 08:59 01/16/18 07:32 40 MG Glucose (Glucose 40% Gel) 15-30 GRAMS 15 GRAMS... UD PRN PO 01/13/18 15:00 02/12/18 14:59 Glucose (Glucose Chew Tab) 4-8 Tablets 4 Tabl... UD PRN PO 01/13/18 15:00 02/12/18 14:59 Dextrose (Dextrose 50% 50ML Syringe) 25-50ML OF 50% DW IV FOR... UD PRN IV 01/13/18 15:00 02/12/18 14:59 Glucagon (Glucagon Inj) 1 mg UD PRN SQ 01/13/18 15:00 02/12/18 14:59 Pantoprazole Sodium (Protonix Tab) 40 mg BID PO 01/15/18 21:00 01/17/18 09:01 01/16/18 07:33 40 MG Provider Instructions Activity Restrictions - No exercising or heavy lifting for 24 hours. - Do not drink alcohol the day of the procedure. - Do not drive a car or operate machinery until the day after the procedure. - Do not make any important decisions or sign important papers in 24 hours after the procedure. Following Day: - Return to full activity which may include returning to work/school. Diet Start your diet with liquids and light foods (jello, soup, juice, toast). Then eat your usual diet if not nauseated. Treatment For Common After Affects For mild abdominal pain, bloating, or excessive gas: - Rest - Eat lightly - Lie on right side Follow-Up Information Follow-up with as scheduled Anesthesia Information What You Should Know You have had a procedure that required some medicine to reduce anxiety and discomfort. This treatment is called moderate sedation. After receiving the treatment, you may be sleepy, but you will be able to breathe on your own. The effects of the treatment may last for several hours. Follow these instructions along with Activity/Diet recommendations noted above: * Do NOT do anything where dizziness or clumsiness would be dangerous. * Rest quietly at home today, then you can be up and about tomorrow. * Have a responsible person stay with you the rest of today. * You may have had an I.V. today. If so, you may take the dressing off later today. Recommendations Call your doctor if: * Trouble breathing * Continuous vomiting for more than 24 hours * Temperature above 101 degrees * Severe abdominal pain or bloating * Pain not relieved by pain medicine ordered * There is increased drainage or redness from any incision * A large amount of rectal bleeding greater than 2-3 tablespoons. (If you had a polyp/s removed or have hemorrhoids, a small amount of blood - from the rectum is to be expected.) * You have any unanswered questions or concerns. IN THE EVENT OF A SERIOUS EMERGENCY, GO TO THE NEAREST EMERGENCY ROOM Your discharge instructions were prepared by provider Bonifacio Petty. Patient Instructions Signature Page Drew Murillo Patient (or Guardian) Signature/Date: I have read and understand the instructions given to me by my caregivers. Caregiver/RN/Doctor Signature/Date: The above-named patient and/or guardian has received patient instructions on this date. + Original Patient Signature Page (only) stays with chart. Please make copy for patient.
--- NOTE | 2018-01-16 15:00 | GI REPORT ---
Procedure Date: 01/16/2018 2:46 PM Procedure: Upper GI endoscopy Indications: Iron deficiency anemia Medicines: Propofol total dose 80 mg IV, Lidocaine 80 mg IV Complications: No immediate complications. Estimated Blood Loss: Estimated blood loss: none. Procedure: Pre-Anesthesia Assessment: - Prior to the procedure, a History and Physical was performed, and patient medications, allergies and sensitivities were reviewed. The patient's tolerance of previous anesthesia was reviewed. - The risks and benefits of the procedure and the sedation options and risks were discussed with the patient. All questions were answered and informed consent was obtained. After obtaining informed consent, the endoscope was passed under direct vision. Throughout the procedure, the patient's blood pressure, pulse, and oxygen saturations were monitored continuously. The scope was introduced through the mouth, and advanced to the third part of duodenum. The upper GI endoscopy was accomplished without difficulty. The patient tolerated the procedure well. Findings: The esophagus was normal. The stomach was normal. The examined duodenum was normal. Impression: - Normal esophagus. - Normal stomach. - Normal examined duodenum. - No specimens collected. Recommendation: - [facility] care. Bonifacio Petty M.D. Bonifacio Petty MD 01/16/2018 2:59:36 PM This report has been signed electronically. Note Initiated On: 01/16/2018 2:46 PM I attest to the content of the Intraoperative Record and orders documented therein, exceptions below
--- NOTE | 2018-01-16 15:17 | Anesthesiology Progress Note ---
Anesthesia Post Op Note Date & Time Jan 16, 2018 at 15:17 Vital Signs Pain Intensity: 0.0 Vital Signs Past 12 Hours Date Time Temp Pulse Resp B/P (MAP) Pulse Ox O2 Delivery O2 Flow Rate FiO2 01/16/18 15:02 61 20 92/51 (65) 96 Nasal Cannula 2.0 01/16/18 14:12 36.5 61 20 115/71 (86) 96 Nasal Cannula 2.0 01/16/18 12:06 36.7 59 20 102/61 (75) 93 Room Air 01/16/18 12:00 95 2.0 01/16/18 08:00 95 2.0 01/16/18 07:33 37.0 65 20 120/72 (88) 95 Room Air 01/16/18 04:00 Nasal Cannula 2.0 01/16/18 03:43 37.0 65 17 114/65 (81) 95 Room Air Notes Mental Status: alert / awake / arousable, participated in evaluation Pt Amnestic to Procedure: Yes Nausea / Vomiting: adequately controlled Pain: adequately controlled Airway Patency, RR, SpO2: stable & adequate BP & HR: stable & adequate Hydration State: stable & adequate Anesthetic Complications: no major complications apparent
--- NOTE | 2018-01-16 15:17 | PROGRESS NOTE ---
DATE: 01/16/2018 SUBJECTIVE: The patient underwent a push enteroscopy today which was carried into the third portion of the duodenum. This was performed for anemia. The patient tolerated the procedure well. No lesions were seen in the esophagus, stomach or duodenum that would cause anemia. When I discussed pursuing his evaluation with a colonoscopy, the patient declined and said that he was not interested in pursuing a colonoscopy at this time.
--- NOTE | 2018-01-16 15:23 | Progress Note ---
Subjective Date of Service: Jan 16, 2018. Subjective Pt evaluation today including: conversation w/ patient, physical exam, lab review, review of studies, conversation w/ data security consultant, review of inpatient medication list Pain: no pain PO Intake: NPO for EGD Voiding: no voiding problems patient said his breathing was the same as yesterday no pain no further signs of GI bleeding EGD today - normal reviewed labs, hb down slightly to 8.0, hold on further transfusion today Cr improved to 1.39 Problem List Medical Problems: (1) Anxiety Status: Acute (2) Chest pain, exertional Status: Acute (3) Congestive heart failure, acute Status: Acute (4) Dyspnea on exertion Status: Acute (5) Elevated liver function tests Status: Acute (6) Epigastric pain Status: Acute (7) GI bleed Status: Acute (8) GI bleeding Status: Acute (9) Jaundice Status: Acute (10) Pulmonary edema Status: Acute (11) Reaction to insect bite Status: Acute (12) Symptomatic anemia Status: Acute Review of Systems Constitutional: + weakness, + fatigue Respiratory: + dyspnea on exertion All Other Systems: Reviewed and Negative Medications Current Inpatient Medications Medications (Trade) Dose Ordered Sig/Nicki Route Start Time Stop Time Status Last Admin Dose Admin Ascorbic Acid (Vitamin C Tab) 500 mg BID PO 01/13/18 21:00 02/12/18 20:59 01/16/18 07:33 500 MG Carvedilol (Coreg Tab) 25 mg BID PO 01/13/18 21:00 02/12/18 20:59 01/16/18 07:32 25 MG Cholecalciferol (Vitamin D Tab) 1,000 inter.unit DAILY PO 01/14/18 09:00 02/13/18 08:59 01/16/18 07:33 1,000 INTER.UNIT Cyanocobalamin (Vitamin B-12 Tab) 1,000 mcg BID PO 01/13/18 21:00 02/12/18 20:59 01/16/18 07:33 1,000 MCG Ferrous Sulfate (Feosol Tab) 325 mg BID PO 01/13/18 21:00 02/12/18 20:59 01/16/18 07:32 325 MG Insulin Glargine (Lantus Solostar Pen) 12 units HS SQ 01/13/18 21:00 02/12/18 20:59 01/15/18 21:23 12 UNITS Isosorbide Mononitrate (Imdur Ext Rel Tab) 30 mg QAM PO 01/14/18 09:00 02/13/18 08:59 01/16/18 07:33 30 MG Lactobacillus Acidophilus (Floranex Tab) 1 tab DAILY PO 01/14/18 09:00 02/13/18 08:59 01/16/18 07:32 1 TAB Levothyroxine Sodium (Synthroid Tab) 50 mcg DAILYBB PO 01/14/18 06:00 02/13/18 05:59 01/16/18 06:22 50 MCG Magnesium Oxide (Mag-Ox Tab) 400 mg BID PO 01/13/18 21:00 02/12/18 20:59 01/16/18 07:33 400 MG Meclizine HCl (Antivert Tab) 25 mg BID PO 01/13/18 21:00 02/12/18 20:59 01/16/18 07:32 25 MG Nitroglycerin (Nitrostat Tab) 0.4 mg PRN PRN UT 01/13/18 13:30 02/12/18 13:29 Potassium Chloride (Klor-Con M10) 10 meq DAILY PO 01/14/18 09:00 02/13/18 08:59 01/16/18 07:33 10 MEQ Rosuvastatin Calcium (Crestor Tab) 40 mg DAILY PO 01/14/18 09:00 02/13/18 08:59 01/16/18 07:32 40 MG Glucose (Glucose 40% Gel) 15-30 GRAMS 15 GRAMS... UD PRN PO 01/13/18 15:00 02/12/18 14:59 Glucose (Glucose Chew Tab) 4-8 Tablets 4 Tabl... UD PRN PO 01/13/18 15:00 02/12/18 14:59 Dextrose (Dextrose 50% 50ML Syringe) 25-50ML OF 50% DW IV FOR... UD PRN IV 01/13/18 15:00 02/12/18 14:59 Glucagon (Glucagon Inj) 1 mg UD PRN SQ 01/13/18 15:00 02/12/18 14:59 Pantoprazole Sodium (Protonix Tab) 40 mg BID PO 01/15/18 21:00 01/17/18 09:01 01/16/18 07:33 40 MG Objective Vital Signs Date Time Temp Pulse Resp B/P (MAP) Pulse Ox O2 Delivery O2 Flow Rate FiO2 01/16/18 15:18 60 20 92/53 (66) 95 Nasal Cannula 2.0 01/16/18 15:02 61 20 92/51 (65) 96 Nasal Cannula 2.0 01/16/18 14:12 36.5 61 20 115/71 (86) 96 Nasal Cannula 2.0 01/16/18 12:06 36.7 59 20 102/61 (75) 93 Room Air 01/16/18 12:00 95 2.0 01/16/18 08:00 95 2.0 01/16/18 07:33 37.0 65 20 120/72 (88) 95 Room Air 01/16/18 04:00 Nasal Cannula 2.0 01/16/18 03:43 37.0 65 17 114/65 (81) 95 Room Air 01/15/18 23:59 98 Nasal Cannula 2.0 01/15/18 23:40 36.8 61 17 106/62 (77) 94 Nasal Cannula 1.0 01/15/18 20:00 98 Nasal Cannula 2.0 01/15/18 19:07 36.5 60 18 109/64 (79) 98 Nasal Cannula 2.0 01/15/18 16:00 Room Air 01/15/18 15:20 37.3 61 18 109/67 (81) 98 Nasal Cannula 2.0 Physical Exam General Appearance: WD/WN, no apparent distress Eyes: normal inspection, EOMI, sclerae normal ENT: normal ENT inspection, hearing grossly normal, pharynx normal Respiratory/Chest: chest non-tender, lungs clear, normal breath sounds, no respiratory distress, no accessory muscle use Cardiovascular: regular rate, rhythm, no edema, no gallop, no JVD, no murmur Abdomen: normal bowel sounds, non tender, soft, no organomegaly Extremities: normal range of motion, non-tender, normal inspection, no pedal edema, no calf tenderness, pelvis stable Neurologic/Psychiatric: tobacco baler II-XII nml as tested, no motor/sensory deficits, alert, normal mood/affect, oriented x 3 Skin: normal color, warm/dry, no rash Laboratory Results Last 24 Hours Test 01/16/18 09:24 Hemoglobin 8.0 g/dL Hematocrit 25.3 % Sodium Level 138 mmol/L Potassium Level 3.9 mmol/L Chloride Level 107 mmol/L Carbon Dioxide Level 25 mmol/L Anion Gap 6.0 mmol/L Blood Urea Nitrogen 28 mg/dl Creatinine 1.39 mg/dl Est Creatinine Clear Calc Drug Dose 38.9 ml/min Estimated GFR () 53.9 Estimated GFR (Non- 46.5 BUN/Creatinine Ratio 20.1 Random Glucose 85 mg/dl Calcium Level 8.3 mg/dl Assessment and Plan 82 year old male with a PMH of CHF, DM, HLD, HTN, dual chamber pacemaker, complete heart block,Hypothyroidism presents with intermittent shortness of breath and chest discomfort was found to have worsening pulmonary edema on CXR and was given 20mg of lasix IV in the ED - Mild acute on chronic systolic heart failure, resolved now after Lasix on admission continues to be euvolemic, follow I/O's and weights cardiology following breathing comfortably - Dyspnea: likely combination of mild heart failure but more likely the anemia symptoms improved with transfusion hb is 8.0, will monitor, was 8.4 - Acute blood loss anemia Hb down to 8.0 today after one unit transfused on 01/14 and yesterday Hb was 8.4 holding Xarelto EGD today was normal patient still not sure he would want to do colonoscopy, concerned about the prep could consider RBC scan if Hb drops again - Dementia with paranoia psychiatry recommends removing pedicab driver's license, guns secured in home patient resistant to try any low dose antipsychotics mood is stable, no delusional thoughts elicited a. fib will hold xarelto as there is question that patient may be actively losing blood. HR controlled, paced DMT2 - HbA1c was 6.7 - continue lantus 12 units qhs - ISS - hold metformin, monitor for hypoglycemia, no episodes HTN - continue to hold kandice inh. continue bb imdur BP is low normal BPV - continue meclizine Hypothyroidism - continue levothyroxine DVT prophylaxis - no chemical coag due to low hgb - SCD's keep on tele, repeat labs tomorrow, follow up on possible colonoscopy if patient agrees Continued [facility] stay due to: other (anemia) Discharge planning: uncertain
[2018-01-16] MEDS: INSULIN GLARGINE SOLOSTAR 100 UNITS/ML 3 ML PEN SQ SCH (21:09)
[2018-01-17] VITALS (7 sets, daily range): BP systolic 114–132; BP diastolic 60–80; PULSE 60–62; TEMP 36.5–37; O2SAT 96–98
[2018-01-17] MEDS: LEVOTHYROXINE 50 MCG TAB PO SCH (06:04)
[2018-01-17 07:20] LABS: HEMATOCRIT 27.6 % (42-52); HEMOGLOBIN 8.6 g/dL (14.0-18.0)
[2018-01-17] MEDS: MECLIZINE HCL 12.5 MG TAB PO SCH ×2 (07:38→20:45)
[2018-01-17] MEDS: LACTOBACILLUS ACIDOPHILUS (FLORANEX) TAB PO SCH (07:39)
[2018-01-17] MEDS: FERROUS SULFATE 325 MG TAB PO SCH ×2 (07:39→20:45)
[2018-01-17] MEDS: CARVEDILOL 25 MG TAB PO SCH ×2 (07:39→20:47)
[2018-01-17] MEDS: ROSUVASTATIN CALCIUM 20 MG TAB PO SCH (07:39)
[2018-01-17] MEDS: MAGNESIUM OXIDE 400 MG TAB PO SCH ×2 (07:40→20:44)
[2018-01-17] MEDS: POTASSIUM CHLORIDE 10 MEQ TABCR PO SCH (07:40)
[2018-01-17] MEDS: PANTOprazole SOD 40 MG TAB PO SCH (07:40)
[2018-01-17] MEDS: ISOSORBIDE MONONITRATE 30 MG TABCR PO SCH (07:40)
[2018-01-17] MEDS: CYANOCOBALAMIN 500 MCG TAB (VIT B-12) PO SCH ×2 (07:41→20:44)
[2018-01-17] MEDS: ASCORBIC ACID 500 MG TAB PO SCH ×2 (07:41→20:44)
[2018-01-17] MEDS: CHOLECALCIFEROL 1000 INTER.UNIT TAB PO SCH (07:41)
[2018-01-17 07:51] LABS: CALCIUM 8.5 mg/dl (8.5-10.1); CREATININE 1.38 mg/dl (0.60-1.40); POTASSIUM 3.9 mmol/L (3.5-5.1)
--- NOTE | 2018-01-17 15:15 | Progress Note ---
Subjective Date of Service: Jan 17, 2018. Subjective Pt evaluation today including: conversation w/ patient, conversation w/ family , physical exam, lab review, conversation w/ [facility] consultant, review of inpatient medication list Pain: no pain PO Intake: adequate Voiding: no voiding problems reviewed labs, Hb 8.6, stable breathing is the same reviewed EGD with him which was normal discussed doing colonoscopy while here, he agreed discussed with Dr. Petty discussed discharge plan with patient's son, he understands that the patient has capacity and we cannot force him into assisted living he does not mid him living in the garage, he has everything he needs there except toilet the patient even refuses to enter the home to use shower or toilet discussed that we could try to get a bedside commode for the patient will need to have close follow up with geriatric psych Problem List Medical Problems: (1) Anxiety Status: Acute (2) Chest pain, exertional Status: Acute (3) Congestive heart failure, acute Status: Acute (4) Dyspnea on exertion Status: Acute (5) Elevated liver function tests Status: Acute (6) Epigastric pain Status: Acute (7) GI bleed Status: Acute (8) GI bleeding Status: Acute (9) Jaundice Status: Acute (10) Pulmonary edema Status: Acute (11) Reaction to insect bite Status: Acute (12) Symptomatic anemia Status: Acute Review of Systems Respiratory: + dyspnea on exertion All Other Systems: Reviewed and Negative Medications Current Inpatient Medications Medications (Trade) Dose Ordered Sig/Nicki Route Start Time Stop Time Status Last Admin Dose Admin Ascorbic Acid (Vitamin C Tab) 500 mg BID PO 01/13/18 21:00 02/12/18 20:59 01/17/18 07:41 500 MG Carvedilol (Coreg Tab) 25 mg BID PO 01/13/18 21:00 02/12/18 20:59 01/17/18 07:39 25 MG Cholecalciferol (Vitamin D Tab) 1,000 inter.unit DAILY PO 01/14/18 09:00 02/13/18 08:59 01/17/18 07:41 1,000 INTER.UNIT Cyanocobalamin (Vitamin B-12 Tab) 1,000 mcg BID PO 01/13/18 21:00 02/12/18 20:59 01/17/18 07:41 1,000 MCG Ferrous Sulfate (Feosol Tab) 325 mg BID PO 01/13/18 21:00 02/12/18 20:59 01/17/18 07:39 325 MG Insulin Glargine (Lantus Solostar Pen) 12 units HS SQ 01/13/18 21:00 02/12/18 20:59 01/16/18 21:09 12 UNITS Isosorbide Mononitrate (Imdur Ext Rel Tab) 30 mg QAM PO 01/14/18 09:00 02/13/18 08:59 01/17/18 07:40 30 MG Lactobacillus Acidophilus (Floranex Tab) 1 tab DAILY PO 01/14/18 09:00 02/13/18 08:59 01/17/18 07:39 1 TAB Levothyroxine Sodium (Synthroid Tab) 50 mcg DAILYBB PO 01/14/18 06:00 02/13/18 05:59 01/17/18 06:04 50 MCG Magnesium Oxide (Mag-Ox Tab) 400 mg BID PO 01/13/18 21:00 02/12/18 20:59 01/17/18 07:40 400 MG Meclizine HCl (Antivert Tab) 25 mg BID PO 01/13/18 21:00 02/12/18 20:59 01/17/18 07:38 25 MG Nitroglycerin (Nitrostat Tab) 0.4 mg PRN PRN UT 01/13/18 13:30 02/12/18 13:29 Potassium Chloride (Klor-Con M10) 10 meq DAILY PO 01/14/18 09:00 02/13/18 08:59 01/17/18 07:40 10 MEQ Rosuvastatin Calcium (Crestor Tab) 40 mg DAILY PO 01/14/18 09:00 02/13/18 08:59 01/17/18 07:39 40 MG Glucose (Glucose 40% Gel) 15-30 GRAMS 15 GRAMS... UD PRN PO 01/13/18 15:00 02/12/18 14:59 Glucose (Glucose Chew Tab) 4-8 Tablets 4 Tabl... UD PRN PO 01/13/18 15:00 02/12/18 14:59 Dextrose (Dextrose 50% 50ML Syringe) 25-50ML OF 50% DW IV FOR... UD PRN IV 01/13/18 15:00 02/12/18 14:59 Glucagon (Glucagon Inj) 1 mg UD PRN SQ 01/13/18 15:00 02/12/18 14:59 Objective Vital Signs Date Time Temp Pulse Resp B/P (MAP) Pulse Ox O2 Delivery O2 Flow Rate FiO2 01/17/18 11:21 36.5 61 16 96 2.0 01/17/18 08:00 Nasal Cannula 2.0 01/17/18 07:21 36.5 61 16 130/74 (92) 96 Nasal Cannula 2.0 01/17/18 04:00 Nasal Cannula 2.0 01/17/18 03:43 37.0 61 20 114/66 (82) 96 Nasal Cannula 2.0 01/16/18 23:59 Nasal Cannula 2.0 01/16/18 23:43 36.8 72 18 114/62 (79) 98 Nasal Cannula 2.0 01/16/18 20:00 Nasal Cannula 2.0 01/16/18 19:40 36.6 60 20 113/56 (75) 97 Nasal Cannula 2.0 01/16/18 16:00 36.4 60 16 113/64 (80) 95 Room Air 01/16/18 16:00 Room Air 2.0 01/16/18 15:32 61 20 93/56 (68) 92 Nasal Cannula 2.0 01/16/18 15:18 60 20 92/53 (66) 95 Nasal Cannula 2.0 Physical Exam General Appearance: WD/WN, no apparent distress Eyes: normal inspection, EOMI, sclerae normal ENT: normal ENT inspection, hearing grossly normal, pharynx normal Neck: supple, no adenopathy, no JVD, trachea midline Respiratory/Chest: chest non-tender, lungs clear, normal breath sounds, no respiratory distress, no accessory muscle use Cardiovascular: regular rate, rhythm, no edema, no gallop, no JVD, no murmur Abdomen: normal bowel sounds, non tender, soft, no organomegaly Extremities: normal range of motion, non-tender, normal inspection, no pedal edema, no calf tenderness, pelvis stable Neurologic/Psychiatric: media production support manager II-XII nml as tested, no motor/sensory deficits, alert, normal mood/affect, oriented x 3 Skin: normal color, warm/dry, no rash Laboratory Results Last 24 Hours Test 01/16/18 20:40 01/17/18 06:43 01/17/18 07:00 01/17/18 11:07 Bedside Glucose 186 mg/dl 86 mg/dl 240 mg/dl Hemoglobin 8.6 g/dL Hematocrit 27.6 % Sodium Level 136 mmol/L Potassium Level 3.9 mmol/L Chloride Level 107 mmol/L Carbon Dioxide Level 23 mmol/L Anion Gap 7.0 mmol/L Blood Urea Nitrogen 26 mg/dl Creatinine 1.38 mg/dl Est Creatinine Clear Calc Drug Dose 39.2 ml/min Estimated GFR () 54.4 Estimated GFR (Non- 46.9 BUN/Creatinine Ratio 19.1 Random Glucose 71 mg/dl Calcium Level 8.5 mg/dl Assessment and Plan 82 year old male with a PMH of CHF, DM, HLD, HTN, dual chamber pacemaker, complete heart block,Hypothyroidism presents with intermittent shortness of breath and chest discomfort was found to have worsening pulmonary edema on CXR and was given 20mg of lasix IV in the ED - Mild acute on chronic systolic heart failure, resolved now after Lasix on admission continues to be euvolemic, follow I/O's and weights cardiology following breathing comfortably still on 2L but 96%, try to wean off of oxygen - Dyspnea: likely combination of mild heart failure but more likely the anemia symptoms improved with transfusion hb is 8.6 - Acute blood loss anemia Hb stable at 8.6 today holding Xarelto EGD on 01/16 was normal patient agrees to colonoscopy, plan for tomorrow, d/w Dr. 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 fib will hold xarelto as there is question that patient may be actively losing blood. HR controlled, paced DMT2 - HbA1c was 6.7 - continue lantus 12 units qhs - ISS - hold metformin, monitor for hypoglycemia, no episodes HTN - continue to hold kandice inh. continue bb imdur BP is low normal BPV - continue meclizine Hypothyroidism - continue levothyroxine DVT prophylaxis - no chemical coag due to low hgb - SCD's transfer to medical today, plan for colonoscopy tomorrow, check H/H in the AM Continued [facility] stay due to: other (anemia) Discharge planning: uncertain
[2018-01-17] MEDS: LAVAGE SOLUTION 4000ML PO SCH (16:49)
--- NOTE | 2018-01-17 17:08 | PROGRESS NOTE ---
DATE: 01/17/2018 The patient reports no abdominal pain. He is continuing to wear nasal oxygen. His hemoglobin is 8.6 today after 1 unit of blood. He has had no signs of any active bleeding. His push enteroscopy performed 2 days ago was negative for any bleeding source. The patient initially was reluctant to undergo bowel prep for colonoscopy, but when he was explained that he could have a bedside commode, he has changed his mind and is willing to take a bowel prep and undergo colonoscopy. IMPRESSION: The patient has anemia. The patient will be set up for colonoscopy tomorrow afternoon with Dr. Mercado. He will undergo his bowel prep later today and tomorrow morning.
[2018-01-17] MEDS: INSULIN GLARGINE SOLOSTAR 100 UNITS/ML 3 ML PEN SQ SCH (20:54)
[2018-01-18] MEDS: LAVAGE SOLUTION 4000ML PO SCH (05:19)
[2018-01-18] MEDS: LEVOTHYROXINE 50 MCG TAB PO SCH (05:20)
[2018-01-18 07:12] VITALS: BP 101/52; PULSE 61; TEMP 35.7; O2SAT 96
[2018-01-18] MEDS: MECLIZINE HCL 12.5 MG TAB PO SCH ×2 (07:51→22:08)
[2018-01-18] MEDS: CARVEDILOL 25 MG TAB PO SCH ×2 (07:52→21:00)
[2018-01-18] MEDS: ROSUVASTATIN CALCIUM 20 MG TAB PO SCH (07:52)
[2018-01-18] MEDS: CYANOCOBALAMIN 500 MCG TAB (VIT B-12) PO SCH ×2 (07:52→22:09)
[2018-01-18] MEDS: MAGNESIUM OXIDE 400 MG TAB PO SCH ×2 (07:52→22:08)
[2018-01-18] MEDS: POTASSIUM CHLORIDE 10 MEQ TABCR PO SCH (07:52)
[2018-01-18] MEDS: CHOLECALCIFEROL 1000 INTER.UNIT TAB PO SCH (07:52)
[2018-01-18] MEDS: LACTOBACILLUS ACIDOPHILUS (FLORANEX) TAB PO SCH (07:53)
[2018-01-18] MEDS: FERROUS SULFATE 325 MG TAB PO SCH ×2 (07:53→22:08)
[2018-01-18] MEDS: ISOSORBIDE MONONITRATE 30 MG TABCR PO SCH (07:53)
[2018-01-18] MEDS: ASCORBIC ACID 500 MG TAB PO SCH ×2 (07:53→22:08)
[2018-01-18] MEDS: INSULIN GLARGINE SOLOSTAR 100 UNITS/ML 3 ML PEN SQ SCH ×2 (08:26→22:15)
[2018-01-18 08:42] LABS: HEMATOCRIT 31.1 % (42-52); HEMOGLOBIN 9.6 g/dL (14.0-18.0)
[2018-01-18] MEDS ORDERED: LIDOCAINE HCL 2% 2 ML VIAL (20MG/ML) ONE (11:52)
[2018-01-18] MEDS ORDERED: PROPOFOL IV EMULSION 10 MG/ML 20 ML VIAL IV ONE (11:53)
[2018-01-18] MEDS ORDERED: MIDAZOLAM HCL 1 MG/ML 2ML VIAL ONE (12:08)
[2018-01-18] MEDS ORDERED: ONDANSETRON INJ 2 MG/ML 2 ML VIAL ONE (12:08)
--- NOTE | 2018-01-18 12:19 | History & Physical Bridge Note ---
H&P Re-Evaluation Bridge Note: I have examined the patient, reviewed the History & Physical and in the interval since the performance of the History & Physical I have noted the following changes of clinical significance: No changes noted
[2018-01-18] MEDS ORDERED: ETOMIDATE 2 MG/ML 20 ML VIAL IV ONE (13:13)
[2018-01-18] MEDS ORDERED: EpHEDrine SULFATE 50MG/5ML SYR ONE (13:13)
--- NOTE | 2018-01-18 13:30 | Anesthesiology Progress Note ---
Anesthesia Post Op Note Date & Time Jan 18, 2018 at 13:30 Vital Signs Pain Intensity: 0.0 Vital Signs Past 12 Hours Date Time Temp Pulse Resp B/P (MAP) Pulse Ox O2 Delivery O2 Flow Rate FiO2 01/18/18 13:21 61 20 97/56 (70) 97 Nasal Cannula 3 01/18/18 11:42 36.5 60 18 121/77 (92) 97 Nasal Cannula 3 01/18/18 08:00 Nasal Cannula 2.0 01/18/18 07:12 35.7 61 20 101/52 (68) 96 Room Air Notes Mental Status: alert / awake / arousable, participated in evaluation Pt Amnestic to Procedure: Yes Nausea / Vomiting: adequately controlled Pain: adequately controlled Airway Patency, RR, SpO2: stable & adequate BP & HR: stable & adequate Hydration State: stable & adequate Anesthetic Complications: no major complications apparent
--- NOTE | 2018-01-18 14:31 | GASTROENTEROLOGY PROGRESS NOTE ---
DATE: 01/18/2018 GASTROINTESTINAL UPDATE PROGRESS NOTE The patient underwent colonoscopy today. There were scattered areas of dark material in the colon that could reflect either oral iron or residual degraded blood. There was no fresh blood or degraded heme noted and there are no sources of bleeding sites other than diverticulosis, mostly in the sigmoid region. Specific lower GI bleeding source is not identified. The patient had an upper endoscopy earlier this week, which was to the third portion of the duodenum. Options to further investigate would be an outpatient small bowel wireless capsule endoscopy to assess the area distal to upper endoscopy and above colonoscopy. In addition, it may be worthwhile if the patient is agreeable either now or as an outpatient to consider a push enteroscopy aimed at going into the jejunum as far as possible to look for sources of bleeding. It may be reasonable to first start with capsule and this can be arranged through our office as an outpatient. We will follow with you. His hemoglobin today is 9.6 and he has received a total of 1 unit of packed red blood cells since admission and administered on January 14. All questions answered for the patient. He can advance his diet as tolerated. KELTON
--- NOTE | 2018-01-18 16:13 | Progress Note ---
Subjective Date of Service: Jan 18, 2018. Subjective Pt evaluation today including: conversation w/ patient, physical exam, lab review, review of inpatient medication list Pain: no pain PO Intake: NPO for colonoscopy Voiding: no voiding problems patient resting comfortably, underwent prep last night, was rough but he did it reviewed labs, Hb is 9.6 for colonoscopy later today brought up going to assisted living, he says he is considering a place in [place] he is not convinced he needs it though because his garage has everything he needs I strongly encouraged him to consider assisted living for his safety and well being Problem List Medical Problems: (1) Anxiety Status: Acute (2) Chest pain, exertional Status: Acute (3) Congestive heart failure, acute Status: Acute (4) Dyspnea on exertion Status: Acute (5) Elevated liver function tests Status: Acute (6) Epigastric pain Status: Acute (7) GI bleed Status: Acute (8) GI bleeding Status: Acute (9) Jaundice Status: Acute (10) Pulmonary edema Status: Acute (11) Reaction to insect bite Status: Acute (12) Symptomatic anemia Status: Acute Review of Systems Constitutional: + weakness, + fatigue Abdomen: + diarrhea All Other Systems: Reviewed and Negative Medications Current Inpatient Medications Medications (Trade) Dose Ordered Sig/Nicki Route Start Time Stop Time Status Last Admin Dose Admin Ascorbic Acid (Vitamin C Tab) 500 mg BID PO 01/13/18 21:00 02/12/18 20:59 01/18/18 07:53 500 MG Carvedilol (Coreg Tab) 25 mg BID PO 01/13/18 21:00 02/12/18 20:59 01/18/18 07:52 25 MG Cholecalciferol (Vitamin D Tab) 1,000 inter.unit DAILY PO 01/14/18 09:00 02/13/18 08:59 01/18/18 07:52 1,000 INTER.UNIT Cyanocobalamin (Vitamin B-12 Tab) 1,000 mcg BID PO 01/13/18 21:00 02/12/18 20:59 01/18/18 07:52 1,000 MCG Ferrous Sulfate (Feosol Tab) 325 mg BID PO 01/13/18 21:00 02/12/18 20:59 01/18/18 07:53 325 MG Isosorbide Mononitrate (Imdur Ext Rel Tab) 30 mg QAM PO 01/14/18 09:00 02/13/18 08:59 01/18/18 07:53 30 MG Lactobacillus Acidophilus (Floranex Tab) 1 tab DAILY PO 01/14/18 09:00 02/13/18 08:59 01/18/18 07:53 1 TAB Levothyroxine Sodium (Synthroid Tab) 50 mcg DAILYBB PO 01/14/18 06:00 02/13/18 05:59 01/18/18 05:20 50 MCG Magnesium Oxide (Mag-Ox Tab) 400 mg BID PO 01/13/18 21:00 02/12/18 20:59 01/18/18 07:52 400 MG Meclizine HCl (Antivert Tab) 25 mg BID PO 01/13/18 21:00 02/12/18 20:59 01/18/18 07:51 25 MG Nitroglycerin (Nitrostat Tab) 0.4 mg PRN PRN UT 01/13/18 13:30 02/12/18 13:29 Potassium Chloride (Klor-Con M10) 10 meq DAILY PO 01/14/18 09:00 02/13/18 08:59 01/18/18 07:52 10 MEQ Rosuvastatin Calcium (Crestor Tab) 40 mg DAILY PO 01/14/18 09:00 02/13/18 08:59 01/18/18 07:52 40 MG Glucose (Glucose 40% Gel) 15-30 GRAMS 15 GRAMS... UD PRN PO 01/13/18 15:00 02/12/18 14:59 Glucose (Glucose Chew Tab) 4-8 Tablets 4 Tabl... UD PRN PO 01/13/18 15:00 02/12/18 14:59 Dextrose (Dextrose 50% 50ML Syringe) 25-50ML OF 50% DW IV FOR... UD PRN IV 01/13/18 15:00 02/12/18 14:59 Glucagon (Glucagon Inj) 1 mg UD PRN SQ 01/13/18 15:00 02/12/18 14:59 Insulin Glargine (Lantus Solostar Pen) 5 units BID SQ 01/17/18 21:00 02/12/18 20:59 01/18/18 08:26 5 UNITS Objective Vital Signs Date Time Temp Pulse Resp B/P (MAP) Pulse Ox O2 Delivery O2 Flow Rate FiO2 01/18/18 13:49 61 20 107/63 (78) 100 Nasal Cannula 3 01/18/18 13:33 60 20 111/68 (82) 97 Nasal Cannula 3 01/18/18 13:21 61 20 97/56 (70) 97 Nasal Cannula 3 01/18/18 11:42 36.5 60 18 121/77 (92) 97 Nasal Cannula 3 01/18/18 08:00 Nasal Cannula 2.0 01/18/18 07:12 35.7 61 20 101/52 (68) 96 Room Air 01/18/18 00:01 Nasal Cannula 2.0 01/17/18 23:50 36.7 61 20 120/60 (80) 97 Nasal Cannula 2.0 01/17/18 20:44 62 132/71 (91) 98 Nasal Cannula 2.0 Physical Exam General Appearance: WD/WN, no apparent distress Eyes: normal inspection, EOMI, sclerae normal ENT: normal ENT inspection, hearing grossly normal, pharynx normal Neck: supple, no adenopathy, no JVD, trachea midline Respiratory/Chest: chest non-tender, lungs clear, normal breath sounds, no respiratory distress, no accessory muscle use Cardiovascular: regular rate, rhythm, no edema, no gallop, no JVD, no murmur Abdomen: normal bowel sounds, non tender, soft, no organomegaly Extremities: normal range of motion, non-tender, normal inspection, no pedal edema, no calf tenderness, pelvis stable Neurologic/Psychiatric: manager medicaid II-XII nml as tested, alert, normal mood/affect, oriented x 3, + motor weakness Skin: normal color, warm/dry, no rash Lymphatic: no adenopathy Laboratory Results Last 24 Hours Test 01/17/18 16:18 01/17/18 20:22 01/18/18 08:32 Bedside Glucose 155 mg/dl 163 mg/dl Hemoglobin 9.6 g/dL Hematocrit 31.1 % Assessment and Plan 82 year old male with a PMH of CHF, DM, HLD, HTN, dual chamber pacemaker, complete heart block,Hypothyroidism presents with intermittent shortness of breath and chest discomfort was found to have worsening pulmonary edema on CXR and was given 20mg of lasix IV in the ED - Mild acute on chronic systolic heart failure, resolved now after Lasix on admission continues to be euvolemic, follow I/O's and weights cardiology following breathing comfortably still on 2L but 96%, try to wean off of oxygen check two step tomorrow - Dyspnea: likely combination of mild heart failure but more likely the anemia symptoms improved with transfusion hb is 9.6 - Acute blood loss anemia Hb stable at 9.6 today holding Xarelto until colonoscopy done today EGD on 01/16 was normal - Dementia with paranoia 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 HR controlled, paced resume Xarelto tomorrow if colonoscopy normal DMT2 - HbA1c was 6.7 - continue lantus 12 units qhs - ISS - hold metformin, monitor for hypoglycemia, no episodes HTN - continue to hold kandice inh. continue bb imdur BP is low normal and stable BPV - continue meclizine Hypothyroidism - continue levothyroxine DVT prophylaxis - no chemical coag due to low hgb - SCD's colonoscopy today Continued [facility] stay due to: other (anemia) Discharge planning: uncertain
[2018-01-18 17:43] VITALS: BP 118/63; PULSE 61; TEMP 36.3; O2SAT 96
[2018-01-19] VITALS: BP 124/72; PULSE 61; TEMP 36.4; O2SAT 97
[2018-01-19] MEDS: LEVOTHYROXINE 50 MCG TAB PO SCH (05:55)
[2018-01-19 08:06] VITALS: BP 146/76; PULSE 60; TEMP 36.5; O2SAT 98
[2018-01-19] MEDS: LACTOBACILLUS ACIDOPHILUS (FLORANEX) TAB PO SCH (08:46)
[2018-01-19] MEDS: MECLIZINE HCL 12.5 MG TAB PO SCH (08:46)
[2018-01-19] MEDS: MAGNESIUM OXIDE 400 MG TAB PO SCH (08:46)
[2018-01-19] MEDS: POTASSIUM CHLORIDE 10 MEQ TABCR PO SCH (08:47)
[2018-01-19] MEDS: CHOLECALCIFEROL 1000 INTER.UNIT TAB PO SCH ×2 (08:47→09:18)
[2018-01-19] MEDS: ISOSORBIDE MONONITRATE 30 MG TABCR PO SCH (08:47)
[2018-01-19] MEDS: FERROUS SULFATE 325 MG TAB PO SCH (08:48)
[2018-01-19] MEDS: CARVEDILOL 25 MG TAB PO SCH (08:48)
[2018-01-19] MEDS: CYANOCOBALAMIN 500 MCG TAB (VIT B-12) PO SCH (08:48)
[2018-01-19] MEDS: INSULIN GLARGINE SOLOSTAR 100 UNITS/ML 3 ML PEN SQ SCH (08:53)
[2018-01-19] MEDS: ROSUVASTATIN CALCIUM 20 MG TAB PO SCH (09:18)
[2018-01-19] MEDS: ASCORBIC ACID 500 MG TAB PO SCH (09:19)
[2018-01-19] MEDS ORDERED: FURO-85 PO (13:21)
--- NOTE | 2018-01-19 13:30 | Discharge Instructions ---
Discharge Instructions Date of Service Jan 19, 2018. Admission Reason for Admission: Anemia, Gi Bleed Discharge Discharge Diagnosis / Problem: Acute anemia, GI bleed, dementia with paranoia Discharge Goals Goal(s): Improve function, Diagnostic testing Activity Recommendations Activity Limitations: per Instructions/Follow-up section Lifting Limitations: none Exercise/Sports Limitations: as tolerated May Resume Sexual Activity: when tolerated Shower/Bathe: no limitations Driving or Machine Use: no driving, psychiatry has recommended removing drivers license . Instructions / Follow-Up Instructions / Follow-Up Medications: - LASIX: dose increased from 10mg daily to 20mg daily, prescription sent to pharmacy GI bleed: no clear source identified, EGD was normal, colonoscopy was essentially normal gastroenterology is recommending a capsule endoscopy as outpatient this can be set up at a later time, please call their office to make arrangement, your hemoglobin is 9.6 today, has been trending up for several days Atrial fibrillation: rates controlled, resume Xarelto for stroke prevention Acute heart failure: resolved, please continue Lasix at 20mg daily Dementia: psychiatry has recommended no driving please follow up with Dr. Shaw at [facility] on 02/02 at 1:40, geriatric psychiatry please consider moving to assisted living at [facility], it is the recommendation of physical therapy, occupational therapy, psychiatry and the medicine team FOLLOW UP - Dr. Mcmahon, please call for appointment in one week - Dr. Shaw as outlined above - [facility] GI (Dr. Petty, Dr. Mercado, Dr. Buchanan) should be seen after you have the capsule endoscopy Current Hospital Diet Patient's current hospital diet: Diabetes Type 2 Diet, AHA Diet (Heart Healthy) Discharge Diet Recommended Diet: AHA Diet (Heart Healthy), Diabetes Type 2 Diet Procedures Procedures Performed: Colonoscopy Dr Mercado EGD Dr. Petty Pending Studies Studies pending at discharge: no Laboratory Results Hemoglobin A1c Test 10/27/17 08:43 Range/Units Estimated Average Glucose 146 mg/dl Hemoglobin A1c 6.7 H 4.5-5.6 % Lipid Panel Test 10/27/17 08:43 Range/Units Triglycerides Level 66 0-150 mg/dl Cholesterol Level 85 0-200 mg/dl HDL Cholesterol 30 mg/dl Cholesterol/HDL Ratio 2.8 LDL Cholesterol, Calculated 42 mg/dl Medical Emergencies . Who to Call and When: Medical Emergencies: If at any time you feel your situation is an emergency, please call 911 immediately. . Non-Emergent Contact Non-Emergency issues call your: Primary Care Provider, Jig Grinder Call Non-Emergent contact if: you have any medication questions . . "Provider Documentation" section prepared by Karan Estrada. . [place] Drug Monitoring Program Search Results: no issues identified
[2018-01-19 14:19] VITALS: BP 146/76; PULSE 60; TEMP 36.5; O2SAT 98
--- NOTE | 2018-01-20 15:21 | Discharge Summary ---
Discharge Summary Date of Service Jan 19, 2018. Discharge Summary Admission Date: Jan 13, 2018 at 12:56 Discharge Date: Jan 19, 2018 Discharge Disposition: Home with services Principal Diagnosis: Acute blood loss anemia Problems/Secondary Diagnoses: Acute on chronic systolic heart failure GI bleed, recurrent Dementia with behavioral disturbance, delusions and paranoia Chronic hypoxic respiratory failure Chronic atrial fibrillation DM type II Immunizations: Have You Had Influenza Vaccine: Yes Influenza Vaccine Date: Jul 19, 2009 History of Tetanus Vaccine?: Yes Tetanus Immunization Date: Jul 07, 2009 History of Pneumococcal: Yes Pneumococcal Date: Jul 07, 2009 History of Hepatitis B Vaccine: No Procedures: EGD - normal Colonoscopy - trace evidence of old blood, no active bleeding Consultations: Psychiatry Gastroenterology Medication Reconciliation Changed Medications: Furosemide (Lasix) 20 Mg Tab 20 MG PO DAILY, #30 TABS 3 Refills (Changed from: 10 MG; Refills: ) Continued Medications: Acetaminophen Tab (Tylenol) 325 Mg Tab 1-2 TAB PO Q4 PRN for Pain or Fever Ascorbic Acid (Vitamin C) 500 Mg Tab 500 MG PO BID Carvedilol (Coreg) 25 Mg Tab 25 MG PO BID Cholecalciferol (Vitamin D3) 1,000 Unit Tab 1000 INTER.UNIT PO DAILY Cyanocobalamin (Vitamin B-12) 1,000 Mcg Tab 1000 MCG PO BID Ferrous Sulfate (Ferrous Sulfate) 325 Mg Tab 325 MG PO BID Insulin Glargine (Basaglar Kwikpen) 100 Unit/Ml Inj 12 UNITS SQ HS Isosorbide Mononitrate Ext Rel (Imdur Ext Rel) 30 Mg Ertab 30 MG PO QAM Lactobacillus (Acidophilus) 1 Tab Tab 1 TAB PO DAILY Levothyroxine Sodium (Levothyroxine Sodium) 50 Mcg Tab 50 MCG PO DAILY Magnesium Oxide (Mag-Ox) 400 Mg Tab 400 MG PO BID Meclizine Hcl (Meclizine Hcl) 25 Mg Tab 1 TAB PO BID, TAB Metformin Hcl (Glucophage) 500 Mg Tab 500 MG PO BIDM, TAB TAKE WITH AM AND EVENING MEALS Nitroglycerin (Nitrostat) 0.4 Mg Sub 0.4 MG UT PRN PRN for Chest Pain Potassium Chloride (Micro-K Ext Rel) 10 Meq Cap 10 MEQ PO DAILY, CAP Rivaroxaban (Xarelto) 10 Mg Tab 10 MG PO DAILY Rosuvastatin Calcium (Crestor) 40 Mg Tab 40 MG PO DAILY Discontinued Medications: Lisinopril (Prinivil) 20 Mg Tab 20 MG PO DAILY, TAB ON HOLD UNTIL 01-18-18 Discharge Exam Patient feeling well, eating well, no dyspnea. No chest pain. No melena. Labs reviewed, stable, Hb trending upward. Called son Cong and discussed plan, will follow up with psychiatry, patient actually considering personal senior living. Answered son's questions Review of Systems: Constitutional: No fever, No chills, No sweats, No weight loss, No weakness , No fatigue, No problem reported Eyes: No worsening of vision, No eye pain, No redness, No discharge, No diplopia, No problem reported ENT: No hearing loss, No unusual epistaxis, No nasal symptoms, No sore throat, No tinnitus, No dental problems, No trouble swallowing, No problem reported Respiratory: + dyspnea on exertion, No cough, No sputum, No wheezing, No shortness of breath, No dyspnea at rest, No hemoptysis, No problem reported Cardiovascular: No chest pain, No orthopnea, No PND, No edema, No claudication, No palpitations, No problem reported Abdomen: No pain, No nausea, No vomiting, No diarrhea, No constipation, No GI bleeding, No problem reported Musculoskeletal: No joint pain, No muscle pain, No swelling, No calf pain, No problem reported Genitourinary - Male: No hematuria, No dysuria, No urinary frequency, No urinary urgency Neurologic: No memory loss, No paralysis, No weakness, No numbness/tingling , No vertigo, No balance problems, No problem reported Psychiatric: No depression symptoms, No anhedonism, No anxiety, No insomnia , No substance abuse, No problem reported Endocrine: No fatigue, No excessive thirst, No excessive urination, No problem reported Hematologic / Lymphatic: No abnormal bleeding/bruising, No clotting problems , No swollen lymph nodes, No night sweats, No problem reported Integumentary: No rash, No itch, No new/changing skin lesions, No color change, No bleeding, No problem reported Physical Exam: General Appearance: WD/WN, no apparent distress Eyes: normal inspection, EOMI, sclerae normal ENT: normal ENT inspection, hearing grossly normal, pharynx normal Neck: supple, no adenopathy, no JVD, trachea midline Respiratory/Chest: chest non-tender, lungs clear, normal breath sounds, no respiratory distress, no accessory muscle use Cardiovascular: no edema, no gallop, no JVD, no murmur, normal peripheral pulses, + irregularly irregular Abdomen / GI: normal bowel sounds, non tender, soft, no organomegaly Extremities: normal inspection, no calf tenderness, normal capillary refill , no pedal edema, normal range of motion, non-tender, pelvis stable Neurologic/Psychiatric: wan support specialist II-XII nml as tested, no motor/sensory deficits , alert, normal mood/affect, normal reflexes, oriented x 3 Skin: normal color, warm/dry, no rash Hospital Course 82 year old male with a PMH of CHF, DM, HLD, HTN, dual chamber pacemaker, complete heart block,Hypothyroidism presents with intermittent shortness of breath and chest discomfort was found to have worsening pulmonary edema on CXR and was given 20mg of lasix IV in the ED - Mild acute on chronic systolic heart failure, resolved now after Lasix on admission continues to be euvolemic, follow I/O's and weights cardiology following breathing comfortably still on 2L but 96%, wears oxygen at home will continue Lasix 20mg daily at home - Dyspnea: likely combination of mild heart failure but more likely the anemia symptoms improved with transfusion hb is 9.6 on discharge - Acute blood loss anemia Hb stable at 9.6 Colonoscopy on 01/18 was normal EGD on 01/16 was normal gastroenterology recommends capsule endoscopy after discharge discussed with patient and his son - Dementia with paranoia psychiatry recommends removing [employer] driver's license, guns secured in home patient resistant to try any low dose antipsychotics mood is stable, no delusional thoughts elicited he is considering assisted living but not convinced he needs it I encouraged him to go for his safety and well being will discuss with patient's son, trying to get patient to go to [facility] will follow up with Dr. Shaw at [facility] a. fib HR controlled, paced resume Xarelto on discharge since there are no signs of active bleeding DMT2 - HbA1c was 6.7 - continue lantus 12 units qhs - ISS - resume metformin on discharge HTN - continue to hold lisinopril on discharge since BP stable on Coreg and Imdur BPV - continue meclizine Hypothyroidism - continue levothyroxine DVT prophylaxis - no chemical coag due to low hgb - SCD's Total Time Spent: Greater than 30 minutes This includes examination of the patient, discharge planning, medication reconciliation, and communication with other providers. Discharge Instructions Please refer to the electronic Patient Visit Report (Discharge Instructions) for additional information. Follow-Up Dr. Shaw on 02/02 Dr. Mcmahon in one week [facility] gastroenterology after capsule endoscopy Additional Copies To Bonifacio Petty M.D.; Ramirez Mcmahon M.D.; Sharath Shaw M.D.
--- NOTE | 2018-01-23 14:08 | GI REPORT ---
Procedure Date: 01/18/2018 12:38 PM Procedure: Colonoscopy Indications: Melena, Gastrointestinal bleeding Medicines: Propofol per Anesthesia Complications: No immediate complications. Estimated blood loss: None. Estimated Blood Loss: Estimated blood loss: none. Procedure: Pre-Anesthesia Assessment: - Prior to the procedure, a History and Physical was performed, and patient medications and allergies were reviewed. The patient's tolerance of previous anesthesia was also reviewed. The risks and benefits of the procedure and the sedation options and risks were discussed with the patient. All questions were answered, and informed consent was obtained. Prior Anticoagulants: The patient has taken no previous anticoagulant or antiplatelet agents. ASA Grade Assessment: III - A patient with severe systemic disease. After reviewing the risks and benefits, the patient was deemed in satisfactory condition to undergo the procedure. After I obtained informed consent, the scope was passed under direct vision. Throughout the procedure, the patient's blood pressure, pulse, and oxygen saturations were monitored continuously. The scope was introduced through the anus and advanced to the cecum, identified by appendiceal orifice and ileocecal valve. The colonoscopy was performed without difficulty. The patient tolerated the procedure well. The quality of the bowel preparation was fair. Findings: The perianal and digital rectal examinations were normal. Pertinent negatives include normal sphincter tone, no palpable rectal lesions and no anal lesion or abnormality was detected. Many small-mouthed diverticula were found in the sigmoid colon. The exam was otherwise without abnormality. The retroflexed view of the distal rectum and anal verge was normal and showed no anal or rectal abnormalities. No specific source of bleeding noted. dark stool /fragments noted (old blood) without clots or fresh hematin. TI keyhole view was normal but could not be intubated. Impression: - Preparation of the colon was fair. - Diverticulosis in the sigmoid colon. - The examination was otherwise normal. - The distal rectum and anal verge are normal on retroflexion view. - No specimens collected. Recommendation: - [facility]. - Resume regular diet. - Continue present medications. - May need to consider outpatient SB wireless capsule to assess for small bowel bleeding site. Repeat upper exam with push enteroscopy may also be an option if patient agreeable. MD Alexis Rodriguez MD 01/23/2018 2:07:50 PM This report has been signed electronically. Note Initiated On: 01/18/2018 12:38 PM I attest to the content of the Intraoperative Record and orders documented therein, exceptions below
== END 2018-01-19 15:30 | disposition home health service (06) | DRG 292 ==
LOC: C.EDB 10:08 → C.2T 12:56 → ENRESERV 13:22 → UNDODISIN 01-15 17:25 → ENRESERV 01-17 11:08 → C.MS2W 01-17 11:35
PROVIDERS: ADMIT Internal Medicine Sports Medicine; ATTEND Internal Medicine
PROC: 0DJD8ZZ Inspection of Lower Intestinal Tract, Via Natural or Artificial Opening Endoscopic (ICD-10-PCS; principal; 2018-01-18 11:39)
DX: I50.23 Acute on chronic systolic (congestive) heart failure (principal); K92.2 Gastrointestinal hemorrhage, unspecified; D62 Acute posthemorrhagic anemia; I44.2 Atrioventricular block, complete; F03.91 Unspecified dementia, unspecified severity, with behavioral disturbance; J96.11 Chronic respiratory failure with hypoxia; I48.2 Chronic atrial fibrillation; I25.10 Atherosclerotic heart disease of native coronary artery without angina pectoris; E11.9 Type 2 diabetes mellitus without complications; E78.5 Hyperlipidemia, unspecified; I10 Essential (primary) hypertension; F41.9 Anxiety disorder, unspecified; I48.91 Unspecified atrial fibrillation; E03.9 Hypothyroidism, unspecified; I25.2 Old myocardial infarction; Z87.440 Personal history of urinary (tract) infections; Z95.0 Presence of cardiac pacemaker; Z88.8 Allergy status to other drugs, medicaments and biological substances; Z95.1 Presence of aortocoronary bypass graft; Z79.4 Long term (current) use of insulin; Z87.891 Personal history of nicotine dependence; Z83.3 Family history of diabetes mellitus; Z82.49 Family history of ischemic heart disease and other diseases of the circulatory system

== ENCOUNTER → 2018-02-02 | Outpatient (CLI) | payer OTHER ==
[~2018-02-02] MED LIST changes: -LISI40TA PO
[2018-02-02 18:25] LABS: BLOOD UREA NITROGEN 20 mg/dl (7-18); CALCIUM 8.6 mg/dl (8.5-10.1); CARBON DIOXIDE 28 mmol/L (21-32); CREATININE 1.12 mg/dl (0.60-1.40); GLUCOSE 93 mg/dl (70-99); POTASSIUM 4.1 mmol/L (3.5-5.1); SODIUM 136 mmol/L (136-145)
[2018-02-02 19:51] LABS: HEMATOCRIT 32.7 % (42-52); HEMOGLOBIN 9.9 g/dL (14.0-18.0); MEAN CELL VOLUME 90.3 fL (80-100); MEAN CORPUSCULAR HEMOGLOBIN 27.3 pg (25-34); MEAN CORPUSCULAR HGB CONC 30.3 g/dl (32-36); MEAN PLATELET VOLUME 9.6 fL (7.4-10.4); PLATELET COUNT 252 K/uL (130-400); RED CELL DISTRIBUTION WIDTH CV 15.6 % (11.5-14.5); RED CELL DISTRIBUTION WIDTH SD 51.6 fL (36.4-46.3); WHITE BLOOD COUNT 4.09 K/uL (4.8-10.8)
== END | disposition home or self-care (01) ==
LOC: C.LABMFLN 12:31
PROVIDERS: ATTEND Internal Medicine
DX: D64.9 Anemia, unspecified (principal)

== ENCOUNTER → 2018-02-15 | Outpatient (CLI) | payer OTHER ==
[2018-02-15 17:51] LABS: HEMOGLOBIN 8.7 g/dL (14.0-18.0); MEAN CELL VOLUME 90.9 fL (80-100); MEAN CORPUSCULAR HEMOGLOBIN 27.3 pg (25-34); PLATELET COUNT 209 K/uL (130-400); RED CELL DISTRIBUTION WIDTH CV 17.4 % (11.5-14.5); RED CELL DISTRIBUTION WIDTH SD 56.8 fL (36.4-46.3); WHITE BLOOD COUNT 4.95 K/uL (4.8-10.8)
== END | disposition home or self-care (01) ==
LOC: C.LABMFLN 13:40
PROVIDERS: ATTEND Internal Medicine
DX: D64.9 Anemia, unspecified (principal)

== ENCOUNTER → 2018-02-19 | Outpatient (CLI) | payer OTHER ==
[2018-02-19 11:34] LABS: EOS % 1.8 %; EOS ABS # 0.09 K/uL (0-0.5); HEMATOCRIT 29.2 % (42-52); HEMOGLOBIN 9.1 g/dL (14.0-18.0); LYMPH % 10.6 %; LYMPH ABS # 0.53 K/uL (1.2-3.4); MEAN CELL VOLUME 87.4 fL (80-100); MEAN CORPUSCULAR HEMOGLOBIN 27.2 pg (25-34); MEAN PLATELET VOLUME 9.4 fL (7.4-10.4); MONO % 11.2 %; MONO ABS # 0.56 K/uL (0.11-0.59); NEUT % 76.4 %; NEUT ABS # 3.84 K/uL (1.4-6.5); PLATELET COUNT 185 K/uL (130-400); RED CELL DISTRIBUTION WIDTH CV 16.8 % (11.5-14.5); RED CELL DISTRIBUTION WIDTH SD 54.1 fL (36.4-46.3); WHITE BLOOD COUNT 5.02 K/uL (4.8-10.8)
[2018-02-19 11:43] LABS: MEAN CORPUSCULAR HGB CONC 31.2 g/dl (32-36)
== END | disposition home or self-care (01) ==
LOC: C.LAB1850 11:03
PROVIDERS: ATTEND Physician Assistant
DX: D64.9 Anemia, unspecified (principal)